=== PATIENT | male | born 1950 | race Caucasian/White ===

== ENCOUNTER 2017-06-26 14:31 | Inpatient (IN) | payer MEDICARE ==
[2017-06-26] MEDS ORDERED: Morphine 4 MG/ML VIAL ONE (15:28)
[2017-06-26] MEDS ORDERED: Ondansetron HCl/PF 4 MG/2 ML Vial ONE (15:29)
[2017-06-26 15:35] LABS: Hemoglobin 11.1 g/dL (14.0-18.0); Mean Corpuscular HGB CONC 32.2 g/dL (32.0-36.0); Mean Corpuscular Hemoglobin 30.9 pg (27.0-31.0); Mean Platelet Volume 7.5 fL (7.4-10.4); Platelet Count 310 thou/uL (130-400); Red Blood Cell (RBC) Count 3.58 mill/uL (4.70-6.10)
[2017-06-26 15:47] LABS: Anisocytosis SLIGHT = 6-15 cells (100X) (0-5/hpf); Band 8 % (5-11); Lymphocytes 1 % (21-51); MDiff Complete? YES; Monocytes 8 % (0-10); Neutrophil 83 % (42-75); PLT Morphology Comment Appears Adequate; Polychromasia SLIGHT = 2-3 cells (100X) (0-2/hpf); Target Cells SLIGHT = 2-5 cells (100X) (0-1/hpf); Tear Drops SLIGHT = 2-5 cells (100X) (0-1/hpf)
--- NOTE | 2017-06-26 15:54 | RAD ---
PELVIC RADIOGRAPH: Date: 06/26/17 PROVIDED CLINICAL HISTORY: Right hip pain status post injury. FINDINGS: There is a mildly displaced intertrochanteric fracture of the right proximal femur. No additional fra cture is evident. Right hip joint space appears preserved. Alignment appears anatomic. IMPRESSION: Mildly displaced fracture involving the right proximal femoral intertrochanteric region. POS: [facility]
[2017-06-26 15:55] LABS: ALT (SGPT) 26 U/L (8-55); AST (SGOT) 41 U/L (5-34); Albumin 2.4 g/dL (3.4-4.8); Alcohol 12 mg/dL (Less than 10); Alkaline Phosphatase 363 U/L (40-150); Anion Gap 17 mmol/L (10-20); BUN (Urea Nitrogen) Less than 4 mg/dL (8.4-25.7); Bilirubin, Total 0.6 mg/dL (0.2-1.2); CK (CPK) 219 U/L (30-200); Calc. Creatinine Clearance 0 mL/min (70-130); Calcium 7.8 mg/dL (7.8-10.44); Carbon Dioxide 20 mmol/L (23-31); Chloride 97 mmol/L (98-107); Estimated GFR-MDRD Greater than 90; Globulin 2.8 g/dL (2.4-3.5); Glucose 164 mg/dL (80-115); Potassium 4.5 mmol/L (3.5-5.1); Protein, Total 5.2 g/dL (5.8-8.1); Sodium 129 mmol/L (136-145)
--- NOTE | 2017-06-26 15:56 | RAD ---
RIGHT HIP 2 VIEWS: Date: 06/26/17 PROVIDED CLINICAL HISTORY: Right hip pain status post injury. FINDINGS: There is a nondisplaced fracture involving the right femoral intertrochanteric region. No additional fracture is evident. IMPRESSION: As above. POS: [facility]
[2017-06-26] MEDS ORDERED: CEFAZOLIN/Water 2 GM/20 ML SYRINGE SLOW IVP SCH (16:00)
--- NOTE | 2017-06-26 16:07 | RAD ---
PORTABLE CHEST: Date: 06/26/17 PROVIDED CLINICAL HISTORY: Preop. FINDINGS: Comparison with 12/23/15. Cardiac and mediastinal silhouette is within normal limits. Lungs appear clear. No pleural fluid or p neumothorax apparent. Chronic obstructive changes are suggested. IMPRESSION: No evidence for an acute cardiopulmonary process. POS: [facility]
[2017-06-26] MEDS ORDERED: Dextrose 5% in Water 1,000 ML IV PRN (17:19)
[2017-06-26] MEDS ORDERED: Dextrose 50% Abboject 50 ML SYRINGE SLOW IVP PRN (17:19)
[2017-06-26] MEDS ORDERED: Ondansetron HCl/PF 4 MG/2 ML Vial IVP PRN (17:19)
[2017-06-26 17:51] VITALS: BMI 20.5
[2017-06-26] MEDS: Acetaminophen 500 MG TAB PO SCH ×2 (19:07→21:28)
[2017-06-26 19:11] LABS: Magnesium 1.5 mg/dL (1.6-2.6); Phosphorus 3.6 mg/dL (2.3-4.7)
[2017-06-26] MEDS: traMADol HCl 50 MG TAB PO PRN (19:50)
[2017-06-26] MEDS ORDERED: Ketorolac Tromethamine 30 MG/ML VIAL IVP PRN (20:38)
[2017-06-26] MEDS ORDERED: Diabetic Tussin 200 MG/10 ML UDCUP PO PRN (20:40)
--- NOTE | 2017-06-26 20:47 | HP ---
DATE OF ADMISSION: 06/26/2017 REQUESTING PHYSICIAN: Dr. Ford, Emergency Department. ADMITTING PHYSICIAN: Dr. Jacky Gamez. CONSULTING PHYSICIAN: Dr. David Drake. HISTORY OF PRESENT ILLNESS: Mr. Smiley is a 67-year-old male, who was in his usual state of health this morning when he reports that he fell as he was ambulating to the bathroom. He said that he tripped on a carpet and fell to the floor. He did not seek help at that time. He had increasing pain throughout the day, necessitating him to come to the ER. Workup in the ER identified a right intertrochanteric hip fracture. Trauma was consulted for admission and management. Dr. Drake, Orthopedics, has been consulted. The patient reports his pain is exacerbated by movement. His pain is relieved by nothing. PAST MEDICAL HISTORY: 1. Dementia. 2. Diabetes. 3. Hypertension. 4. Hyperlipidemia. 5. Depression. 6. Bipolar. 7. Benign prostatic hypertrophy. 8. Anxiety. 9. Asthma. 10. Chronic obstructive pulmonary disease. 11. Gastroesophageal reflux disease. 12. Hepatitis C. PAST SURGICAL HISTORY: 1. Cholecystectomy. 2. Hernia repair. 3. Upper palate resection. 4. Splenectomy. 5. TURP. SOCIAL HISTORY: Alcohol: The patient reports at least five drinks per day. Smoking 1 pack per day of cigarettes. Drugs: None. FAMILY HISTORY: Noncontributory. LABORATORY DATA: Hematology: WBC 16.0, RBC 3.58, hemoglobin 11.1, hematocrit 34.4, platelets 310. Chemistry: Sodium 129, potassium 4.5, chloride 97, carbon dioxide 20, creatinine 0.71, glucose 164, AST 41, ALT 26, alkaline genesis phosphatase 363, creatinine kinase 219, albumin 2.4. TOXICOLOGY: Plasma alcohol 12. DIAGNOSTIC IMAGING: Right ankle intertrochanteric hip fracture. REVIEW OF SYSTEM: None. ALLERGIES: None. MEDICATIONS: Lisinopril 20 mg once daily, metformin 1000 mg 2 tabs daily, Cialis 20 mg as needed, Tylenol with codeine 1 tablet 2 times daily, gabapentin 300 mg once daily, tamsulosin 0.4 mg once daily, aspirin 81 mg once daily, Benadryl 25 mg as needed, vitamin C 500 mg once daily, ranitidine 150 mg b.i.d. , Wellbutrin 300 mg once daily, Nasonex 50 mcg nasally once daily, terbutaline 5 mg as needed, calcium plus vitamin D 600 mg/200 mg once daily, Klonopin 0.05 mg once daily, and vitamin B12 at 2500 mcg once daily. REVIEW OF SYSTEMS: CONSTITUTIONAL: The patient denies chills, fever, recent weight loss. HEENT: Denies vision changes, drainage from ears or nose. NECK: Denies neck pain. RESPIRATORY: Denies cough, denies wheezing. Denies shortness of breath. Denies respiratory distress. CARDIOVASCULAR: Denies chest pain. Denies syncope, denies peripheral edema. GASTROINTESTINAL: Denies abdominal pain, denies constipation. Denies diarrhea. EXTREMITIES/MUSCULOSKELETAL: Reports fall, reports right hip pain. SKIN: Denies rashes. Denies skin changes. HEMATOLOGIC/LYMPHATIC: Denies abnormal bleeding. EKG sinus tachycardia. PHYSICAL EXAMINATION: VITAL SIGNS: Blood pressure 122/77, pulse 107, respirations 19, temperature 98.1, and O2 sat 94% room air. GENERAL: A 67-year-old male who appears frail, nontoxic appearing, no apparent distress. HEENT: Atraumatic, normocephalic. NECK: Trachea midline. No posterior neck tenderness. RESPIRATORY: Coarse bilateral breath sounds in upper lung burger. No respiratory distress. Chest symmetrical air movement. CARDIOVASCULAR: Regular rate rhythm. Heart sounds normal. ABDOMEN: Soft, nontender, nondistended. Pelvis right hip pain with palpation. EXTREMITIES: Moves all extremities. NEUROLOGIC: Cap refill brisk. Neurovascularly intact. Pain with movement of right hip. NEUROLOGIC: GCS 15 awake, alert, oriented x3. No focal motor or sensory deficits. SKIN: Warm, dry, normal in color. PSYCHIATRIC: Normal mood and affect. ASSESSMENT AND PLAN: 1. Status post ground level fall. 2. Right intertrochanteric hip fracture. 3. History of chronic alcohol use. 4. Hyponatremia. 5. Acute traumatic pain. PLAN: 1. Admit to surgical floor. 2. Dr. Drake was consulted, plan is to take patient to the OR tomorrow. 3. Regular diet, n.p.o. after midnight. 4. IV fluids normal saline started at midnight. 5. Serax and monitor for alcohol withdrawal. 6. Pulmonary toilet, incentive spirometry, DuoNebs t.i.d. The patient was reviewed with Dr. Gamez, who agrees with plan. MTDD
[2017-06-26] MEDS: risperiDONE 1 MG TAB PO SCH (21:45)
[2017-06-26] MEDS: Famotidine/PF 20 mg/2ml Vial SLOW IVP SCH (21:46)
[2017-06-26] MEDS: Oxazepam 10 MG CAP PO SCH (21:46)
[2017-06-26] MEDS: Sodium Chloride 0.9% 1,000 ML IV SCH (21:50)
[2017-06-26] MEDS: Morphine 4 MG/ML VIAL SLOW IVP PRN (22:47)
[2017-06-27] MEDS: Acetaminophen 1,000 MG in Premix Bag 1 BAG IVPB SCH ×2 (00:11→05:36)
[2017-06-27] MEDS: Sodium Chloride 0.9% 1,000 ML IV SCH ×3 (01:39→20:47)
[2017-06-27] MEDS: Oxazepam 10 MG CAP PO SCH ×3 (05:29→21:08)
[2017-06-27 05:38] LABS: Anion Gap 10 mmol/L (10-20); BUN (Urea Nitrogen) 5 mg/dL (8.4-25.7); Calc. Creatinine Clearance 99 mL/min (70-130); Calcium 7.6 mg/dL (7.8-10.44); Carbon Dioxide 26 mmol/L (23-31); Chloride 99 mmol/L (98-107); Estimated GFR-MDRD Greater than 90; Glucose 157 mg/dL (80-115); Potassium 4.1 mmol/L (3.5-5.1); Sodium 131 mmol/L (136-145)
[2017-06-27 05:47] LABS: #Eosinphils 0.1 thou/uL (0.0-0.7); #Lymphocytes 3.5 thou/uL (1.20-3.40); #Monocytes 1.9 thou/uL (0.11-0.59); #Neutrophils 8.7 thou/uL (1.40-6.50); %Basophils 0.3 % (0.0-1.0); %Lymphocytes 24.4 % (21.0-51.0); %Monocytes 13.3 % (0.0-10.0); Hemoglobin 10.6 g/dL (14.0-18.0); Mean Corpuscular HGB CONC 32.2 g/dL (32.0-36.0); Mean Corpuscular Hemoglobin 30.2 pg (27.0-31.0); Mean Corpuscular Volume 93.7 fl (80.0-94.0); Mean Platelet Volume 7.5 fL (7.4-10.4); Platelet Count 282 thou/uL (130-400); White Blood Cell (WBC) Count 14.3 thou/uL (4.8-10.8)
[2017-06-27] MEDS: Morphine 4 MG/ML VIAL SLOW IVP PRN ×2 (05:55→09:46)
[2017-06-27] MEDS ORDERED: Fentanyl 250 MCG/5 ML VIAL ONE (07:07)
--- NOTE | 2017-06-27 07:07 | CON ---
DATE OF CONSULTATION: 06/26/2017 REQUESTING PHYSICIAN: Dr. Jacky Gamez HISTORY OF PRESENT ILLNESS: Mr. Smiley is a 67-year-old gentleman who fell at home sustaining trauma to his right hip. The patient reports he just tripped over some carpet and fell. The patient does h ave an extensive history of alcohol use. He states that he did begin drinking alcohol at about noon today; however, did not have his usual and customary volume secondary to this fall. Upon arrival at [facility], he had a sole complaint of right hip pain. PAST MEDICAL HISTORY: Remarkable for diabetes, hypertension, hyperlipidemia, psychiatric illness, de mentia, benign prostatic hypertrophy, COPD, reflux, and hepatitis C. PAST SURGICAL HISTORY: Includes cholecystectomy, hernia, splenectomy and transurethral resection of prostate. MEDICATIONS: I will refer you to the medication reconciliation form that include lisinopril, metform in, Cialis, Tylenol with codeine, Neurontin, tamsulosin, aspirin, Benadryl, ranitidine, Wellbutrin, N asonex p.r.n., terbutaline, and vitamin supplements. ALLERGIES: None known. FAMILY HISTORY: Noncontributory. SOCIAL HISTORY: He does drink alcohol on a daily basis. Reports about 5 alcoholic beverages per day . He smokes about a pack of cigarettes per day. Denies recreational drug use. PHYSICAL EXAMINATION: VITAL SIGNS: Temperature of 98.3, heart rate of 115, respiratory rate of 20 and blood pressure 135/9 9. HEENT: Atraumatic and normocephalic. His neck is nontender with supple range of motion. HEART: His heart shows a tachycardia, but regular and I do not appreciate any murmur. LUNGS: Clear to auscultation bilaterally in both left and right burger with no wheezing or rhonchi. Chest wall is nontender. ABDOMEN: Abdomen is mildly round, but soft and nontender with normal bowel sounds. PELVIS: Stable. EXTREMITIES: Remarkable for bilateral upper extremities that are atraumatic. The left lower extremi ty also atraumatic. Right lower extremity with pain in the groin with any type of log rolling of the thigh. The knee, ankle and foot appear atraumatic. He is moving his toes normally and reports inta ct subjective sensation over the dorsal and plantar aspects of foot. X-RAYS: AP pelvis as well as right hip x-ray obtained in the emergency room and remarkable for an in tertrochanteric femur fracture with mild displacement. LABORATORY: He is found to have a white count of 16, hematocrit of 34 and 310,000 platelets. His ch emistry remarkable for a low sodium of 129, glucose of 164, ALT and AST of 26 and 41 respectively wit h an elevated alkaline phosphatase of 363. ASSESSMENT: A 67-year-old gentleman status post ground level fall with no loss of consciousness and now with right intertrochanteric femur fracture. PLAN: At this time, the patient is admitted to the Trauma Service. We will plan on taking Mr. Smiley to the operating room tomorrow for an anticipated DHS placement for this intertrochanteric femur fra cture. This evening I discussed with patient the risks and benefits of surgery. Risks include, but are not limited to bleeding, infection, nerve injury, DVT, PE, loss of limb or life. The patient spencer ears to understand and does wish to proceed. Consent will be obtained prior to surgery.
[2017-06-27] MEDS ORDERED: CEFAZOLIN/Water 2 GM/20 ML SYRINGE ONE (07:24)
[2017-06-27] MEDS ORDERED: Midazolam HCl 2 mg/2 ml Vial ONE (07:28)
[2017-06-27 07:47] LABS: Magnesium 1.4 mg/dL (1.6-2.6); Phosphorus 3.4 mg/dL (2.3-4.7)
[2017-06-27] MEDS ORDERED: Morphine Sulfate 2 MG/ML SYRINGE SLOW IVP PRN (08:40)
[2017-06-27] MEDS ORDERED: Promethazine HCl 25 MG/ML VIAL SLOW IVP PRN (08:40)
[2017-06-27] MEDS ORDERED: Ondansetron HCl/PF 4 MG/2 ML Vial IVP PRN (08:40)
[2017-06-27] MEDS ORDERED: Promethazine HCl 25 MG/ML VIAL IM PRN (08:40)
[2017-06-27] MEDS ORDERED: Prevnar 13-Val Conj/PF 0.5 ML SYRINGE IM ONE (09:00)
[2017-06-27] MEDS ORDERED: Enoxaparin Sodium 40 MG/0.4 ML SYRINGE SC SCH ×2 (09:34→10:00)
[2017-06-27] MEDS: Tamsulosin HCl 0.4 MG CAP PO SCH (09:45)
[2017-06-27] MEDS: Lisinopril 20 MG TAB PO SCH (09:45)
[2017-06-27] MEDS: Famotidine/PF 20 mg/2ml Vial SLOW IVP SCH (09:45)
[2017-06-27] MEDS: Multivitamin W/ Minerals 1 TAB PO SCH (09:45)
[2017-06-27] MEDS: Cyanocobalamin (Vitamin B-12) 1,000 MCG TAB PO SCH (09:45)
[2017-06-27] MEDS: Folic Acid 1 MG TAB PO SCH (09:45)
[2017-06-27] MEDS: traMADol HCl 50 MG TAB PO PRN ×2 (10:43→16:06)
[2017-06-27] MEDS: Acetaminophen 500 MG TAB PO SCH ×3 (11:43→23:21)
[2017-06-27] MEDS: Insulin Regular 300 UNITS/3 ML VIAL SC PRN ×2 (11:43→17:38)
--- NOTE | 2017-06-27 11:44 | PRG-2 ---
DATE OF SERVICE: 06/27/2017 ATTENDING PHYSICIAN: Dr. Dajuan Naqvi SUBJECTIVE: Mr. Smiley is a 67-year-old male status post ground level fall on 06/26/2017 due to ashley ing over his carpet. He sustained a right intertrochanteric hip fracture. He was taken to the OR to day for fixation of the fracture. He is now seen postoperatively on the surgical floor. The patient reports pain that is 7/10 as well as a mild headache that he has not tried any medication for at thi s time. OBJECTIVE: VITAL SIGNS: Temperature 96.9, pulse 99, blood pressure 122/79, respiratory rate 18, O2 sat 96% on r oom air. GENERAL: Awake, well-developed, well-nourished male sitting in bed in no acute distress. HEENT: Conjunctivae are clear. Dry mucous membranes. Normocephalic, atraumatic. NECK: No use of accessory muscles of respiration, breath sounds clear bilaterally. CARDIOVASCULAR: Tachycardic, regular rhythm. No murmurs. ABDOMEN: Nondistended, hypoactive bowel sounds, soft, nontender. EXTREMITIES: Surgical dressing in place over right hip is clean, dry, and intact. No dependent doris a. Capillary refill is brisk. NEUROLOGIC: GCS 15. Awake, alert, oriented x3. ASSESSMENT: 1. Status post ground level fall. 2. Right intertrochanteric hip fracture. 3. History of chronic alcohol use. 4. Hyponatremia. 5. Tobacco abuse. 6. Acute traumatic pain. PLAN: 1. Advance diet to consistent carbohydrate diet. 2. Transition pain medications to oral pain meds including tramadol, ibuprofen and acetaminophen. 3. Antibiotics per Ortho. 4. Normal saline at 120 mL per hour. We will reassess this afternoon. 5. DuoNeb and incentive spirometry. 6. Rehab screen, PT and OT consult. 7. Monitor for alcohol withdrawal. We will give thiamine and folic acid. 8. Nicoderm patch and counseling for smoking cessation. 9. Lovenox for VTE prophylaxis. The patient was reviewed with Dr. Naqvi who agrees with the plan.
--- NOTE | 2017-06-27 12:06 | RAD ---
RIGHT HIP INTRAOPERATIVE FLUOROSCOPY TWO VIEWS: HISTORY: Hip fracture. FINDINGS/IMPRESSION: Intraoperative fluoroscopy was provided for internal fixation right hip as performed by Dr. Drake. Spot fluoroscopic images show compression nail and side plate transfixing the right hip in anatomic alignment. Fluoro time equals 21 seconds. POS: [facility]
[2017-06-27] MEDS: Sodium Chloride 0.9% 500 ML IV SCH ×5 (12:45→14:08)
[2017-06-27] MEDS ORDERED: Ibuprofen 600 MG TAB PO SCH (14:00)
[2017-06-27] MEDS: CEFAZOLIN/Water 2 GM/20 ML SYRINGE SLOW IVP SCH ×2 (14:02→23:21)
[2017-06-27] MEDS: traMADol HCl 50 MG TAB PO SCH ×2 (14:04→21:08)
[2017-06-27] MEDS ORDERED: PHENYLEPHRINE-NS 100 MCG/ML 10 ML SYRINGE ONE (15:55)
[2017-06-27] MEDS ORDERED: PROPOFOL 200 MG/20 ML VIAL ONE (15:55)
[2017-06-27] MEDS ORDERED: Glycopyrrolate 0.2 MG/ML 5 ML SYRINGE ONE (15:55)
[2017-06-27] MEDS ORDERED: Succinylcholine Chloride 20 MG/ML 10 ml SYRINGE FS ONE (15:55)
[2017-06-27] MEDS ORDERED: Ondansetron HCl/PF 4 MG/2 ML Vial ONE (15:55)
[2017-06-27] MEDS ORDERED: Lidocaine 1% PF 5 ML VIAL ONE (15:55)
[2017-06-27] MEDS: Ibuprofen 600 MG TAB PO SCH (21:08)
[2017-06-27] MEDS: risperiDONE 1 MG TAB PO SCH (21:08)
[2017-06-27] MEDS: Famotidine 20 MG TAB PO SCH (21:08)
[2017-06-28] MEDS: traMADol HCl 50 MG TAB PO SCH ×4 (01:45→20:43)
[2017-06-28] MEDS: Sodium Chloride 0.9% 1,000 ML IV SCH ×3 (01:46→18:37)
[2017-06-28] MEDS: Acetaminophen 500 MG TAB PO SCH ×3 (05:31→17:46)
[2017-06-28] MEDS: Ibuprofen 600 MG TAB PO SCH ×3 (05:31→22:26)
[2017-06-28] MEDS: Oxazepam 10 MG CAP PO SCH ×3 (05:31→22:26)
[2017-06-28 08:02] LABS: #Basophils 0.1 thou/uL (0.0-0.2); #Eosinphils 0.1 thou/uL (0.0-0.7); #Lymphocytes 1.7 thou/uL (1.20-3.40); #Monocytes 1.5 thou/uL (0.11-0.59); #Neutrophils 10.6 thou/uL (1.40-6.50); %Basophils 0.4 % (0.0-1.0); %Eosinophils 0.4 % (0.0-10.0); %Neutrophils 76.2 % (42.0-75.0); Hemoglobin 9.7 g/dL (14.0-18.0); Mean Corpuscular HGB CONC 31.3 g/dL (32.0-36.0); Mean Corpuscular Hemoglobin 29.9 pg (27.0-31.0); Mean Corpuscular Volume 95.5 fl (80.0-94.0); Mean Platelet Volume 7.5 fL (7.4-10.4); Platelet Count 269 thou/uL (130-400); RBC Distribution Width 16.1 % (11.5-14.5); Red Blood Cell (RBC) Count 3.24 mill/uL (4.70-6.10); White Blood Cell (WBC) Count 13.9 thou/uL (4.8-10.8)
[2017-06-28 08:14] LABS: Anion Gap 10 mmol/L (10-20); BUN (Urea Nitrogen) 6 mg/dL (8.4-25.7); Calc. Creatinine Clearance 104 mL/min (70-130); Calcium 7.4 mg/dL (7.8-10.44); Carbon Dioxide 21 mmol/L (23-31); Chloride 102 mmol/L (98-107); Estimated GFR-MDRD Greater than 90; Glucose 148 mg/dL (80-115); Magnesium 1.8 mg/dL (1.6-2.6); Potassium 4.2 mmol/L (3.5-5.1); Sodium 129 mmol/L (136-145)
[2017-06-28] MEDS: Multivitamin W/ Minerals 1 TAB PO SCH (08:55)
[2017-06-28] MEDS: Tamsulosin HCl 0.4 MG CAP PO SCH (08:55)
[2017-06-28] MEDS: Folic Acid 1 MG TAB PO SCH (08:55)
[2017-06-28] MEDS: Cyanocobalamin (Vitamin B-12) 1,000 MCG TAB PO SCH (08:55)
[2017-06-28] MEDS: Famotidine 20 MG TAB PO SCH ×2 (08:55→20:43)
[2017-06-28] MEDS: Enoxaparin Sodium 40 MG/0.4 ML SYRINGE SC SCH (08:56)
[2017-06-28] MEDS: Lisinopril 20 MG TAB PO SCH (09:01)
[2017-06-28] MEDS: Nicotine 21 MG PATCH TD SCH (09:04)
[2017-06-28] MEDS ORDERED: Sodium Chloride 0.9% 500 ML IVPB SCH (09:45)
[2017-06-28] MEDS ORDERED: Hydrocortisone Sod Succ/PF 100 mg/2 ml Vial IVP SCH (10:30)
--- NOTE | 2017-06-28 11:18 | PRG-2 ---
DATE OF SERVICE: 06/28/2017 ATTENDING PHYSICIAN: Dr. Dajuan Naqvi SUBJECTIVE: Mr. Smiley is a 67-year-old male who had a ground level fall on 06/26/2017 due to trippin g over his carpet. The patient sustained a right intertrochanteric hip fracture. The patient is pos toperative day #1, status post fixation of the right hip fracture. He reports that his pain is 6/10 today. OBJECTIVE: VITAL SIGNS: Temperature 97.7, pulse 96, blood pressure 93/57, respiratory rate 16, O2 sat 98% on ro om air. GENERAL: Well-developed, well-nourished male sitting up in bed in no acute distress. HEENT: Moist mucous membranes. Normocephalic, atraumatic. RESPIRATORY: No use of accessory muscles of respiration, breath sounds are clear bilaterally. CARDIOVASCULAR: Regular rate and rhythm. No murmurs or gallops. ABDOMEN: Nondistended, soft, nontender. EXTREMITIES: Surgical dressing in place over the right hip is clean, dry and intact. No dependent e milan. Capillary refill is brisk in all 4 extremities. NEUROLOGIC: GCS 15. Awake, alert, oriented x3. ASSESSMENT: 1. Status post ground level fall. 2. Right intertrochanteric fracture. 3. History of chronic alcohol abuse. 4. Chronic hyponatremia. 5. Tobacco abuse. 6. Acute adrenal insufficiency. 7. Acute traumatic pain. PLAN: 1. Pain control with tramadol, ibuprofen and acetaminophen. 2. Consistent carbohydrate diet. 3. Normal saline at 120 mL per hour, status post two 500 mL normal saline boluses for hypotension. 4. Hydrocortisone 100 mg IV once, followed by 50 mg IV q.8h. for lower than expected a.m. cortisol l evel. 5. Continue incentive spirometer and DuoNebs. 6. PT, OT and rehab screen. 7. Monitor for alcohol withdrawal. We will give thiamine and folic acid. 8. Nicoderm patch and counseling for smoking cessation. 9. Lovenox for VTE prophylaxis. The patient was reviewed by Dr. Naqvi who agrees with the plan.
[2017-06-28] MEDS: Insulin Regular 300 UNITS/3 ML VIAL SC PRN ×3 (11:58→22:38)
[2017-06-28] MEDS: traMADol HCl 50 MG TAB PO PRN (12:03)
[2017-06-28] MEDS: Hydrocortisone Sod Succ/PF 100 mg/2 ml Vial IVP SCH (17:46)
[2017-06-28] MEDS: risperiDONE 1 MG TAB PO SCH (20:43)
[2017-06-29] MEDS: Acetaminophen 500 MG TAB PO SCH ×4 (01:54→18:09)
[2017-06-29] MEDS: Hydrocortisone Sod Succ/PF 100 mg/2 ml Vial IVP SCH ×3 (02:49→18:08)
[2017-06-29] MEDS: traMADol HCl 50 MG TAB PO PRN (02:53)
[2017-06-29] MEDS: Sodium Chloride 0.9% 1,000 ML IV SCH ×2 (02:53→11:14)
[2017-06-29] MEDS: traMADol HCl 50 MG TAB PO SCH ×2 (02:53→08:32)
[2017-06-29] MEDS: Ibuprofen 600 MG TAB PO SCH ×2 (05:29→14:27)
[2017-06-29] MEDS: Oxazepam 10 MG CAP PO SCH ×2 (05:29→14:27)
[2017-06-29] MEDS: Insulin Regular 300 UNITS/3 ML VIAL SC PRN ×2 (06:50→12:07)
[2017-06-29 07:53] LABS: Hemoglobin 9.1 g/dL (14.0-18.0); Mean Corpuscular HGB CONC 31.7 g/dL (32.0-36.0); Mean Corpuscular Hemoglobin 30.4 pg (27.0-31.0); Mean Corpuscular Volume 95.7 fl (80.0-94.0); Mean Platelet Volume 7.2 fL (7.4-10.4); Platelet Count 279 thou/uL (130-400); RBC Distribution Width 16.6 % (11.5-14.5); Red Blood Cell (RBC) Count 2.98 mill/uL (4.70-6.10); White Blood Cell (WBC) Count 20.6 thou/uL (4.8-10.8)
[2017-06-29 08:04] LABS: Anion Gap 10 mmol/L (10-20); BUN (Urea Nitrogen) 6 mg/dL (8.4-25.7); Calc. Creatinine Clearance 117 mL/min (70-130); Calcium 7.2 mg/dL (7.8-10.44); Carbon Dioxide 17 mmol/L (23-31); Chloride 106 mmol/L (98-107); Estimated GFR-MDRD Greater than 90; Glucose 158 mg/dL (80-115); Magnesium 1.6 mg/dL (1.6-2.6); Potassium 4.3 mmol/L (3.5-5.1); Sodium 129 mmol/L (136-145)
[2017-06-29 08:21] LABS: Acanthocytes SLIGHT = 1-5 cells (100X) (None Seen); Band 14 % (5-11); Burr Cells SLIGHT = 2-5 cells (100X) (0-1/hpf); Lymphocytes 5 % (21-51); MDiff Complete? YES; Macrocytosis SLIGHT = 6-15 cells (100X) (0-5/hpf); Monocytes 6 % (0-10); Neutrophil 73 % (42-75); PLT Morphology Comment Appears Adequate; Polychromasia SLIGHT = 2-3 cells (100X) (0-2/hpf); Promyelocytes 2 % (0-0); Target Cells SLIGHT = 2-5 cells (100X) (0-1/hpf)
[2017-06-29] MEDS: Lisinopril 20 MG TAB PO SCH (08:24)
--- NOTE | 2017-06-29 08:29 | OP ---
DATE OF SURGERY: 06/27/2017 PREOPERATIVE DIAGNOSIS: Right intertrochanteric femur fracture. POSTOPERATIVE DIAGNOSIS: Right intertrochanteric femur fracture. SURGICAL PROCEDURE: DHS for right intertrochanteric femur fracture. ANESTHESIA: General. SURGEON: David Drake M.D. [employer]: Bob Borja PA-C. BLOOD LOSS: 50 mL. IMPLANTS: A [employer] DHS system was used with a 3-hole 135 degree side plate in a 100 mm hip screw. COMPLICATIONS: None. DRAINS: None. SPECIMEN: None. OUTCOME: Satisfactory. INDICATIONS: The patient is a 67-year-old gentleman status post ground level fall sustaining a non-c omminuted right intertrochanteric femur fracture. After discussion with patient and his family, we h ave decided to proceed with stabilization of this fracture with a DHS device. Informed consent has b een obtained. Risks and benefits have been discussed. The risks include, but are not limited to ble eding, infection, nerve injury, DVT, PE, loss of limb or life. Patient appears to understand and johnson s wish to proceed. Consent has been obtained. DESCRIPTION OF PROCEDURE: The patient was brought to the operating room and a timeout performed foll owed by induction of general anesthesia. Next, patient was positioned on the fracture table with his legs slightly scissored with the injured extremity held in longitudinal traction and slight internal rotation. Next, a sterile prep and drape was performed of the right lateral thigh. This was follow ed by a small skin incision distal to the greater trochanter. After skin was sharply incised, dissec tion was carried down to the underlying fascia melanie. This was incised in line with the skin incision exposing the underlying vastus lateralis fascia. This fascia was incised in line with the skin inci priti and then the muscle belly reflected off of the inferior leaflet of the fascia and then the muscl e belly reflected anteriorly with care taken to cauterize perforating vessels of the vastus lateralis . At this point, the lateral cortex of the proximal femur was exposed. A 135 degree jig was placed against the lateral cortex of the femur and a threaded guidewire was introduced through the lateral c ortex of the proximal femur up into the femoral neck and head in a near center-center position. Once appropriately aligned, measurement was taken off of this the jig for appropriate hip screw length. Next a step reamer was passed over this guidewire under C-arm guidance. This was then followed by in sertion of 135 degree sideplate with 95 mm hip screw. Once the hip screw was fully delivered up into the femoral head, the plate was pushed against the lateral cortex of the proximal femur. This was t hen followed by insertion of three 4.5 mm screws holding the plate against the proximal femur. At th e completion of this, AP, lateral C-arm images were obtained that showed anatomic alignment of the fr acture and appropriate positioning of the plate. The wound was then irrigated with bulb syringe and then closed in layers with 0 Vicryl for the fascia of the vastus lateralis and fascia melanie, 2-0 Vicry l subcutaneously, and staple for the skin. A Xeroform gauze and tape dressing was applied to the wou nd and then patient was transferred to his recovery room in stable condition. There were no complica tions. Patient tolerated the procedure well.
[2017-06-29] MEDS: Enoxaparin Sodium 40 MG/0.4 ML SYRINGE SC SCH (08:31)
[2017-06-29] MEDS: Tamsulosin HCl 0.4 MG CAP PO SCH (08:32)
[2017-06-29] MEDS: Cyanocobalamin (Vitamin B-12) 1,000 MCG TAB PO SCH (08:32)
[2017-06-29] MEDS: Multivitamin W/ Minerals 1 TAB PO SCH (08:32)
[2017-06-29] MEDS: Famotidine 20 MG TAB PO SCH (08:32)
[2017-06-29] MEDS: Folic Acid 1 MG TAB PO SCH (08:32)
[2017-06-29] MEDS: Nicotine 21 MG PATCH TD SCH (08:37)
[2017-06-29] MEDS ORDERED: Bisacodyl 10 MG SUPP PR SCH (09:00)
[2017-06-29] MEDS ORDERED: Senokot S 8.6-50 MG TAB PO SCH (09:00)
[2017-06-29] MEDS ORDERED: Polyethylene Glycol 3350 17 GM Packet PO SCH (09:00)
[2017-06-29] MEDS ORDERED: traMADol HCl 50 MG TAB PO SCH ×2 (09:52→14:30)
[2017-06-29] MEDS ORDERED: Magnesium Sulfate 4 GM in Sodium Chloride 0.9% 250 ML 250 ML IVPB SCH (10:00)
--- NOTE | 2017-06-29 11:23 | PRG-2 ---
DATE OF SERVICE: 06/29/2017 ATTENDING PHYSICIAN: Dr. Dajuan Naqvi SUBJECTIVE: Mr. Smiley is a 67-year-old male who had a ground level fall on 06/26/2017 due to trippin g over his carpet. The patient sustained a right intertrochanteric hip fracture. The patient is pos top day #2, status post fixation of the right hip fracture. The patient reports his pain is 6-7/10 t thelma after working with physical therapy. The patient has not yet had a bowel movement postoperative ly. EXAMINATION: VITAL SIGNS: Temperature 97.6, pulse 114, respiratory rate 16, O2 sat 96% on room air, blood pressur e 116/71. GENERAL: Well-developed, well-nourished male sitting up in chair in no acute distress. HEENT: Moist mucous membranes. Normocephalic, atraumatic. RESPIRATORY: No use of accessory muscles of respiration. Breath sounds are clear bilaterally with n o wheezes, rubs or rhonchi. CARDIOVASCULAR: Tachycardic, regular rhythm. No murmurs or gallops. No peripheral edema. ABDOMEN: Nondistended, normoactive bowel sounds, soft, nontender. EXTREMITIES: Dressing in place over the right hip is clean, dry, and intact. No dependent edema. C apillary refill is brisk in all 4 extremities. NEUROLOGIC: GCS 15, awake, alert, oriented x3. ASSESSMENT: 1. Status post ground level fall. 2. Right intertrochanteric fracture. 3. History of chronic alcohol abuse. 4. Chronic hyponatremia. 5. Tobacco abuse. 6. Acute adrenal insufficiency. 7. Sinus tachycardia. 8. Acute traumatic pain. PLAN: 1. Pain control. We will increase tramadol dose today. Continue ibuprofen and acetaminophen schedu led. 2. Consistent carbohydrate diet. 3. Hydrocortisone 50 mg IV q.8h. for adrenal insufficiency, status post 100 mg initial dose. 4. Normal saline at 120 mL per hour, status post 500 mL bolus this morning for hypotension. 5. Continue incentive spirometry and DuoNebs. 6. PT, OT and rehab screen. 7. Monitor for alcohol withdrawal. We will continue thiamine and folic acid. 8. Nicoderm patch, counseling for smoking cessation. 9. Bowel regimen with docusate, Senna, Dulcolax suppository and MiraLax. 10. Magnesium replacement with 4 grams of mag sulfate. 11. Lovenox for VTE prophylaxis. 12. Discharge to rehab once approved. Dr. Naqvi saw and examined the patient and formulated the plan with me.
[2017-06-29 19:35] VITALS: BP 109/74; TEMP 97.3
--- NOTE | 2017-06-30 02:11 | DIS ---
DATE OF ADMISSION: 06/26/2017 DATE OF DISCHARGE: 06/29/2017 ADMITTING PHYSICIAN: Dr. Jacky Gamez. DISCHARGE PHYSICIAN: Dr. Dajuan Naqvi. ADMISSION DIAGNOSES: 1. Status post ground level fall. 2. Right intertrochanteric hip fracture. 3. History of chronic alcohol use. 4. Hyponatremia. 5. Acute traumatic pain. DISCHARGE DIAGNOSES: 1. Status post ground level fall. 2. Right intertrochanteric hip fracture. 3. History of chronic alcohol use. 4. Hyponatremia. 5. Acute traumatic pain. PROCEDURES PERFORMED: DHS for right intertrochanteric femur fracture. HOSPITAL COURSE: Mr. Smiley is a 67-year-old male who was in his usual state of health when he report ed falling while ambulating to the bathroom. He did not initially seek help, but worsening pain, for suyapa him to come to the [facility] where he was found to have a right intertrochanteric hip fractur e. Trauma Services was consulted for admission and management. Dr. Drake, Orthopedics, was consu lted for surgical fixation of his hip. He underwent surgical fixation of his hip on 06/27/2017. The patient was then transferred to the surgical floor. He developed hypotension postoperatively. A se rum cortisol level was drawn, which revealed a serum cortisol of 15.70. The patient was given 100 mg of hydrocortisone and started on 50 mg q.8 hours. His blood pressure improved after this. The eve ent was discharged in stable condition on 06/29/2017 to rehabilitation. DISCHARGE MEDICATIONS: The patient was restarted on all of his home medications. He was discharged to rehab with all of his inpatient medications. ACTIVITY INSTRUCTIONS: The patient was discharged with orthopedic limitations including weightbearin g as tolerated and activity as tolerated. NOURISHMENT INSTRUCTIONS: The patient discharged on a consistent carb diet with 1800 kilo calories a day. THERAPY INSTRUCTIONS: The patient discharged with occupational, physical therapy and rehabilitation. FOLLOWUP INSTRUCTIONS: The patient is instructed to follow up with Dr. David Drake in 10-14 day s. The patient also advised to follow up with his primary care physician in 7 days. No follow up brittany Naqvi was scheduled; however, Dr. Naqvi remains available for questions or concerns. This patient was seen and examined along with Dr. Dajuan Naqvi, who agrees with this discharge plan.
--- NOTE | 2017-07-10 00:56 | EKG ---
Test Reason : FALL Blood Pressure : / mmHG Vent. Rate : 113 BPM Atrial Rate : 113 BPM P-R Int : 140 ms QRS Dur : 094 ms QT Int : 350 ms P-R-T Axes : 055 -11 043 degrees QTc Int : 480 ms Sinus tachycardia Low voltage QRS Confirmed by BRIDGER GERARDO ([id number]), mapping editor MAYELA PULIDO ([id number]) on 07/10/2017 12:56:25 AM Referred By: Confirmed By:BRIDGER GERARDO
--- NOTE | 2017-07-13 22:42 | EKG ---
Test Reason : ? TACHYCARDIA Blood Pressure : / mmHG Vent. Rate : 115 BPM Atrial Rate : 115 BPM P-R Int : 144 ms QRS Dur : 108 ms QT Int : 334 ms P-R-T Axes : 054 002 011 degrees QTc Int : 462 ms Sinus tachycardia Low voltage QRS Incomplete right bundle branch block Borderline ECG When compared with ECG of 26-JUN-2017 15:26, (Unconfirmed) Fusion complexes are no longer Present QRS duration has increased Nonspecific T wave abnormality now evident in Inferior leads Nonspecific T wave abnormality now evident in Anterior leads Confirmed by Vega PASCAL ([id number]) on 07/13/2017 10:41:38 PM Referred By: ANGIE Confirmed By:Vega PASCAL
== END 2017-06-29 19:33 | DRG 481 ==
LOC: ERS 14:31 → SURG A 15:20
PROVIDERS: ADMIT Surgery; ATTEND Surgery
PROC: 0QH604Z Insertion of Internal Fixation Device into Right Upper Femur, Open Approach (ICD-10-PCS; principal; 2017-06-27)
DX: S72.141A Displaced intertrochanteric fracture of right femur, initial encounter for closed fracture (principal); E87.1 Hypo-osmolality and hyponatremia; F03.90 Unspecified dementia, unspecified severity, without behavioral disturbance, psychotic disturbance, mood disturbance, and anxiety; J44.9 Chronic obstructive pulmonary disease, unspecified; E27.40 Unspecified adrenocortical insufficiency; E11.9 Type 2 diabetes mellitus without complications; I10 Essential (primary) hypertension; E78.5 Hyperlipidemia, unspecified; F32.9 Major depressive disorder, single episode, unspecified; F41.9 Anxiety disorder, unspecified; K21.9 Gastro-esophageal reflux disease without esophagitis; Z86.19 Personal history of other infectious and parasitic diseases; F17.210 Nicotine dependence, cigarettes, uncomplicated; F10.10 Alcohol abuse, uncomplicated; R00.0 Tachycardia, unspecified; I95.81 Postprocedural hypotension; Z85.89 Personal history of malignant neoplasm of other organs and systems
CPT/HCPCS: 36415; 36416; 71045; 72170; 76001; 80048; 80053; 80307; 82533; 82550; 83735; 84100; 85025; 86850; 86900; 86901; 93005; 93010; 94640; 96374; 96375; C1713; C1769; G8978-GP-CL; G8979-GP-CJ; G8987-GO-CK; G8988-GO-CI; J0131; J1650; J1720; J1815; J1885; J2001; J2250; J2270; J2405; J2704; J3010; J3475; J7050; J7620; S0028

== ENCOUNTER 2017-07-01 10:23 | Inpatient (IN) | payer MEDICARE ==
[~2017-07-01 10:23] MED LIST: ISOVUE-370 76%-LOCM 1 ML ONE
[2017-07-01] MEDS ORDERED: Albuterol Sulfate 2.5 mg/0.5 ml Neb ONE ×2 (10:44)
[2017-07-01] MEDS ORDERED: Albuterol Sulfate 2.5 mg/3 ml Neb ONE (10:45)
--- NOTE | 2017-07-01 11:05 | RAD ---
FRONTAL VIEW CHEST: Date: 07/01/17 COMPARISON: Previous day. INDICATION: Chest pain. FINDINGS: There is prominent pulmonary edema bilaterally, with an enlarged cardiac silhouette and pulmonary vas cular congestion. Mild pleural based density inferiorly indicates small volume pleural fluid bilatera lly. Extrinsic artifact overlies the chest, limiting detail. IMPRESSION: Findings most consistent with pulmonary edema. Superimposed pneumonia not excluded. Follow-up is christina mmended. POS: [facility]
[2017-07-01 11:49] LABS: ALT (SGPT) 18 U/L (8-55); AST (SGOT) 54 U/L (5-34); Albumin 2.1 g/dL (3.4-4.8); Alkaline Phosphatase 248 U/L (40-150); Anion Gap 13 mmol/L (10-20); BUN (Urea Nitrogen) 17 mg/dL (8.4-25.7); Bilirubin, Total 0.7 mg/dL (0.2-1.2); Calc. Creatinine Clearance 0 mL/min (70-130); Calcium 7.8 mg/dL (7.8-10.44); Carbon Dioxide 17 mmol/L (23-31); Chloride 102 mmol/L (98-107); Estimated GFR-MDRD Greater than 90; Globulin 2.6 g/dL (2.4-3.5); Glucose 154 mg/dL (80-115); Lipase 10 U/L (8-78); Magnesium 1.9 mg/dL (1.6-2.6); Potassium 4.2 mmol/L (3.5-5.1); Protein, Total 4.7 g/dL (5.8-8.1); Sodium 128 mmol/L (136-145)
[2017-07-01 11:50] LABS: Troponin I Less than 0.010 ng/mL (< 0.028)
[2017-07-01 11:52] LABS: Band 26 % (5-11); Crenated RBC SLIGHT = 1-5 cells (100X) (None Seen); Hemoglobin 9.6 g/dL (14.0-18.0); Lymphocytes 18 % (21-51); MDiff Complete? YES; Mean Corpuscular HGB CONC 30.9 g/dL (32.0-36.0); Mean Corpuscular Hemoglobin 30.3 pg (27.0-31.0); Mean Corpuscular Volume 97.8 fl (80.0-94.0); Mean Platelet Volume 7.6 fL (7.4-10.4); Neutrophil 56 % (42-75); Platelet Count 286 thou/uL (130-400); Polychromasia SLIGHT = 2-3 cells (100X) (0-2/hpf); RBC Distribution Width 16.8 % (11.5-14.5); Red Blood Cell (RBC) Count 3.16 mill/uL (4.70-6.10); Target Cells SLIGHT = 2-5 cells (100X) (0-1/hpf); White Blood Cell (WBC) Count 10.2 thou/uL (4.8-10.8)
[2017-07-01 11:56] LABS: CKMB 9.3 ng/mL (0-6.6)
[2017-07-01] MEDS ORDERED: Dextrose 50% Abboject 50 ML SYRINGE SLOW IVP PRN (13:27)
[2017-07-01] MEDS ORDERED: Ondansetron ODT 4 MG TAB PO PRN (13:27)
[2017-07-01] MEDS ORDERED: Dextrose 5% in Water 1,000 ML IV PRN (13:27)
[2017-07-01] MEDS ORDERED: hydrALAZINE 20 MG/ML VIAL SLOW IVP PRN (13:27)
[2017-07-01] MEDS ORDERED: methylPREDNISolone Sod Succ/PF 125 MG/2 ML VIAL ONE (13:29)
[2017-07-01] MEDS ORDERED: Water For Inject, Bacteriostat 30 ML ONE (13:29)
[2017-07-01] MEDS ORDERED: Furosemide 20 MG/2 ML VIAL ONE (13:47)
[2017-07-01] MEDS ORDERED: Hydrocortisone Sod Succ/PF 100 mg/2 ml Vial IVP SCH (14:00)
--- NOTE | 2017-07-01 14:10 | PRG ---
DATE OF SERVICE: 07/01/2017 Mr. Smiley was seen in the emergency room with the trauma PA with respiratory insufficiency. He has b een placed on BiPAP and his tachypnea is improved as have his sats. He is tachycardic into the 120s, but his blood pressure is now stabilized. He is being admitted to the IMCU on BiPAP. Discussed wit brittney Naqvi. We will restart hydrocortisone. His BNP is slightly elevated. We will hold off on sig nificant diuresis at this time.
[2017-07-01 14:16] LABS: Troponin I Less than 0.010 ng/mL (< 0.028)
[2017-07-01] MEDS ORDERED: traMADol HCl 50 MG TAB PO PRN (14:17)
--- NOTE | 2017-07-01 14:34 | CT ---
CT ANGIOGRAM CHEST WITH CONTRAST: HISTORY: Cough and shortness of breath. COMPARISON: Chest radiograph the same day. TECHNIQUE: CT angiogram chest performed after the intravenous administration of contrast. Three-D rendering is provided. FINDINGS: No proximal segmental pulmonary arterial filling defect. No aneurysmal dilatation of the aorta. Large hiatal hernia containing approximately 50% of the stomach volume Numerous small AP window and prevascular lymph nodes are present. Moderate-sized bilateral pleural e ffusions. Upper abdomen is relatively unremarkable. No spleen is visualized. There are diffuse abnormal increased interstitial and alveolar opacities throughout the lungs suggest ing pulmonary edema. No pneumothorax. Numerous bilateral old rib fractures. There is a healing anterolateral left 4th, 5th, and 6th rib fr actures and 7th rib fractures. Bones are osteopenic. No thoracic spine compression fractures appreciated. IMPRESSION: 1. Diffuse abnormally increased interstitial and alveolar opacities with crazy paving pattern sugges ts acute respiratory distress syndrome and pulmonary edema. 2. Moderate bilateral layering pleural effusions. 3. Large sliding hiatal hernia with the approximately 50% of the stomach within the chest cavity. 4. Likely reactive AP window and prevascular lymph nodes. 5. Numerous bilateral old rib fractures with some subacute to left-sided rib fractures. 6. Nonunion distal left clavicular fracture. 7. No pulmonary embolism. POS: [facility]
[2017-07-01] MEDS: Gabapentin 300 MG CAP PO SCH ×2 (14:57→20:46)
--- NOTE | 2017-07-01 15:45 | HP ---
ADMITTING PHYSICIAN: Carlos Lewis M.D. CHIEF COMPLAINT: Hypoxia. HISTORY OF PRESENT ILLNESS: Mr. Smiley is a 67-year-old male with a history of COPD and asthma who was recently admitted to [facility] for a right hip fracture. He underwent surgical fixation of this with Dr. Drake and was discharged to inpatient rehab on 06/29/2017. He was seen today in the ER for respiratory distress with oxygen saturations in the high 70s on 4 liters. He was also tachypneic with a maximum respiratory rate of 26. He was placed on BiPAP at which point his tachypnea improved and his oxygen saturation reached 100 on 40 of FiO2. Chest x-ray in the ER showed prominent pulmonary edema bilaterally within large cardiac silhouette and pulmonary vascular congestion. The patient had a CTA of the chest and thorax, which appears to be negative for PE. The official read is still pending. Dr. Lewis spoke with Dr. Naqvi over the phone and the decision was made to admit the patient to the [facility] on BiPAP. PAST MEDICAL HISTORY: Significant for dementia, diabetes, hypertension, hyperlipidemia, depression, bipolar disorder, BPH, anxiety, asthma, chronic obstructive pulmonary disease, gastroesophageal reflux disease and hepatitis C. PAST SURGICAL HISTORY: Includes history of cholecystectomy, hernia repair, upper palate resection, splenectomy and TURP. The patient also had a recent open reduction and internal fixation of right hip fracture. SOCIAL HISTORY: Significant for heavy alcohol use. The patient reports currently having at least 5 drinks a day. The patient reports smoking 1 pack of cigarettes per day. He denies drug use. FAMILY HISTORY: Noncontributory. ALLERGIES: The patient reports an allergy to TRAZODONE. HOME MEDICATIONS: Include lisinopril 20 mg once daily, metformin 1000 mg 2 tabs daily, Cialis 20 mg as needed, Tylenol with codeine 1 tablet 2 times daily , gabapentin 300 mg once daily, tamsulosin 0.4 mg once daily, aspirin 81 mg once daily, Benadryl 25 mg as needed, vitamin C 500 mg once daily, ranitidine 150 mg b.i.d., Wellbutrin 300 mg once daily, Nasonex 50 mcg nasally once daily, terbutaline 5 mg as needed, calcium plus vitamin D 600 mg/200 mg once daily, Klonopin 0.05 mg once daily and vitamin B12 2500 mcg once daily. REVIEW OF SYSTEMS: A 10-point review of systems is negative except as mentioned in the HPI. PHYSICAL EXAMINATION: VITAL SIGNS: Blood pressure 106/70, pulse 119, respirations 23, pain 6 and O2 sat 100% on BiPAP with FiO2 of 40. GENERAL APPEARANCE: The patient is a late middle-aged adult male. He is in the ER bed on BiPAP. He does appear to be in some respiratory distress. HEENT: Normocephalic and atraumatic. Eyes: PERRLA, EOMI. Ears: Atraumatic. Nose: Nares patent. Mouth: Atraumatic. NECK: He has no tracheal deviation. RESPIRATORY: He has coarse rhonchi bilaterally. The patient is on BiPAP at 40 FiO2. He is slightly tachypneic. Accessory muscle use is present. CARDIOVASCULAR: The patient is tachycardic. He has normal heart sounds. He has JVD below the angle of the mandible. GASTROINTESTINAL: The patient's abdomen is soft, flat and nontender. He has normal bowel sounds. EXTREMITIES: The patient moves all extremities. NEUROLOGIC: The patient is alert and oriented x4. His GCS is 15. He has no focal deficits. SKIN: The patient has a well healing surgical incision over his right greater trochanter with ana in place. His dressing is moderately saturated with serosanguineous drainage. There is no erythema or purulent drainage. LABORATORY DATA: Hematology: WBC 10.2, hemoglobin 9.6, hematocrit 31.0 and platelets 286. Chemistry: Sodium 128, potassium 4.2, chloride 102, bicarbonate 17, BUN 17, creatinine 0.76, glucose 154, calcium 7.8 and magnesium 1.9. Liver function: Total bilirubin 0.7, AST 54, ALT 18 and alkaline phosphatase 248. Serum total protein 4.7, albumin 2.1, globulin 2.6, albumin globulin ratio 0.8 and lipase 10. Cardiac profile: CK-MB 9.3. Troponin I less than 0.010. BNP: 161.1 IMAGING DATA: Chest x-ray: Findings most consistent with pulmonary edema. Superimposed pneumonia not excluded. Follow up is recommended. Chest thorax CTA: Official read is still pending. ER physician and Dr. Lewis in agreement that it is negative for PE. There is prominent vascular congestion and pulmonary edema. ASSESSMENT: 1. Hypoxia. 2. History of chronic obstructive pulmonary disease. 3. Right intertrochanteric hip fracture, status post recent open reduction and internal fixation. The patient currently is a patient in [facility]. 4. History of chronic alcohol use. PLAN: 1. The patient will be admitted to the [facility]. He will be put on BiPAP. We will titrate his FiO2 with frequent breaks and wean to off as tolerated. 2. The patient was given 20 mg of IV Lasix in the ER. We will hold off on aggressive diuresing at the moment and continue to monitor the patient's fluid status with strict I's and O's. 3. The patient was receiving alcohol withdrawal prophylaxis at his last admission. We will restart serax, folate and multivitamins. 4. The patient can begin a consistent carb diet, 1800-kilocalorie per day. 5. Tylenol, ibuprofen and tramadol for pain. 6. Continue daily dressing changes. 7. The patient was recently on hydrocortisone for adrenal insufficiency after his recent hip surgery. We will give him another 100 mg now and restart 50 mg q8h. This patient was seen in the ER along with Dr. Lewis and it was discussed over the phone with Dr. Naqvi, who agrees with the assessment and plan. ZOËD
[2017-07-01] MEDS: Insulin Regular 300 UNITS/3 ML VIAL SC PRN (16:06)
[2017-07-01] MEDS: Ibuprofen 600 MG TAB PO SCH (17:10)
[2017-07-01] MEDS: traMADol HCl 50 MG TAB PO SCH (17:10)
[2017-07-01 17:44] LABS: Troponin I Less than 0.010 ng/mL (< 0.028)
[2017-07-01] MEDS ORDERED: Acetaminophen/Codeine 30-300mg Tablet ONE (17:51)
[2017-07-01] MEDS ORDERED: Acetaminophen 500 MG TAB PO SCH (18:00)
[2017-07-01] MEDS ORDERED: Magnesium 2 GM/NS 0.9% 50 ML 2 GM in Premix Bag 1 BAG IVPB SCH (19:15)
[2017-07-01] MEDS: Levalbuterol HCl 0.63 MG/3 ML NEB NEB SCH ×2 (19:30→22:20)
[2017-07-01] MEDS: Acetaminophen/Codeine 30-300mg Tablet PO PRN (20:44)
[2017-07-01] MEDS: risperiDONE 1 MG TAB PO SCH (20:45)
[2017-07-01] MEDS: Nicotine 21 MG PATCH TD SCH (20:46)
[2017-07-01] MEDS: Senokot S 8.6-50 MG TAB PO SCH (20:46)
[2017-07-01] MEDS: Famotidine 20 MG TAB PO SCH (20:46)
[2017-07-01] MEDS ORDERED: Famotidine 20 MG TAB PO SCH (21:00)
[2017-07-01] MEDS: Hydrocortisone Sod Succ/PF 100 mg/2 ml Vial IVP SCH (21:14)
[2017-07-01] MEDS: Oxazepam 10 MG CAP PO SCH (21:14)
[2017-07-02] MEDS: traMADol HCl 50 MG TAB PO SCH ×2 (00:36→06:35)
[2017-07-02] MEDS: Ibuprofen 600 MG TAB PO SCH ×4 (00:36→18:08)
[2017-07-02 05:41] LABS: Band 7 % (5-11); Hemoglobin 9.4 g/dL (14.0-18.0); Hypochromia SLIGHT = 6-15 cells (100X) (0-5/hpf); Lymphocytes 13 % (21-51); MDiff Complete? YES; Mean Corpuscular Hemoglobin 30.1 pg (27.0-31.0); Mean Corpuscular Volume 97.1 fl (80.0-94.0); Mean Platelet Volume 8.7 fL (7.4-10.4); Monocytes 8 % (0-10); Neutrophil 72 % (42-75); Platelet Count 338 thou/uL (130-400); RBC Distribution Width 16.8 % (11.5-14.5); Red Blood Cell (RBC) Count 3.13 mill/uL (4.70-6.10); Target Cells SLIGHT = 2-5 cells (100X) (0-1/hpf); White Blood Cell (WBC) Count 12.7 thou/uL (4.8-10.8)
[2017-07-02] MEDS: Hydrocortisone Sod Succ/PF 100 mg/2 ml Vial IVP SCH (06:18)
[2017-07-02] MEDS: Insulin Regular 300 UNITS/3 ML VIAL SC PRN ×2 (06:22→17:50)
[2017-07-02] MEDS: Oxazepam 10 MG CAP PO SCH ×3 (06:35→21:33)
[2017-07-02] MEDS: Levalbuterol HCl 0.63 MG/3 ML NEB NEB SCH ×3 (06:45→22:25)
[2017-07-02] MEDS ORDERED: Sodium Chloride 0.9% 500 ML IV SCH ×2 (06:45→10:45)
[2017-07-02 06:48] LABS: Anion Gap 20 mmol/L (10-20); BUN (Urea Nitrogen) 21 mg/dL (8.4-25.7); Calc. Creatinine Clearance 77 mL/min (70-130); Calcium 7.7 mg/dL (7.8-10.44); Carbon Dioxide 15 mmol/L (23-31); Chloride 102 mmol/L (98-107); Estimated GFR-MDRD 71; Glucose 202 mg/dL (80-115); Magnesium 2.4 mg/dL (1.6-2.6); Phosphorus 3.9 mg/dL (2.3-4.7); Potassium 4.5 mmol/L (3.5-5.1); Sodium 132 mmol/L (136-145)
[2017-07-02] MEDS ORDERED: Prevnar 13-Val Conj/PF 0.5 ML SYRINGE IM ONE (09:00)
[2017-07-02] MEDS: Senokot S 8.6-50 MG TAB PO SCH ×2 (09:40→21:32)
[2017-07-02] MEDS: Gabapentin 300 MG CAP PO SCH ×3 (09:40→21:33)
[2017-07-02] MEDS: Multivitamin W/ Minerals 1 TAB PO SCH (09:40)
[2017-07-02] MEDS: Cyanocobalamin (Vitamin B-12) 1,000 MCG TAB PO SCH (09:40)
[2017-07-02] MEDS: Bupropion 150 MG XL TAB PO SCH (09:40)
[2017-07-02] MEDS: Famotidine 20 MG TAB PO SCH ×2 (09:40→21:33)
[2017-07-02] MEDS: Atorvastatin Calcium 40 MG TAB PO SCH (09:40)
[2017-07-02] MEDS: Folic Acid 1 MG TAB PO SCH (09:40)
[2017-07-02] MEDS: Polyethylene Glycol 3350 17 GM Packet PO SCH (09:41)
[2017-07-02] MEDS: Tamsulosin HCl 0.4 MG CAP PO SCH (09:41)
[2017-07-02] MEDS: Enoxaparin Sodium 40 MG/0.4 ML SYRINGE SC SCH (09:41)
--- NOTE | 2017-07-02 13:55 | PRG ---
DATE OF SERVICE: 07/02/2017 ATTENDING PHYSICIAN: Dr. Lewis. SUBJECTIVE: Mr. Smiley is a 67-year-old male with a history of COPD who was recently discharged from [facility] after a right hip fracture. The patient was in rehab when he developed hy poxia and was readmitted yesterday afternoon with oxygen saturations in the 70s on 4 liters. He was admitted to the [facility] and started on BiPAP. Overnight, the patient per nursing report was somewhat ag itated and attempting to remove his BiPAP. When I saw him this morning, he was on 4 liters nasal can nula, but satting in the 80s. BiPAP was restarted at 40 of FiO2 and his sats improved to the mid 90s . The patient was given 2 separate 500 mL boluses of normal saline for low blood pressure. Generall y, he reports that he feels much better today and feels less short of breath. He voices no other com plaints. OBJECTIVE: VITAL SIGNS: BP 108/71, pulse 116, temperature 97.2, respirations 18, O2 sat 88% on 4 liters. GENERAL APPEARANCE: Patient is a late middle-aged adult male. He does appear to be in some amount o f respiratory distress with accessory muscle use. He has nasal cannula in place. HEENT: Normocephalic, atraumatic. LUNGS: He has scattered rhonchi bilaterally with wheezing. He is currently on nasal cannula at 4 li ters. He has some accessory muscle use. He is also slightly tachypneic. CARDIOVASCULAR: Patient is tachycardic. He has normal S1 and S2. No murmurs, gallops or rubs. ABDOMEN: Soft, nontender, and nondistended. Normal bowel sounds. EXTREMITIES: Patient moves all extremities. He has a well healing surgical incision of his right gr eater trochanter with ana in place. This is moderately productive of serosanguineous drainage. There is no erythema or purulent drainage. NEUROLOGIC: Patient is alert and oriented this morning. He has a GCS of 15. He has no focal defici ts. LABORATORY DATA: Hematology: WBC is 12.7, hemoglobin 9.4, hematocrit 30.3, platelets 338. Chemistr y: Sodium 132, potassium 4.5, chloride 102, bicarbonate 15, BUN 21, creatinine 1.05, glucose 202, ca lcium 7.7, phosphorus 3.9, magnesium 2.4. IMAGING DATA: Transthoracic echocardiogram pending. ASSESSMENT: 1. Hypoxia. 2. Pneumonia. 3. Adult respiratory distress syndrome. 4. History of chronic obstructive pulmonary disease. 5. Right intertrochanteric hip fracture status post open reduction and internal fixation. 6. History of chronic alcohol abuse. PLAN: 1. Continue care in the IMCU. Patient will need to remain on BiPAP. 2. The patient's white blood cell count is low and he remains afebrile. Nevertheless, there is a hi gh likelihood that there is an infectious cause of his ARDS. We will begin antibiotic treatment with Zosyn. 3. Patient will need steroids. Discontinue hydrocortisone and start Solu-Medrol. 4. Continue to monitor fluid status with strict Is and Os. 5. Continue alcohol prophylaxis. 6. Continue Tylenol, ibuprofen and tramadol for pain. 7. Daily dressing changes. This patient was seen and examined along with Dr. Naqvi as well as discussed with Dr. Lewis both of whom are in agreement with this plan.
[2017-07-02] MEDS: Piperacillin/Tazobactam 3.375 GM in Sodium Chloride 0.9% 100 ML IVPB SCH (17:57)
[2017-07-02] MEDS: Sodium Chloride 0.9% 1,000 ML IV SCH (19:29)
[2017-07-02] MEDS: Nicotine 21 MG PATCH TD SCH (21:32)
[2017-07-02] MEDS: risperiDONE 1 MG TAB PO SCH (21:33)
[2017-07-02] MEDS: HumaLOG 300 UNITS/3 ML VIAL SC PRN (21:37)
[2017-07-03] MEDS: Ibuprofen 600 MG TAB PO SCH ×6 (00:42→23:48)
[2017-07-03] MEDS: Piperacillin/Tazobactam 3.375 GM in Sodium Chloride 0.9% 100 ML IVPB SCH ×5 (00:42→23:38)
[2017-07-03] MEDS: Oxazepam 10 MG CAP PO SCH ×3 (06:02→20:20)
[2017-07-03] MEDS: Acetaminophen/Codeine 30-300mg Tablet PO PRN ×2 (06:10→20:22)
[2017-07-03] MEDS: Levalbuterol HCl 0.63 MG/3 ML NEB NEB SCH ×3 (06:24→22:32)
[2017-07-03 08:15] LABS: Mean Corpuscular HGB CONC 32.9 g/dL (32.0-36.0); Mean Corpuscular Hemoglobin 30.9 pg (27.0-31.0); Mean Platelet Volume 7.5 fL (7.4-10.4); Platelet Count 343 thou/uL (130-400); RBC Distribution Width 16.7 % (11.5-14.5); Red Blood Cell (RBC) Count 2.92 mill/uL (4.70-6.10)
[2017-07-03 08:28] LABS: Band 8 % (5-11); Lymphocytes 8 % (21-51); MDiff Complete? YES; Metamyelocyte 1 % (0-0); Monocytes 4 % (0-10); Neutrophil 79 % (42-75); PLT Morphology Comment Appears Adequate; Poikilocytosis SLIGHT = 6-15 cells (100X) (0-5/hpf); Target Cells MODERATE= 6-15 cells (100X) (0-1/hpf)
[2017-07-03 08:31] LABS: Anion Gap 12 mmol/L (10-20); BUN (Urea Nitrogen) 26 mg/dL (8.4-25.7); Calc. Creatinine Clearance 81 mL/min (70-130); Calcium 7.4 mg/dL (7.8-10.44); Carbon Dioxide 20 mmol/L (23-31); Chloride 105 mmol/L (98-107); Estimated GFR-MDRD 74; Glucose 102 mg/dL (80-115); Magnesium 2.4 mg/dL (1.6-2.6); Potassium 3.8 mmol/L (3.5-5.1); Sodium 133 mmol/L (136-145)
[2017-07-03] MEDS: Folic Acid 1 MG TAB PO SCH (08:33)
[2017-07-03] MEDS: Tamsulosin HCl 0.4 MG CAP PO SCH (08:33)
[2017-07-03] MEDS: Famotidine 20 MG TAB PO SCH ×2 (08:33→20:19)
[2017-07-03] MEDS: Bupropion 150 MG XL TAB PO SCH (08:33)
[2017-07-03] MEDS: Polyethylene Glycol 3350 17 GM Packet PO SCH (08:33)
[2017-07-03] MEDS: Cyanocobalamin (Vitamin B-12) 1,000 MCG TAB PO SCH (08:33)
[2017-07-03] MEDS: Gabapentin 300 MG CAP PO SCH ×3 (08:33→20:19)
[2017-07-03] MEDS: Senokot S 8.6-50 MG TAB PO SCH ×2 (08:33→20:20)
[2017-07-03] MEDS: Multivitamin W/ Minerals 1 TAB PO SCH (08:34)
[2017-07-03] MEDS: Atorvastatin Calcium 40 MG TAB PO SCH (08:34)
[2017-07-03] MEDS: Enoxaparin Sodium 40 MG/0.4 ML SYRINGE SC SCH (08:34)
[2017-07-03] MEDS ORDERED: Mometasone 100 MCG HFA INHALER INH SCH (09:00)
[2017-07-03] MEDS: Sodium Chloride 0.9% 1,000 ML IV SCH ×2 (09:58→23:43)
[2017-07-03] MEDS: HumaLOG 300 UNITS/3 ML VIAL SC PRN ×3 (10:33→21:12)
[2017-07-03] MEDS ORDERED: Dextrose 5% in Water 1,000 ML IV PRN (10:51)
[2017-07-03] MEDS ORDERED: Dextrose 50% Abboject 50 ML SYRINGE SLOW IVP PRN (10:51)
--- NOTE | 2017-07-03 13:29 | PRG ---
DATE OF SERVICE: 07/03/2017 ATTENDING PHYSICIAN: Dr. Lewis. SUBJECTIVE: Mr. Smiley is a 67-year-old male with a history of COPD who was recently discharged from [facility] after a right hip fracture. The patient was in rehab when he developed hy poxia. He was readmitted 2 days ago. He has been on BiPAP most of the time with sats in the mid 90s . The patient was still unable to tolerate being off of BiPAP. When he takes breaks for eating, his saturations will drop into the 80s on 4 liters. This has improved a little bit this morning as he w as able to eat and keep his oxygen saturation in the high 80s and low 90s on 4 liters nasal cannula. The patient voices no complaints this morning other than being unable to urinate. He was bladder sc anned at roughly 500 mL of retained urine. The patient was attempted to void and produced 150 mL. T his was discussed with Dr. Lewis and the patient received I and O catheterization. OBJECTIVE: VITAL SIGNS: BP 110/78, pulse 88, temperature 97.0, respirations 12, O2 sat 92% on BiPAP. GENERAL APPEARANCE: The patient is a late middle-aged adult male appearing older than his stated age . He is in a moderate amount of respiratory distress with accessory muscle use. He has BiPAP in [facility]. HEENT: Normocephalic and atraumatic. RESPIRATORY: He has scattered rhonchi bilaterally with wheezing. Currently on BiPAP. CARDIOVASCULAR: The patient has a regular rate and rhythm. He has no murmurs, gallops or rubs. ABDOMEN: Soft, nontender, nondistended. His bowel sounds are hypoactive. EXTREMITIES: The patient is able to move all extremities appropriately. He has a well healing surgi jen incision over his right greater trochanter with ana in place. This is a moderately productiv e of serosanguineous drainage. There is no erythema or purulent drainage. NEUROLOGIC: The patient is alert and oriented this morning. He has a GCS of 15. He has no focal de ficits. LABORATORY DATA: Hematology: WBC is 18.0, hemoglobin 9.0, hematocrit 27.4, platelets 343. Chemistr y: Sodium 133, potassium 3.8, chloride 105, bicarbonate 20, BUN 26, creatinine 1.01, glucose 102, ca lcium 7.4, phosphorus 3.0, magnesium 2.4. Point of care glucose readings have been between 91 and 36 3. IMAGING: There are no images to review today. ASSESSMENT: 1. Acute respiratory distress syndrome. 2. Pneumonia. 3. History of chronic obstructive pulmonary disease. 4. Right intertrochanteric hip fracture status post open reduction and internal fixation. 5. History of chronic alcohol abuse. 6. Leukocytosis. PLAN: 1. Continue care in the ICU. Remain on BiPAP. 2. Continue to trend CBC and electrolytes daily. The patient currently on the empiric treatment was with Zosyn. 3. Continue Solu-Medrol. 4. Continue to monitor fluid status with strict I's and O's. 5. Reduce sliding scale insulin to moderate sliding scale insulin. 6. Tylenol, ibuprofen and tramadol for pain. 7. Daily dressing changes. 8. The patient currently receiving tamsulosin for urinary retention. I suspect there may be a compo nent of constipation of this as well since the patient has not had a bowel movement or lactulose this morning for help with bowel function. We will consider Teresa catheterization if the patient continu es to be unable to void. This patient was seen and examined along with Dr. Lewis and discussed with fellow Dr. Dajuan Naqvi who agrees with the assessment and plan.
--- NOTE | 2017-07-03 16:33 | RAD ---
CHEST ONE VIEWS: History: Worsening white blood cell and setting of ARDS. Chest pain. Comparison: 07-01-17 FINDINGS: Similar appearance of extensive opacities throughout the lungs. There are effusions. Worsening consol idation left lower lobe. Cardiac silhouette and mediastinal contours are similar. IMPRESSION: Similar appearance to the diffuse interstitial and alveolar opacities although there is new consolida tion left lower lobe, concerning for a superimposed developing infection. Follow up recommended. POS: LAYH
[2017-07-03 19:28] LABS: Anion Gap 12 mmol/L (10-20); BUN (Urea Nitrogen) 26 mg/dL (8.4-25.7); Calc. Creatinine Clearance 74 mL/min (70-130); Calcium 7.4 mg/dL (7.8-10.44); Carbon Dioxide 20 mmol/L (23-31); Chloride 104 mmol/L (98-107); Estimated GFR-MDRD 66; Glucose 267 mg/dL (80-115); Magnesium 2.3 mg/dL (1.6-2.6); Phosphorus 2.9 mg/dL (2.3-4.7); Potassium 4.2 mmol/L (3.5-5.1); Sodium 132 mmol/L (136-145)
[2017-07-03] MEDS: Nicotine 21 MG PATCH TD SCH (20:20)
[2017-07-03] MEDS: risperiDONE 1 MG TAB PO SCH (20:20)
[2017-07-04] MEDS: Acetaminophen/Codeine 30-300mg Tablet PO PRN (02:53)
[2017-07-04] MEDS: Ibuprofen 600 MG TAB PO SCH ×3 (06:10→17:00)
[2017-07-04] MEDS: Piperacillin/Tazobactam 3.375 GM in Sodium Chloride 0.9% 100 ML IVPB SCH ×3 (06:10→16:59)
[2017-07-04] MEDS: HumaLOG 300 UNITS/3 ML VIAL SC PRN ×2 (06:17→17:43)
[2017-07-04] MEDS: Levalbuterol HCl 0.63 MG/3 ML NEB NEB SCH ×3 (07:01→21:58)
[2017-07-04] MEDS: Famotidine 20 MG TAB PO SCH ×2 (08:31→21:30)
[2017-07-04] MEDS: Folic Acid 1 MG TAB PO SCH (08:31)
[2017-07-04] MEDS: Cyanocobalamin (Vitamin B-12) 1,000 MCG TAB PO SCH (08:31)
[2017-07-04] MEDS: Tamsulosin HCl 0.4 MG CAP PO SCH (08:31)
[2017-07-04] MEDS: Oxazepam 10 MG CAP PO SCH (08:31)
[2017-07-04] MEDS: Polyethylene Glycol 3350 17 GM Packet PO SCH (08:32)
[2017-07-04] MEDS: Bupropion 150 MG XL TAB PO SCH (08:32)
[2017-07-04] MEDS: Atorvastatin Calcium 40 MG TAB PO SCH (08:32)
[2017-07-04] MEDS: Gabapentin 300 MG CAP PO SCH ×3 (08:32→21:30)
[2017-07-04] MEDS: Multivitamin W/ Minerals 1 TAB PO SCH (08:32)
[2017-07-04] MEDS: Enoxaparin Sodium 40 MG/0.4 ML SYRINGE SC SCH (08:33)
[2017-07-04] MEDS: Senokot S 8.6-50 MG TAB PO SCH ×2 (08:33→21:21)
[2017-07-04] MEDS ORDERED: Bisacodyl 10 MG SUPP PR SCH (09:00)
[2017-07-04] MEDS ORDERED: GASTROGRAFIN 30 ML BOT ONE (09:32)
[2017-07-04] MEDS ORDERED: Heparin 1,000 UNITS/ML VIAL ONE (10:00)
[2017-07-04 11:29] LABS: Anion Gap 10 mmol/L (10-20); BUN (Urea Nitrogen) 25 mg/dL (8.4-25.7); Calc. Creatinine Clearance 91 mL/min (70-130); Calcium 7.7 mg/dL (7.8-10.44); Carbon Dioxide 22 mmol/L (23-31); Chloride 103 mmol/L (98-107); Estimated GFR-MDRD 81; Glucose 83 mg/dL (80-115); Magnesium 2.2 mg/dL (1.6-2.6); Phosphorus 2.3 mg/dL (2.3-4.7); Potassium 3.2 mmol/L (3.5-5.1); Sodium 132 mmol/L (136-145)
[2017-07-04 11:54] LABS: Band 11 % (5-11); Hemoglobin 8.4 g/dL (14.0-18.0); Hypersemented Neutrophil SLIGHT; Hypochromia MODERATE=16-30 cells (100X) (0-5/hpf); Lymphocytes 9 % (21-51); MDiff Complete? YES; Mean Corpuscular Hemoglobin 29.5 pg (27.0-31.0); Mean Corpuscular Volume 95.1 fl (80.0-94.0); Mean Platelet Volume 7.8 fL (7.4-10.4); Monocytes 3 % (0-10); Myelocyte 1 % (0-0); Neutrophil 75 % (42-75); Nucleated RBC 1 % (0); PLT Morphology Comment Appears Adequate; Platelet Count 396 thou/uL (130-400); Polychromasia SLIGHT = 2-3 cells (100X) (0-2/hpf); RBC Distribution Width 16.9 % (11.5-14.5); Reactive Lymphocytes 1 % (0-10); Red Blood Cell (RBC) Count 2.83 mill/uL (4.70-6.10); Target Cells MODERATE= 6-15 cells (100X) (0-1/hpf); White Blood Cell (WBC) Count 26.5 thou/uL (4.8-10.8)
--- NOTE | 2017-07-04 12:05 | RAD ---
FRONTAL VIEW ABDOMEN: INDICATION: Feeding tube evaluation. FINDINGS: There is a metallic stylette of enteric catheter which extends inferiorly to the approximate distal e sophageal/GE junction region. Recommend advancement. There is distended air-filled bowel of the sonido tral low abdomen. Numerous artifacts limit detail. IMPRESSION: Metallic stylette of enteric catheter extends to the distal esophageal/GE junction region. Recommend advancement as well as imaging followup. POS: MARICHUY
--- NOTE | 2017-07-04 12:06 | PRG-2 ---
DATE OF SERVICE: 07/04/2017 ATTENDING PHYSICIAN: Dr. Dajuan Naqvi SUBJECTIVE: Mr. Smiley is a 67-year-old male with history of COPD who was recently discharged on 06/03 after a right hip fracture. The patient had been in rehab when he developed hypoxia and had t o be readmitted. The patient has been on BiPAP during most of his hospitalization except when he ref uses it or during short breaks while eating, but when he is off BiPAP his O2 sats will drop into the 80s on 4-6 liters O2. The patient has no complaints this morning. OBJECTIVE: VITAL SIGNS: Temperature 97.6, pulse 109, respiratory rate 20, O2 saturation 94% on BiPAP, blood pre ssure 132/78. GENERAL: The patient is well-developed, well-nourished, but appears older than stated age, in no acu te distress with BiPAP in place. HEENT: Normocephalic, atraumatic. Moist mucous membranes. RESPIRATORY: Scattered rhonchi bilaterally, currently on BiPAP. CARDIOVASCULAR: Regular rate and rhythm. No murmurs, gallops or rubs, 2+ radial and pedal pulses. ABDOMEN: Soft, nontender, nondistended. EXTREMITIES: No peripheral edema. Able to move all extremities equally, brisk capillary refill in a ll extremities. NEUROLOGIC: The patient is alert, awake, and oriented x3 with GCS of 15. No focal neurologic defici ts. LABORATORY DATA: Sodium 132, potassium 3.2, chloride 103, CO2 22, BUN 25, creatinine 0.93, calcium 7 .7, phosphorus 2.3, magnesium 2.2, glucose readings have been between 143 to 267. ASSESSMENT: 1. Acute hypoxic respiratory failure. 2. Acute respiratory distress syndrome. 3. Pneumonia. 4. History of chronic obstructive pulmonary disease. 5. Right intertrochanteric hip fracture status post open reduction internal fixation. 6. History of chronic alcohol abuse. 7. Leukocytosis. 8. Hypokalemia. PLAN: 1. Continue care in the IMCU with continuous BiPAP. 2. Zosyn day 3. 3. Continue Solu-Medrol. 4. Replete potassium and will recheck electrolytes in a.m. and replete as necessary. 5. Continue to monitor fluid status. Strict I's and O's. 6. Dobbhoff placed this a.m. by Dr. Naqvi. Will start tube feedings to reduce time of patient being off BiPAP. 7. Discontinue IV fluids. 8. Continue bowel regimen. 9. Tylenol #3 and ibuprofen for pain control. Dr. Naqvi saw and examined the patient and formulated the plan with me.
[2017-07-04] MEDS ORDERED: Fluticasone Propionate Nasal Spray 16 gm Bottle NASAL SCH (12:30)
[2017-07-04] MEDS ORDERED: Potassium Chloride 40 MEQ in Sodium Chloride 0.9% 250 ML 250 ML IVPB SCH (12:30)
--- NOTE | 2017-07-04 13:21 | RAD ---
SUPINE ABDOMEN: Indication: Assess NG tube position. FINDINGS: 30 cc of Gastrografin was injected into an indwelling NG tube. NG tube has tip overlying the mid gastric body. Contrast opacifies the stomach and proximal duodenum. IMPRESSION: NG tube is past the EG junction with the tip located in the upper stomach. POS: [facility]
[2017-07-04] MEDS: Nicotine 21 MG PATCH TD SCH (21:30)
[2017-07-04] MEDS: risperiDONE 1 MG TAB PO SCH (21:30)
[2017-07-05] MEDS: Ibuprofen 600 MG TAB PO SCH ×4 (00:18→16:31)
[2017-07-05] MEDS: HumaLOG 300 UNITS/3 ML VIAL SC PRN ×3 (00:18→22:03)
[2017-07-05] MEDS: Piperacillin/Tazobactam 3.375 GM in Sodium Chloride 0.9% 100 ML IVPB SCH ×4 (00:18→18:18)
[2017-07-05 06:29] LABS: Anion Gap 10 mmol/L (10-20); BUN (Urea Nitrogen) 22 mg/dL (8.4-25.7); Calc. Creatinine Clearance 98 mL/min (70-130); Calcium 7.5 mg/dL (7.8-10.44); Carbon Dioxide 22 mmol/L (23-31); Chloride 107 mmol/L (98-107); Estimated GFR-MDRD 86; Glucose 176 mg/dL (80-115); Phosphorus 1.5 mg/dL (2.3-4.7); Potassium 4.1 mmol/L (3.5-5.1); Sodium 135 mmol/L (136-145)
[2017-07-05] MEDS: Polyethylene Glycol 3350 17 GM Packet PO SCH (07:23)
[2017-07-05] MEDS: Senokot S 8.6-50 MG TAB PO SCH ×2 (07:24→22:05)
[2017-07-05] MEDS: Levalbuterol HCl 0.63 MG/3 ML NEB NEB SCH ×3 (07:33→22:52)
[2017-07-05 07:43] LABS: Acanthocytes SLIGHT = 1-5 cells (100X) (None Seen); Band 10 % (5-11); Burr Cells SLIGHT = 2-5 cells (100X) (0-1/hpf); Hemoglobin 7.5 g/dL (14.0-18.0); Lymphocytes 8 % (21-51); MDiff Complete? YES; Mean Corpuscular HGB CONC 31.4 g/dL (32.0-36.0); Mean Corpuscular Hemoglobin 29.5 pg (27.0-31.0); Mean Corpuscular Volume 93.8 fl (80.0-94.0); Mean Platelet Volume 8.2 fL (7.4-10.4); Metamyelocyte 1 % (0-0); Monocytes 3 % (0-10); Neutrophil 78 % (42-75); PLT Morphology Comment Appears Adequate; Platelet Count 364 thou/uL (130-400); Polychromasia SLIGHT = 2-3 cells (100X) (0-2/hpf); RBC Distribution Width 17.3 % (11.5-14.5); Red Blood Cell (RBC) Count 2.55 mill/uL (4.70-6.10); Target Cells MODERATE= 6-15 cells (100X) (0-1/hpf); White Blood Cell (WBC) Count 26.7 thou/uL (4.8-10.8)
[2017-07-05] MEDS ORDERED: Furosemide 40 MG/4 ML VIAL SLOW IVP SCH (08:15)
--- NOTE | 2017-07-05 08:29 | PRG ---
DATE OF SERVICE: 07/05/2017 SUBJECTIVE: This is a 67-year-old male who was readmitted for hypoxia once he was discharged following a right intertrochanteric TFN nail. The patient was discharged on 06/29/2017, and readmitted 07/01/2017. The patient is currently on BiPAP. Nurses report that he desats into the 60s when the BiPAP is removed. The patient is able to communicate a little at the time of my assessment. He does report right-sided hip discomfort. He also reports difficulty breathing at this time. Able to move to a bedside commode yesterday. OBJECTIVE: VITAL SIGNS: Temperature 97.9, pulse 89, respirations 16, blood pressure 134/ 87. GENERAL: The patient is awake and alert. He is in the ICU on a BiPAP machine. He converses and is appropriate with exam at this time. EXTREMITIES: Evaluation of the right hip surgical wound shows a lateral healing surgical incision. [place] are intact. There is serosanguineous drainage that appears to have saturated through 2 ABD pads at this time. Distal neurovascular status is intact. LABORATORY: CBC showed a hemoglobin of 7.5, hematocrit of 23.9. White blood cell count of 26.7 and platelets of 364. ASSESSMENT AND PLAN: A 67-year-old male status post right TFN for intertrochanteric fracture readmitted secondary to hypoxia, currently on BiPAP in the unit. Increasing drainage noted to the right surgical hip wound. Per nursing staff, it appears to have increased over the last 24 hours requiring dressing changes x4 per shift. Due to the patient's elevated white blood cell count, there is concern for whether this is related to lung issues or this could be related to the surgical wound to the right hip. We will discuss with Dr. Drake and visit the patient at bedside with Dr. Drake and plan for possible I&D of the right hip surgical wound later this afternoon. Addendum: Patient seen and evaluated by Dr. Drake. Patient will be made NPO for surgery this afternoon and consented for Right Hip Incision and Drainage. BETSY
[2017-07-05] MEDS ORDERED: Fluticasone Propionate Nasal Spray 16 gm Bottle NASAL SCH (09:00)
[2017-07-05] MEDS: Famotidine 20 MG TAB PO SCH ×2 (09:05→22:05)
[2017-07-05] MEDS: Gabapentin 300 MG CAP PO SCH ×3 (09:06→22:05)
[2017-07-05] MEDS: Vancomycin HCl 1.25 GM in Sodium Chloride 0.9% 250 ML 250 ML IVPB SCH ×2 (09:07→22:17)
--- NOTE | 2017-07-05 10:31 | PRG ---
DATE OF SERVICE: 07/05/2017 SUBJECTIVE: Mr. Smiley is a 67-year-old man who is currently admitted in Step Down Unit. He is posto p day #6 status post surgical repair of a right intertrochanteric femur fracture. The patient was re admitted to the hospital 4 days ago with acute pulmonary insufficiency. Workup at the time included chest x-ray, followed by CT scan of the chest which was remarkable for acute pulmonary edema. Recent transthoracic echocardiography revealed left ventricular ejection fraction of 55%-60% with normal ve ntricular size. The patient is being treated presumption of acute noncardiogenic pulmonary edema wit h ARDS. The right hip wound has been draining serous fluid which has increased overnight. The patie nt is currently on IV antibiotics for presumptive left lower lobe pneumonia. Oxygenation has been ma intained on noninvasive mechanical ventilatory support. The patient promptly desaturates once off Bi PAP. He has otherwise remained hemodynamically stable over the last 24 hours. He requires no vasopr essor or inotropic support. Urinary output has been adequate. A nasogastric tube was placed through which the patient is receiving enteral nutritional supplementation and having bowel movements. Toda y, the patient reports adequate pain control. Denies any chest pain or syncope. PHYSICAL EXAMINATION: VITAL SIGNS: This morning includes blood pressure 134/87, pulse is 89, respiratory rate 16, temperat ure 98.7 degrees Fahrenheit, oxygen saturation is 98% on BiPAP. HEENT: Examination reveals normocephalic and atraumatic. Pupils are equal, round, reactive to light and accommodation. He has no jugular venous distention noted. Oral mucosa is pink though dry. He has no intraoral lesions present. HEART: Reveals regular rate and rhythm. No murmurs or gallops auscultated. LUNGS: Reveals scattered rhonchi. Breathing is otherwise regular and unlabored. ABDOMEN: Soft, nontender and nondistended. Bowel sounds in all four quadrants appear normoactive. EXTREMITIES: Reveals 2+ radial and pedal pulses bilaterally. He has residual mild pitting right ank le edema present. There is increase in serous drainage from the right hip incisional wound. NEUROLOGIC: Examination reveals no focal deficits present. LABORATORY DATA: Today includes CBC with markedly elevated white blood cell count at 26,700, hemoglo bin and hematocrit 7.5 and 23.9 respectively. Platelet count is 364,000. Differential counts are as follows, 78% segmented neutrophils, 10 bands, 8 lymphocytes, and 3 monocytes. Metabolic profile: S odium 135, potassium is 4.1, chloride is 107, bicarbonate is 22, BUN 22, creatinine is 0.89, glucose 176, phosphorus is 1.5, magnesium is 2.0. IMPRESSION: 1. Postoperative day #6 status post surgical repair of right intertrochanteric femur fracture. 2. Acute pulmonary insufficiency secondary to ARDS, likely secondary to wound infection plus or barb s left lower lobe pneumonia. 3. Acute hypophosphatemia. PLAN: 1. Continue noninvasive mechanical ventilator support. The patient is being evaluated by Orthopedic Surgery in consideration for return to the operating room for wound washout. I suspect that patient will likely require invasive mechanical ventilator support postoperatively. 2. Correct abnormal electrolytes. The patient will certainly need noninvasive positive pressure migdalia tilation once on invasive mechanical ventilatory support. We will broaden antibiotic coverage to inc lude coverage for MRSA and possible Pseudomonas. Above findings and plan discussed with the patient who indicates understanding of the information giv en. I have answered his questions.
[2017-07-05] MEDS: Cyanocobalamin (Vitamin B-12) 1,000 MCG TAB PO SCH (11:22)
[2017-07-05] MEDS: Folic Acid 1 MG TAB PO SCH (11:22)
[2017-07-05] MEDS: Atorvastatin Calcium 20 MG TAB PO SCH (11:22)
[2017-07-05] MEDS: Bupropion 150 MG XL TAB PO SCH (11:22)
[2017-07-05] MEDS: Enoxaparin Sodium 40 MG/0.4 ML SYRINGE SC SCH (11:22)
[2017-07-05] MEDS: Tamsulosin HCl 0.4 MG CAP PO SCH (11:23)
[2017-07-05] MEDS: Multivitamin W/ Minerals 1 TAB PO SCH (11:23)
[2017-07-05] MEDS ORDERED: Lidocaine 1% PF 5 ML VIAL ONE (11:39)
[2017-07-05] MEDS ORDERED: PROPOFOL 200 MG/20 ML VIAL ONE (11:39)
[2017-07-05] MEDS ORDERED: Succinylcholine Chloride 20 MG/ML 10 ml SYRINGE FS ONE (11:39)
[2017-07-05] MEDS: Midazolam HCl 2 mg/2 ml Vial SLOW IVP PRN (12:10)
--- NOTE | 2017-07-05 12:10 | PQF ---
CLINICAL DOCUMENTATION IMPROVEMENT CLARIFICATION FORM: ICD-10 Updated PLEASE DO AN ADDENDUM TO THE PROGRESS NOTE WITH ANY DOCUMENTATION UPDATES OR ADDITIONS AND CARRY THROUGH TO DC SUMMARY. THANK YOU. DATE: 07/05/17 ATTN: DR. ADAMS Please exercise your independent, professional judgment in responding to the clarification form. Clinical indicators are provided on the bottom of this form for your review Please check appropriate box(s): [ ] Acute Respiratory Failure: [ ] with Hypoxia[ ] with Hypercapnia [ ] Acute On Chronic Respiratory Failure: [ ] with Hypoxia [ ] with Hypercapnia [ ] Acute Respiratory Failure due to: (etiology) [X ] Acute Respiratory Insufficiency following (if applicable): [ X] trauma [ ] surgery [ ] Chronic Respiratory Failure only [ ] with Hypoxia [ ] with Hypercapnia [ ] Hypoxia [ ] Other diagnosis [ ] Unable to determine In addition, please specify: Present on Admission (POA): [ X] Yes [ ] No [ ] Unable to determine For continuity of documentation, please document condition throughout progress notes and discharge summary. Thank You. CLINICAL INDICATORS - SIGNS / SYMPTOMS / LABS ER NOTE: "WHEEZING PRESENT. BREATH SOUNDS DIMINISHED, DECREASED BREATH SOUNDS THROUGHOUT, CRACKLES AND EXPIRATORY WHEEZES AT BILATERAL BASES." H&P: "HE WAS SEEN TODAY IN THE ER FOR RESPIRATORY DISTRESS WITH OXYGEN SATURATIONS IN THE HIGH 70'S ON 4 LITERS." PULSE 113 RR 24 SATS 70'S RISKS: PNEUMONIA TREATMENT: BIPAP IMCU MONITORING SOLU-MEDROL (ER-PRESENT) DUONEB (ER) ALBUTEROL NEB (ER) XOPENEX (07/01-PRESENT) SAP [employer] Winform Viewer(This form is maintained as a part of the permanent medical record) 2014 [employer]. All Rights Reserved [email or web address] Office: [phone] [facility]
--- NOTE | 2017-07-05 12:31 | PQF ---
CLINICAL DOCUMENTATION IMPROVEMENT CLARIFICATION FORM: ICD-10 Updated PLEASE DO AN ADDENDUM TO THE PROGRESS NOTE WITH ANY DOCUMENTATION UPDATES OR ADDITIONS AND CARRY THROUGH TO DC SUMMARY. THANK YOU. DATE: 07/05/17 ATTN: DR. ADAMS Please exercise your independent, professional judgment in responding to the clarification form. Clinical indicators are provided on the bottom of this form for your review Please check appropriate box(s): [ ] Aspiration Pneumonia [ ] Aspiration Bronchitis [ ] Empirically treating Gram Negative Pneumonia [ ] Empirically treating Anaerobic Pneumonia [ ] Pneumonia secondary to (specify organism / underlying disease) [ ] Simple Pneumonia (community acquired - nosocomial) [ ] Bronchopneumonia [ X ] Pneumonia of unknown etiology [ ] Other diagnosis [ ] Unable to determine In addition, please specify: Present on Admission (POA): [X ] Yes [ ] No [ ] Unable to determine For continuity of documentation, please document condition throughout progress notes and discharge summary. Thank You. CLINICAL INDICATORS - SIGNS / SYMPTOMS / LABS DX: PNEUMONIA WBC 26.7 BANDS 26 PULSE 113 RISKS: RECENT HIP FRACTURE WITH SURGERY 06/29 TREATMENT: SOLU-MEDROL (ER-PRESENT) IV ZOSYN (07/02-PRESENT) IV VANCOMYCIN LEVAQUIN IMCU MONITORING BLOOD CULTURES SERIAL LABS (This form is maintained as a part of the permanent medical record) 2014 [employer], [employer]. All Rights Reserved [email or web address] Office: [phone] [facility]
--- NOTE | 2017-07-05 12:38 | PQF ---
CLINICAL DOCUMENTATION IMPROVEMENT CLARIFICATION FORM: ICD-10 Updated PLEASE DO AN ADDENDUM TO THE PROGRESS NOTE WITH ANY DOCUMENTATION UPDATES OR ADDITIONS AND CARRY THROUGH TO DC SUMMARY. THANK YOU. DATE: 07/05/17 ATTN: DR. ADAMS Please exercise your independent, professional judgment in responding to the clarification form. Clinical indicators are provided on the bottom of this form for your review Please check appropriate box(s): [ ] __ PNEUMONIA related to current/recent surgery [ X] __ PNEUMONIA not related to current/recent surgery [ ] Other diagnosis [ ] Unable to determine In addition, please specify: Present on Admission (POA): [ X ] Yes [ ] No [ ] Unable to determine CLINICAL INDICATORS - SIGNS / SYMPTOMS / LABS ER NOTE: "WHEEZING PRESENT. BREATH SOUNDS DIMINISHED, DECREASED BREATH SOUNDS THROUGHOUT, CRACKLES AND EXPIRATORY WHEEZES AT BILATERAL BASES." H&P: "HE WAS SEEN TODAY IN THE ER FOR RESPIRATORY DISTRESS WITH OXYGEN SATURATIONS IN THE HIGH 70'S ON 4 LITERS." DX: PNEUMONIA PULSE 113 RR 24 SATS 70'S WBC 26.7 BANDS 26 RISKS: RECENT HOSPITALIZATION AND SURGICAL FIXATION (06/29) TREATMENT: BIPAP IMCU MONITORING SOLU-MEDROL (ER-PRESENT) DUONEB (ER) ALBUTEROL NEB (ER) XOPENEX (07/01-PRESENT) (This form is maintained as a part of the permanent medical record) 2014 [employer], [employer]. All Rights Reserved [email or web address] Office: [phone] [facility]
[2017-07-05] MEDS ORDERED: Neomycin-Polymyxin 1 ML AMP ONE (16:28)
[2017-07-05] MEDS ORDERED: Midazolam HCl 2 mg/2 ml Vial ONE (17:38)
[2017-07-05 18:41] LABS: Actual Bicarbonate (HCO3a) 19.4 mEq/L (22-26); Base Excess (BEa) -5.5 mEq/L (0 (+/-) 2.5); CO2 Tension 38.2 mmHg (35.0-45.0); O2 Tension (PaO2) 209.6 mmHg (80.0-100.0); pH, Arterial 7.33 (7.35-7.45)
[2017-07-05 18:42] LABS: Calcium, Ionized 1.2 mmol/L (1.12-1.30); Hemoglobin (Hb) 7.2 g/dL (14.0-18.0); Puncture Site RRA
[2017-07-05] MEDS ORDERED: Propofol 1,000 MG/100 ML VIAL IV ONE (19:25)
[2017-07-05] MEDS ORDERED: Sodium Chloride 38.44 MEQ, Sodium Bicarbonate 100 MEQ in Sterile Water Injection 990.39 ML IV SCH (19:30)
[2017-07-05 20:27] LABS: Anion Gap 16 mmol/L (10-20); BUN (Urea Nitrogen) 20 mg/dL (8.4-25.7); Calc. Creatinine Clearance 105 mL/min (70-130); Calcium 7.6 mg/dL (7.8-10.44); Carbon Dioxide 17 mmol/L (23-31); Chloride 108 mmol/L (98-107); Estimated GFR-MDRD Greater than 90; Glucose 265 mg/dL (80-115); Magnesium 1.9 mg/dL (1.6-2.6); Phosphorus 2.9 mg/dL (2.3-4.7); Potassium 4.2 mmol/L (3.5-5.1); Sodium 137 mmol/L (136-145)
[2017-07-05] MEDS: fentaNYL Citrate/PF 2,000 MCG in Sodium Chloride 0.9% 60 ML IV SCH (20:34)
[2017-07-05 20:35] LABS: Anisocytosis SLIGHT = 6-15 cells (100X) (0-5/hpf); Band 4 % (5-11); Hemoglobin 8.6 g/dL (14.0-18.0); Hypochromia SLIGHT = 6-15 cells (100X) (0-5/hpf); Lymphocytes 2 % (21-51); MDiff Complete? YES; Mean Corpuscular HGB CONC 30.3 g/dL (32.0-36.0); Mean Corpuscular Hemoglobin 29.7 pg (27.0-31.0); Mean Corpuscular Volume 97.7 fl (80.0-94.0); Mean Platelet Volume 8.6 fL (7.4-10.4); Neutrophil 94 % (42-75); Nucleated RBC 2 % (0); PLT Morphology Comment Appears Adequate; Platelet Count 381 thou/uL (130-400); Polychromasia SLIGHT = 2-3 cells (100X) (0-2/hpf); RBC Distribution Width 17.4 % (11.5-14.5); Target Cells SLIGHT = 2-5 cells (100X) (0-1/hpf); White Blood Cell (WBC) Count 29.3 thou/uL (4.8-10.8)
[2017-07-05] MEDS: SODIUM CHLORIDE IV SCH (21:30)
[2017-07-05] MEDS: SODIUM BICARBONATE IV SCH (21:30)
[2017-07-05] MEDS: [UNRECOGNIZED DRUG - OTHER] IV SCH (21:30)
[2017-07-05] MEDS: risperiDONE 1 MG TAB PO SCH (22:05)
[2017-07-05] MEDS: Nicotine 21 MG PATCH TD SCH (22:11)
[2017-07-06] MEDS: Propofol 1,000 MG/100 ML VIAL IV PRN ×5 (00:46→22:13)
[2017-07-06] MEDS: Piperacillin/Tazobactam 3.375 GM in Sodium Chloride 0.9% 100 ML IVPB SCH ×4 (00:46→18:22)
[2017-07-06] MEDS: Ibuprofen 600 MG TAB PO SCH ×4 (00:46→18:22)
--- NOTE | 2017-07-06 03:02 | PRG ---
DATE OF SERVICE: 07/05/2017 SUBJECTIVE: The patient is currently in the Critical Care Unit undergoing under sedation with full m echanical ventilatory support, status post irrigation and debridement of his operative site being an ORIF of the right hip fracture. The patient has just returned from the operating room where Dr. Paul robertson had taken the patient for his I&D. Per discussion with Dr. Drake, he did not find any yaniv pus, purulence or signs of active infection. He did take cultures intraoperatively. Prior to my arr ival, Dr. Naqvi has been contacted by the respiratory therapist and given instructions for sedation a nd the ventilator settings. The patient is currently resting comfortable, appears to be tolerating t he ventilator without difficulty. PHYSICAL EXAMINATION: VITAL SIGNS: Blood pressure is 145/90, heart rate 103, respirations 19, oxygen saturation is 100%. LUNGS: Have scattered rhonchi bilaterally. HEART: Regular rate and rhythm. ABDOMEN: Soft and nondistended with minimal to no bowel sounds appreciated. EXTREMITIES: Show capillary refill of 3 seconds. Pulses 2+. POSTOPERATIVE LABORATORY DATA: Show a white blood cell count of 29.3, hemoglobin 8.6, hematocrit 24. 8, and platelets 381. Sodium is 137, potassium 4.2, chloride 108, CO2 of 17, BUN 20, creatinine 0.83 , glucose 265, magnesium 1.9, and phosphorus 2.9. Urinary output is 40-50 mL per hour. ASSESSMENT AND PLAN: Status post irrigation and debridement of right hip open reduction and internal fixation surgical site. Plan will be to continue antibiotics until culture results, mechanical vent ilatory support, and no change to the primary plan.
[2017-07-06] MEDS: HumaLOG 300 UNITS/3 ML VIAL SC PRN ×3 (05:33→20:50)
[2017-07-06 05:54] LABS: Anion Gap 10 mmol/L (10-20); BUN (Urea Nitrogen) 20 mg/dL (8.4-25.7); Calc. Creatinine Clearance 113 mL/min (70-130); Calcium 7.4 mg/dL (7.8-10.44); Carbon Dioxide 25 mmol/L (23-31); Chloride 109 mmol/L (98-107); Estimated GFR-MDRD Greater than 90; Glucose 178 mg/dL (80-115); Magnesium 2.1 mg/dL (1.6-2.6); Phosphorus 2.4 mg/dL (2.3-4.7); Potassium 4.5 mmol/L (3.5-5.1); Sodium 139 mmol/L (136-145)
[2017-07-06 05:56] LABS: Hemoglobin 6.6 g/dL (14.0-18.0); Mean Corpuscular HGB CONC 31.3 g/dL (32.0-36.0); Mean Corpuscular Hemoglobin 30.3 pg (27.0-31.0); Platelet Count 310 thou/uL (130-400); RBC Distribution Width 17.5 % (11.5-14.5); Red Blood Cell (RBC) Count 2.19 mill/uL (4.70-6.10)
[2017-07-06 05:57] LABS: Band 6 % (5-11); Eosinophils 2 % (0-10); Lymphocytes 10 % (21-51); MDiff Complete? YES; Monocytes 2 % (0-10); Myelocyte 2 % (0-0); Neutrophil 78 % (42-75); Nucleated RBC 1 % (0); Polychromasia SLIGHT = 2-3 cells (100X) (0-2/hpf); Schistocytes SLIGHT = 2-5 cells (100X) (0-1/hpf); Target Cells SLIGHT = 2-5 cells (100X) (0-1/hpf)
[2017-07-06] MEDS: Levalbuterol HCl 0.63 MG/3 ML NEB NEB SCH ×3 (07:19→22:17)
--- NOTE | 2017-07-06 07:56 | RAD ---
CHEST 1 VIEW: HISTORY: Dyspnea. COMPARISON: 07/03/17. FINDINGS: Cardiac silhouette is magnified by projection. Pulmonary vasculature remains engorged. The patient is rotated leftward. Skin fold extends overlying the right hemithorax. No lobar consolidation or ev idence of pneumothorax. The tip of an endotracheal catheter overlies the thoracic inlet. Feeding tube descends to the stomac h. IMPRESSION: 1. Endotracheal catheter is in good radiographic position. 2. Feeding tube descends to the upper stomach, just beyond the GE junction. 3. Pulmonary vascular congestion. POS: [facility]
[2017-07-06] MEDS: [UNRECOGNIZED DRUG - OTHER] IV SCH ×2 (08:55→20:47)
[2017-07-06] MEDS: SODIUM CHLORIDE IV SCH ×2 (08:55→20:47)
[2017-07-06] MEDS: SODIUM BICARBONATE IV SCH ×2 (08:55→20:47)
[2017-07-06] MEDS ORDERED: Furosemide 20 MG/2 ML VIAL SLOW IVP SCH (09:15)
[2017-07-06] MEDS: Gabapentin 300 MG CAP PO SCH ×3 (09:53→19:59)
[2017-07-06] MEDS: Atorvastatin Calcium 20 MG TAB PO SCH (09:53)
[2017-07-06] MEDS: Cyanocobalamin (Vitamin B-12) 1,000 MCG TAB PO SCH (09:53)
[2017-07-06] MEDS: Famotidine 20 MG TAB PO SCH ×2 (09:53→19:58)
[2017-07-06] MEDS: Folic Acid 1 MG TAB PO SCH (09:53)
[2017-07-06] MEDS: Enoxaparin Sodium 40 MG/0.4 ML SYRINGE SC SCH (09:53)
[2017-07-06] MEDS: Vancomycin HCl 1.25 GM in Sodium Chloride 0.9% 250 ML 250 ML IVPB SCH ×2 (09:54→20:47)
[2017-07-06] MEDS: Multivitamin W/ Minerals 1 TAB PO SCH (09:54)
[2017-07-06] MEDS: Tamsulosin HCl 0.4 MG CAP PO SCH (09:55)
[2017-07-06] MEDS: Senokot S 8.6-50 MG TAB PO SCH ×2 (09:55→19:58)
[2017-07-06] MEDS: Fluticasone Propionate Nasal Spray 16 gm Bottle NASAL SCH (10:01)
[2017-07-06] MEDS: Polyethylene Glycol 3350 17 GM Packet PO SCH (10:10)
--- NOTE | 2017-07-06 10:32 | PQF ---
CLINICAL DOCUMENTATION IMPROVEMENT CLARIFICATION FORM: ICD-10 Updated PLEASE DO AN ADDENDUM TO THE PROGRESS NOTE WITH ANY DOCUMENTATION UPDATES OR ADDITIONS AND CARRY THROUGH TO DC SUMMARY. THANK YOU. DATE: 07/06/17 ATTN: DR. ADAMS Please exercise your independent, professional judgment in responding to the clarification form. Clinical indicators are provided on the bottom of this form for your review Please check appropriate box(s): [ x ] Acute blood loss anemia [ ] Post-op anemia related to acute blood loss [ ] Anemia: [ ] Aplastic [ ] Nutritional [ ] Drug induced (specify) ___ [ ] Hemolytic [ ] Hereditary [ ] Acquired [ ] Autoimmune [ ] Non-autoimmune [ ] Enzyme disorder [ ] Chronic Anemia: [ ] Blood loss [ ] Hemolytic [ ] Simple [ ] Due to Vitamin B12 Deficiency [ ] Other [ ] Anemia of Chronic Disease (please specify) [ ] Anemia due to Neoplasm: [ ] Primary [ ] Secondary [ ] Anemia due to (please choose): [ ] Due to Chemotherapy [ ] Due to Radiotherapy [ ] Due to Immunotherapy [ ] Other diagnosis [ ] Unable to determine In addition, please specify: Present on Admission (POA): [ x] Yes [ ] No [ ] Unable to determine For continuity of documentation, please document condition throughout progress notes and discharge summary. Thank You. CLINICAL INDICATORS - SIGNS / SYMPTOMS / LABS HGN 07/02: 9.4 HGN 07/04: 8.4 HGN 07/06: 6.6 RISKS: RIGHT HIP INFECTION WITH RECENT I&D TREATMENT: BLOOD TRANSFUSIONS X 2 (This form is maintained as a part of the permanent medical record) 2014 [employer]. All Rights Reserved [email or web address] Office: [phone] [facility]
[2017-07-06 10:35] LABS: CO2 Tension 34.1 mmHg (35.0-45.0); pH, Arterial 7.48 (7.35-7.45)
[2017-07-06 10:36] LABS: Actual Bicarbonate (HCO3a) 24.7 mEq/L (22-26); Base Excess (BEa) 1.2 mEq/L (0 (+/-) 2.5); O2 Tension (PaO2) 92.2 mmHg (80.0-100.0)
[2017-07-06 10:37] LABS: Hematocrit-ABG 26.2 % (42.0-52.0); Hemoglobin (Hb) 7.8 g/dL (14.0-18.0)
[2017-07-06 10:38] LABS: Analyzer IN Cardio ER; Calcium, Ionized 1.1 mmol/L (1.12-1.30)
[2017-07-06 10:39] LABS: ALV-art Gradient 150.375 (0-20)
[2017-07-06] MEDS ORDERED: buPROPion HCl 100 MG TAB PER TUBE SCH (10:45)
[2017-07-06] MEDS: buPROPion HCl 100 MG TAB PER TUBE SCH (10:45)
--- NOTE | 2017-07-06 10:59 | PRG ---
DATE OF SERVICE: 07/06/2017 SUBJECTIVE: Mr. Smiley is a 67-year-old man who is postoperative day #7 today status post surgical re pair of right hip fracture. The patient was readmitted to the hospital with acute pulmonary insuffic iency secondary to acute noncardiogenic pulmonary edema. Due to worsening leukocytosis, the patient underwent wound washout yesterday. Surgical findings had revealed no gross purulence from the wound to suggest infection. Previous chest x-ray had revealed left lower lobe pneumonia. Patient is curre ntly on broad spectrum antibiotic therapy. Postoperatively, patient was admitted to the Intensive Ca re Unit in acute respiratory failure on full mechanical ventilator support with positive pressure migdalia tilation. Overnight, he has been hemodynamically stable. Oxygenation is improved on PEEP of 12. Fi O2 originally was 70% and has been weaned to 40% by this morning with oxygen saturation remaining at 100%. The patient remains sedated. When sedation is lightened, he awakens readily. Moves all extre mities and follows commands. PHYSICAL EXAMINATION: VITAL SIGNS: This morning includes blood pressure 133/71, pulse is 69, respiratory rate 14. Maximum temperature in the last 24 hours is 98.8 degrees Fahrenheit, oxygen saturation is 100% on FiO2 of 40 %, PEEP of 12. HEENT: Examination reveals normocephalic and atraumatic. He has bilateral scleral edema present. H e has no jugular venous distention noted. HEART: Reveals regular rate and rhythm. No murmurs or gallops auscultated. LUNGS: Reveals bibasilar rhonchi, breathing is regular and unlabored. ABDOMEN: Soft, nontender and nondistended. Bowel sounds in all four quadrants appear normoactive. EXTREMITIES: Reveals 2+ radial and pedal pulses bilaterally. He has residual ankle pitting edema pr esent. NEUROLOGIC: Examination reveals no focal deficits present. LABORATORY DATA AND IMAGING DATA: Pertinent laboratory findings today includes CBC with decreasing w ashu blood cell count now at 23,000 in contrast to 29,300 yesterday. Hemoglobin and hematocrit today are low at 6.6 and 21.2 respectively. Platelet count is 310,000. Metabolic profile today; sodium 1 39, potassium is 4.5, chloride is 109, bicarbonate 25, BUN is 20, creatinine is 0.77, glucose is 178. Magnesium 2.1, phosphorus is 2.4. I have reviewed the chest x-ray today which reveals a significan t improvement with regards to aeration. There is, however, increasing pulmonary markings to suggest pulmonary edema. No pneumothorax is present. Previously noted left lower lobe consolidation is reso lving. IMPRESSION: 1. Postoperative day #7 status post surgical repair of right hip fracture. 2. Postop day #1, status post right hip wound washout. 3. Acute respiratory failure secondary to left lower lobe pneumonia. 4. Acute ARDS, resolving. 5. Acute metabolic acidosis, resolving. 6. Acute blood loss anemia. PLAN: 1. Continue with full mechanical ventilator support; however, we will begin to wean the PEEP down to 10 and titrate that to adequate oxygenation. 2. We will obtain pulmonary cultures today through the endotracheal tube. 3. Empiric antibiotics will be continued, pending culture results. 4. We will reinitiate enteral nutritional supplementation. 5. Resume physical and occupational therapy. 6. The patient will be transfused with 1 unit of packed red blood cells. Total critical care time is 45 minutes.
[2017-07-06] MEDS: Furosemide 20 MG/2 ML VIAL SLOW IVP SCH ×3 (12:47→20:48)
[2017-07-06] MEDS: Bupropion 150 MG XL TAB PO SCH (14:40)
[2017-07-06 15:11] LABS: Hemoglobin 7.9 g/dL (14.0-18.0)
[2017-07-06] MEDS: buPROPion 75 MG TAB PER TUBE SCH (16:31)
[2017-07-06] MEDS: risperiDONE 1 MG TAB PO SCH (19:58)
[2017-07-06] MEDS: Midazolam HCl 2 mg/2 ml Vial SLOW IVP PRN (20:10)
[2017-07-06 20:40] LABS: Vancomycin, Trough 19.6 ug/mL
--- NOTE | 2017-07-06 23:31 | OP ---
DATE OF PROCEDURE: 07/05/2017 PREOPERATIVE DIAGNOSIS: Right lateral hip wound drainage post dynamic hip screw insertion. POSTOPERATIVE DIAGNOSIS: Right lateral hip wound drainage post dynamic hip screw insertion. SURGICAL PROCEDURE: Exploration and irrigation of right lateral thigh surgical site. ANESTHESIA: General. SURGEON: David Drake MD CLOTH HANDLER: Bob Borja PA-C ESTIMATED BLOOD LOSS: 20 mL. SPECIMEN: Superficial and deep swab sent for Gram stain culture and sensitivity. COMPLICATIONS: None. DRAINS: None. IMPLANTS: None. OUTCOME: Satisfactory. INDICATIONS: The patient is a 67-year-old gentleman who sustained an intertrochanteric femur fractur e that was treated with a DHS device approximately 5 days prior to this current admission. The patie nt presented to the emergency room in acute respiratory distress. It appears that he is in ARDS. We do not have an obvious source of infection. The patient did have some increased wound drainage sinc e he has been in the hospital and given the fact we really do not have a focus of infection to explai n his current illness, we have opted to take him back to the operating room and explore this hip give n the increased drainage to ensure that it is not infected. Informed consent has been obtained. Dre jacques all questions were answered. DESCRIPTION OF PROCEDURE: The patient was brought to the operating room and induction of general ane sthesia was performed. Next, he was positioned supine on the regular operating room table with a bum p under the right hip to allow for inspection of the DHS wound. Martin were then removed and then a sterile prep and drape performed of the right lateral thigh. The subcutaneous sutures were then rem sobia and then dissection was carried into the subcutaneous space. He was found to have a seroma in t he subcutaneous space; however, this did not appear to be grossly infected and certainly there was no purulence. This tissue was swabbed and sent for Gram stain culture and sensitivity. This layer was then irrigated with Pulsavac approximately 1 liter. Next, sutures were removed from the fascia melanie and then dissection carried down through the vastus lateralis to the plate. No fluid collection was encountered during this portion of the dissection. A deep swab was taken for completeness sake and sent for Gram stain culture and sensitivity. Next, a total of 5 liters of normal saline using Pulsav ac was irrigated through the wound and then the wound was again closed. 0 Vicryl was used for the te nsor fascia followed by 2-0 Vicryl and then nylon for the skin. A Xeroform gauze and tape dressing w ere applied to the thigh and then the patient was transferred to recovery room in stable condition. There were no complications.
[2017-07-07] MEDS: Ibuprofen 600 MG TAB PO SCH ×5 (00:10→23:54)
[2017-07-07] MEDS: Piperacillin/Tazobactam 3.375 GM in Sodium Chloride 0.9% 100 ML IVPB SCH ×5 (00:10→23:53)
--- NOTE | 2017-07-07 00:33 | PRG ---
DATE OF SERVICE: 07/06/2017 SUBJECTIVE: Mr. Smiley is postop day #7 status post open reduction internal fixation of a right hip f racture who was readmitted to the hospital, was believed to be sepsis with uncertain source. The pat ient yesterday had undergone irrigation, debridement, and exploration of his surgical site to evaluat e if it was possible site. According to Dr. Drake, it did not appear that in light of the clean s urgical site, no purulent discharge and the tissues appeared as expected postoperatively. Cultures w ere taken and showed Staph aureus with a possible mixed sample. We will await sensitivities on this. The patient currently is in the Critical Care Unit on full mechanical ventilatory support. He is t olerating this when his sedation is light. He will open his eyes and follows simple commands, but sh ortly thereafter will become agitated. Tonight, the nurse states that the patient's urinary output i s staying well above 40 mL per hour which we would expect in light of him getting diuresed. He is al so tolerating his tube feeds at 25 mL per hour. Per the nurses, they have had no issues with the naya woodard. OBJECTIVE: VITAL SIGNS: Temperature is 97.7, heart rate 79, blood pressure 129/83, oxygen saturation is 100%. GENERAL: Patient is resting comfortably. He is asleep and fully sedated. LUNGS: Show bilateral scattered rhonchi and slight wheezing. HEART: Regular rate and rhythm. ABDOMEN: Soft, flat, nontender with hypoactive bowel sounds. EXTREMITIES: Lower extremities showed 2+ to 3+ pitting edema. Capillary refill in all 4 extremities is less than 3 seconds. ASSESSMENT AND PLAN: 1. Status post open reduction internal fixation of right hip fracture. 2. Status post right hip wound washout. 3. Acute respiratory failure secondary to left lower lobe pneumonia. 4. Acute respiratory distress syndrome, resolving. 5. Acute metabolic acidosis, resolving. 6. Acute blood loss anemia. The plan will be to continue full mechanical ventilator support and wean per the primary team in the morning. Await culture results and sensitivities. The patient received 1 unit of packed red blood c ells this morning. We will continue enteral feedings and advanced as tolerated.
[2017-07-07 04:52] LABS: Anion Gap 10 mmol/L (10-20); BUN (Urea Nitrogen) 16 mg/dL (8.4-25.7); Calc. Creatinine Clearance 106 mL/min (70-130); Calcium 7.2 mg/dL (7.8-10.44); Carbon Dioxide 30 mmol/L (23-31); Chloride 103 mmol/L (98-107); Estimated GFR-MDRD Greater than 90; Glucose 207 mg/dL (80-115); Magnesium 1.6 mg/dL (1.6-2.6); Phosphorus 2.4 mg/dL (2.3-4.7); Potassium 3.1 mmol/L (3.5-5.1); Sodium 140 mmol/L (136-145)
[2017-07-07 05:00] LABS: Band 11 % (5-11); Eosinophils 1 % (0-10); Hemoglobin 7.5 g/dL (14.0-18.0); Lymphocytes 9 % (21-51); MDiff Complete? YES; Mean Corpuscular HGB CONC 32.8 g/dL (32.0-36.0); Mean Corpuscular Hemoglobin 30.6 pg (27.0-31.0); Mean Corpuscular Volume 93.4 fl (80.0-94.0); Mean Platelet Volume 8.3 fL (7.4-10.4); Monocytes 3 % (0-10); Neutrophil 75 % (42-75); Nucleated RBC 2 % (0); PLT Morphology Comment Appears Adequate; Platelet Count 296 thou/uL (130-400); RBC Distribution Width 16.3 % (11.5-14.5); Reactive Lymphocytes 1 % (0-10); Red Blood Cell (RBC) Count 2.44 mill/uL (4.70-6.10); White Blood Cell (WBC) Count 23.6 thou/uL (4.8-10.8)
[2017-07-07] MEDS: HumaLOG 300 UNITS/3 ML VIAL SC PRN ×4 (05:17→21:09)
[2017-07-07] MEDS: Furosemide 20 MG/2 ML VIAL SLOW IVP SCH ×3 (05:17→19:58)
[2017-07-07] MEDS ORDERED: Potassium Chloride 40 MEQ, Magnesium Sulfate 2 GM in Sodium Chloride 0.9% 250 ML 250 ML IVPB SCH ×2 (07:00→12:30)
[2017-07-07] MEDS: Levalbuterol HCl 0.63 MG/3 ML NEB NEB SCH (07:25)
[2017-07-07] MEDS: Propofol 1,000 MG/100 ML VIAL IV PRN ×4 (08:27→22:00)
[2017-07-07] MEDS: Gabapentin 300 MG CAP PO SCH ×3 (09:40→19:57)
[2017-07-07] MEDS: Senokot S 8.6-50 MG TAB PO SCH ×2 (09:40→19:57)
[2017-07-07] MEDS: Tamsulosin HCl 0.4 MG CAP PO SCH (09:40)
[2017-07-07] MEDS: Multivitamin W/ Minerals 1 TAB PO SCH (09:40)
[2017-07-07] MEDS: Polyethylene Glycol 3350 17 GM Packet PO SCH (09:40)
[2017-07-07] MEDS: Folic Acid 1 MG TAB PO SCH (09:41)
[2017-07-07] MEDS: Famotidine 20 MG TAB PO SCH ×2 (09:41→19:57)
[2017-07-07] MEDS: Enoxaparin Sodium 40 MG/0.4 ML SYRINGE SC SCH (09:42)
[2017-07-07] MEDS: buPROPion HCl 100 MG TAB PER TUBE SCH (09:52)
[2017-07-07] MEDS: Fluconazole 100 MG TAB PO SCH (09:52)
[2017-07-07] MEDS: Vancomycin HCl 1.25 GM in Sodium Chloride 0.9% 250 ML 250 ML IVPB SCH ×2 (09:53→21:07)
[2017-07-07] MEDS: Cyanocobalamin (Vitamin B-12) 1,000 MCG TAB PO SCH (09:53)
[2017-07-07] MEDS: Fluticasone Propionate Nasal Spray 16 gm Bottle NASAL SCH (10:12)
[2017-07-07] MEDS: fentaNYL Citrate/PF 2,000 MCG in Sodium Chloride 0.9% 60 ML IV SCH (10:31)
[2017-07-07] MEDS: Midazolam HCl 2 mg/2 ml Vial SLOW IVP PRN ×2 (10:41→12:59)
--- NOTE | 2017-07-07 10:47 | PRG-2 ---
DATE OF SERVICE: 07/07/2017 ATTENDING PHYSICIAN: Dr. Dajuan Naqvi SUBJECTIVE: Mr. Smiley is a 67-year-old male who was recently admitted to the [facility] for a right hip fracture. He is postop day #8 status post surgical repair. The patient was readmi tted to the hospital on 07/01/2017 for acute respiratory failure secondary to noncardiogenic pulmonar y edema. The patient was found to have concern for a left lower lobe infiltrate as well as continued oozing from his surgical incision site. The patient is postoperative day #2 status post wound washo ut. The surgical findings revealed no evidence of infection; however, cultures were done at that [facility]. The patient is currently on broad spectrum antibiotics and intubated on mechanical ventilator in the ICU. The patient has been hemodynamically stable with O2 sats 99-100%. His PEEP was weaned from 12 to 10 yesterday and his FiO2 has been at 40% all day yesterday. PHYSICAL EXAMINATION: VITAL SIGNS: Most recent vital signs include temperature of 98.0, blood pressure 158/74, pulse 71, r espiratory rate 13, O2 sat 100% on mechanical ventilation with settings of SIMV rate of 12, FiO2 of 4 0%, PEEP of 10, tidal volume 550. GENERAL: Sedated. Mechanically ventilated, well-developed male lying in bed, follows commands when sedation is lightened. HEENT: Normocephalic, atraumatic. Bilateral scleral edema. RESPIRATORY: No use of accessory muscles of respiration, rhonchi at the bilateral lung bases. CARDIOVASCULAR: Regular rate and rhythm. No murmurs, gallops or rubs. ABDOMEN: Nondistended, normoactive bowel sounds. Soft, nontender. EXTREMITIES: Some weeping from all 4 extremities. Trace pitting edema in bilateral ankles. 2+ radi al and pedal pulses. NEUROLOGIC: No focal deficits present, becomes alert and follows commands when sedation is weaned. LABORATORY DATA: WBC 23.6, hemoglobin 7.5, hematocrit 22.8, platelets 296, % neutrophils 75%, bands 11, sodium 140, potassium 3.1, BUN 16, creatinine 0.81, GFR greater than 90, calcium 7.2, phosphorus 2.4, magnesium 1.6. ABG from yesterday morning showed pH of 7.48, pCO2 34.1, pO2 92.2, bicarbonate 2 4.7. ASSESSMENT: 1. Post op day 8, status post surgical repair of right hip fracture. 2. Postop day #2 status post right hip wound washout. 3. Acute respiratory failure secondary to left lower lobe pneumonia. 4. Acute adult respiratory distress syndrome, resolving. 5. Acute blood loss anemia. 6. Hypokalemia. PLAN: 1. Continue to monitor in the ICU on mechanical ventilator support; however, will wean PEEP down thi s morning to monitor the patient's response. 2. We will stop Levaquin and start Diflucan as the respiratory cultures from the ET tube has grown m oderate budding yeast and moderate gram positive cocci as well as the right hip culture 1 of 2 has gr own few Staphylococcus species, but there is no sign of any gram negatives. 3. We will continue vancomycin and Zosyn. 4. We will continue tube feeds through Dobbhoff. Continue vancomycin and Zosyn, will further wean pending final culture results. 5. We will replete potassium and magnesium. 6. PT, OT and Rehab screen once the patient is off sedation. 7. Initiate iron and vitamin C. 8. Lovenox for VTE prophylaxis. Dr. Naqvi saw and examined this patient and formulated the plan with me.
[2017-07-07] MEDS ORDERED: Propofol 1,000 MG/100 ML VIAL IV ONE (13:28)
--- NOTE | 2017-07-07 13:47 | RAD ---
PORTABLE CHEST 1 VIEW: Date: 07/07/17 Time: 1327 hours HISTORY: Respiratory failure. FINDINGS/IMPRESSION: Feeding tube positions are unchanged. The heart size is stable. There is pulmonary vascular congestio n bilaterally. Small accompanying pleural effusions are present. There is atelectatic change at the l eft lung base. No pneumothoraces are identified. POS: [facility]
[2017-07-07] MEDS: Acetaminophen 500 MG TAB PO SCH ×2 (14:33→19:51)
[2017-07-07] MEDS: traMADol HCl 50 MG TAB PO SCH ×2 (14:34→19:51)
--- NOTE | 2017-07-07 14:47 | PRG ---
DATE OF EXAMINATION: 07/07/2017 SUBJECTIVE: Mr. Smiley remains on mechanical ventilator support. He is sedated with propofol by cont inuous infusion. When light on sedation, he moves all extremities and follows commands. Oxygenation is improved on SIMV of 12, tidal volume 550 per support of 10, FIO2 40%, PEEP of 10. The patient francois s remained hemodynamically stable otherwise. Respiratory cultures revealed gram positive cocci with final identification of the organism pending. Wound culture is positive for Staphylococcus species. The patient is currently on Zosyn and vancomycin pending definitive sensitivity studies. OBJECTIVE: VITAL SIGNS: Today includes blood pressure 162/81, pulse is 78, respiratory rate is 12, maximum temp erature in the last 24 hours is 98.3 degrees Fahrenheit, and oxygen saturation 100%. HEENT: Reveals resolving bilateral sclerae edema. The patient has no jugular venous distention note d. HEART: Reveals regular rate and rhythm, no murmurs or gallops auscultated. LUNGS: Reveals bibasilar rhonchi. Breathing regular and unlabored. ABDOMEN: Soft, nontender, nondistended. Bowel sounds in all four quadrants appear normoactive. NEUROLOGIC: Reveals no focal deficits present. LABORATORY DATA: Laboratory findings today includes CBC with 23,600 white blood cells, hemoglobin 7. 5, hematocrit is 22.8, platelet count is 296,000. Metabolic profile: Sodium 140, potassium 3.1, chl oride is 103, bicarbonate 30, BUN 16, creatinine is 0.81, glucose is 207, magnesium 1.6, and phosphor us 2.4. A chest x-ray which was obtained today reveals bilateral left greater than right interstitial pulmona ry infiltrates. There is increase in perihilar markings. No pneumothorax or significant pleural eff usion is identified. IMPRESSION: 1. Acute respiratory failure, likely secondary to gram positive cocci pneumonia. 2. Resolving acute respiratory distress syndrome. 3. Postoperative wound infection with Staphylococcus species. 4. Resolved acute chronic obstructive pulmonary disease exacerbation. PLAN: 1. Solu-Medrol will be discontinued. We will however resume prednisone 20 mg daily and as ind icated. 2. Continue with full mechanical ventilatory support, weaning PEEP as the oxygenation tolerates. 3. Continue with diuresis while minimizing fluid infusions. We will try to convert antibiotics to o ral agents. 4. Continue with physical and occupational therapy. The patient is certainly not stable enough for extubation today given the residual pulmonary edema. Total critical care time is 40 minutes.
[2017-07-07] MEDS: buPROPion 75 MG TAB PER TUBE SCH (16:48)
[2017-07-07] MEDS: Ascorbic Acid 500 mg Chewable Tablet PER TUBE SCH (16:48)
[2017-07-07] MEDS: risperiDONE 1 MG TAB PO SCH (19:57)
[2017-07-08] MEDS: traMADol HCl 50 MG TAB PO SCH ×4 (01:16→20:01)
[2017-07-08] MEDS: Acetaminophen 500 MG TAB PO SCH ×4 (01:16→20:04)
[2017-07-08] MEDS: Propofol 1,000 MG/100 ML VIAL IV PRN ×2 (03:02→08:57)
[2017-07-08] MEDS: Piperacillin/Tazobactam 3.375 GM in Sodium Chloride 0.9% 100 ML IVPB SCH ×3 (05:00→18:01)
[2017-07-08] MEDS: Ibuprofen 600 MG TAB PO SCH ×3 (05:00→18:01)
[2017-07-08] MEDS: Furosemide 20 MG/2 ML VIAL SLOW IVP SCH ×3 (05:00→20:07)
[2017-07-08] MEDS: HumaLOG 300 UNITS/3 ML VIAL SC PRN ×3 (06:14→16:07)
[2017-07-08 07:27] LABS: Hemoglobin 7.8 g/dL (14.0-18.0); Mean Corpuscular HGB CONC 32.2 g/dL (32.0-36.0); Mean Corpuscular Hemoglobin 30.9 pg (27.0-31.0); Mean Platelet Volume 8.9 fL (7.4-10.4); Platelet Count 348 thou/uL (130-400); Red Blood Cell (RBC) Count 2.52 mill/uL (4.70-6.10); White Blood Cell (WBC) Count 23.9 thou/uL (4.8-10.8)
[2017-07-08] MEDS: Ascorbic Acid 500 mg Chewable Tablet PER TUBE SCH ×2 (07:29→15:20)
[2017-07-08] MEDS: predniSONE 20 MG TAB PO SCH (07:36)
[2017-07-08 07:50] LABS: Vancomycin, Trough 30.6 ug/mL
[2017-07-08 08:28] LABS: Band 12 % (5-11); Eosinophils 4 % (0-10); Hypochromia SLIGHT = 6-15 cells (100X) (0-5/hpf); Lymphocytes 12 % (21-51); MDiff Complete? YES; Monocytes 6 % (0-10); Neutrophil 66 % (42-75); Nucleated RBC 1 % (0); PLT Morphology Comment Appears Adequate; Polychromasia SLIGHT = 2-3 cells (100X) (0-2/hpf); Target Cells MODERATE= 6-15 cells (100X) (0-1/hpf)
[2017-07-08] MEDS: Tamsulosin HCl 0.4 MG CAP PO SCH (08:44)
[2017-07-08] MEDS: Famotidine 20 MG TAB PO SCH ×2 (08:44→20:05)
[2017-07-08] MEDS: Fluconazole 100 MG TAB PO SCH (08:45)
[2017-07-08] MEDS: Gabapentin 300 MG CAP PO SCH ×3 (08:46→20:04)
[2017-07-08] MEDS: Folic Acid 1 MG TAB PO SCH (08:47)
[2017-07-08] MEDS: Multivitamin W/ Minerals 1 TAB PO SCH (08:47)
--- NOTE | 2017-07-08 08:47 | RAD ---
CHEST 1 VIEW: Date: 07/08/17 HISTORY: Dyspnea. Follow-up. COMPARISON: 07/07/17. FINDINGS: Cardiac silhouette is magnified and partially obscured by widespread parenchymal opacity that is tayla lar in appearance to the previous study. Pulmonary vasculature remains markedly engorged. The hemidia phragms are now partially obscured, possibly by small amount of bilateral pleural fluid. Mediastinum is midline with aortic calcification. Lines and tubes appear unchanged in position, with the metallic tip of the Dobbhoff feeding tube lying just inferior to the esophagogastric junction. jeep driver leads overlie the chest. IMPRESSION: 1. Pulmonary edema. Increased opacity at the lung bases, possibly related to developing pleural flui d. 2. Tip of nasogastric tube remains just below the level of the GE junction. POS: [facility]
[2017-07-08] MEDS: buPROPion HCl 100 MG TAB PER TUBE SCH (08:52)
[2017-07-08] MEDS: Enoxaparin Sodium 40 MG/0.4 ML SYRINGE SC SCH (08:52)
[2017-07-08] MEDS: Senokot S 8.6-50 MG TAB PO SCH ×2 (08:52→20:06)
[2017-07-08] MEDS: Polyethylene Glycol 3350 17 GM Packet PO SCH (08:53)
[2017-07-08] MEDS: Fluticasone Propionate Nasal Spray 16 gm Bottle NASAL SCH (08:53)
[2017-07-08] MEDS: Cyanocobalamin (Vitamin B-12) 1,000 MCG TAB PO SCH (08:53)
[2017-07-08] MEDS ORDERED: Fluconazole 100 MG TAB PO SCH (09:00)
[2017-07-08 10:02] LABS: Anion Gap 11 mmol/L (10-20); BUN (Urea Nitrogen) 15 mg/dL (8.4-25.7); Calc. Creatinine Clearance 102 mL/min (70-130); Calcium 7.3 mg/dL (7.8-10.44); Carbon Dioxide 31 mmol/L (23-31); Chloride 101 mmol/L (98-107); Estimated GFR-MDRD 86; Glucose 213 mg/dL (80-115); Magnesium 1.9 mg/dL (1.6-2.6); Phosphorus 2.1 mg/dL (2.3-4.7); Sodium 140 mmol/L (136-145)
[2017-07-08] MEDS ORDERED: Potassium Phosphate 30 MMOL in Sodium Chloride 0.9% 250 ML 250 ML IVPB SCH (10:45)
--- NOTE | 2017-07-08 15:37 | PRG ---
DATE OF SERVICE: 07/08/2017 SUBJECTIVE: This is a 67-year-old man who is status post surgical repair of right hip fracture. Postoperative course has been complicated by wound infection and ARDS causing acute respiratory failure. Currently, patient is hemodynamically stable. He is sedated on mechanical ventilator support. He awakens to touch, moves all extremities and follows commands. He tolerates tube feeds at goal, having bowel movements. Urinary output has been adequate. The patient has remained afebrile over the last 72 hours. PHYSICAL EXAMINATION: CURRENT VITAL SIGNS: Includes blood pressure 145/82, pulse 78, respiratory rate is 12, maximum temperature in the last 24 hours is 98.3 degrees Fahrenheit , oxygen saturation 100% on SIMV of 12, tidal volume is 550, PEEP of 5, pressure support of 10, and FiO2 of 40%. HEENT: Reveals normocephalic and atraumatic. There is now resolved bilateral sclerae edema. The patient has no jugular venous distention noted. HEART: Reveals regular rate and rhythm, no murmurs or gallops auscultated. LUNGS: Reveals bibasilar rhonchi. Breathing is regular and unlabored. ABDOMEN: Soft, nontender, nondistended. NEUROLOGIC: Reveals no focal deficits present. EXTREMITIES: Reveals 2+ radial and pedal pulses bilaterally. No ankle edema is present. LABORATORY DATA: Today includes a CBC with 23,900 white blood cells, hemoglobin 7.8, hematocrit is 24.2, and platelet count is 248,000. Metabolic profile: Sodium 140, potassium is 3.0, chloride is 101, bicarbonate is 31, BUN 15, creatinine 0.89, glucose is 213, magnesium 1.9, and phosphorus is 2.1. Microbiology includes a final culture results from the right hip wound, which is positive for MRSA. Respiratory culture to date reveals a normal zane. Chest x-ray today is remarkable for persistent bilateral pulmonary interstitial infiltrates with small bilateral pleural effusions. No pneumothorax present. IMPRESSION: 1. Acute respiratory failure secondary to acute respiratory distress syndrome. 2. Right hip wound infection with methicillin-resistant Staphylococcus aureus. 3. Acute hypokalemia. 4. Acute hypomagnesemia. 5. Acute hypophosphatemia. PLAN: 1. Continue with mechanical ventilator support. We will wean the ventilator and extubate the patient as indicated. 2. Correct all abnormal electrolytes. 3. Continue with physical and occupational therapy. 4. We will obtain a bronchoscopy today for both diagnostic and therapeutic purposes. Total critical care time : 45 minutes MTDD
[2017-07-08] MEDS: buPROPion 75 MG TAB PER TUBE SCH (16:05)
--- NOTE | 2017-07-08 17:25 | OP ---
DATE OF PROCEDURE: 07/08/2017 PREOPERATIVE DIAGNOSES: 1. Acute respiratory failure. 2. Acute respiratory distress syndrome. 3. Probable pneumonia. POSTOPERATIVE DIAGNOSES: 1. Acute respiratory failure. 2. Acute respiratory distress syndrome. 3. Probable pneumonia. PROCEDURES PERFORMED: Fiberoptic bronchoscopy. INDICATIONS FOR PROCEDURE: A 67-year-old man admitted with acute respiratory failure following surge ry. The patient has a wound infection complicated by acute respiratory distress syndrome causing acu te respiratory failure. Chest x-ray reveals bilateral pulmonary interstitial infiltrates and perhaps small bilateral pleural effusions. Decision was made to perform a diagnostic and possible therapeutic bronchoscopy. Findings are consistent with pulmonary edema. No significant gross purulent pulmonary secretions enc ountered. No mucous plugs were evident. DESCRIPTION OF PROCEDURE: Informed consent obtained from the patient who was placed in spine positio n. He was then sedated with propofol by continuous infusion while on full mechanical ventilator supp ort with FIO2 set at 100%. Fiberoptic bronchoscope was introduced through the previous endotracheal tube and advanced to visualize the jerardo. The scope was then directed to the left upper and left lo wer lobes were encountered modest thin pulmonary secretions. No purulence identified. He had no muc ous plugs present. The endoscope was then withdrawn advanced to the right upper, bronchus intermediu s and finally right lower lobes again where thin secretions were encountered which were somewhat frot hy. No gross purulence or mucous plugs were encountered. Finding no other pathology, the bronchosco pe was withdrawn, visualizing intact tracheobronchial mucosa. The patient tolerated this procedure w ithout any apparent complication and remains hemodynamically stable following completion of the proce dure. Oxygen saturation remained 100% at all times.
[2017-07-08] MEDS: risperiDONE 1 MG TAB PO SCH (20:03)
[2017-07-08 20:15] LABS: Vancomycin, Random 19.5 ug/mL (See Comment)
[2017-07-09] MEDS: Acetaminophen 500 MG TAB PO SCH ×4 (00:31→20:17)
[2017-07-09] MEDS: Piperacillin/Tazobactam 3.375 GM in Sodium Chloride 0.9% 100 ML IVPB SCH ×2 (00:31→05:21)
[2017-07-09] MEDS: Ibuprofen 600 MG TAB PO SCH ×4 (00:31→17:28)
[2017-07-09] MEDS: traMADol HCl 50 MG TAB PO SCH ×2 (00:32→08:11)
[2017-07-09] MEDS ORDERED: Vancomycin HCl 750 MG in Sodium Chloride 0.9% 250 ML 250 ML IVPB SCH (02:00)
[2017-07-09] MEDS: Furosemide 20 MG/2 ML VIAL SLOW IVP SCH (05:21)
[2017-07-09 06:18] LABS: Anion Gap 9 mmol/L (10-20); BUN (Urea Nitrogen) 13 mg/dL (8.4-25.7); Calc. Creatinine Clearance 118 mL/min (70-130); Calcium 7.3 mg/dL (7.8-10.44); Carbon Dioxide 33 mmol/L (23-31); Chloride 100 mmol/L (98-107); Estimated GFR-MDRD Greater than 90; Glucose 130 mg/dL (80-115); Magnesium 1.5 mg/dL (1.6-2.6); Phosphorus 3.7 mg/dL (2.3-4.7); Potassium 3.1 mmol/L (3.5-5.1); Sodium 139 mmol/L (136-145)
[2017-07-09] MEDS: Folic Acid 1 MG TAB PO SCH (08:12)
[2017-07-09] MEDS: Fluconazole 100 MG TAB PO SCH (08:13)
[2017-07-09] MEDS: Famotidine 20 MG TAB PO SCH ×2 (08:13→20:17)
[2017-07-09] MEDS: buPROPion HCl 100 MG TAB PER TUBE SCH (08:15)
[2017-07-09] MEDS: Gabapentin 300 MG CAP PO SCH ×3 (08:16→20:17)
[2017-07-09] MEDS: Tamsulosin HCl 0.4 MG CAP PO SCH (08:16)
[2017-07-09] MEDS: Ascorbic Acid 500 mg Chewable Tablet PER TUBE SCH ×2 (08:16→15:20)
[2017-07-09] MEDS: Enoxaparin Sodium 40 MG/0.4 ML SYRINGE SC SCH (08:17)
[2017-07-09] MEDS: predniSONE 20 MG TAB PO SCH (08:17)
[2017-07-09] MEDS: Multivitamin W/ Minerals 1 TAB PO SCH (08:17)
[2017-07-09] MEDS: Cyanocobalamin (Vitamin B-12) 1,000 MCG TAB PO SCH (08:17)
[2017-07-09] MEDS: Polyethylene Glycol 3350 17 GM Packet PO SCH (08:18)
[2017-07-09] MEDS: Senokot S 8.6-50 MG TAB PO SCH ×2 (08:18→19:38)
[2017-07-09] MEDS: Fluticasone Propionate Nasal Spray 16 gm Bottle NASAL SCH (08:19)
[2017-07-09] MEDS ORDERED: Potassium Phosphate 30 MMOL in Sodium Chloride 0.9% 500 ML IVPB SCH (09:00)
[2017-07-09] MEDS ORDERED: Magnesium Sulfate 2 GM, Potassium Phosphate 30 MMOL in Sodium Chloride 0.9% 250 ML 250 ML IVPB SCH (09:45)
[2017-07-09] MEDS: HumaLOG 300 UNITS/3 ML VIAL SC PRN ×3 (11:15→20:17)
--- NOTE | 2017-07-09 15:01 | PRG ---
DATE OF SERVICE: 07/09/2017 ATTENDING PHYSICIAN: Dajuan Naqvi DO SUBJECTIVE: Mr. Smiley is a 67-year-old man who is status post surgical repair of the right hip fract ure. Postoperative course has been complicated by wound infection and ARDS causing acute respiratory failure. He has been hemodynamically stable. He underwent fiberoptic bronchoscopy yesterday with f indings consistent with pulmonary edema. He was subsequently extubated and has done well overnight. He did require some use of BiPAP overnight; however, his saturations have remained 100% on 2 liters nasal cannula. OBJECTIVE: VITAL SIGNS: Pulse 89, respirations 17, O2 sat 100% on 2 liters, and blood pressure 128/79. GENERAL: Elderly male sitting in chair, no acute distress. HEENT: Atraumatic, normocephalic. CARDIOVASCULAR: Regular rate and rhythm. Heart sounds normal. PULMONARY: Bilateral breath sounds clear, respirations even and unlabored. ABDOMEN: Soft, nontender, nondistended. Normal bowel sounds. NEUROLOGIC: GCS 15. Awake, alert, oriented x3. No focal deficits. EXTREMITIES: Moves all extremities well. Cap refill brisk. LABORATORY DATA: Chemistry: Sodium 139, potassium 3.1, chloride 100, carbon dioxide 33, BUN 13, cre atinine 0.77, phosphorus 3.7, magnesium 1.5, calcium 7.3. ASSESSMENT: 1. Acute respiratory failure secondary to acute respiratory distress syndrome. 2. Right hip wound infection with methicillin-resistant Staphylococcus aureus. 3. Acute hypokalemia. 4. Acute hypomagnesemia. 5. Acute hypophosphatemia. PLAN: 1. Replace electrolytes. 2. Discontinue IV antibiotics and transitioned to oral. Dr. Ramirez, Infectious Disease, consulted fo r initiation of Zyvox. 3. Continue BiPAP at night as needed. 4. Incentive spirometry, pulmonary toilet encouraged. 5. Continue with physical and occupational therapy. 6. Transferred to intermediate care unit from ICU. The patient was reviewed with Dr. Naqvi, who agrees with plan.
[2017-07-09] MEDS: buPROPion 75 MG TAB PER TUBE SCH (17:28)
[2017-07-09] MEDS ORDERED: Furosemide 40 MG/4 ML VIAL ONE (18:53)
[2017-07-09] MEDS: Vancomycin HCl 1.25 GM in Sodium Chloride 0.9% 250 ML 250 ML IVPB SCH (20:08)
[2017-07-09] MEDS: risperiDONE 1 MG TAB PO SCH (20:17)
[2017-07-09] MEDS: Linezolid 600 MG TAB PO SCH (20:17)
[2017-07-09] MEDS: Atorvastatin Calcium 20 MG TAB PO SCH (20:32)
--- NOTE | 2017-07-09 20:42 | EKG ---
Test Reason : SOB Blood Pressure : / mmHG Vent. Rate : 119 BPM Atrial Rate : 119 BPM P-R Int : 136 ms QRS Dur : 112 ms QT Int : 332 ms P-R-T Axes : 055 -11 023 degrees QTc Int : 467 ms Sinus tachycardia Low voltage QRS Incomplete right bundle branch block Cannot rule out Anterior infarct , age undetermined Abnormal ECG Confirmed by DELFIN ELAINE ([id number]), digital editor MAYELA PULIDO ([id number]) on 07/09/2017 8:41:13 PM Referred By: MILKA ELAINE Confirmed By:DELFIN ELAINE
[2017-07-09] MEDS ORDERED: Furosemide 40 MG/4 ML VIAL SLOW IVP SCH (20:45)
[2017-07-09] MEDS ORDERED: Linezolid 600 MG TAB PO SCH (21:00)
--- NOTE | 2017-07-09 23:32 | PRG ---
DATE OF SERVICE: 07/09/2017 SUBJECTIVE: The patient is currently on the critical care unit and awaiting bed assignment to the [facility]. The patient is status post irrigation and washout of right ORIF wound. The patient had been adm itted to the hospital for what appeared to be sepsis, required mechanical ventilation for several day s, was weaned from the ventilator and currently uses BiPAP at night. Otherwise, he has been stable. The nurses report that he had approximately 1-1/2 liters positive fluid intake today compared to his output and was noted to have increased swelling of his extremities. They did not report any change in his respirations or his oxygen saturation of the remainder of his vital signs. The patient is micaela erating a diet and his pain is controlled. PHYSICAL EXAMINATION: VITAL SIGNS: Temperature is 97.9, heart rate 77, blood pressure 118/69, respirations 19, oxygen satu ration is 100% on 2 liters via nasal cannula. GENERAL: The patient is resting comfortably in bed. He is currently having his dinner. During my e xamination, he is awake, alert, and appropriate. LUNGS: Have some scattered rhonchi, but otherwise unremarkable. HEART: Regular rate and rhythm. ABDOMEN: Soft, flat, nontender with active bowel sounds. EXTREMITIES: Lower extremities show 2-3+ pitting edema. The upper extremities show approximately 2+ pitting edema. From my previous exams, this is not markedly changed, but the nurses did report that it is increased in their view. The extremities are neurovascularly intact and capillary refill is l ess than 3 seconds. ASSESSMENT AND PLAN: 1. Status post right wound infection with methicillin-resistant Staphylococcus aureus. 2. Status post-acute respiratory failure secondary to acute respiratory distress syndrome, resolved. 3. Electrolyte imbalance. Plan will be to continue per the primary team. We will replace his elect rolytes. The patient will do BiPAP tonight. Continue antibiotics and continue supportive care.
[2017-07-10] MEDS: Ibuprofen 600 MG TAB PO SCH ×4 (00:48→18:15)
[2017-07-10] MEDS: Acetaminophen 500 MG TAB PO SCH ×2 (00:48→22:33)
[2017-07-10 05:20] LABS: #Basophils 0.1 thou/uL (0.0-0.2); #Eosinphils 0.3 thou/uL (0.0-0.7); #Lymphocytes 2.9 thou/uL (1.20-3.40); #Monocytes 1.9 thou/uL (0.11-0.59); #Neutrophils 17.5 thou/uL (1.40-6.50); %Basophils 0.3 % (0.0-1.0); %Eosinophils 1.4 % (0.0-10.0); %Monocytes 8.3 % (0.0-10.0); %Neutrophils 77.1 % (42.0-75.0); Hemoglobin 7.3 g/dL (14.0-18.0); Mean Corpuscular HGB CONC 32.2 g/dL (32.0-36.0); Mean Corpuscular Hemoglobin 30.5 pg (27.0-31.0); Mean Corpuscular Volume 94.8 fl (80.0-94.0); Mean Platelet Volume 8.7 fL (7.4-10.4); Platelet Count 372 thou/uL (130-400); RBC Distribution Width 17.2 % (11.5-14.5); Red Blood Cell (RBC) Count 2.38 mill/uL (4.70-6.10); White Blood Cell (WBC) Count 22.6 thou/uL (4.8-10.8)
[2017-07-10 05:32] LABS: Anion Gap 8 mmol/L (10-20); BUN (Urea Nitrogen) 15 mg/dL (8.4-25.7); Calc. Creatinine Clearance 119 mL/min (70-130); Calcium 7.4 mg/dL (7.8-10.44); Carbon Dioxide 34 mmol/L (23-31); Chloride 98 mmol/L (98-107); Estimated GFR-MDRD Greater than 90; Glucose 64 mg/dL (80-115); Magnesium 1.8 mg/dL (1.6-2.6); Phosphorus 3.7 mg/dL (2.3-4.7); Sodium 137 mmol/L (136-145)
[2017-07-10] MEDS ORDERED: Potassium Phosphate 30 MMOL in Sodium Chloride 0.9% 500 ML IVPB SCH (07:30)
[2017-07-10] MEDS ORDERED: Acetaminophen/Codeine 30-300mg Tablet PO PRN (07:51)
[2017-07-10] MEDS: buPROPion HCl 100 MG TAB PER TUBE SCH (07:55)
[2017-07-10] MEDS: Famotidine 20 MG TAB PO SCH ×2 (07:56→21:00)
[2017-07-10] MEDS: Gabapentin 300 MG CAP PO SCH ×3 (07:56→21:01)
[2017-07-10] MEDS: Fluconazole 100 MG TAB PO SCH (07:56)
[2017-07-10] MEDS: Furosemide 40 MG TAB PO SCH (07:57)
[2017-07-10] MEDS: Multivitamin W/ Minerals 1 TAB PO SCH (07:57)
[2017-07-10] MEDS: Tamsulosin HCl 0.4 MG CAP PO SCH (07:57)
[2017-07-10] MEDS: Cyanocobalamin (Vitamin B-12) 1,000 MCG TAB PO SCH (07:57)
[2017-07-10] MEDS: Ascorbic Acid 500 mg Chewable Tablet PER TUBE SCH ×2 (07:57→16:00)
[2017-07-10] MEDS: predniSONE 20 MG TAB PO SCH (07:57)
[2017-07-10] MEDS: Senokot S 8.6-50 MG TAB PO SCH ×2 (07:58→21:00)
[2017-07-10] MEDS: Folic Acid 1 MG TAB PO SCH (07:58)
[2017-07-10] MEDS: Enoxaparin Sodium 40 MG/0.4 ML SYRINGE SC SCH (07:58)
[2017-07-10] MEDS ORDERED: Magnesium Sulfate 2 GM, Potassium Phosphate 30 MMOL in Sodium Chloride 0.9% 250 ML 250 ML IVPB SCH (08:00)
[2017-07-10] MEDS: Polyethylene Glycol 3350 17 GM Packet PO SCH (08:01)
[2017-07-10] MEDS: Fluticasone Propionate Nasal Spray 16 gm Bottle NASAL SCH (08:01)
[2017-07-10] MEDS: Linezolid 600 MG TAB PO SCH ×2 (08:11→21:01)
[2017-07-10] MEDS: Acetaminophen/Codeine 30-300mg Tablet PO PRN ×2 (08:35→16:03)
[2017-07-10] MEDS: HumaLOG 300 UNITS/3 ML VIAL SC PRN (10:59)
--- NOTE | 2017-07-10 12:45 | PRG ---
DATE OF SERVICE: 07/10/2017 ATTENDING PHYSICIAN: Carlos Lewis M.D. SUBJECTIVE: Mr. Smiley is a 67-year-old man who is status post-surgical repair of the right hip fract ure. Postoperative course was complicated by wound infection and ARDS causing acute respiratory fail ure. He has been hemodynamically stable. He underwent fiberoptic bronchoscopy 2 days ago with findi ngs consistent with pulmonary edema. He was subsequently extubated and has done well. He has used B iPAP for 2 nights. He has been able to maintain his O2 saturations without any respiratory distress during the day. He remained stable on [facility] status. OBJECTIVE: VITAL SIGNS: Temperature 98.0, pulse 79, respirations 14, O2 sat 100% on 2 liters nasal cannula and blood pressure 110/66. LABORATORY DATA: RBC 2.38, hemoglobin 7.3 down from 7.8 yesterday, hematocrit 23.5 from 24.3 yesterd ay and platelets 372. Chemistry: Sodium 137, potassium 3.0 from 3.1 yesterday, chloride 98, carbon dioxide 34, BUN 15, creatinine 0.75, phosphorus 3.7 from 3.7 yesterday and magnesium 1.8 from 1.5 yes terday. ASSESSMENT: 1. Acute respiratory failure secondary to ARDS. 2. Right hip wound infection with methicillin-resistant Staphylococcus aureus. 3. Acute hypokalemia. 4. Acute hypomagnesemia. 5. Acute hypophosphatemia. PLAN: 1. Replace electrolytes and monitor. Replace electrolytes as indicated. 2. The patient is transitioned to Zyvox oral antibiotics. 3. Continue BiPAP nightly as needed. 4. Incentive spirometry, pulmonary and toilet encouraged. 5. Continue physical and occupational therapy. 6. Transfer to surgical floor from [facility]. The patient was reviewed with Dr. Lewis, who agrees with the plan.
[2017-07-10] MEDS: buPROPion 75 MG TAB PER TUBE SCH (16:03)
[2017-07-10] MEDS: Nicotine 7 MG PATCH TD SCH (20:59)
[2017-07-10] MEDS: risperiDONE 1 MG TAB PO SCH (21:01)
[2017-07-11] MEDS: Ibuprofen 600 MG TAB PO SCH ×4 (01:37→17:33)
--- NOTE | 2017-07-11 08:57 | CON ---
DATE OF CONSULTATION: 07/09/2017 REASON FOR CONSULTATION: Possible right hip surgical site infection. HISTORY OF PRESENT ILLNESS: A 67-year-old who has a history of dementia, type 2 diabetes, hypertension, and COPD as well as hepatitis C who fell while in his house, apparently tripped and fell without consciousness or loss. The patient was admitted and underwent open reduction and internal fixation and sent to rehabilitation on 06/29/2017 and he was referred because of tachypnea, respiratory distress. The patient was placed on BiPAP with improvement in O2 saturation. Chest x-ray showed bilateral pulmonary edema. He was admitted to the [facility] and initial findings showed a blood pressure 106/70, pulse 119, respirations 23, O2 sat 100%, FiO2 40 and BiPAP. He was in some respiratory distress. Lung exam showed coarse inspiratory crackles bilaterally. The patient was tachycardic. Abdomen is soft, nontender. Surgical incision, right hip with ana with serosanguineous drainage without erythema. Sodium 128, creatinine 0.76, bilirubin 0.7. White cell count 10.2, hemoglobin 9.6, platelets 286. Chest x-ray with findings consistent with pulmonary edema. CT of the chest showed no evidence of pulmonary embolism. The patient remained afebrile during the hospital stay. His white cell count remained elevated since admission with a predominance of mature neutrophils. BNP was elevated at 161, but not markedly elevated. Serum total protein 4.7 and liver profile with an AST 54, alkaline phosphatase 248, and ALT 18, normal bilirubin. Troponins were normal. Albumin 2.1. Arterial blood gas pH of 7.33, pCO2 of 38, pO2 of 209, creatinine 0.76. The patient has had 2 sets of blood culture no growth in 5 days because of concerning of the right hip. Dr. Drake did a revision of the site. There is the right hip area, ana were removed. Dissection carried into the subcutaneous space, there was a seroma in the subcutaneous space did not appear to be grossly infected. This was sent for cultures. This was irrigated, the deeper sutures were removed and dissection carried through the vessel. Dr. Nickerson was to deflate and no fluid collection encountered in the deep layers. Deep swab was taken for Gram stain and culture. Now we have cultures from both sites yielding methicillin-resistant Staphylococcus aureus. The patient had a bronchoscopy done, which showed thin clear secretions with no evidence of purulence. Currently, he is sitting up at the bedside in the ICU. His knows his name and knows where he has. Denies any headaches, no visual symptoms. Mild dyspnea, no chest pain, no abdominal pain. Mild to moderate pain, right hip site, weakness. PAST MEDICAL HISTORY: Includes dementia, diabetes type 2, hypertension, hyperlipidemia, bipolar disorder, history of hepatitis C which must have been treated since the patient has negative viremia recently checked, COPD, GERD, recent hip fracture with open reduction and internal fixation. PAST SURGICAL HISTORY: As above, cholecystectomy, hernia repair, splenectomy, TURP. SOCIAL HISTORY: History of alcohol abuse in the past. Positive smoking. FAMILY HISTORY: Noncontributory. ALLERGIES: TRAZODONE. CURRENT MEDICATIONS: Tylenol, DuoNeb, vitamin C, Wellbutrin, vitamin B12, Lovenox, Pepcid, ferrous sulfate, Diflucan, Flonase, Folvite, Lasix, Neurontin, Apresoline, Motrin, insulin, multivitamins, and Zyvox p.o., Maalox, he is also on prednisone, risperidone. PHYSICAL EXAMINATION: VITAL SIGNS: Temperature max 98.7, blood pressure 130/70, pulse 87, respirations 15, O2 sat 100 on 2 liters. SKIN: The right hip surgical site with sutures, it is fairly dry, no erythema. There is area of bruising in the inferior aspect of the incision. The patient has a peripheral IV access and Teresa catheter in place. I's and O's are for the most part positive for the past few days. HEENT: Ocular movements conjugate. Oral cavity with numerous missing teeth. NECK: Supple. LUNGS: With symmetric air entry, few faint crackles at the bases. HEART: S1, S2, regular rate. No S3, S4. ABDOMEN: Soft, not distended, no ascites. No tenderness or organomegaly, no bladder distention. EXTREMITIES: No other joint inflammatory activity noted. Pulses are 1+ in dorsalis pedis with 1+ edema. NEUROLOGIC: He is awake, knows his name and he knew he was in the hospital, could not tell me the date. LABORATORY DATA: The chemistry shows sodium 139, creatinine 0.77, calcium 7.3, phosphorus 3.7 and calcium 3.7. Liver profile has been discussed. Hematology: White cell count started at 10.2; however bands were at 26%, now the bands went down to 8% with a mature neutrophilia increased to what is now 23,000. Hemoglobin 7.8, MCV 96, platelets 348. Microbiology as noted above. The patient has chest x-ray which shows pulmonary edema. CT of chest with diffuse abnormality of increased interstitial alveolar opacities, layering pleural effusions. There is an abdomen x-ray from 07/04/2017, NG tube in the GE junction. ASSESSMENT: Dementia, type 2 diabetes, cardiomyopathy, unsteadiness and fall with right-sided hip fracture status post open reduction and internal fixation. The patient admitted with respiratory distress, tachypnea and radiological findings consistent with pulmonary edema. The echocardiogram showed normal ejection fraction, elevated right ventricular systolic pressure. The patient developed neutrophilia and was admitted with bandemia and there was concern with sepsis. Blood cultures have remained negative and now we have 2 different sites from the hip yielding methicillin resistant Staphylococcus aureus. DISCUSSION: Until proven otherwise, the right hip site is probably the culprit here, on top of that he may have some decompensation of underlying ischemic cardiomyopathy with increased end diastolic pressures and pulmonary edema. The patient has been prescribed linezolid oral. The intention is to prepare him for discharge planning to continue treatment in the rehabilitation area. Linezolid is associated with adverse reactions including neutropenia, anemia, thrombocytopenia, frequent GI adverse reactions and it is possible, is not likely, the patient will develop those going forward. In that case, we will have to be transitioned to IV vancomycin for continuation of treatment. The duration of therapy assuming a superficial infection is approximately 2-3 weeks. It is possible that there is deeper involvement by the infection that what was apparent during the exploration and recrudescence of inflamm changes after discontinuation of antimicrobial therapy is possible. I would give consideration to tapering and discontinuing prednisone. The diagnosis of adrenal insufficiency was not firmly established and probably can be tapered going forward and discontinued. The continuation of prednisone would increase the likelihood of failure of treatment, healing problems, and recrudescence of Staphylococcal infection. MTDD
--- NOTE | 2017-07-11 09:21 | RAD ---
AP VIEW OF THE CHEST: COMPARISON: Prior exam dated 07/08/17. FINDINGS: Since the comparison examination, there is improvement in the perihilar airspace opacity. Interstiti al opacities remain within the perihilar region, left greater than right. Small bilateral pleural ef fusions persist. The gastric catheter and ET tube tips have been moved. No pneumothorax is evident. Chronic osseous changes are similar. IMPRESSION: 1. Improved perihilar opacities possibly reflecting improved edema or pneumonia. 2. There are persistent interstitial opacities which may reflect residual edema or residual pneumoni a. Continued followup is recommended. 3. Persistent small bilateral pleural effusions. POS: [facility]
[2017-07-11] MEDS: Acetaminophen/Codeine 30-300mg Tablet PO PRN ×2 (09:35→15:43)
[2017-07-11] MEDS: Ascorbic Acid 500 mg Chewable Tablet PER TUBE SCH ×2 (09:38→17:34)
[2017-07-11] MEDS: Fluticasone Propionate Nasal Spray 16 gm Bottle NASAL SCH (09:40)
[2017-07-11] MEDS: buPROPion HCl 100 MG TAB PER TUBE SCH (09:42)
[2017-07-11] MEDS: Fluconazole 100 MG TAB PO SCH (09:42)
[2017-07-11] MEDS: Multivitamin W/ Minerals 1 TAB PO SCH (09:42)
[2017-07-11] MEDS: Folic Acid 1 MG TAB PO SCH (09:43)
[2017-07-11] MEDS: Gabapentin 300 MG CAP PO SCH ×3 (09:43→20:01)
[2017-07-11] MEDS: Tamsulosin HCl 0.4 MG CAP PO SCH (09:43)
[2017-07-11] MEDS: Senokot S 8.6-50 MG TAB PO SCH ×2 (09:43→20:00)
[2017-07-11] MEDS: Cyanocobalamin (Vitamin B-12) 1,000 MCG TAB PO SCH (09:43)
[2017-07-11] MEDS: predniSONE 20 MG TAB PO SCH (09:44)
[2017-07-11] MEDS: Furosemide 40 MG TAB PO SCH (09:44)
[2017-07-11] MEDS: Polyethylene Glycol 3350 17 GM Packet PO SCH (09:44)
[2017-07-11] MEDS: Linezolid 600 MG TAB PO SCH ×2 (09:44→20:02)
[2017-07-11] MEDS: Enoxaparin Sodium 40 MG/0.4 ML SYRINGE SC SCH (09:46)
[2017-07-11] MEDS: Famotidine 20 MG TAB PO SCH ×2 (10:07→20:00)
--- NOTE | 2017-07-11 10:37 | PRG-2 ---
DATE OF SERVICE: 07/11/2017 ATTENDING PHYSICIAN: Dr. Lewis SUBJECTIVE: Mr. Smiley is a 67-year-old male who had a fractured right hip status post surgical repai r and was readmitted from rehab due to a right hip wound infection and ARDS causing acute respiratory failure. The patient required BiPAP initially continuously and then after a wound washout the patie nt remained intubated for 2 days and then had a bronchoscopy that showed pulmonary edema. The patien t was extubated on 07/08/2017 and has been doing well ever since. He has been using BiPAP at night a s well as O2 by nasal cannula during the day. The patient was transferred from the [facility] night and has done well. The patient is tolerating p.o. and is currently working with physical therapy. The patient has had bowel movements regularly. OBJECTIVE: VITAL SIGNS: Temperature 97.8, pulse 85, respiratory rate 18, O2 sat 97% on room air, blood pressure 102/64. GENERAL: Well-developed elderly appearing male sitting up in bed, working with physical therapy. No acute distress. Nasal cannula in place. HEENT: Normocephalic, atraumatic. Moist mucous membranes. RESPIRATORY: No use of accessory muscles of respiration. Bilateral rales appreciated. No wheezes. CARDIOVASCULAR: Regular rate and rhythm. No murmurs, gallops or rubs. ABDOMEN: Nondistended, soft, nontender. EXTREMITIES: Neurovascularly intact x4. Moves all 4 extremities. NEURO: GCS 15. Awake, alert, oriented x3. LABORATORY DATA: Pending from this morning. IMAGING: Chest x-ray from this morning showed improved perihilar opacities, possibly reflecting impr sobia edema or pneumonia. There are persistent interstitial opacities which may reflect residual doris a or residual pneumonia. Persistent small bilateral pleural effusions. ASSESSMENT: 1. Acute respiratory failure secondary to adult respiratory distress syndrome. 2. Right hip wound infection with methicillin-resistant Staphylococcus aureus. 3. Right hip fracture status post surgical repair. 4. Normocytic anemia. PLAN: 1. PT, OT and rehab screen. 2. Replace electrolytes as indicated pending lab results. 3. Continue BiPAP at night as needed. 4. Incentive spirometry and pulmonary toilet encouraged. 5. Oral Zyvox and Diflucan. The Zyvox will need to be continued for 2-[address] Ramirez. 6. Decrease Lasix to 20 mEq daily. The patient was seen and evaluated by Dr. Lewis who formulated the plan with me.
[2017-07-11 11:27] LABS: Anion Gap 15 mmol/L (10-20); BUN (Urea Nitrogen) 14 mg/dL (8.4-25.7); Calc. Creatinine Clearance 108 mL/min (70-130); Calcium 7.5 mg/dL (7.8-10.44); Carbon Dioxide 27 mmol/L (23-31); Chloride 95 mmol/L (98-107); Estimated GFR-MDRD Greater than 90; Glucose 238 mg/dL (80-115); Phosphorus 3.1 mg/dL (2.3-4.7); Sodium 133 mmol/L (136-145)
[2017-07-11 11:29] LABS: Hemoglobin 7.5 g/dL (14.0-18.0); Mean Corpuscular HGB CONC 30.4 g/dL (32.0-36.0); Mean Corpuscular Hemoglobin 30.1 pg (27.0-31.0); Mean Corpuscular Volume 99.1 fl (80.0-94.0); Mean Platelet Volume 9.1 fL (7.4-10.4); Platelet Count 426 thou/uL (130-400); RBC Distribution Width 17.6 % (11.5-14.5); Red Blood Cell (RBC) Count 2.48 mill/uL (4.70-6.10); White Blood Cell (WBC) Count 23.2 thou/uL (4.8-10.8)
[2017-07-11 11:48] LABS: Anisocytosis SLIGHT = 6-15 cells (100X) (0-5/hpf); Band 2 % (5-11); Eosinophils 1 % (0-10); Hypochromia SLIGHT = 6-15 cells (100X) (0-5/hpf); Lymphocytes 3 % (21-51); MDiff Complete? YES; Monocytes 5 % (0-10); Neutrophil 89 % (42-75); PLT Morphology Comment Appears Increased; Target Cells SLIGHT = 2-5 cells (100X) (0-1/hpf)
[2017-07-11] MEDS: HumaLOG 300 UNITS/3 ML VIAL SC PRN ×2 (15:43→21:47)
[2017-07-11] MEDS: buPROPion 75 MG TAB PER TUBE SCH (17:34)
[2017-07-11] MEDS: risperiDONE 1 MG TAB PO SCH (20:00)
[2017-07-11] MEDS: Nicotine 7 MG PATCH TD SCH (21:45)
--- NOTE | 2017-07-11 22:49 | PRG ---
DATE OF SERVICE: 07/11/2017 SUBJECTIVE: The patient is currently on the surgical floor. He is status post a right hip fracture, which underwent ORIF was discharged and returned days later with a right hip wound infection that gr ew out MRSA, required ventilatory support for 2 days, but has subsequently been out of the ICU and on the surgical floor. He started to work with physical and occupational therapy and utilizing BiPAP a t night. PHYSICAL EXAMINATION: VITAL SIGNS: Temperature is 98.0, pulse 94, blood pressure 106/71, respirations 18, oxygen saturatio n is 99% on room air. At the time of my exam, the patient was sleeping and I did not disturb him. P er the nurse, the patient has been having an uneventful day and evening so far. ASSESSMENT AND PLAN: 1. Status post postoperative infection, currently on appropriate antibiotics. 2. Acute respiratory distress syndrome, resolved. 3. Pulmonary edema, resolved. 4. Deconditioning. PLAN: 1. Plan will be to assess for rehab placement. 2. Plan will be to continue supportive care and await final rehabilitation/placement decision.
[2017-07-12] MEDS: Ibuprofen 600 MG TAB PO SCH ×5 (00:17→23:28)
[2017-07-12] MEDS: HYDROcodone/Acetaminophen 5/325 mg Tablet PO PRN ×4 (00:22→21:33)
[2017-07-12 04:10] LABS: Anion Gap 7 mmol/L (10-20); BUN (Urea Nitrogen) 15 mg/dL (8.4-25.7); Calc. Creatinine Clearance 115 mL/min (70-130); Calcium 7.6 mg/dL (7.8-10.44); Carbon Dioxide 34 mmol/L (23-31); Chloride 96 mmol/L (98-107); Estimated GFR-MDRD Greater than 90; Glucose 203 mg/dL (80-115); Magnesium 1.7 mg/dL (1.6-2.6); Phosphorus 2.7 mg/dL (2.3-4.7); Potassium 3.9 mmol/L (3.5-5.1); Sodium 133 mmol/L (136-145)
[2017-07-12 04:49] LABS: Band 1 % (5-11); Hemoglobin 6.6 g/dL (14.0-18.0); Lymphocytes 12 % (21-51); MDiff Complete? YES; Macrocytosis SLIGHT = 6-15 cells (100X) (0-5/hpf); Mean Corpuscular Hemoglobin 30.7 pg (27.0-31.0); Mean Platelet Volume 8.5 fL (7.4-10.4); Monocytes 8 % (0-10); Neutrophil 79 % (42-75); PLT Morphology Comment Appears Increased; Platelet Count 447 thou/uL (130-400); RBC Distribution Width 16.9 % (11.5-14.5); Red Blood Cell (RBC) Count 2.14 mill/uL (4.70-6.10); White Blood Cell (WBC) Count 21.1 thou/uL (4.8-10.8)
[2017-07-12] MEDS: HumaLOG 300 UNITS/3 ML VIAL SC PRN ×3 (06:10→20:43)
[2017-07-12] MEDS ORDERED: MAGNESIUM SULFATE IVPB SCH (07:45)
[2017-07-12] MEDS ORDERED: SODIUM CHLORIDE 0.9% IVPB SCH (07:45)
[2017-07-12] MEDS ORDERED: POTASSIUM CHLORIDE IVPB SCH (07:45)
[2017-07-12] MEDS: Enoxaparin Sodium 40 MG/0.4 ML SYRINGE SC SCH (08:50)
[2017-07-12] MEDS: Famotidine 20 MG TAB PO SCH ×2 (08:52→20:41)
[2017-07-12] MEDS: Multivitamin W/ Minerals 1 TAB PO SCH (08:52)
[2017-07-12] MEDS: Cyanocobalamin (Vitamin B-12) 1,000 MCG TAB PO SCH (08:52)
[2017-07-12] MEDS: Ascorbic Acid 500 mg Chewable Tablet PER TUBE SCH ×2 (08:52→17:38)
[2017-07-12] MEDS: predniSONE 20 MG TAB PO SCH (08:53)
[2017-07-12] MEDS: Gabapentin 300 MG CAP PO SCH ×3 (08:53→20:41)
[2017-07-12] MEDS: Folic Acid 1 MG TAB PO SCH (08:53)
[2017-07-12] MEDS: Senokot S 8.6-50 MG TAB PO SCH ×2 (08:53→20:41)
[2017-07-12] MEDS: Polyethylene Glycol 3350 17 GM Packet PO SCH (08:53)
[2017-07-12] MEDS: Fluconazole 100 MG TAB PO SCH (08:53)
[2017-07-12] MEDS: buPROPion HCl 100 MG TAB PER TUBE SCH (08:53)
[2017-07-12] MEDS: Tamsulosin HCl 0.4 MG CAP PO SCH (08:53)
[2017-07-12] MEDS: Linezolid 600 MG TAB PO SCH ×2 (08:54→20:41)
[2017-07-12] MEDS: Fluticasone Propionate Nasal Spray 16 gm Bottle NASAL SCH (08:54)
[2017-07-12] MEDS ORDERED: Furosemide 20 MG TAB PO SCH (09:00)
--- NOTE | 2017-07-12 11:39 | PRG-2 ---
DATE OF SERVICE: 07/12/2017 ATTENDING PHYSICIAN: Dr. Lewis. SUBJECTIVE: Mr. Smiley is a 67-year-old male who had a fractured right hip status post surgical repai r and was readmitted from rehabilitation due to right hip wound infection and ARDS resulting in acute respiratory failure. The patient initially required BiPAP and then had a wound washout of his right hip wound and then remained intubated for 2 days. The patient had a bronchoscopy that was consisten t with pulmonary edema. The patient was then extubated on 07/08/2017 and he has been doing well ever since on O2 by nasal cannula during the day and intermittently on BiPAP during the night. The patie nt has been tolerating p.o., working with Physical Therapy and having regular bowel movements. The p atient still has a Teresa in place. He reports continued swelling in his legs. OBJECTIVE: VITAL SIGNS: Temperature 97.4, pulse 96, respiratory rate 13, O2 sat 98% on nasal cannula, and blood pressure 96/65. GENERAL: Well-developed elderly appearing male lying in bed in no acute distress with nasal cannula in place. HEENT: Normocephalic, atraumatic. Moist mucous membranes. NECK: No use of accessory muscles of respiration. LUNGS: Bilateral rales appreciated. No wheezes. CARDIOVASCULAR: Regular rate and rhythm. No murmurs, gallops or rubs. ABDOMEN: Nondistended, soft, nontender. Normoactive bowel sounds. EXTREMITIES: Neurovascularly intact x4. Moves all four extremities, 1+ pitting edema in bilateral l ower extremities. NEUROLOGIC: GCS of 15. Awake, alert, oriented x3. LABORATORY DATA: WBC 21.1, hemoglobin 6.6, hematocrit 20.6, platelets 447, sodium 133, potassium 3.9 , chloride 96, CO2 of 34, BUN 15, creatinine 0.77, glucose 203, phosphorus 2.7, and magnesium 1.7. ASSESSMENT: 1. Acute respiratory failure secondary to acute respiratory distress syndrome. 1. Right hip wound infection with methicillin-resistant Staphylococcus aureus. 2. Right hip fracture status post surgical repair. 3. Normocytic anemia. 4. Volume overload. PLAN: 1. Will transfuse 1 unit packed red blood cells and recheck H and H 4 hours status post transfusion. 2. Replace electrolytes this a.m. 3. Increase Lasix to 40 mEq p.o. daily. 4. PT, OT and rehab screen. 5. Continue BiPAP at night as needed. 6. Incentive spirometry and pulmonary toilet encouraged. 7. Oral Zyvox and Diflucan, Zyvox will need to be continued for 2-[address] Ramirez. The patient was seen and evaluated by Dr. Lewis who formulated the plan with me.
[2017-07-12] MEDS: Furosemide 20 MG TAB PO SCH (11:48)
[2017-07-12] MEDS: buPROPion 75 MG TAB PER TUBE SCH (17:38)
[2017-07-12] MEDS: risperiDONE 1 MG TAB PO SCH (20:41)
[2017-07-12] MEDS: Nicotine 7 MG PATCH TD SCH (20:44)
[2017-07-13] MEDS: Ibuprofen 600 MG TAB PO SCH ×4 (05:53→23:04)
[2017-07-13] MEDS: HumaLOG 300 UNITS/3 ML VIAL SC PRN ×3 (05:54→17:46)
[2017-07-13] MEDS: Furosemide 20 MG TAB PO SCH (09:12)
[2017-07-13] MEDS: buPROPion HCl 100 MG TAB PER TUBE SCH (09:12)
[2017-07-13] MEDS: Ascorbic Acid 500 mg Chewable Tablet PER TUBE SCH ×2 (09:12→15:55)
[2017-07-13] MEDS: Famotidine 20 MG TAB PO SCH ×2 (09:13→21:27)
[2017-07-13] MEDS: Tamsulosin HCl 0.4 MG CAP PO SCH (09:13)
[2017-07-13] MEDS: Multivitamin W/ Minerals 1 TAB PO SCH (09:13)
[2017-07-13] MEDS: Linezolid 600 MG TAB PO SCH ×2 (09:13→21:28)
[2017-07-13] MEDS: Gabapentin 300 MG CAP PO SCH ×3 (09:13→21:28)
[2017-07-13] MEDS: Fluconazole 100 MG TAB PO SCH (09:13)
[2017-07-13] MEDS: Fluticasone Propionate Nasal Spray 16 gm Bottle NASAL SCH (09:14)
[2017-07-13] MEDS: Cyanocobalamin (Vitamin B-12) 1,000 MCG TAB PO SCH (09:14)
[2017-07-13] MEDS: predniSONE 20 MG TAB PO SCH (09:14)
[2017-07-13] MEDS: Folic Acid 1 MG TAB PO SCH (09:14)
[2017-07-13] MEDS: Polyethylene Glycol 3350 17 GM Packet PO SCH (09:14)
[2017-07-13] MEDS: Senokot S 8.6-50 MG TAB PO SCH ×2 (09:14→21:28)
[2017-07-13] MEDS: Enoxaparin Sodium 40 MG/0.4 ML SYRINGE SC SCH (09:14)
[2017-07-13] MEDS: HYDROcodone/Acetaminophen 5/325 mg Tablet PO PRN ×2 (09:24→17:48)
--- NOTE | 2017-07-13 10:47 | PRG-2 ---
DATE OF SERVICE: 07/13/2017 ATTENDING PHYSICIAN: Dr. Lewis SUBJECTIVE: Mr. Smiley is a 67-year-old male who had a fractured right hip status post surgical repai r, was readmitted from rehab due to right hip wound infection and ARDS resulting in acute respiratory failure. The patient initially required BiPAP and then after wound washout of his right hip he loco ined intubated for 2 days. The patient was extubated on 07/08/2017 and has been on O2 by nasal cannu la during the day and intermittently on BiPAP at night, ever since. The patient's hemoglobin dropped to 6.6 yesterday and he received 1 unit of packed red blood cells. The patient has been tolerating p.o., working with physical therapy and having regular bowel movements. The patient still has a Fole y in place and reports continued swelling in his legs. OBJECTIVE: VITAL SIGNS: Temperature 97.5, pulse 96, respiratory rate 12, O2 sat 98% on 2 liters nasal cannula, blood pressure 107/69. GENERAL: Elderly appearing male sitting up in bed eating breakfast in no acute distress with nasal c annula in place. HEENT: Normocephalic, atraumatic. Moist mucous membranes. RESPIRATORY: No use of accessory muscles of respiration. Bilateral rales, no wheezes. CARDIOVASCULAR: Regular rate and rhythm. No murmurs, gallops or rubs. ABDOMEN: Nondistended, soft, nontender. Normoactive bowel sounds. EXTREMITIES: Neurovascularly intact x4. Moves all 4 extremities, 1+ pitting edema bilateral lower e xtremities and in the left upper extremity. NEUROLOGIC: GCS of 15. Awake, alert, oriented x3. LABORATORY DATA: Pending for this morning. The nurses and lab techs have been unable to draw blood today. ASSESSMENT: 1. Acute respiratory failure secondary to adult respiratory distress syndrome. 2. Right hip wound infection with methicillin-resistant Staphylococcus aureus. 3. Right hip fracture status post surgical repair. 4. Normocytic anemia requiring blood transfusion. 5. Volume overload. PLAN: 1. Will put in a PICC line as the patient has been intermittently requiring blood transfusions as we ll as will need continued blood draws even when he goes to rehab and with the inability to obtain acc ess, will use this for access. 2. We will follow up on electrolytes and hemoglobin once labs are back after the PICC is inserted. 3. We will continue Lasix. 4. Continue BiPAP at night as needed. 5. PT, OT screen. The patient has been approved for rehab at this time, just waiting deemed stable enough to be transferred to rehab. 6. Incentive spirometry and pulmonary toilet encouraged. 7. Oral Zyvox and Diflucan, Zyvox will need to be continued for 2-[address] Ramirez. The patient was seen and evaluated by Dr. Lewis who formulated the plan with me.
[2017-07-13 13:05] LABS: Hemoglobin 9.1 g/dL (14.0-18.0); Mean Corpuscular Hemoglobin 29.8 pg (27.0-31.0); Mean Corpuscular Volume 96.2 fl (80.0-94.0); Mean Platelet Volume 9.1 fL (7.4-10.4); Platelet Count 431 thou/uL (130-400); RBC Distribution Width 16.5 % (11.5-14.5); Red Blood Cell (RBC) Count 3.05 mill/uL (4.70-6.10); White Blood Cell (WBC) Count 22.8 thou/uL (4.8-10.8)
[2017-07-13 13:51] LABS: Anisocytosis SLIGHT = 6-15 cells (100X) (0-5/hpf); Band 4 % (5-11); Hypochromia SLIGHT = 6-15 cells (100X) (0-5/hpf); Lymphocytes 1 % (21-51); MDiff Complete? YES; Monocytes 2 % (0-10); Neutrophil 93 % (42-75); PLT Morphology Comment Appears Increased; Target Cells SLIGHT = 2-5 cells (100X) (0-1/hpf)
[2017-07-13 14:27] LABS: Anion Gap 18 mmol/L (10-20); BUN (Urea Nitrogen) 12 mg/dL (8.4-25.7); Calc. Creatinine Clearance 87 mL/min (70-130); Calcium 7.8 mg/dL (7.8-10.44); Carbon Dioxide 23 mmol/L (23-31); Chloride 97 mmol/L (98-107); Estimated GFR-MDRD 72; Glucose 226 mg/dL (80-115); Magnesium 1.8 mg/dL (1.6-2.6); Phosphorus 2.9 mg/dL (2.3-4.7); Potassium 5.4 mmol/L (3.5-5.1); Sodium 133 mmol/L (136-145)
--- NOTE | 2017-07-13 16:07 | SPC ---
ULTRASOUND GUIDED RIGHT UPPER EXTREMITY PICC LINE PLACEMENT 07/13/17 HISTORY: Patient requiring frequent blood transfusions, recent history of respiratory failure. Infection. FLUOROSCOPY: Total fluoroscopy time is 0 minutes with total dose of 214 mGy*cm2. TECHNIQUE: After informed consent was obtained, the patient was placed on the angiography table in the supine po sition. Peripheral intravenous catheters just above the level of the antecubital fossa were removed, and hemostasis was achieved with direct pressure. The right upper extremity was meticulously prepped and draped in the usual sterile fashion. Skin and subcutaneous tissues were infiltrated with buffered 1% lidocaine for local anesthesia at the intended puncture site. Utilizing concurrent real time ultrasound guidance, the right basilic vein w as accessed utilizing micropuncture technique and concurrent real time ultrasound guidance. A 5 Frenc h peel away sheath was placed. Catheter was measured and cut to the appropriate length. Catheter was placed over the guide wire with the tip positioned overlying the distal SVC. Guide wire and peel away sheath were removed. The catheter was accessed and aspirated/flushed easily. Catheter was secured to the skin utilizing a Stat-Lock device. A dry sterile dressing was placed. Patient tolerated the proc edure well and without immediate complication. FINDINGS: Technically successful placement of a single lumen 5 Swedish 35 cm PICC line via the right basilic vei n with tip of the catheter overlying the distal SVC. IMPRESSION: Technically successful ultrasound guided right upper extremity PICC line placement. POS: [facility]
[2017-07-13] MEDS: buPROPion 75 MG TAB PER TUBE SCH (17:45)
[2017-07-13] MEDS: risperiDONE 1 MG TAB PO SCH (21:28)
[2017-07-14] MEDS: Ascorbic Acid 500 mg Chewable Tablet PER TUBE SCH ×2 (06:03→17:33)
[2017-07-14] MEDS: Ibuprofen 600 MG TAB PO SCH ×3 (06:03→17:33)
[2017-07-14 06:41] VITALS: BMI 24.6
[2017-07-14] MEDS: Fluticasone Propionate Nasal Spray 16 gm Bottle NASAL SCH (09:24)
[2017-07-14] MEDS: Polyethylene Glycol 3350 17 GM Packet PO SCH (09:25)
[2017-07-14] MEDS: Enoxaparin Sodium 40 MG/0.4 ML SYRINGE SC SCH (09:25)
[2017-07-14] MEDS: Fluconazole 100 MG TAB PO SCH (09:26)
[2017-07-14] MEDS: Furosemide 20 MG TAB PO SCH (09:26)
[2017-07-14] MEDS: Famotidine 20 MG TAB PO SCH (09:26)
[2017-07-14] MEDS: Multivitamin W/ Minerals 1 TAB PO SCH (09:26)
[2017-07-14] MEDS: buPROPion HCl 100 MG TAB PER TUBE SCH (09:26)
[2017-07-14] MEDS: Linezolid 600 MG TAB PO SCH (09:27)
[2017-07-14] MEDS: Folic Acid 1 MG TAB PO SCH (09:27)
[2017-07-14] MEDS: Gabapentin 300 MG CAP PO SCH ×2 (09:27→15:04)
[2017-07-14] MEDS: Cyanocobalamin (Vitamin B-12) 1,000 MCG TAB PO SCH (09:27)
[2017-07-14] MEDS: predniSONE 20 MG TAB PO SCH (09:27)
[2017-07-14] MEDS: Senokot S 8.6-50 MG TAB PO SCH (09:27)
[2017-07-14] MEDS: Tamsulosin HCl 0.4 MG CAP PO SCH (09:27)
[2017-07-14] MEDS ORDERED: Furosemide 20 MG/2 ML VIAL SLOW IVP SCH (12:15)
[2017-07-14] MEDS: HumaLOG 300 UNITS/3 ML VIAL SC PRN ×2 (12:28→17:36)
[2017-07-14 14:33] LABS: #Basophils 0.1 thou/uL (0.0-0.2); #Lymphocytes 1.1 thou/uL (1.20-3.40); #Monocytes 0.7 thou/uL (0.11-0.59); #Neutrophils 16.8 thou/uL (1.40-6.50); %Basophils 0.3 % (0.0-1.0); %Eosinophils 0.1 % (0.0-10.0); %Lymphocytes 5.8 % (21.0-51.0); %Monocytes 3.5 % (0.0-10.0); %Neutrophils 90.3 % (42.0-75.0); Hemoglobin 8.3 g/dL (14.0-18.0); Mean Corpuscular HGB CONC 31.3 g/dL (32.0-36.0); Mean Corpuscular Hemoglobin 30.7 pg (27.0-31.0); Mean Corpuscular Volume 97.9 fl (80.0-94.0); Mean Platelet Volume 8.2 fL (7.4-10.4); Platelet Count 493 thou/uL (130-400); RBC Distribution Width 16.1 % (11.5-14.5); Red Blood Cell (RBC) Count 2.72 mill/uL (4.70-6.10); White Blood Cell (WBC) Count 18.6 thou/uL (4.8-10.8)
[2017-07-14 14:47] LABS: Anion Gap 13 mmol/L (10-20); BUN (Urea Nitrogen) 11 mg/dL (8.4-25.7); Calc. Creatinine Clearance 98 mL/min (70-130); Calcium 7.9 mg/dL (7.8-10.44); Carbon Dioxide 31 mmol/L (23-31); Chloride 94 mmol/L (98-107); Estimated GFR-MDRD 83; Glucose 213 mg/dL (80-115); Magnesium 1.6 mg/dL (1.6-2.6); Phosphorus 2.8 mg/dL (2.3-4.7); Potassium 3.7 mmol/L (3.5-5.1); Sodium 134 mmol/L (136-145)
[2017-07-14] MEDS: buPROPion 75 MG TAB PER TUBE SCH (17:33)
[2017-07-14 20:37] VITALS: BP 110/70; TEMP 98.1
--- NOTE | 2017-07-15 01:13 | DIS ---
DATE OF ADMISSION: 07/01/2017 DATE OF DISCHARGE: 07/14/2017 ADMITTING PHYSICIAN: Dr. Lewis DISCHARGING PHYSICIAN: Dr. Naqvi. ADMISSION DIAGNOSES: 1. Hypoxia secondary to acute respiratory distress syndrome. 2. History of chronic obstructive pulmonary disease. 3. Right intertrochanteric hip fracture, status post open reduction and internal fixation recently. 4. History of chronic alcohol use. DISCHARGE DIAGNOSES: 1. Hypoxia secondary to acute respiratory distress syndrome. 2. History of chronic obstructive pulmonary disease. 3. Right intertrochanteric hip fracture, status post open reduction and internal fixation recently. 4. History of chronic alcohol use. 5. Surgical site infection of the right hip with methicillin-resistant Staphylococcus aureus. 6. Methicillin-resistant Staphylococcus aureus pneumonia. 7. Normocytic anemia, requiring blood transfusion. 8. Volume overload. PROCEDURES PERFORMED: 1. Exploration and irrigation of right lateral thigh surgical site on 07/05/2017. 2. Fiberoptic bronchoscopy on 07/08/2017. 3. PICC line placement on 07/13/2017. HOSPITAL COURSE: Mr. Smiley is a 67-year-old male with a history of COPD and asthma, who was recently admitted to [place] for right hip fracture. He underwent surgical fixation of this with Dr. Paul robertson and was discharged to inpatient rehab on 06/29/2017. He was then readmitted with respiratory di stress on 07/01/2017. The patient was initially admitted to the IMCU and put on BiPAP. He did not t olerate BiPAP very well and frequently tried to remove it. He initially had to be intubated and britt sferred to the ICU. Patient was then extubated and put back on BiPAP. He was started on Solu-Medrol and prophylactic antibiotics. The patient continued to improve respiratorily to the point that he o nly required BiPAP at night. He was able to tolerate being on a nasal cannula oxygen throughout the day. Culture of his right surgical site returned methicillin-resistant Staph aureus. Sputum culture also returned methicillin-resistant Staph aureus, as well as a yeast species. The patient was start ed on Diflucan and linezolid. The patient also suffered from intermittently low hemoglobin, reaching as low as 6.6 on 07/06/2017 and 07/12/2017. On each of these days, he received a unit of packed red blood cells and his hemoglobin responded well. The patient had a poor IV access and for this reason , a PICC line was placed on 07/13/2017. The patient was discharged in stable condition to rehab on 0 07/14/2017. DISCHARGE MEDICATIONS: The patient was discharged to rehab with all of his inpatient medications. Juan winter see electronic medical records for details. ACTIVITY INSTRUCTIONS: The patient has orthopedic limitations including weightbearing as tolerated. NOURISHMENT INSTRUCTIONS: The patient on a diabetic, 1800-kilocalorie per day diet along with supple mental Ensure. THERAPY INSTRUCTIONS: Occupational, physical therapy and rehabilitation. FOLLOWUP INSTRUCTIONS: The patient is instructed to follow up with Dr. David Drake in 10 days. Also to follow up with his primary care physician in 7 days. This patient was seen and examined with Dr. Dajuan Naqvi on rounds, who agrees with this discharge juan mendoza
== END 2017-07-14 19:30 | DRG 981 ==
LOC: ERS 10:23 → IMCU/EMU 13:32 → CCU 07-05 09:07 → IMCU/EMU 07-05 09:44 → CCU 07-05 16:56 → SURG A 07-10 17:05
PROVIDERS: ADMIT Surgery; ATTEND Surgery
PROC: 5A09357 Assistance with Respiratory Ventilation, Less than 24 Consecutive Hours, Continuous Positive Airway Pressure (ICD-10-PCS; 2017-07-01)
PROC: 5A09357 Assistance with Respiratory Ventilation, Less than 24 Consecutive Hours, Continuous Positive Airway Pressure (ICD-10-PCS; 2017-07-02)
PROC: 5A09357 Assistance with Respiratory Ventilation, Less than 24 Consecutive Hours, Continuous Positive Airway Pressure (ICD-10-PCS; 2017-07-03)
PROC: 0QJY0ZZ Inspection of Lower Bone, Open Approach (ICD-10-PCS; 2017-07-05)
PROC: 5A1945Z Respiratory Ventilation, 24-96 Consecutive Hours (ICD-10-PCS; principal; 2017-07-06)
PROC: 0BH17EZ Insertion of Endotracheal Airway into Trachea, Via Natural or Artificial Opening (ICD-10-PCS; 2017-07-06)
PROC: 5A09457 Assistance with Respiratory Ventilation, 24-96 Consecutive Hours, Continuous Positive Airway Pressure (ICD-10-PCS; 2017-07-06)
PROC: 30233N1 Transfusion of Nonautologous Red Blood Cells into Peripheral Vein, Percutaneous Approach (ICD-10-PCS; 2017-07-06)
PROC: 0BJ08ZZ Inspection of Tracheobronchial Tree, Via Natural or Artificial Opening Endoscopic (ICD-10-PCS; 2017-07-08)
PROC: 5A09357 Assistance with Respiratory Ventilation, Less than 24 Consecutive Hours, Continuous Positive Airway Pressure (ICD-10-PCS; 2017-07-09)
PROC: 5A09357 Assistance with Respiratory Ventilation, Less than 24 Consecutive Hours, Continuous Positive Airway Pressure (ICD-10-PCS; 2017-07-10)
PROC: 5A09357 Assistance with Respiratory Ventilation, Less than 24 Consecutive Hours, Continuous Positive Airway Pressure (ICD-10-PCS; 2017-07-11)
PROC: 30233N1 Transfusion of Nonautologous Red Blood Cells into Peripheral Vein, Percutaneous Approach (ICD-10-PCS; 2017-07-12)
PROC: 5A09357 Assistance with Respiratory Ventilation, Less than 24 Consecutive Hours, Continuous Positive Airway Pressure (ICD-10-PCS; 2017-07-13)
PROC: 02HV33Z Insertion of Infusion Device into Superior Vena Cava, Percutaneous Approach (ICD-10-PCS; 2017-07-13)
PROC: B548ZZA Ultrasonography of Superior Vena Cava, Guidance (ICD-10-PCS; 2017-07-13)
DX: J80 Acute respiratory distress syndrome (principal); J15.212 Pneumonia due to Methicillin resistant Staphylococcus aureus; J81.0 Acute pulmonary edema; E87.2 Acidosis; J44.0 Chronic obstructive pulmonary disease with (acute) lower respiratory infection; D62 Acute posthemorrhagic anemia; E83.42 Hypomagnesemia; E83.39 Other disorders of phosphorus metabolism; L76.34 Postprocedural seroma of skin and subcutaneous tissue following other procedure; T81.4XXA Infection following a procedure, initial encounter; J44.1 Chronic obstructive pulmonary disease with (acute) exacerbation; F03.90 Unspecified dementia, unspecified severity, without behavioral disturbance, psychotic disturbance, mood disturbance, and anxiety; E87.70 Fluid overload, unspecified; J96.01 Acute respiratory failure with hypoxia; A49.02 Methicillin resistant Staphylococcus aureus infection, unspecified site; S72.001D Fracture of unspecified part of neck of right femur, subsequent encounter for closed fracture with routine healing; E11.9 Type 2 diabetes mellitus without complications; I10 Essential (primary) hypertension; W01.0XXD Fall on same level from slipping, tripping and stumbling without subsequent striking against object, subsequent encounter; E78.5 Hyperlipidemia, unspecified; F31.9 Bipolar disorder, unspecified; K21.9 Gastro-esophageal reflux disease without esophagitis; I25.5 Ischemic cardiomyopathy; Z79.2 Long term (current) use of antibiotics; F17.210 Nicotine dependence, cigarettes, uncomplicated; F10.10 Alcohol abuse, uncomplicated; E87.6 Hypokalemia; R33.9 Retention of urine, unspecified
CPT/HCPCS: 36415; 36416; 36430; 36569; 71045; 71275; 74018; 80048; 80202; 82805; 83605; 83690; 83735; 83880; 84100; 85025; 85060; 86850; 86900; 86901; 87040; 87070; 87077; 87186; 87205; 93005; 93306; 94002; 94003; 94640; 96361; 96374; 96375; A4217; C1751; G8978-GP-CK; G8978-GP-CN; G8979-GP-CJ; G8979-GP-CL; G8987-GO-CN; G8988-GO-CL; J1644; J1650; J1940; J2001; J2250; J2543; J2704; J2920; J2930; J3010; J3370; J3475; J3480; J7050; J7506; J7611; J7614; J7620; P9016

== ENCOUNTER 2017-12-21 18:28 | Inpatient (IN) | payer MEDICARE ==
--- NOTE | 2017-12-21 18:59 | RAD ---
AP VIEW CHEST: 12/21/17 HISTORY: Altered mental status. AP view chest is obtained on 12/21/17. Comparison made to previous exam from 07/17/17. AP view chest demonstrates some mild pulmonary vascular congestion. No evidence of effusions, pneumon ia, or pneumothorax seen. No other acute abnormality seen. IMPRESSION: Mild pulmonary vascular congestion, otherwise unremarkable. AP view chest. POS: [facility]
[2017-12-21 19:28] LABS: #Basophils 0.1 thou/uL (0.0-0.2); #Eosinphils 0.8 thou/uL (0.0-0.7); #Lymphocytes 3.2 thou/uL (1.20-3.40); #Monocytes 1.7 thou/uL (0.11-0.59); #Neutrophils 7.7 thou/uL (1.40-6.50); %Basophils 0.7 % (0.0-1.0); %Eosinophils 6.2 % (0.0-10.0); %Lymphocytes 23.9 % (21.0-51.0); %Monocytes 12.3 % (0.0-10.0); %Neutrophils 56.9 % (42.0-75.0); Hemoglobin 10.6 g/dL (14.0-18.0); Mean Corpuscular HGB CONC 30.7 g/dL (32.0-36.0); Mean Corpuscular Hemoglobin 26.9 pg (27.0-31.0); Mean Corpuscular Volume 87.5 fL (78.0-98.0); Mean Platelet Volume 6.3 fL (7.4-10.4); Platelet Count 629 thou/uL (130-400); RBC Distribution Width 14.1 % (11.5-14.5); Red Blood Cell (RBC) Count 3.93 mill/uL (4.70-6.10); White Blood Cell (WBC) Count 13.5 thou/uL (4.8-10.8)
[2017-12-21] MEDS ORDERED: Dextrose 50% Abboject 50 ML SYRINGE ONE (19:36)
--- NOTE | 2017-12-21 19:38 | CT ---
CT OF BRAIN PERFORMED WITHOUT CONTRAST ENHANCEMENT: 12/21/17 HISTORY: Seizure at home. COMPARISON: 08/28/16 exam. The ventricular and cisternal system is within normal limits for age. There is no signs of intracereb ral hemorrhage or extra-axial fluid collections. Mastoid air cells are clear. 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 IMPRESSION: No acute intracranial abnormalities. POS: [facility]
[2017-12-21 19:42] LABS: ALT (SGPT) 9 U/L (8-55); AST (SGOT) 15 U/L (5-34); Albumin 3.2 g/dL (3.4-4.8); Alkaline Phosphatase 131 U/L (40-150); Anion Gap 15 mmol/L (10-20); BUN (Urea Nitrogen) 9 mg/dL (8.4-25.7); Bilirubin, Total 0.2 mg/dL (0.2-1.2); CK (CPK) 67 U/L (30-200); Calc. Creatinine Clearance 0 mL/min (70-130); Calcium 8.7 mg/dL (7.8-10.44); Carbon Dioxide 19 mmol/L (23-31); Chloride 103 mmol/L (98-107); Estimated GFR-MDRD 81; Globulin 3.1 g/dL (2.4-3.5); Potassium 3.5 mmol/L (3.5-5.1); Protein, Total 6.3 g/dL (5.8-8.1); Sodium 133 mmol/L (136-145)
[2017-12-21 19:45] LABS: Glucose 47 mg/dL (80-115)
[2017-12-21 19:48] LABS: CKMB 2.5 ng/mL (0-6.6); Troponin I Less than 0.010 ng/mL (< 0.028)
--- NOTE | 2017-12-21 21:15 | PDOC.FPRHP ---
- History of Present Illness Chief Complaint: low blood sugar History of Present Illness: This is a 67yo M w/ pmh of DM2, BTN, and COPD presenting with history of hypoglycemia. Pt reports that he was given a home dose of 10u novalin at home today around noon by his who then went grocery shopping. When she returned he was asleep on the couch and unable to be roused and had some noticable "shakes". She called EMS and saw his sugar was 44 at home. EMS administered D50 and on arrival to ED pt BS of 125 and was A&Ox3. Pt reports he has had a hypoglycemic episode in the past about 2 years ago and that his meds were recently adjusted by doctors in a rehab hospital. Pt reports that he has not eaten any food in 2 days and continued to adminster himself his glipizide and insulin. Of note his hx is questionable considering his difficulty in remembering his medical hx. He may have received bolus feeds from G tube. Pt also complains of epigastric abdominal pain with onset of a few weeks. Pt reports pain is dull in character and constant. Reports recent discharge on Tuesday from [facility] and rehab in [place]. Pt is unsure why he was there but said he now has a G tube and a healing stoma from a trach and is also unsure of their origins or purpose. ED Course: D50 per EMS, Head CT: no intracranial findings, CXR: mild pulmonary congestion - Allergies/Adverse Reactions Allergies Allergy/AdvReac Type Severity Reaction Status Date / Time trazodone Allergy Verified 12/21/17 22:19 - Home Medications Medication Instructions Recorded Confirmed Type ALButerol Sulfate [Ventolin] 3 ml NEB Q8HR 12/21/17 12/21/17 History Ascorbic Acid [Vitamin C] 500 mg PO HS 12/21/17 12/21/17 History Cyanocobalamin (Vitamin B-12) 1,000 mcg PO DAILY 12/21/17 12/21/17 History [Vitamin B-12] Fluticasone Propionate [Flonase 1 spray EA NARE DAILY 12/21/17 12/21/17 History Allergy Relief] Furosemide [Lasix] 40 mg PO DAILY 12/21/17 12/21/17 History Gabapentin 300 mg PO BID 12/21/17 12/21/17 History Ipratropium [place] [Atrovent] 2.5 ml NEB TID 12/21/17 12/21/17 History Metoprolol Tartrate 75 mg PO BID 12/21/17 12/21/17 History Silodosin [Rapaflo] 8 mg PO DAILY 12/21/17 12/21/17 History Spironolactone [Aldactone] 25 mg PO DAILY 12/21/17 12/21/17 History clonazePAM [Klonopin] 0.5 mg PO BID 12/21/17 12/21/17 History glipiZIDE 10 mg PO DAILY-AC 12/21/17 12/21/17 History ALButerol Sulfate [Ventolin] 3 ml NEB Q8HR PRN 12/22/17 12/22/17 History Insulin NPH Human Isophane 12 unit SC BID 12/22/17 12/22/17 History [NovoLIN N] Ipratropium [place] [Atrovent] 2.5 ml NEB TID PRN 12/22/17 12/22/17 History - History PMHx: DM, anxiety, HLD, bipolar, HTN, COPD, CHF PSHx: G tube placement, trach placement/removal FHx: CAD, HLD Social: smokes 1 pack per day x 20 years, former EtOH abuse, former IV drug abuse - Review of Systems General: reports: fever/chills. denies: fatigue Eyes: denies: vision changes ENT: denies: nasal congestion, rhinorrhea Respiratory: denies: congestion, shortness of breath Cardiovascular: reports: chest pain. denies: palpitation Gastrointestinal: reports: abdominal pain. denies: nausea, vomiting Skin: denies: rashes, lesions Musculoskeletal: denies: pain, tenderness Neurological: denies: syncope, seizure Psychological: reports: anxiety. denies: depression - Vital signs BP: [104/68] HR: [68] RR: [16] Tmax: [98] Pox: [98]% on [RA] Wt: [58kg] - Physical Exam Constitutional: NAD, awake, alert and oriented HEENT: normocephalic and atraumatic, EOMI, conjunctiva clear, grossly normal vision, MMM Neck: trachea midline Chest: no-tender to palpation Heart: RRR, normal S1/S2 Lungs: CTAB, no respiratory distress Abdomen: soft, bowel sounds present, other (moderate tenderness to palpation in bilat lower quadrants. G tube in place with no erythema or leaking fluid) Musculoskeletal: normal structure Neurological: normal sensation Skin: no rash/lesions, good turgor Heme/Lymphatic: no unusual bruising or bleeding, no purpura Psychiatric: normal mood and affect, other (poor-fair insight and judgment) FMR H&P: Results - Labs Result Diagrams: 12/21/17 19:04 12/21/17 19:04 Lab results: WBC 13.5 thou/uL (4.8-10.8) H 12/21/17 19:04 Hgb 10.6 g/dL (14.0-18.0) L 12/21/17 19:04 Hct 34.4 % (42.0-52.0) L 12/21/17 19:04 MCV 87.5 fL (78.0-98.0) 12/21/17 19:04 Plt Count 629 thou/uL (130-400) H 12/21/17 19:04 Neutrophils % 56.9 % (42.0-75.0) 12/21/17 19:04 Sodium 133 mmol/L (136-145) L 12/21/17 19:04 Potassium 3.5 mmol/L (3.5-5.1) 12/21/17 19:04 Chloride 103 mmol/L (98-107) 12/21/17 19:04 Carbon Dioxide 19 mmol/L (23-31) L 12/21/17 19:04 BUN 9 mg/dL (8.4-25.7) 12/21/17 19:04 Creatinine 0.93 mg/dL (0.6-1.3) 12/21/17 19:04 Glucose 47 mg/dL (80-115) L* 12/21/17 19:04 Lactic Acid 1.5 mmol/L (0.5-2.2) 12/21/17 19:04 Calcium 8.7 mg/dL (7.8-10.44) 12/21/17 19:04 Total Bilirubin 0.2 mg/dL (0.2-1.2) 12/21/17 19:04 AST 15 U/L (5-34) 12/21/17 19:04 ALT 9 U/L (8-55) 12/21/17 19:04 Alkaline Phosphatase 131 U/L (40-150) 12/21/17 19:04 Creatine Kinase 67 U/L (30-200) 12/21/17 19:04 CK-MB (CK-2) 2.5 ng/mL (0-6.6) 12/21/17 19:04 Serum Total Protein 6.3 g/dL (5.8-8.1) 12/21/17 19:04 Albumin 3.2 g/dL (3.4-4.8) L 12/21/17 19:04 FMR H&P: A/P - Problem List (1) Metabolic encephalopathy Current Visit: Yes Status: Resolved Code(s): G93.41 - METABOLIC ENCEPHALOPATHY (2) Hypoglycemia associated with type 2 diabetes mellitus Current Visit: No Status: Acute Code(s): E11.649 - TYPE 2 DIABETES MELLITUS WITH HYPOGLYCEMIA WITHOUT COMA (3) Chronic anxiety Current Visit: No Status: Chronic Code(s): F41.9 - ANXIETY DISORDER, UNSPECIFIED (4) HTN (hypertension) Current Visit: No Status: Chronic Code(s): I10 - ESSENTIAL (PRIMARY) HYPERTENSION Qualifiers: Hypertension type: essential hypertension Qualified Code(s): I10 - Essential (primary) hypertension (5) Polysubstance abuse Current Visit: No Status: Chronic Code(s): F19.10 - OTHER PSYCHOACTIVE SUBSTANCE ABUSE, UNCOMPLICATED (6) Type 2 diabetes mellitus Current Visit: No Status: Chronic Qualifiers: 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 most recent BS 135 P- hold home meds at this time - ac/hs accuchecks, and mild SSI diabetes/hypoglycemia protocol in place. - will encourage PO intake and add meal supplements. - will consider adjusting insulin regimen in AM. - dysphagia screening Diabetes mellitus, type 2 A- as above. P- will order an A1C to determine pt's overall level of control Metabolic encephalopathy A- resolved. likely 2/2 hypoglycemia P- Non-contrast CT negative for intracranial abnormalities. - UDS Abdominal pain - will order UA to evaluate for infection. Anxiety - resume home meds Insomnia - melatonin 9 mg qhs prn HTN -home meds CHF -home meds COPD -home meds FMR H&P: Upper Level - Pertinent history SKYLER is a 67 year old male with a history of diabetes who presents to the ED with hypoglycemia. Reportedly, pts called EMS due to concern for seizure and altered mental status. When EMS arrived his blood sugar was found to be 44. He was given D50 and 400 ml NS, and repeat blood sugar was 136. Earlier in the day his checked his blood sugar and it was 256, so she administered his home dose of 12 units of Novolin. She went to run errands for four hours, but she does not believe patient ate anything while she was gone. He began to have symptoms 4-5 hours after insulin was given. Pt reports poor appetite for the past 2 days. He was recently discharge from rehab. At some point between his hospitalization in July 2017 and September 24, 2017 when he was admitted to his rehab facility, he had a trach and PEG tube placed. The tracheostomy tube has since been removed, but the stoma is still patent. He has a PEG tube that is functioning, but is not being used. - Pertinent findings Vitals: BP: 104/69 P: 68 RR: 16 Tmax: 98.5 O2: 98% on RA weight: 58.97 General: Alert and oriented x 3; cachectic appearing Heart: Regular rate and rhythm, no murmurs, rubs, or gallops. Lungs: clear to auscultation bilaterally. HEENT: PEERL, patent tracheotomy Abdominal: mild suprapubic tenderness to palpation; PEG tube in place. Extremities: no edema. - Plan Date/Time: 12/21/172042 I, Mala Naqvi, have evaluated this patient and agree with findings/plan as outlined by fashion buying internship resident. Pertinent changes/additions are listed here. Metabolic encephalopathy - resolved. Pt is now at baseline. - likely related to hypgoglycemia. See below. - Non-contrast CT negative for intracranial abnormalities. Severe hypoglycemia - s/p D50 in EMS. - we will hold insulin and recommend discontinuing Glipizide altogether. - ac/hs accuchecks, and diabetes/hypoglycemia protocol in place. - will encourage PO intake and add meal supplements. - will consider adjusting insulin regimen in AM. Diabetes mellitus, type 2 - as above. - will order an A1C to determine pt's overall level of control Suprapubic tenderness - will order UA to evaluate for infection. Anxiety - resume home meds Insomnia - melatonin 3 mg qhs prn Chronic pain - will resume home meds. Attending Addendum - Attending Addendum Date/Time: 12/22/17 1135. Seen and examined on 12/21. I personally evaluated the patient and discussed the management with Dr. Naqvi and Christopher. I agree with and repeated the History, Examination, Assessment and Plan documented above with any addition or exceptions noted below. Not c/o abd pain or anything else on my exam. Limited exam due to what I suspect is dementia. Closely monitor glucose and exam.
[2017-12-21] MEDS ORDERED: Ondansetron ODT 4 MG TAB SL PRN (21:48)
[2017-12-21] MEDS ORDERED: Acetaminophen 325 MG TAB PO PRN (21:48)
[2017-12-21] MEDS ORDERED: Ondansetron HCl/PF 4 MG/2 ML Vial IVP PRN (21:48)
[2017-12-21] MEDS ORDERED: Dextrose 50% Abboject 50 ML SYRINGE SLOW IVP PRN (21:51)
[2017-12-21] MEDS ORDERED: Melatonin 3 MG TAB PO PRN (21:51)
[2017-12-21] MEDS ORDERED: Ibuprofen 600 MG TAB PO PRN (21:51)
[2017-12-21] MEDS ORDERED: Dextrose 5% in Water 1,000 ML IV PRN (21:51)
[2017-12-21] MEDS ORDERED: HumaLOG 300 UNITS/3 ML VIAL SC PRN (21:51)
[2017-12-21 21:55] VITALS: BMI 17.1
[2017-12-21] MEDS ORDERED: Nicotine 14 MG PATCH TD SCH (22:00)
[2017-12-21 22:22] LABS: Hemoglobin A1c 8.2 % (4.0-6.0)
[2017-12-21] MEDS: Lactated Ringer's 1,000 ML IV SCH (22:51)
[2017-12-22 04:17] LABS: Bilirubin Negative (Negative); Blood, Urine Negative (Negative); Clarity CLEAR (Clear); Glucose, Urine (Dipstick) Negative (Negative); Leukocyte Negative (Negative); Nitrite Negative (Negative); Protein, Urine (Dipstick) Negative (Neg-Trace); Specific Gravity, Urine 1.007 (1.002-1.036); Urobilinogen 0.2 mg/dL (0.2-1.0)
[2017-12-22 04:18] LABS: Amphetamine Not Detected (NotDetected); Barbiturates Screen Not Detected (NotDetected); Benzodiazepine Screen Not Detected (NotDetected); Cocaine Metabolite Screen Not Detected (NotDetected); Medtox Control Line Valid? VALID (VALID); Medtox Reader # READER 1; Methadone Not Detected (NotDetected); Methamphetamine Not Detected (NotDetected); Opiate Screen Not Detected (NotDetected); Oxycodone Screen Not Detected (NotDetected); Phencyclidine (PCP) Not Detected (NotDetected); THC/Cannabinoid Screen Not Detected (NotDetected); Tricyclic Screen Not Detected (NotDetected)
[2017-12-22] MEDS: Albuterol Sulfate 2.5 mg/3 ml Neb NEB SCH ×2 (06:17→14:57)
[2017-12-22] MEDS: Ipratropium Bromide 2.5 ml Neb NEB SCH ×2 (06:17→14:55)
--- NOTE | 2017-12-22 06:30 | PDOC.FM ---
- Subjective Subjective: Patient says his feet and lower legs are numb this morning and painful. - Objective Vital Signs & Weight: Vital Signs (12 hours) Temp Pulse Resp BP Pulse Ox 12/22/17 06:17 75 16 100 12/22/17 04:15 97.7 F 78 16 119/75 97 12/22/17 00:20 97.7 F 73 16 120/74 100 12/21/17 21:54 97.7 F 72 18 110/71 98 12/21/17 21:38 98 Weight Weight 58.967 kg I&O: 12/20/17 12/21/17 12/22/17 06:59 06:59 06:59 Intake Total 623 Output Total 475 Balance 148 Result Diagrams: 12/21/17 19:04 12/21/17 19:04 Phys Exam - Physical Examination Constitutional: NAD cachectic HEENT: PERRLA, moist MMs Neck: no nodes, supple tracheostomy stoma Respiratory: no wheezing, no rales, clear to auscultation bilateral Cardiovascular: RRR, no rub 1/6 systolic murmur Gastrointestinal: soft, non-tender, no distention Peg tube in place Musculoskeletal: no edema, pulses present Neurological: moves all 4 limbs numbness plantar surface of feet bilaterally, numbness on BLE Deviation from normal: AO to person and place, flat affect Skin: normal turgor, cap refill <2 seconds Dx/Plan (1) Hypoglycemia associated with type 2 diabetes mellitus Code(s): E11.649 - TYPE 2 DIABETES MELLITUS WITH HYPOGLYCEMIA WITHOUT COMA Status: Acute (2) CHF (congestive heart failure) Code(s): I50.9 - HEART FAILURE, UNSPECIFIED Status: Chronic (3) Abdominal pain Code(s): R10.9 - UNSPECIFIED ABDOMINAL PAIN Status: Resolved (4) Insomnia Code(s): G47.00 - INSOMNIA, UNSPECIFIED Status: Acute (5) COPD (chronic obstructive pulmonary disease) Status: Chronic (6) Metabolic encephalopathy Code(s): G93.41 - METABOLIC ENCEPHALOPATHY Status: Resolved (7) Hyponatremia Code(s): E87.1 - HYPO-OSMOLALITY AND HYPONATREMIA Status: Acute (8) Chronic anxiety Code(s): F41.9 - ANXIETY DISORDER, UNSPECIFIED Status: Chronic (9) HLD (hyperlipidemia) Code(s): E78.5 - HYPERLIPIDEMIA, UNSPECIFIED Status: Chronic (10) HTN (hypertension) Code(s): I10 - ESSENTIAL (PRIMARY) HYPERTENSION Status: Chronic Qualifiers: Hypertension type: essential hypertension Qualified Code(s): I10 - Essential (primary) hypertension (11) Type 2 diabetes mellitus Status: Chronic Qualifiers: Diabetes mellitus roasterman insulin use: with roasterman use Diabetes mellitus complication detail: with polyneuropathy - Plan Plan: 67 M with PMH DM, HTN, CHF, COPD, presents for hypoglycemia and metabolic encephalopathy Severe hypoglycemia - s/p D50 in EMS. most recent BS 266 - restart insulin at 8 units BID (reduced from 12 units) - ac/hs accuchecks, and mild SSI diabetes/hypoglycemia protocol in place. - will encourage PO intake, meal supplements - dysphagia screening by [facility] Diabetes mellitus, type 2 - as above. - A1C- 98.2 - Decreased insulin from 12 to 8 units BID. Metabolic encephalopathy - resolved. likely 2/2 hypoglycemia - Non-contrast CT negative for intracranial abnormalities. - UDS negative Abdominal pain, resolved - UA - neg - pt reports no abdominal pain this morning Anxiety - resume home meds Insomnia - melatonin 9 mg qhs prn HTN -home meds CHF -home meds COPD -home meds
[2017-12-22] MEDS ORDERED: Albuterol Sulfate 2.5 mg/3 ml Neb NEB PRN (08:42)
[2017-12-22] MEDS ORDERED: Cyanocobalamin (Vitamin B-12) 1,000 MCG TAB PO SCH (09:00)
[2017-12-22] MEDS ORDERED: Gabapentin 300 MG CAP PO SCH (09:00)
[2017-12-22] MEDS ORDERED: Spironolactone 25 MG TAB PO SCH (09:00)
[2017-12-22] MEDS ORDERED: clonazePAM 0.5 MG TAB PO SCH (09:00)
[2017-12-22] MEDS ORDERED: Enoxaparin Sodium 40 MG/0.4 ML SYRINGE SC SCH (09:00)
[2017-12-22] MEDS ORDERED: Fluticasone Propionate Nasal Spray 16 gm Bottle NASAL SCH (09:00)
[2017-12-22] MEDS ORDERED: Metoprolol Tartrate 50 MG TAB PO SCH (09:00)
[2017-12-22] MEDS ORDERED: NPH, Human Insulin Isophane 300 UNIT/3 ML VIAL SC SCH (09:00)
[2017-12-22] MEDS ORDERED: Silodosin 8 MG CAP PO SCH (09:00)
[2017-12-22] MEDS ORDERED: Furosemide 40 MG TAB PO SCH (09:00)
[2017-12-22] MEDS ORDERED: Prevnar 13-Val Conj/PF 0.5 ML SYRINGE IM ONE (09:00)
--- NOTE | 2017-12-22 11:54 | PRG ---
DATE OF SERVICE: 12/22/2017 Mr. Smiley was admitted with a hypoglycemic episode. It is now known that he had not eaten for 2 days , but continued to take his insulin and sulfonylurea. We have counseled him about the importance of eating regularly and daily. For now, we will hold his insulin until he can follow up with Dr. Dunn in the clinic next week.
[2017-12-22] MEDS: Lactated Ringer's 1,000 ML IV SCH (12:15)
[2017-12-22 16:00] VITALS: BP 115/75; TEMP 98.6
--- NOTE | 2017-12-22 16:24 | PQF ---
CLINICAL DOCUMENTATION IMPROVEMENT CLARIFICATION FORM: ICD-10 Updated PLEASE DO AN ADDENDUM TO THE PROGRESS NOTE WITH ANY DOCUMENTATION UPDATES OR ADDITIONS AND CARRY THROUGH TO DC SUMMARY. THANK YOU. Date: 12/22/17 ATTN: Dr. Sharif/ Attending Dr. Franco Please exercise your independent, professional judgment in responding to the clarification form. 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 RISKS: H&P 12/21: PT REPORTS POOR APPETITE FOR PAST 2 DAYS. HE WAS RECENTLY DISCHARGE FROM REHAB. HE HAS A PEG TUBE THAT IS FUNCTIONING , BUT IS NOT BEING USED. PMHX: DM , HLD, BIPOLAR, HTN, COPD. CHF TREATMENT: CPOE 12/21: SUPERVISOR [employer] CONSULT. PT APPEARS MALNOURISHED WITH G TUBE CPOE 12/22: SUPPLEMENT: JONI BID Moderate Malnutrition (in acute illness) Energy Intake: <75% of estimated energy requirement for > 7 days Weight Loss: 1-2%/1 week; 5%/ 1 month; 7.5%/3 months Other: mild body fat loss; mild muscle mass loss; mild fluid accumulation; Severe Malnutrition (in acute illness) Energy Intake: < 50% of estimated energy requirement for > 5 days Weight Loss: >1-2%/1 week; >5%/1 month; >7.5%/3 months Other: moderate body fat loss; moderate muscle mass loss; moderate- severe fluid accumulation; measurably reduced press operator carbon products strength Moderate Malnutrition (in chronic illness) Energy Intake: <75% of estimated energy requirement for >1 month Weight Loss: 5%/1 month; 7.5%/3 months; 10%/6 months; 20%/1 year Other: mild body fat loss; mild muscle mass loss; mild fluid accumulation Severe Malnutrition (in chronic illness) Energy Intake: <75% of estimated energy requirement for >1 month Weight Loss: >5%/1 month; >7.5%/3 months; >10%/6 months; >20%/1 year Other: severe body fat loss; severe muscle mass loss; severe fluid accumulation; measurably reduced press operator carbon products strength Thank you, Leonila (This form is maintained as a part of the permanent medical record) 2015 [employer] All Rights Reserved Leonila Medina RN, BSN [email or web address] Office: [phone] [facility]
[2017-12-22] MEDS ORDERED: Ascorbic Acid 500 mg Chewable Tablet PO SCH (21:00)
[2017-12-23] MEDS ORDERED: glipiZIDE 10 MG TAB PO SCH (07:30)
--- NOTE | 2017-12-23 14:17 | DIS-2 ---
DATE OF ADMISSION: 12/21/2017 DATE OF DISCHARGE: 12/22/2017 RESIDENT: Dr. Nery Sharif ADMITTING ATTENDING: Dr. Kenneth Dillard DISCHARGE ATTENDING: Dr. William Franco CONSULTATIONS: None. PROCEDURES: 1. 12/20/2017 - Brain CT. Impression: No acute intracranial abnormalities. 2. 12/21/2017 - Chest x-ray. Impression: Mild pulmonary vascular congestion, otherwise unremarkable AP view chest. PRIMARY DIAGNOSIS: 1. Severe hypoglycemia. 2. Metabolic encephalopathy. SECONDARY DIAGNOSES: 1. Diabetes mellitus type 2. 2. Abdominal pain. 3. Anxiety. 4. Insomnia. 5. Hypertension. 6. Congestive heart failure. 7. Chronic obstructive pulmonary disease. DISCHARGE MEDICATIONS: 1. Bupropion 75 mg oral daily. 2. Clonazepam 0.5 mg oral p.r.n. for anxiety. 3. Ipratropium bromide 2.5 nebulizer t.i.d. 4. Albuterol 3 mL nebulizer q.8h. 5. Cyanocobalamin 1000 mcg oral daily. 6. Silodosin 8 mg oral daily. 7. Furosemide 40 mg oral daily. 8. Fluticasone propionate 1 spray each naris daily. 9. Spironolactone 25 mg oral daily. 10. Metoprolol 75 p.o. twice daily. 11. Gabapentin 300 mg p.o. b.i.d. 12. Ascorbic acid 500 mg oral at bedtime. 13. Ipratropium bromide 2.5 nebulizer 3 times daily as needed for wheezing. 14. Clonazepam 0.5 mg oral b.i.d. DISCONTINUED MEDICATIONS: 1. Glipizide 10 mg oral daily. 2. Insulin NPH Novolin 12 units subcutaneous twice daily. HISTORY OF PRESENT ILLNESS AND HOSPITAL COURSE: This is a 67-year-old male with past medical history of type 2 diabetes mellitus, hypertension, and COPD presenting with history of hypoglycemia. The patient reports he was given a home dose of 10 units, Novolin at home today around noon by his , then she went grocery shopping. When she returned, he was asleep on the couch and unable to be aroused and had some notable shakes. She called EMS and his sugar was 44 at home. EMS administered D50 and on arrival to ED, the patient's blood sugar is 125 and he was alert and oriented x3. The patient reported he had a hypoglycemic episode in the past about 2 years ago and that his medications were recently adjusted by doctors in the rehab hospital. The patient reports that he has not eaten any food in 2 days and continue to give himself glipizide and insulin. Of note, his history is questionable considering his difficulty in remembering his medical history. He may have received bolus feeds from G- tube. The patient also complains of epigastric abdominal pain with onset of a few weeks. The patient reports this pain is dull in character and constant. He reported recent discharge on Tuesday from [facility] in [place]. The patient is unsure why he was there, but said he now has an G- tube and has a healing stoma from a trach and is also unsure of their origins or purpose. In the ED, he received D50 per EMS, a head CT that was normal and a chest x-ray which showed mild pulmonary congestion. His hypoglycemia resolved. The patient's insulin and other diabetes medications were held. He was discharged in stable condition after his confusion had resolved and his blood sugars had normalized. His abdominal pain was thought to possibly thought to be related to his peg tube. A UA was negative. His his home anxiety , insomnia, hypertension, CHF, and COPD medicines were continued. DISPOSITION: Stable. DISCHARGE INSTRUCTIONS: 1. Location: 2. Diet: Consistent carbohydrates, heart healthy. 3. Activity: As tolerated. 4. Follow up with Dr. Dunn in the clinic within the next 7 days. BETSY
--- NOTE | 2017-12-24 13:29 | EKG ---
Test Reason : Blood Pressure : / mmHG Vent. Rate : 072 BPM Atrial Rate : 072 BPM P-R Int : 142 ms QRS Dur : 114 ms QT Int : 434 ms P-R-T Axes : 079 -37 027 degrees QTc Int : 475 ms Normal sinus rhythm Left axis deviation Incomplete right bundle branch block Abnormal ECG Confirmed by BRIDGER GERARDO ([id number]), proposal editor YI SOSA ([id number]) on 12/24/2017 1:28:48 PM Referred By: Confirmed By:BRIDGER GERARDO
== END 2017-12-22 15:55 | disposition home or self-care (01) | DRG 637 ==
LOC: ERS 18:28 → T4-A 21:44
PROVIDERS: ADMIT Emergency Medicine; ATTEND Emergency Medicine
DX: E11.649 Type 2 diabetes mellitus with hypoglycemia without coma (principal); G93.41 Metabolic encephalopathy; E87.1 Hypo-osmolality and hyponatremia; R64 Cachexia; Z68.1 Body mass index [BMI] 19.9 or less, adult; I11.0 Hypertensive heart disease with heart failure; I50.9 Heart failure, unspecified; R10.9 Unspecified abdominal pain; G47.00 Insomnia, unspecified; J44.9 Chronic obstructive pulmonary disease, unspecified; F41.9 Anxiety disorder, unspecified; E78.5 Hyperlipidemia, unspecified; E11.42 Type 2 diabetes mellitus with diabetic polyneuropathy; F17.210 Nicotine dependence, cigarettes, uncomplicated; F10.10 Alcohol abuse, uncomplicated; F19.10 Other psychoactive substance abuse, uncomplicated; G89.29 Other chronic pain; M54.9 Dorsalgia, unspecified; Z85.89 Personal history of malignant neoplasm of other organs and systems; M19.90 Unspecified osteoarthritis, unspecified site; G31.89 Other specified degenerative diseases of nervous system; K21.9 Gastro-esophageal reflux disease without esophagitis; F32.9 Major depressive disorder, single episode, unspecified; Z79.4 Long term (current) use of insulin
CPT/HCPCS: 36415; 36416; 70450; 71045; 80053; 80306; 81003; 82553; 83036; 83605; 84484; 85025; 93005; 94640; 96361; 96374; A4216; G8978-GP-CM; G8979-GP-CK; G8996-GN-CI; G8997-GN-CI; J1650; J1815; J7611; J7644

== ENCOUNTER 2017-12-25 11:22 | Emergency (ER) | payer MEDICARE ==
[2017-12-25 11:45] LABS: #Eosinphils 0.6 thou/uL (0.0-0.7); #Lymphocytes 2.6 thou/uL (1.20-3.40); #Monocytes 1.7 thou/uL (0.11-0.59); %Basophils 0.3 % (0.0-1.0); %Lymphocytes 13.7 % (21.0-51.0); %Monocytes 9.1 % (0.0-10.0); Hemoglobin 11.5 g/dL (14.0-18.0); Mean Corpuscular HGB CONC 30.7 g/dL (32.0-36.0); Mean Platelet Volume 6.1 fL (7.4-10.4); Platelet Count 664 thou/uL (130-400); RBC Distribution Width 14.3 % (11.5-14.5); Red Blood Cell (RBC) Count 4.27 mill/uL (4.70-6.10); White Blood Cell (WBC) Count 18.9 thou/uL (4.8-10.8)
[2017-12-25 11:59] LABS: ALT (SGPT) 8 U/L (8-55); AST (SGOT) 12 U/L (5-34); Albumin 3.2 g/dL (3.4-4.8); Alkaline Phosphatase 148 U/L (40-150); Anion Gap 14 mmol/L (10-20); BUN (Urea Nitrogen) 9 mg/dL (8.4-25.7); Bilirubin, Total 0.2 mg/dL (0.2-1.2); Calc. Creatinine Clearance 0 mL/min (70-130); Calcium 8.7 mg/dL (7.8-10.44); Carbon Dioxide 22 mmol/L (23-31); Chloride 101 mmol/L (98-107); Estimated GFR-MDRD 76; Globulin 2.5 g/dL (2.4-3.5); Glucose 134 mg/dL (80-115); Protein, Total 5.7 g/dL (5.8-8.1); Sodium 133 mmol/L (136-145)
[2017-12-25] MEDS ORDERED: Acetaminophen/Codeine 30-300mg Tablet ONE (12:01)
[2017-12-25 12:52] LABS: Bilirubin Negative (Negative); Blood, Urine Negative (Negative); Clarity CLEAR (Clear); Glucose, Urine (Dipstick) Negative (Negative); Leukocyte Negative (Negative); Nitrite Negative (Negative); Protein, Urine (Dipstick) Negative (Neg-Trace); Specific Gravity, Urine 1.006 (1.002-1.036); Urobilinogen 0.2 mg/dL (0.2-1.0); pH, Urine 6.5 (5.0-9.0)
--- NOTE | 2017-12-25 14:28 | RAD ---
PORTABLE AP CHEST XRAY: DATE: 12/25/17. HISTORY: Altered mental status. COMPARISON: 12/21/17. FINDINGS: Cardiac silhouette and pulmonary vasculature are within normal limits. There are remote bilateral ri b fractures. The lungs are clear. There is a rounded radiopaque density overlying the midline upper abdomen which may potentially represent overlying artifact, but clinical correlation is recommended. There has been no other interval change from the prior study. IMPRESSION: 1. Rounded radiopaque density overlying midline upper abdomen. This may be related to overlying art ifact, but clinical correlation is recommended. 2. No acute cardiopulmonary process. 3. Remote bilateral rib fractures. POS: [facility]
--- NOTE | 2017-12-31 13:59 | EKG ---
Test Reason : Blood Pressure : / mmHG Vent. Rate : 076 BPM Atrial Rate : 076 BPM P-R Int : 140 ms QRS Dur : 110 ms QT Int : 422 ms P-R-T Axes : 031 -45 015 degrees QTc Int : 474 ms Normal sinus rhythm Low voltage QRS Right bundle branch block Left anterior fascicular block Bifascicular block Cannot rule out Inferior infarct (masked by fascicular block?) , age undetermined Abnormal ECG Confirmed by DUNCAN HUERTA D.O. ([id number]), senior editor MAYELA PULIDO ([id number]) on 12/31/2017 1:58:57 PM Referred By: BRADLEY Confirmed By:DUNCAN HUERTA D.O.
== END 2017-12-25 15:05 | disposition home or self-care (01) ==
LOC: ERS 11:22
DX: M54.9 Dorsalgia, unspecified (principal); E11.9 Type 2 diabetes mellitus without complications; I10 Essential (primary) hypertension; J44.9 Chronic obstructive pulmonary disease, unspecified; K21.9 Gastro-esophageal reflux disease without esophagitis; N40.1 Benign prostatic hyperplasia with lower urinary tract symptoms; F41.9 Anxiety disorder, unspecified; F31.9 Bipolar disorder, unspecified; F17.210 Nicotine dependence, cigarettes, uncomplicated; Z79.899 Other long term (current) drug therapy; Z79.4 Long term (current) use of insulin
CPT/HCPCS: 36415; 36416; 71045; 80053; 81003; 85025; 87086; 93005; 94760

== ENCOUNTER 2018-03-02 12:32 | Emergency (ER) | payer MEDICARE ==
[2018-03-02 14:48] LABS: Hemoglobin 10.4 g/dL (14.0-18.0); Mean Corpuscular HGB CONC 32.1 g/dL (32.0-36.0); Mean Corpuscular Hemoglobin 27.6 pg (27.0-31.0); Mean Corpuscular Volume 86.1 fL (78.0-98.0); Mean Platelet Volume 6.5 fL (7.4-10.4); Platelet Count 650 thou/uL (130-400); RBC Distribution Width 16.1 % (11.5-14.5); Red Blood Cell (RBC) Count 3.77 mill/uL (4.70-6.10); White Blood Cell (WBC) Count 18.2 thou/uL (4.8-10.8)
[2018-03-02 15:07] LABS: Acanthocytes SLIGHT = 1-5 cells (100X) (None Seen); Anisocytosis SLIGHT = 6-15 cells (100X) (0-5/hpf); Band 2 % (5-11); Burr Cells SLIGHT = 2-5 cells (100X) (0-1/hpf); Eosinophils 2 % (0-10); Lymphocytes 24 % (21-51); MDiff Complete? YES; Monocytes 5 % (0-10); Neutrophil 66 % (42-75); PLT Morphology Comment Appears Increased; Polychromasia SLIGHT = 2-3 cells (100X) (0-2/hpf); Schistocytes SLIGHT = 2-5 cells (100X) (0-1/hpf); Target Cells SLIGHT = 2-5 cells (100X) (0-1/hpf)
[2018-03-02 15:09] LABS: ALT (SGPT) 24 U/L (8-55); AST (SGOT) 59 U/L (5-34); Alkaline Phosphatase 233 U/L (40-150); Anion Gap 11 mmol/L (10-20); BUN (Urea Nitrogen) 7 mg/dL (8.4-25.7); Bilirubin, Total 0.2 mg/dL (0.2-1.2); Calc. Creatinine Clearance 0 mL/min (70-130); Carbon Dioxide 23 mmol/L (23-31); Chloride 101 mmol/L (98-107); Estimated GFR-MDRD Greater than 90; Glucose 102 mg/dL (80-115); Lipase Less than 4 U/L (8-78); Potassium 5.6 mmol/L (3.5-5.1); Sodium 129 mmol/L (136-145)
--- NOTE | 2018-03-02 16:01 | RAD ---
PORTABLE CHEST 1 VIEW: Date: 03/02/18 Time: 1538 hours HISTORY: Hypoglycemia. FINDINGS: Comparison made with exam of 12/25/17. The heart size is normal. No focal areas of consolidation, pneumothorax, yaniv pulmonary edema, or pl eural effusions are seen. Old left-sided rib fractures are again seen. IMPRESSION: No acute process. POS: [facility]
[2018-03-02 16:04] LABS: Bilirubin Negative (Negative); Blood, Urine Negative (Negative); Clarity CLEAR (Clear); Glucose, Urine (Dipstick) Negative (Negative); Leukocyte Trace (Negative); Nitrite Negative (Negative); Protein, Urine (Dipstick) Negative (Neg-Trace); Specific Gravity, Urine 1.006 (1.002-1.036); Urobilinogen 0.2 mg/dL (0.2-1.0); pH, Urine 5.5 (5.0-9.0)
[2018-03-02 16:06] LABS: Bacteria/HPF None Seen HPF (None Seen); Hyaline Casts/LPF 0-3 HYALINE CAST LPF (0-3 Hyaline); RBC/HPF None Seen HPF (0-3); Squamous Epithelial None Seen HPF (0-3); WBC/HPF 0-3 HPF (0-3)
--- NOTE | 2018-03-04 19:54 | EKG ---
Test Reason : Blood Pressure : / mmHG Vent. Rate : 105 BPM Atrial Rate : 105 BPM P-R Int : 144 ms QRS Dur : 106 ms QT Int : 346 ms P-R-T Axes : 069 -13 000 degrees QTc Int : 457 ms Sinus tachycardia with Fusion complexes Low voltage QRS Incomplete right bundle branch block Inferior infarct , age undetermined Abnormal ECG Confirmed by MARGOT MIKE DO ([id number]), continuity editor MAYELA PULIDO ([id number]) on 03/04/2018 7:53:44 PM Referred By: Confirmed By:MARGOT MIKE DO
== END 2018-03-02 16:57 | disposition home or self-care (01) ==
LOC: ERS 12:32
DX: E11.649 Type 2 diabetes mellitus with hypoglycemia without coma (principal); E87.6 Hypokalemia; E87.1 Hypo-osmolality and hyponatremia; D72.829 Elevated white blood cell count, unspecified; F31.9 Bipolar disorder, unspecified; F41.9 Anxiety disorder, unspecified; I10 Essential (primary) hypertension; J44.9 Chronic obstructive pulmonary disease, unspecified; K21.9 Gastro-esophageal reflux disease without esophagitis; N40.0 Benign prostatic hyperplasia without lower urinary tract symptoms; M19.90 Unspecified osteoarthritis, unspecified site; F17.210 Nicotine dependence, cigarettes, uncomplicated; Z85.89 Personal history of malignant neoplasm of other organs and systems
CPT/HCPCS: 36415; 36416; 71045; 80053; 81003; 81015; 83605; 83690; 85025; 87040; 93005; 96360

== ENCOUNTER 2018-04-04 10:57 | Emergency (ER) | payer MEDICARE ==
--- NOTE | 2018-04-04 11:29 | RAD ---
CHEST 1 VIEW: HISTORY: Dyspnea. Altered mental status. COMPARISON: 03/02/2018. FINDINGS: Cardiac silhouette is magnified by projection. Pulmonary vasculature is unremarkable. The patient i s rotated rightward. No lobar consolidation or evidence of pneumothorax. Old left rib fractures. IMPRESSION: No active cardiopulmonary abnormalities are demonstrated. POS: [facility]
[2018-04-04 11:31] LABS: #Eosinphils 0.1 thou/uL (0.0-0.7); #Lymphocytes 1.3 thou/uL (1.20-3.40); #Neutrophils 9.6 thou/uL (1.40-6.50); %Basophils 0.2 % (0.0-1.0); %Eosinophils 0.6 % (0.0-10.0); %Lymphocytes 10.8 % (21.0-51.0); %Monocytes 8.7 % (0.0-10.0); %Neutrophils 79.7 % (42.0-75.0); Hemoglobin 9.6 g/dL (14.0-18.0); Mean Corpuscular HGB CONC 31.9 g/dL (32.0-36.0); Mean Corpuscular Volume 87.8 fL (78.0-98.0); Mean Platelet Volume 7.1 fL (7.4-10.4); Platelet Count 425 thou/uL (130-400); RBC Distribution Width 15.4 % (11.5-14.5); Red Blood Cell (RBC) Count 3.44 mill/uL (4.70-6.10); White Blood Cell (WBC) Count 12.1 thou/uL (4.8-10.8)
[2018-04-04 11:58] LABS: ALT (SGPT) 31 U/L (8-55); AST (SGOT) 34 U/L (5-34); Albumin 2.4 g/dL (3.4-4.8); Alkaline Phosphatase 202 U/L (40-150); Anion Gap 10 mmol/L (10-20); BUN (Urea Nitrogen) 9 mg/dL (8.4-25.7); Bilirubin, Total Less than 0.2 mg/dL (0.2-1.2); CK (CPK) 35 U/L (30-200); Calc. Creatinine Clearance 0 mL/min (70-130); Calcium 7.7 mg/dL (7.8-10.44); Carbon Dioxide 20 mmol/L (23-31); Chloride 110 mmol/L (98-107); Estimated GFR-MDRD 88; Globulin 2.1 g/dL (2.4-3.5); Glucose 169 mg/dL (80-115); Lipase Less than 4 U/L (8-78); Potassium 4.4 mmol/L (3.5-5.1); Protein, Total 4.5 g/dL (5.8-8.1); Sodium 136 mmol/L (136-145)
[2018-04-04 12:11] LABS: Acetaminophen Less than 6.0 mcg/mL (10.0-30.0); Alcohol Less than 10 mg/dL (Less than 10); Salicylate Less than 8.0 mg/dL (15.0-30.0)
== END 2018-04-04 12:26 | disposition home or self-care (01) ==
LOC: ERS 10:57
DX: E11.649 Type 2 diabetes mellitus with hypoglycemia without coma (principal); J44.9 Chronic obstructive pulmonary disease, unspecified; F17.210 Nicotine dependence, cigarettes, uncomplicated; I10 Essential (primary) hypertension
CPT/HCPCS: 36416; 71045; 80053; 80307; 82550; 83690; 84484; 85025; 93005; 96360

== ENCOUNTER 2018-05-31 22:02 | Emergency (ER) | payer MEDICARE ==
[2018-05-31 23:16] LABS: Anion Gap 13 mmol/L (10-20); BUN (Urea Nitrogen) 11 mg/dL (8.4-25.7); Calc. Creatinine Clearance 0 mL/min (70-130); Calcium 8.2 mg/dL (7.8-10.44); Carbon Dioxide 19 mmol/L (23-31); Chloride 101 mmol/L (98-107); Estimated GFR-MDRD 75; Glucose 69 mg/dL (80-115); Potassium 5.3 mmol/L (3.5-5.1); Sodium 128 mmol/L (136-145)
== END 2018-06-01 00:34 | disposition home or self-care (01) ==
LOC: ERS 22:02
DX: E11.649 Type 2 diabetes mellitus with hypoglycemia without coma (principal); I10 Essential (primary) hypertension; J44.9 Chronic obstructive pulmonary disease, unspecified; K21.9 Gastro-esophageal reflux disease without esophagitis; F17.210 Nicotine dependence, cigarettes, uncomplicated
CPT/HCPCS: 36415; 36416; 80048; 99285

== ENCOUNTER 2018-06-18 19:04 | Emergency (ER) | payer MEDICARE | END 2018-06-18 20:26 | disposition home or self-care (01) | LOC: ERS 19:04 | DX: E11.649 Type 2 diabetes mellitus with hypoglycemia without coma (principal); I10 Essential (primary) hypertension; J44.9 Chronic obstructive pulmonary disease, unspecified; K21.9 Gastro-esophageal reflux disease without esophagitis; N40.0 Benign prostatic hyperplasia without lower urinary tract symptoms; F17.210 Nicotine dependence, cigarettes, uncomplicated; F41.9 Anxiety disorder, unspecified; F31.9 Bipolar disorder, unspecified | CPT/HCPCS: 36416; 99285 ==

== ENCOUNTER 2018-10-16 19:31 | Emergency (ER) | payer MEDICARE ==
--- NOTE | 2018-10-16 20:33 | RAD ---
EXAM: XR Hip Lt 2-3 View PROVIDED CLINICAL HISTORY: Pain FINDINGS: There is no evidence for fracture or other acute osseous abnormality. Alignment appears anatomic. Pinky nt spaces appear preserved. IMPRESSION: No evidence for an acute osseous abnormality. If there is persistent clinical concern, conservative m anagement and follow-up imaging advised.
--- NOTE | 2018-10-16 20:38 | CT ---
Exam: CT brain PROVIDED CLINICAL HISTORY: Head injury COMPARISON: 12/21/2017 FINDINGS: The ventricular system is normal in size and morphology. No evidence for intracranial hemorrhage or mass effect. The extracranial soft tissues and osseous structures demonstrate no evidence for an acute abnormality. IMPRESSION: No evidence for intracranial hemorrhage or mass effect.
== END 2018-10-16 21:43 | disposition home or self-care (01) ==
LOC: ERS 19:31
DX: E11.649 Type 2 diabetes mellitus with hypoglycemia without coma (principal); F41.9 Anxiety disorder, unspecified; F32.9 Major depressive disorder, single episode, unspecified; F17.210 Nicotine dependence, cigarettes, uncomplicated; Z79.84 Long term (current) use of oral hypoglycemic drugs
CPT/HCPCS: 36416; 70450

== ENCOUNTER 2018-11-22 14:55 | Outpatient (CLI) | payer MEDICARE ==
--- NOTE | 2018-11-22 19:54 | CT ---
CT pulmonary lung scan without IV contrast INDICATION: Lung cancer screening protocol; smoking history of over 50 yearspersonal history of smoki ng COMPARISON: CT PE study dated July 01, 2017 FINDINGS: LUNGS: Nodules\mass: There is tree-in-bud nodularity seen within the lateral segment of the right middle lob e. There is a sub-4 mm pulmonary nodule within the superior segment of the left lower lobe. There is a focus of groundglass opacity seen within the lingula Emphysema: Moderate to severe emphysema Additional findings: There are small bilateral pleural effusions, left greater than right. There is s ubsegmental atelectasis within the right lower lobe Mediastinum: There are coronary artery and thoracic aortic calcifications. There are shotty appearing lymph nodes within the anterior mediastinum which are stable. Upper abdomen: There is a moderate-sized hiatal hernia with wall thickening involving the distal esop hagus. There is a 1.1 cm lymph node adjacent to the gastroesophageal junction which is stable. There is diffuse fatty liver. Osseous structures: There is diffuse osteopenia. There is scattered degenerative and osteoarthritic c hange present.. IMPRESSION: Lung-RADS Category 3: Probably Kdzloz-sckzzx-of CT examination in 6-8 weeks is recommended to docume nt clearance of the tree-in-bud nodularity within the right middle lobe and the groundglass opacity within the posterior lingula. Category S: Small nonspecific bilateral pleural effusions. Moderate size hiatal hernia with wall thic kening involving the mid to distal esophagus. Findings can be seen with esophagitis. GI consultation with endoscopy is recommended. Stable 1.1 cm paraesophageal enlarged lymph node. Moderat e to severe emphysema. Category C: Not applicable.
== END 2018-11-22 14:56 | disposition home or self-care (01) ==
LOC: CT 14:55
PROVIDERS: ATTEND Family Medicine
DX: F17.210 Nicotine dependence, cigarettes, uncomplicated (principal); Z71.6 Tobacco abuse counseling; J90 Pleural effusion, not elsewhere classified; K44.9 Diaphragmatic hernia without obstruction or gangrene; K22.8 Other specified diseases of esophagus; R59.0 Localized enlarged lymph nodes; J43.9 Emphysema, unspecified
CPT/HCPCS: G0297

== ENCOUNTER 2018-12-14 16:09 | Inpatient (IN) | payer MEDICARE ==
[2018-12-14] MEDS ORDERED: Sodium Chloride 0.9% 1,000 ML IV SCH (17:00)
[2018-12-14 17:30] LABS: #Basophils 0.1 thou/uL (0.0-0.2); #Lymphocytes 2.5 thou/uL (1.20-3.40); #Monocytes 2.1 thou/uL (0.11-0.59); #Neutrophils 15.1 thou/uL (1.40-6.50); %Basophils 0.4 % (0.0-1.0); %Eosinophils 0.2 % (0.0-10.0); %Lymphocytes 12.5 % (21.0-51.0); %Monocytes 10.5 % (0.0-10.0); %Neutrophils 76.4 % (42.0-75.0); Hemoglobin 9.3 g/dL (14.0-18.0); Mean Corpuscular Hemoglobin 31.3 pg (27.0-31.0); Mean Platelet Volume 8.1 fL (7.4-10.4); Platelet Count 335 thou/uL (130-400); RBC Distribution Width 14.3 % (11.5-14.5); Red Blood Cell (RBC) Count 2.96 mill/uL (4.70-6.10); White Blood Cell (WBC) Count 19.8 thou/uL (4.8-10.8)
--- NOTE | 2018-12-14 17:41 | RAD ---
CHEST ONE VIEW: 12/14/18 HISTORY: Weakness. COMPARISON: 04/04/18 FINDINGS: Atherosclerosis of the aortic knob. Upper normal cardiac silhouette. Pulmonary vessels and hilum are normal. Costophrenic angles are clear. Chronic changes of the lung parenchyma. No masses or consolidation. No pneumothorax or osseous abnormalities. Old rib fractures are noted. IMPRESSION: 1. Chronic changes of the lung parenchyma. 2. Atherosclerosis. POS: [facility]
[2018-12-14 17:53] LABS: ALT (SGPT) 34 U/L (8-55); AST (SGOT) 35 U/L (5-34); Albumin 2.1 g/dL (3.4-4.8); Alkaline Phosphatase 184 U/L (40-150); Anion Gap 13 mmol/L (10-20); BUN (Urea Nitrogen) 11 mg/dL (8.4-25.7); Bilirubin, Total 0.7 mg/dL (0.2-1.2); Calc. Creatinine Clearance 0 mL/min (70-130); Calcium 7.7 mg/dL (7.8-10.44); Carbon Dioxide 24 mmol/L (23-31); Chloride 97 mmol/L (98-107); Estimated GFR-MDRD 79; Globulin 2.4 g/dL (2.4-3.5); Glucose 176 mg/dL (80-115); Lipase Less than 4 U/L (8-78); Potassium 4.4 mmol/L (3.5-5.1); Protein, Total 4.5 g/dL (5.8-8.1); Sodium 130 mmol/L (136-145)
[2018-12-14] MEDS ORDERED: Piperacillin/Tazobactam 4.5 GM VIAL ONE (18:00)
[2018-12-14] MEDS ORDERED: Vancomycin HCl 1 GM in Premix Bag 1 BAG IVPB ONE (18:00)
[2018-12-14] MEDS ORDERED: Piperacillin/Tazobactam 4.5 GM in Sodium Chloride 0.9% 100 ML IVPB ONE (18:00)
[2018-12-14 19:26] LABS: Bacteria/HPF None Seen HPF (None Seen); Bilirubin Negative (Negative); Blood, Urine Negative (Negative); Clarity Clear (Clear); Glucose, Urine (Dipstick) Normal (Negative); Leukocyte 75 Leu/uL (Negative); Nitrite Negative (Negative); Protein, Urine (Dipstick) 20 mg/dL (Neg-Trace); RBC/HPF 0-3 HPF (0-3); Squamous Epithelial None Seen HPF (0-3); Urobilinogen Normal mg/dL (Less than 2)
--- NOTE | 2018-12-14 20:37 | PDOC.FPRHP ---
- History of Present Illness Chief Complaint: Weakness History of Present Illness: Patient was at a MD visit earlier today. Sent from clinic due to dehydration along with weakness. Patient not able to ambulate due to weakness. For the most part patient is able to ambulate with 4 point walker but has required his wheelchair more frequently. Has been having frequency bowel and bladder incontinence over the past few months but progressed the last weeks. Patient reports normal soft stools 2 to 3 times per day. Urination unchanged. Lost 18lbs since October. Patient denies lost of appetite but reported food at the hospital taste bad. Patient denies difficulty with feeding but patient complains of change in taste and not eating all food. ED Course: given 1 L of fluids - Allergies/Adverse Reactions Allergies Allergy/AdvReac Type Severity Reaction Status Date / Time No Known Allergies Allergy Verified 12/15/18 03:35 - Home Medications Medication Instructions Recorded Confirmed Type Ascorbic Acid [Vitamin C] 500 mg PO HS 12/21/17 12/14/18 History Cyanocobalamin (Vitamin B-12) 1,000 mcg PO DAILY 12/21/17 12/14/18 History [Vitamin B-12] ALButerol Sulfate [Ventolin Neb] 3 ml NEB Q8HR PRN 12/22/17 12/14/18 History buPROPion [Wellbutrin] 75 mg PO DAILY #14 tab 12/22/17 12/14/18 Rx clonazePAM [Klonopin] 0.5 mg PO BID #10 tab 12/22/17 12/14/18 Rx Acetaminophen W/ Codeine 1 tab PO TID 12/14/18 12/14/18 History [Acetaminophen/Codeine #3] Gabapentin [Neurontin] 800 mg PO TID 12/14/18 12/14/18 History Insulin Glargine [Lantus] 5 units SC DAILY 12/14/18 12/14/18 History Tamsulosin HCl [Flomax] 0.4 mg PO DAILY 12/14/18 12/14/18 History metFORMIN HCl [Metformin HCl] 1,000 mg PO BID 12/14/18 12/14/18 History - History PMHx: - 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 Dcsd Mother: Edu. Father: Dcsd. Social: Hospitalizations: 1. [facility]to rehab after hip fracture - Required trach and vent. 2. Nursing Home stay in ICU after pancreatic tumor Hip fracture, Pseudotumor of pancreas, gallbladder, Removal of hard palate from mouth tumor (initially as child then reoccurred in adulthood) Tobacco use: 2ppd now down to 1ppd. Started at age 16. Quit occasionally through lifetime. Weekly alcohol use now but previous heavy daily drinker (30 years). Prefers wine and beer now. In the past, marijuana use. Lives at home with . - Review of Systems General: reports: weight/appetite/sleep changes. denies: fever/chills Eyes: denies: vision changes ENT: denies: nasal congestion Respiratory: reports: cough. denies: congestion, shortness of breath Cardiovascular: denies: chest pain, edema, orthopnea Gastrointestinal: denies: nausea, vomiting, diarrhea, constipation Genitourinary: reports: incontinence (of both bowel and bladder worsening over past month) Skin: denies: rashes Musculoskeletal: reports: pain (spine) Neurological: reports: weakness Psychological: reports: anxiety. denies: depression - Vital signs BP: 112/96 , HR 105, afebrile, RR 16, 99% on RA - Physical Exam Constitutional: NAD, awake, alert and oriented HEENT: normocephalic and atraumatic Neck: trachea midline Heart: normal S1/S2 (tachycardic), no murmurs/rubs/gallops, pulses present ( radial and DP 2+) Lungs: CTAB, no respiratory distress, good air movement Abdomen: soft, non-tender, bowel sounds present Skin: other (dry skin diffusely with nearly lichen sclerotic picture on feet. Contractures of right toes) Psychiatric: normal mood and affect FMR H&P: Results - Labs Result Diagrams: 12/15/18 03:10 12/15/18 03:11 Lab results: WBC 19.8 thou/uL (4.8-10.8) H 12/14/18 17:15 Hgb 9.3 g/dL (14.0-18.0) L 12/14/18 17:15 Hct 28.1 % (42.0-52.0) L 12/14/18 17:15 MCV 95.0 fL (78.0-98.0) 12/14/18 17:15 Plt Count 335 thou/uL (130-400) 12/14/18 17:15 Neutrophils % 76.4 % (42.0-75.0) H 12/14/18 17:15 Sodium 130 mmol/L (136-145) L 12/14/18 17:15 Potassium 4.4 mmol/L (3.5-5.1) 12/14/18 17:15 Chloride 97 mmol/L (98-107) L 12/14/18 17:15 Carbon Dioxide 24 mmol/L (23-31) 12/14/18 17:15 BUN 11 mg/dL (8.4-25.7) 12/14/18 17:15 Creatinine 0.95 mg/dL (0.7-1.3) 12/14/18 17:15 Glucose 176 mg/dL (80-115) H 12/14/18 17:15 Lactic Acid 2.9 mmol/L (0.5-2.2) H 12/14/18 17:15 Calcium 7.7 mg/dL (7.8-10.44) L 12/14/18 17:15 Total Bilirubin 0.7 mg/dL (0.2-1.2) 12/14/18 17:15 AST 35 U/L (5-34) H 12/14/18 17:15 ALT 34 U/L (8-55) 12/14/18 17:15 Alkaline Phosphatase 184 U/L (40-150) H 12/14/18 17:15 B-Natriuretic Peptide 58.8 pg/mL (0-100) 12/14/18 17:15 Serum Total Protein 4.5 g/dL (5.8-8.1) L 12/14/18 17:15 Albumin 2.1 g/dL (3.4-4.8) L 12/14/18 17:15 Lipase Less than 4 U/L (8-78) L 12/14/18 17:15 Urine Ketones Negative mg/dL (Negative) 12/14/18 19:02 Urine Blood Negative (Negative) 12/14/18 19:02 Urine Nitrite Negative (Negative) 12/14/18 19:02 Ur Leukocyte Esterase 75 [place] Ann/uL (Negative) A 12/14/18 19:02 Urine RBC 0-3 HPF (0-3) 12/14/18 19:02 Urine WBC 11-20 HPF (0-3) A 12/14/18 19:02 Ur Squamous Epith Cells None Seen HPF (0-3) 12/14/18 19:02 Urine Bacteria None Seen HPF (None Seen) 12/14/18 19:02 FMR H&P: A/P - Plan 68-year-old male admitted for : Sepsis w/o source: - Sepsis workup - Blood cx pending - Vancomycin - Increasing weakness with neurologic changes and back pain: - Bowel and bladder incontinence accompanied by weakness is concerning for cauda equina vs conus medullaris syndrome - Pt has prior history of cancer. - Consider MRI scans in the AM of thoracic and lumbar spine. - peripheral smear pending. 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 FMR H&P: Upper Level - Pertinent history 68 yo male with a pmhx of mouth cancer presents from clinic with weight loss of 20 pounds since this summer, weakness, and tachycardia. He has had decreased PO intake and cachexia for aproximately one year. He required a long-term rehab stay this past year after a hip fracture and required a trach for a period of time. - Pertinent findings Vitals: HR:108 BP: 121/73 RR:16 T:97.8 O2sat: 98%RA PE: NAD dry MM CTAB no w/r/r Tachycardic alert and oriented x 3 no edema rectal tone intact strength in upper and lower extremities intact Labs: wbc 19 CXR: no acute process - Plan Date/Time: 12/14/182025 68 yo male with pmhx of mouth cancer as a child admitted for sepsis without a source and malnutrition, rule out malignancy #Sepsis without a source- -tachycardic, leukocytosis -given hwang and zosyn in the ER -ordered a procal -blood and urine cultures pending -cxr wnl, no obvious source of infection #malnutrition- -recent deconditioning and weight loss since this summer -elevated alk phosph -rule out malignancy -ordered CRP, ESR -consider chest/abd/pelvis CT -consult dietitician, PT, OT, speech -ensure enlive BID -consider FOBT screening #Recent lung nodule -dx on CT ~1 mo ago, suspected to be benign, recommended repeat CT in 6-8 weeks #COPD #CHF #longstanding tobacco abuse #additional chronic conditions- -see learning and development intern note
[2018-12-14 21:33] LABS: Lactic Acid 4.1 mmol/L (0.5-2.2)
[2018-12-14] MEDS ORDERED: Ondansetron ODT 4 MG TAB PO PRN (21:55)
[2018-12-14] MEDS ORDERED: Guaifenesin DM 100-10/5 ML UDCUP PO PRN (21:55)
[2018-12-14] MEDS ORDERED: Ondansetron PF 4 MG/2 ML Vial IVP PRN (21:55)
[2018-12-14] MEDS ORDERED: Nicotine 14 MG PATCH TD PRN (21:55)
[2018-12-14] MEDS ORDERED: Dextrose 50% Abboject 50 ML SYRINGE SLOW IVP PRN (21:55)
[2018-12-14] MEDS ORDERED: Dextrose 5% in Water 1,000 ML IV PRN (21:55)
[2018-12-14] MEDS ORDERED: Lactated Ringer's 1,000 ML IV SCH (22:00)
[2018-12-14] MEDS: Lactated Ringer's 1,000 ML IV SCH (22:25)
[2018-12-14 22:36] VITALS: BMI 16.5
[2018-12-15 03:19] LABS: #Basophils 0.1 thou/uL (0.0-0.2); #Eosinphils 0.2 thou/uL (0.0-0.7); #Lymphocytes 2.7 thou/uL (1.20-3.40); #Neutrophils 9.9 thou/uL (1.40-6.50); %Basophils 0.4 % (0.0-1.0); %Eosinophils 1.1 % (0.0-10.0); %Lymphocytes 18.6 % (21.0-51.0); %Monocytes 13.2 % (0.0-10.0); %Neutrophils 66.7 % (42.0-75.0); Hemoglobin 8.9 g/dL (14.0-18.0); Mean Corpuscular HGB CONC 34.5 g/dL (32.0-36.0); Mean Corpuscular Volume 95.6 fL (78.0-98.0); Mean Platelet Volume 7.9 fL (7.4-10.4); Platelet Count 314 thou/uL (130-400); RBC Distribution Width 14.3 % (11.5-14.5); Red Blood Cell (RBC) Count 2.71 mill/uL (4.70-6.10); White Blood Cell (WBC) Count 14.8 thou/uL (4.8-10.8)
[2018-12-15 03:37] LABS: Lactic Acid 2.4 mmol/L (0.5-2.2)
[2018-12-15 03:46] LABS: ALT (SGPT) 28 U/L (8-55); AST (SGOT) 29 U/L (5-34); Albumin 1.8 g/dL (3.4-4.8); Alkaline Phosphatase 162 U/L (40-150); Anion Gap 10 mmol/L (10-20); BUN (Urea Nitrogen) 9 mg/dL (8.4-25.7); Bilirubin, Total 0.5 mg/dL (0.2-1.2); Calc. Creatinine Clearance 68 mL/min (70-130); Calcium 7.2 mg/dL (7.8-10.44); Carbon Dioxide 21 mmol/L (23-31); Chloride 104 mmol/L (98-107); Estimated GFR-MDRD 90; Globulin 2.1 g/dL (2.4-3.5); Glucose 237 mg/dL (80-115); Potassium 3.9 mmol/L (3.5-5.1); Protein, Total 3.9 g/dL (5.8-8.1); Sodium 131 mmol/L (136-145)
[2018-12-15] MEDS: Insulin Regular 300 UNITS/3 ML VIAL SC PRN ×3 (04:50→21:37)
[2018-12-15] MEDS: Lactated Ringer's 1,000 ML IV SCH ×3 (05:18→22:57)
[2018-12-15] MEDS ORDERED: Albuterol Sulfate 2.5 mg/3 ml Neb NEB PRN (05:25)
[2018-12-15 06:08] LABS: Band 5 % (5-11); Eosinophils 1 % (0-10); Lymphocytes 8 % (21-51); Monocytes 12 % (0-10); Nucleated RBC 1 % (0)
[2018-12-15 06:11] LABS: Target Cells SLIGHT = 2-5 cells (100X) (0-1/hpf)
[2018-12-15] MEDS: Enoxaparin Sodium 40 MG/0.4 ML SYRINGE SC SCH (08:08)
[2018-12-15] MEDS: metFORMIN 500 MG TAB PO SCH ×2 (08:08→16:22)
[2018-12-15] MEDS: clonazePAM 0.5 MG TAB PO SCH ×2 (08:08→19:41)
[2018-12-15] MEDS: Cyanocobalamin (Vitamin B-12) 1,000 MCG TAB PO SCH (08:08)
[2018-12-15] MEDS: Gabapentin 400 MG CAP PO SCH ×3 (08:08→19:41)
[2018-12-15] MEDS: buPROPion 75 MG TAB PO SCH (09:07)
--- NOTE | 2018-12-15 10:03 | PDOC.FM ---
- Subjective Subjective: Pt resting comfortably in bed. Reports continued generalized weakness and full body pain this morning. Also endorses some congestion/cough/SOB. Endorses nausea , denies vomiting. - Objective MAR Reviewed: Yes Vital Signs & Weight: Vital Signs (12 hours) Temp Pulse Resp BP Pulse Ox 12/15/18 08:05 99 12/15/18 07:35 97.8 F 105 H 16 112/77 99 12/15/18 04:13 97.8 F 109 H 16 114/70 98 12/15/18 00:38 97.8 F 99 16 121/83 99 12/14/18 23:34 108 H 12/14/18 23:18 100 Weight Weight 56.835 kg Result Diagrams: 12/15/18 03:10 12/15/18 03:11 Phys Exam - Physical Examination Constitutional: NAD HEENT: sclera anicteric moderately dry lips Neck: no JVD, supple Respiratory: no wheezing, clear to auscultation bilateral Cardiovascular: no significant murmur, no rub Gastrointestinal: soft, positive bowel sounds Musculoskeletal: no edema, pulses present Neurological: normal sensation, moves all 4 limbs Deviation from normal: fatigued affect Skin: no rash, normal turgor Dx/Plan (1) SIRS (systemic inflammatory response syndrome) Code(s): R65.10 - SIRS OF NON-INFECTIOUS ORIGIN W/O ACUTE ORGAN DYSFUNCTION Status: Acute (2) CHF (congestive heart failure) Code(s): I50.9 - HEART FAILURE, UNSPECIFIED Status: Chronic (3) COPD (chronic obstructive pulmonary disease) Status: Chronic (4) HLD (hyperlipidemia) Code(s): E78.5 - HYPERLIPIDEMIA, UNSPECIFIED Status: Chronic (5) HTN (hypertension) Code(s): I10 - ESSENTIAL (PRIMARY) HYPERTENSION Status: Chronic Qualifiers: Hypertension type: essential hypertension Qualified Code(s): I10 - Essential (primary) hypertension (6) Type 2 diabetes mellitus Status: Chronic Qualifiers: Diabetes mellitus skilled nursing insulin use: with skilled nursing use Diabetes mellitus complication detail: with polyneuropathy - Plan Plan: SIRS without a source A- tachycardic, leukocytosis. given hwang and zosyn in the ER. procal unimpressive. cxr wnl, no obvious source of infection P- continue vanc and zosyn -f/u blood and urine cultures pending weight loss and urinary incontinence A- considering pts hx of cancer this is suspicious for malignancy vs. decreased PO intake with unrelated spinal pathology. P- MRI lumbar spine -f/u ESR -f/u FOBT -MELYSSA today -bladder scan to check post void residual -consult dietitician, PT, OT, speech -ensure enlive BID normocytic anemia A- etiology unclear at this time P- iron studies, B12, RBC folate, peripheral smear, retic count Recent lung nodule -dx on CT ~1 mo ago, suspected to be benign, recommended repeat CT in 6-8 weeks COPD -home meds, duonebs prn HFpEF -last echo (06/2018) shows EF 55-60%. will controll BP longstanding tobacco abuse -encourage cessation Addendum - Attending - Attending Attestation Date/Time: 12/15/18 1204 I personally evaluated the patient and discussed the management with Dr. White. I agree with the History, Examination, Assessment and Plan documented above with any addition or exceptions noted below. I suspect he has prostatitis with prostatic enlargement. However, the clinical picture is complicated by weight loss and concern for cancer recurrence. Workup underway.
[2018-12-15] MEDS ORDERED: Gadobenate Dimeglumine 529 MG/1 ML (20ML VIAL) ONE (12:52)
[2018-12-15] MEDS: Piperacillin/Tazobactam 3.375 GM in Sodium Chloride 0.9% 100 ML IVPB SCH ×3 (13:27→23:50)
--- NOTE | 2018-12-15 13:42 | MRI ---
MRI LUMBAR SPINE WITH AND WITHOUT CONTRAST: HISTORY: Low back pain. Incontinence. COMPARISON: None. TECHNIQUE: MRI lumbar spine is performed with and without intravenous gadolinium administration. Multisequential , multiplanar planar imaging is performed. FINDINGS: Lumbar spine vertebral body height is maintained. No fracture. T1 marrow signal hypointensity with as sociated T2 marrow signal hypointensity involving the inferior endplate of L3, superior endplate of L4. Type III Modic changes are seen suspected. No associated STIR hyperintensity. There does appear t o be a combination of type I and type II Modic changes at the inferior endplate of L4. Appropriate signal intensity of the paraspinal muscles. Appropriate signal intensity visualized solid organs. Conus medullaris terminates at the inferior aspect of T12. Mild rightward curvature of the mid lumbar spine. T12-L1: Mild loss of disc space height. No high-grade central canal stenosis. Moderate right and yazmin re left foraminal narrowing. L1-L2: Desiccation with moderate loss of disc space height. Broad-based disc bulge minimally flattens the thecal sac. No significant central canal stenosis. Moderate right and left foraminal narrowing. L2-L3: Mild loss of disc space height. No significant central canal stenosis. Minimal disc material i n the left subarticular zone. Disc material abuts but does not obscure the traversing left L3 nerve root. Moderate bilateral neural foraminal narrowing. L3-L4: Severe loss of disc space height. Broad-based disc bulge results in moderate central canal haja nosis. Moderate severe bilateral foraminal narrowing. L4-L5: Broad-based disc bulge with a central disc protrusion. Ligament flavum thickening and facet hy pertrophy. Mild central canal stenosis. Narrowing of the right subarticular zone with obscuration the traversing right L5 nerve root predominantly due to posterior element hypertrophy and to a lesser extent disc material. Severe right and dpsi-vd-[id number] left foraminal narrowing. L5-S1: Severe loss of disc space height. No high-grade central canal stenosis. Moderate to severe jessica ateral foraminal narrowing. Intrinsic T1 and T2 hyperintensity on the right aspect of the S1 vertebral body compatible with a sma ll hemangioma. Postcontrast images do not demonstrate any abnormal enhancement with regards to the vertebral bodies. No abnormal enhancement with regards to the cauda equina and conus medullaris. IMPRESSION: 1. Multilevel degenerative changes of the lumbar spine as detailed above. 2. No pathologic enhancement of the vertebrae or contents of the central spinal canal. Transcribed Date/Time: 12/15/2018 3:51 PM
[2018-12-15 13:57] LABS: Anisocytosis SLIGHT = 6-15 cells (100X) (0-5/hpf); Band 2 % (5-11); Hemoglobin 8.7 g/dL (14.0-18.0); Hypochromia SLIGHT = 6-15 cells (100X) (0-5/hpf); Lymphocytes 16 % (21-51); MDiff Complete? YES; Mean Corpuscular Hemoglobin 32.1 pg (27.0-31.0); Mean Corpuscular Volume 97.4 fL (78.0-98.0); Monocytes 2 % (0-10); Neutrophil 80 % (42-75); Platelet Count 325 thou/uL (130-400); Platelet Morphology Comment Appears Adequate; Poikilocytosis SLIGHT = 6-15 cells (100X) (0-5/hpf); RBC Distribution Width 14.3 % (11.5-14.5); Target Cells SLIGHT = 2-5 cells (100X) (0-1/hpf); White Blood Cell (WBC) Count 12.5 thou/uL (4.8-10.8)
[2018-12-15] MEDS: Vancomycin HCl 1 GM in Premix Bag 1 BAG IVPB SCH (18:17)
--- NOTE | 2018-12-15 21:47 | PDOC.FM ---
- Subjective Subjective: At 0630 Pt asleep upon entry to room. Awakens when spoken to. He is confused, thinking he is Nikko. Pt is unaware of what is going on. Denies any problems. Upon re-evaluation at 1000, he was awake and less confused. He states he does not eat a lot, and that he lives at home with his who cooks for him. Pt has lost approximately 20 pounds recently. No colonoscopy that he admits to. - Objective Vital Signs & Weight: Vital Signs (12 hours) Temp Pulse Resp BP Pulse Ox 12/15/18 19:14 97.2 F L 112 H 18 109/77 99 12/15/18 11:06 96.4 F L 103 H 16 91/60 97 Weight Admit Weight 56.835 kg Weight 56.835 kg I&O: 12/14/18 12/15/18 12/16/18 06:59 06:59 06:59 Intake Total 2145 Balance 2145 Result Diagrams: 12/15/18 13:18 12/15/18 03:11 Radiology Reviewed by me: Yes (Lumbar spine MRI: degenertive changes. No mass or acute findings. ) Phys Exam - Physical Examination Constitutional: NAD HEENT: PERRLA, moist MMs, sclera anicteric Neck: no nodes, no JVD, supple, full ROM Respiratory: no wheezing, no rales, no rhonchi, clear to auscultation bilateral Cardiovascular: RRR, no significant murmur, no rub Gastrointestinal: soft, non-tender, no distention, positive bowel sounds Musculoskeletal: no edema, pulses present Neurological: non-focal, normal sensation, moves all 4 limbs Psychiatric: normal affect Skin: no rash Deviation from normal: Increased skin tenting. Dx/Plan (1) SIRS (systemic inflammatory response syndrome) Code(s): R65.10 - SIRS OF NON-INFECTIOUS ORIGIN W/O ACUTE ORGAN DYSFUNCTION Status: Acute (2) CHF (congestive heart failure) Code(s): I50.9 - HEART FAILURE, UNSPECIFIED Status: Chronic (3) COPD (chronic obstructive pulmonary disease) Status: Chronic (4) HLD (hyperlipidemia) Code(s): E78.5 - HYPERLIPIDEMIA, UNSPECIFIED Status: Chronic (5) Type 2 diabetes mellitus Status: Chronic Qualifiers: Diabetes mellitus technician terminal and repeater insulin use: with technician terminal and repeater use Diabetes mellitus complication detail: with polyneuropathy (6) BPH (benign prostatic hypertrophy) Code(s): N40.0 - BENIGN PROSTATIC HYPERPLASIA WITHOUT LOWER URINRY TRACT SYMP Status: Chronic - Plan Plan: 68 Y/O M admitted for workup of SIRs criteria without a source of infection. 1. SIRS without a source - tachycardic, leukocytosis. given vanc and zosyn in the ER. procal unimpressive. cxr wnl, no obvious source of infection - continue vanc and zosyn - f/u blood and urine cultures no growth to date - Flu A & B negative - Quant Gold ordered 2. Weight loss and urinary incontinence - considering pts hx of cancer this is suspicious for malignancy vs. decreased PO intake with unrelated spinal pathology. - MRI lumbar spine showed multilevel degenerative changes in the L spine. No pathological enhancements of vertebrae or spinal column - ESR <1, TSH 1.3883 - FOBT positive - MELYSSA Normal size and firmness. Without tenderness or nodules. - bladder scan Post Void Residual 148ml - consult water restoration technician, PT, OT, speech - ensure enlive BID 3. Normochromic normocytic anemia - etiology unclear at this time, Pathologist suggests inflammatory vs infectious response. - iron studies, B12, RBC folate, peripheral smear pending - retic count 2.0, with 0.267 immature retic fraction - FOBT positive - CT abdomen pelvis w/ contrast ordered to evaluate for abdominal mass. 4. Recent lung nodule - dx on CT ~1 mo ago, suspected to be benign, recommended repeat CT in 6-8 weeks 5. COPD - home meds, duonebs prn 6. HFpEF -last echo (06/2018) shows EF 55-60%. will control BP 7. longstanding tobacco abuse -encourage cessation Code Status: Full Code Dispo: Stable, continue current management Addendum - Attending - Attending Attestation Date/Time: 12/16/181955 I personally evaluated the patient and discussed the management with Dr. Limon I agree with the History, Examination, Assessment and Plan documented above with any addition or exceptions noted below. Patient appears chronically ill and emaciated r/o occult malignancy.
[2018-12-16] MEDS: Piperacillin/Tazobactam 3.375 GM in Sodium Chloride 0.9% 100 ML IVPB SCH ×4 (05:11→23:00)
[2018-12-16] MEDS: Lactated Ringer's 1,000 ML IV SCH ×3 (05:12→20:28)
[2018-12-16] MEDS: Insulin Regular 300 UNITS/3 ML VIAL SC PRN ×3 (05:54→20:29)
[2018-12-16] MEDS: Gabapentin 400 MG CAP PO SCH ×3 (08:00→20:28)
[2018-12-16] MEDS: Cyanocobalamin (Vitamin B-12) 1,000 MCG TAB PO SCH (08:01)
[2018-12-16] MEDS: metFORMIN 500 MG TAB PO SCH ×2 (08:01→17:15)
[2018-12-16] MEDS: clonazePAM 0.5 MG TAB PO SCH ×2 (08:01→20:28)
[2018-12-16] MEDS: buPROPion 75 MG TAB PO SCH (08:01)
[2018-12-16] MEDS: Enoxaparin Sodium 40 MG/0.4 ML SYRINGE SC SCH (08:04)
--- NOTE | 2018-12-16 12:37 | CT ---
CT ABDOMEN AND PELVIS WITH IV CONTRAST: Date: 12/16/18 Oral contrast administered. INDICATION: Blood in stool. History of malignancy. Comparison made to CT of 06/15/15. FINDINGS: Images through the lung bases show small bilateral pleural effusions and mild bibasilar atelectasis. There is a large fixed diaphragmatic hernia. Liver shows decreased attenuation suggesting fatty infiltration. The spleen is absent. Adrenal glands and kidneys unremarkable. Urinary bladder unremarkable. There is diffuse nonspecific distention of small bowel loops. No evidence of dilatation or obstructio n. Appendix appears unremarkable. The colon appears unremarkable. Small amount of free fluid in the abdomen and deep pelvis. Aorta is calcified with normal caliber. The pancreas shows dystrophic calcifications and atrophy, and is stable from prior exam. Degenerative changes in the spine with mild compression deformity of the L4 vertebra. IMPRESSION: 1. Small bilateral pleural effusions and bibasilar atelectasis. 2. Moderate sized fixed diaphragmatic hernia, slightly larger than on the prior study. 3. Nonspecific diffuse small bowel distention without evidence of dilatation or obstruction. 4. Small amount of free fluid in the abdomen and deep pelvis. POS: OFF
[2018-12-16] MEDS ORDERED: ISOVUE-370 76%-LOCM 1 ML ONE (12:55)
[2018-12-16 18:40] LABS: Vancomycin, Trough 7.9 ug/mL
[2018-12-16] MEDS: Vancomycin HCl 1 GM in Premix Bag 1 BAG IVPB SCH (19:00)
[2018-12-16] MEDS ORDERED: risperiDONE 1 MG TAB PO SCH (21:00)
[2018-12-17] MEDS: Lactated Ringer's 1,000 ML IV SCH ×2 (03:14→13:15)
[2018-12-17] MEDS: Piperacillin/Tazobactam 3.375 GM in Sodium Chloride 0.9% 100 ML IVPB SCH (05:03)
[2018-12-17] MEDS ORDERED: Vancomycin HCl 1 GM in Premix Bag 1 BAG IVPB SCH (06:00)
--- NOTE | 2018-12-17 06:03 | PDOC.FM ---
- Subjective Subjective: Pt resting comfortably. Has no complaints this morning. no overnight events. - Objective Vital Signs & Weight: Vital Signs (12 hours) Temp Pulse Resp BP Pulse Ox 12/16/18 20:00 99 12/16/18 19:30 97.8 F 100 18 133/84 99 12/16/18 19:01 97.7 F 101 H 18 134/91 H 100 Weight Admit Weight 56.835 kg Weight 56.835 kg I&O: 12/15/18 12/16/18 12/17/18 06:59 06:59 06:59 Intake Total 3950 3675 Output Total 330 725 Balance 3620 2950 Result Diagrams: 12/15/18 13:18 12/15/18 03:11 Radiology Reviewed by me: Yes (CT abd/pelvis: small B pleural effusions, B atelectasis. ) Radiology: CT abd/pelvis: nonspecific diffuse small bowel distention without evidence of dilation or obstruction. Small amount of free fluid in abdomen and deep pelvis. Phys Exam - Physical Examination Constitutional: NAD chachetic HEENT: PERRLA, moist MMs, sclera anicteric Neck: no nodes, no JVD, supple, full ROM Respiratory: no wheezing, no rales, no rhonchi, clear to auscultation bilateral Cardiovascular: RRR, no significant murmur, no rub Gastrointestinal: soft, non-tender, no distention, positive bowel sounds Musculoskeletal: no edema, pulses present Neurological: non-focal, normal sensation, moves all 4 limbs Psychiatric: normal affect, A&O x 3 Skin: no rash, cap refill <2 seconds Deviation from normal: increased skin tenting. Dx/Plan (1) SIRS (systemic inflammatory response syndrome) Code(s): R65.10 - SIRS OF NON-INFECTIOUS ORIGIN W/O ACUTE ORGAN DYSFUNCTION Status: Acute (2) CHF (congestive heart failure) Code(s): I50.9 - HEART FAILURE, UNSPECIFIED Status: Chronic (3) COPD (chronic obstructive pulmonary disease) Status: Chronic (4) HLD (hyperlipidemia) Code(s): E78.5 - HYPERLIPIDEMIA, UNSPECIFIED Status: Chronic (5) Type 2 diabetes mellitus Status: Chronic Qualifiers: Diabetes mellitus longterm insulin use: with longterm use Diabetes mellitus complication detail: with polyneuropathy (6) BPH (benign prostatic hypertrophy) Code(s): N40.0 - BENIGN PROSTATIC HYPERPLASIA WITHOUT LOWER URINRY TRACT SYMP Status: Chronic (7) Protein-calorie malnutrition Code(s): E46 - UNSPECIFIED PROTEIN-CALORIE MALNUTRITION Status: Acute Qualifiers: Protein-calorie malnutrition severity: unspecified severity Qualified Code( s): E46 - Unspecified protein-calorie malnutrition - Plan Plan: 68 Y/O M admitted for workup of SIRs criteria without a source of infection. 1. SIRS without a source - tachycardic, leukocytosis. given vanc and zosyn in the ER. procal unimpressive. cxr wnl, no obvious source of infection - continue vanc and zosyn - blood and urine cultures no growth to date - Flu A & B negative - Quant Gold ordered 2. Weight loss and urinary incontinence - considering pts hx of cancer this is suspicious for malignancy vs. decreased PO intake with unrelated spinal pathology. - MRI lumbar spine showed multilevel degenerative changes in the L spine. No pathological enhancements of vertebrae or spinal column - ESR <1, TSH 1.3883 - FOBT positive - MELYSSA Normal size and firmness. Without tenderness or nodules. - bladder scan Post Void Residual 148ml - consult nurse practitioner, PT, OT, speech - ensure enlive BID - CT abd and pelvis: small B pleura effusions and B atelectasis, mod sized fixed diaphragmatic hernia, nonspecific diffuse small bowel distention without evidence of dilation or obstruction. Small amount of free fluid in abd and deep pelvis. 3. Normochromic normocytic anemia - etiology unclear at this time, Pathologist suggests inflammatory vs infectious response. - iron studies, B12, RBC folate, peripheral smear pending - retic count 2.0, with 0.267 immature retic fraction - FOBT positive - CT abdomen pelvis w/ contrast ordered to evaluate for abdominal mass. 4. Recent lung nodule - dx on CT ~1 mo ago, suspected to be benign, recommended repeat CT in 6-8 weeks 5. COPD - home meds, duonebs prn 6. HFpEF -last echo (06/2018) shows EF 55-60%. will control BP 7. longstanding tobacco abuse -encourage cessation 8. Protein - Calorie Malnutrition - TID glucerna shakes - Heart Healthy diet. - Dietary consult - Ordered Fecal fat, iron studies, CEA, PSA, CA19-9, Celiac panel to further workup malnutrition Code Status: Full Code Dispo: Stable, continue current management Addendum - Attending - Attending Attestation Date/Time: 12/17/18 2896 I personally evaluated the patient and discussed the management with Dr. Astorga I agree with the History, Examination, Assessment and Plan documented above with any addition or exceptions noted below. Patient continues to be extremely poor historian. Patient sedated this AM will discontinue sedative medication. He is refusing blood draws presently.Remain concerned with malabsorption, occult malignancy indolent infectious process. CT no adenopathy or mass, note small bowel distention and pleural effusions and abdominal fluid. 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
[2018-12-17] MEDS: Cyanocobalamin (Vitamin B-12) 1,000 MCG TAB PO SCH (09:15)
[2018-12-17] MEDS: Gabapentin 400 MG CAP PO SCH (09:15)
[2018-12-17] MEDS: Enoxaparin Sodium 40 MG/0.4 ML SYRINGE SC SCH (09:15)
[2018-12-17] MEDS: clonazePAM 0.5 MG TAB PO SCH (09:15)
[2018-12-17] MEDS: buPROPion 75 MG TAB PO SCH (09:15)
[2018-12-17] MEDS: metFORMIN 500 MG TAB PO SCH ×2 (09:15→16:56)
[2018-12-17 12:03] LABS: ALT (SGPT) 28 U/L (8-55); AST (SGOT) 35 U/L (5-34); Albumin 1.8 g/dL (3.4-4.8); Alkaline Phosphatase 148 U/L (40-150); Anion Gap 11 mmol/L (10-20); BUN (Urea Nitrogen) 4 mg/dL (8.4-25.7); Bilirubin, Total 0.4 mg/dL (0.2-1.2); Calc. Creatinine Clearance 74 mL/min (70-130); Calcium 7.1 mg/dL (7.8-10.44); Carbon Dioxide 21 mmol/L (23-31); Chloride 105 mmol/L (98-107); Estimated GFR-MDRD Greater than 90; Glucose 247 mg/dL (80-115); Iron 38 ug/dL (65-175); Iron Binding Capacity, Total 124 mcg/dL (261-462); Potassium 3.7 mmol/L (3.5-5.1); Protein, Total 3.8 g/dL (5.8-8.1)
[2018-12-17 12:04] LABS: Band 3 % (5-11); Eosinophils 5 % (0-10); Hemoglobin 9.5 g/dL (14.0-18.0); Lymphocytes 19 % (21-51); MDiff Complete? YES; Mean Corpuscular HGB CONC 32.6 g/dL (32.0-36.0); Mean Corpuscular Hemoglobin 31.8 pg (27.0-31.0); Mean Corpuscular Volume 97.6 fL (78.0-98.0); Mean Platelet Volume 7.9 fL (7.4-10.4); Monocytes 10 % (0-10); Neutrophil 61 % (42-75); Platelet Count 353 thou/uL (130-400); RBC Distribution Width 14.3 % (11.5-14.5); White Blood Cell (WBC) Count 7.5 thou/uL (4.8-10.8)
[2018-12-17] MEDS: Insulin Regular 300 UNITS/3 ML VIAL SC PRN ×2 (12:18→17:16)
[2018-12-17 12:22] LABS: CEA, Serum 3.32 ng/mL (< or = 5.0)
[2018-12-17 12:23] LABS: PSA-Symptomatic (DIAGNOSTIC) 5.55 ng/mL (0-4.0)
[2018-12-17 12:24] LABS: Sodium 133 mmol/L (136-145)
[2018-12-17 12:35] LABS: Folate (Folic Acid) 15.5 ng/mL (7.0-31.4)
[2018-12-17 20:49] LABS: Syphilis Antibody Nonreactive (Nonreactive); Syphilis Antibody Index 0.07 S/CO (<1.00 Non-Reactive)
[2018-12-17] MEDS: risperiDONE 1 MG TAB PO SCH (21:00)
[2018-12-17 23:17] LABS: HBCM Index 0.06 S/CO (0-0.79); HBSAB Concentration 5.98 mIU/mL; HBSAg Index 0.16 S/CO (0-0.99); HIV (1/2) Antibody/Antigen Non-Reactive (NonReactive); HIV 1/2 INDEX 0.09 S/CO (<1.00); Hep B Surf AB Non-Reactive (NonReactive); Hep B Surf Ag Non-Reactive S/CO (NonReactive); Hepatitis B Core IgM Abs Non-Reactive (NonReactive)
[2018-12-18] MEDS: Lactated Ringer's 1,000 ML IV SCH ×3 (00:19→07:33)
[2018-12-18] MEDS: Acetaminophen 325 MG TAB PO PRN (02:14)
--- NOTE | 2018-12-18 06:07 | PDOC.FM ---
- Subjective Subjective: Pt is agitated this morning. He said he has back pain. He said he is eating fine. He has been drinking his shakes. He had to BM that were liquid this morning. He also has some LLQ pain. - Objective MAR Reviewed: Yes Vital Signs & Weight: Vital Signs (12 hours) Temp Pulse Resp BP Pulse Ox 12/17/18 19:50 97.8 F 109 H 20 132/95 H 98 Weight Admit Weight 56.835 kg Weight 56.835 kg I&O: 12/16/18 12/17/18 12/18/18 06:59 06:59 06:59 Intake Total 3950 3675 2345 Output Total 330 725 Balance 3620 2950 2345 Result Diagrams: 12/17/18 11:27 12/17/18 11:27 Phys Exam - Physical Examination Constitutional: NAD HEENT: PERRLA, moist MMs Neck: no nodes, supple Respiratory: wheezing present (present bilaterally, end expiratory) Cardiovascular: RRR, no significant murmur Gastrointestinal: soft, positive bowel sounds LLQ pain Musculoskeletal: no edema, pulses present Neurological: normal sensation Deviation from normal: depressed affect Skin: normal turgor Dx/Plan (1) SIRS (systemic inflammatory response syndrome) Code(s): R65.10 - SIRS OF NON-INFECTIOUS ORIGIN W/O ACUTE ORGAN DYSFUNCTION Status: Acute (2) Protein-calorie malnutrition Code(s): E46 - UNSPECIFIED PROTEIN-CALORIE MALNUTRITION Status: Acute Qualifiers: Protein-calorie malnutrition severity: unspecified severity Qualified Code( s): E46 - Unspecified protein-calorie malnutrition (3) Macrocytic anemia Code(s): D53.9 - NUTRITIONAL ANEMIA, UNSPECIFIED Status: Acute (4) CHF (congestive heart failure) Code(s): I50.9 - HEART FAILURE, UNSPECIFIED Status: Chronic (5) COPD (chronic obstructive pulmonary disease) Status: Chronic (6) Polysubstance abuse Code(s): F19.10 - OTHER PSYCHOACTIVE SUBSTANCE ABUSE, UNCOMPLICATED Status: Chronic - Plan Plan: 68 Y/O M admitted for workup of SIRs criteria without a source of infection. 1. SIRS without a source - tachycardic, leukocytosis. given vanc and zosyn in the ER. procal unimpressive. cxr wnl, no obvious source of infection - blood and urine cultures no growth to date - Flu A & B negative - Quant Gold pending 2. Weight loss and urinary incontinence - considering pts hx of cancer this is suspicious for malignancy vs. decreased PO intake with unrelated spinal pathology. - MRI lumbar spine showed multilevel degenerative changes in the L spine. No pathological enhancements of vertebrae or spinal column - ESR <1, TSH 1.3883 - FOBT positive - MELYSSA (12/15): Normal size and firmness. Without tenderness or nodules. - bladder scan Post Void Residual 148ml - consult kiln stacker, PT, OT, speech - ensure enlive BID - CT abd and pelvis: small B pleura effusions and B atelectasis, mod sized fixed diaphragmatic hernia, nonspecific diffuse small bowel distention without evidence of dilation or obstruction. Small amount of free fluid in abd and deep pelvis. 3. Normochromic normocytic anemia - etiology unclear at this time, Pathologist suggests inflammatory vs infectious response. - Iron 38, TIBC 124, Folate 15.5, B12 885 - Peripheral smear: Leukocytosis with mild monocytosis. Normochromic normocytic anemia. Nonspecific and may be secondary to inflammation or infectious process. - retic count 2.0, with 0.267 immature retic fraction - FOBT positive - CT abdomen pelvis: small bowel distention and fluid in deep pelvis 4. Recent lung nodule - dx on CT ~1 mo ago, suspected to be benign, recommended repeat CT in 6-8 weeks - Repeating Chest CT W & WO today 5. COPD - home meds, duonebs prn 6. HFpEF -last echo (06/2018) shows EF 55-60%. will control BP 7. longstanding tobacco abuse -encourage cessation -12/17: smoking in room 8. Protein - Calorie Malnutrition - TID glucerna shakes - Heart Healthy diet. - Dietary consult - Ordered Fecal fat, iron studies, CEA, PSA, CA19-9, Celiac panel to further workup malnutrition Code Status: Full Code DVT Prophylaxis: Lovenox Lines: Peripheral Dispo: Stable, continue current management Addendum - Attending - Attending Attestation Date/Time: 12/18/18 3183 I personally evaluated the patient and discussed the management with the team. I agree with the History, Examination, Assessment and Plan documented above with any addition or exceptions noted below. Pleasantly demented patient still c/o abd pain. No with mod B pleural effusions and no reported h/o HF, with recent kate loss and mild hyponatremia. Will likely d/w pulm.
[2018-12-18] MEDS: metFORMIN 500 MG TAB PO SCH (07:32)
[2018-12-18] MEDS: Enoxaparin Sodium 40 MG/0.4 ML SYRINGE SC SCH (07:32)
[2018-12-18] MEDS: buPROPion 75 MG TAB PO SCH (07:32)
[2018-12-18] MEDS: Cyanocobalamin (Vitamin B-12) 1,000 MCG TAB PO SCH (07:33)
--- NOTE | 2018-12-18 12:55 | CT ---
CT OF CHEST PERFORMED WITH INTRAVENOUS CONTRAST ENHANCEMENT: HISTORY: Weight loss. Long-term smoking history. History of some type of tumor removed from abdomen. COMPARISON: A lung scan performed 11/22/2018. FINDINGS: There has been development of moderate bilateral pleural effusions and bibasilar atelectatic lung vannesa nge since the previous exam. There are also new interstitial lung changes which are in a paramediast inal location. The changes predominantly involve the right upper lobe, although there are also some changes of the left upper lobe. There are chronic-appearing changes seen in both lung burger. No pu lmonary nodules identified. Thoracic aorta is normal in caliber. There is stable appearance of multiple small prevascular pretra cheal and right paratracheal lymph nodes as well as small subcarinal nodes. None of these appear pat hologically enlarged but somewhat more numerous than typically seen. No hilar lymphadenopathy is spencer reciated. A large hiatal hernia is seen. The visualized liver parenchyma shows diffuse fatty change. The gallbladder is somewhat contracted. Right and left adrenal glands are normal in appearance. IMPRESSION: 1. Developmental of moderately large bilateral pleural effusions and bibasilar atelectasis. 2. Development of interstitial changes which are on either side of the mediastinum more predominant in the right upper lobe but also some the left upper lobe change. The changes would be compatible wi th a pneumonitis. I do not have any history of radiation, although the paramediastinal location some times would possibly be a characteristic of this if the patient has had any radiation change. 3. Diffuse fatty change of the liver. 4. Large hiatal hernia. POS: OFF
[2018-12-18] MEDS ORDERED: ISOVUE-370 76%-LOCM 1 ML ONE (13:12)
[2018-12-18 15:47] LABS: Lactic Acid 2.4 mmol/L (0.5-2.2)
[2018-12-18 15:49] LABS: Anion Gap 10 mmol/L (10-20); BUN (Urea Nitrogen) 4 mg/dL (8.4-25.7); Calc. Creatinine Clearance 80 mL/min (70-130); Calcium 7.7 mg/dL (7.8-10.44); Carbon Dioxide 22 mmol/L (23-31); Chloride 103 mmol/L (98-107); Estimated GFR-MDRD Greater than 90; Glucose 145 mg/dL (80-115); Sodium 131 mmol/L (136-145)
--- NOTE | 2018-12-18 15:59 | PQF ---
CLINICAL DOCUMENTATION IMPROVEMENT CLARIFICATION FORM: ICD-10 Updated PLEASE DO AN ADDENDUM TO THE PROGRESS NOTE WITH ANY DOCUMENTATION UPDATES OR ADDITIONS AND CARRY THROUGH TO DC SUMMARY. THANK YOU. DATE: 12/18/18 ATTN : DR. VICK Please exercise your independent, professional judgment in responding to the clarification form. Clinical indicators are provided on the bottom of this form for your review Please check appropriate box(s) to clarify if the following diagnosis has been ruled in or ruled out: "SEPSIS" [ x ] Ruled in diagnosis- Urosepsis [ x ] Continue to treat [ ] Resolved [ ] Ruled out diagnosis [ ] Cannot rule out diagnosis [ ] Other diagnosis [ ] Unable to determine In addition, please specify: Present on Admission (POA): [ x ] Yes [ ] No [ ] Unable to determine For continuity of documentation, please document condition throughout progress notes and discharge summary. Thank You. CLINICAL INDICATORS - SIGNS / SYMPTOMS / LABS ER NOTE: "SEPSIS" PULSE 109 12/14 WBC: 19.8 H&P 12/14: "ADMITTED FOR SEPSIS WORKUP" PROGRESS NOTE 12/15: "SIRS" RISKS: DIABETES (H&P 12/15) HTN (H&P 12/15) COPD (H&P 12/15) TREATMENT: 12/14 BLOOD CULTURES 12/15 STOOL CULTURES IV VANCOMYCIN (ER) IV ZOSYN (ER) IV FLUIDS (ER-12/18) (This form is maintained as a part of the permanent medical record) 2014 [id number], [employer]. All Rights Reserved [email or web address] Office: [phone] [email or web address]
[2018-12-18] MEDS: Gabapentin 300 MG CAP PO SCH ×2 (16:40→20:23)
[2018-12-18] MEDS ORDERED: Furosemide 40 MG TAB PO SCH (17:15)
[2018-12-18] MEDS: risperiDONE 1 MG TAB PO SCH (20:23)
[2018-12-19] MEDS: Acetaminophen 325 MG TAB PO PRN ×4 (00:33→20:18)
--- NOTE | 2018-12-19 00:56 | CON ---
DATE OF CONSULTATION: 12/18/2018 REASON FOR CONSULTATION: Abnormal GI imaging, failure to thrive. CONSULTING PHYSICIAN: William Rosa MD HISTORY OF PRESENT ILLNESS: The patient is a 68-year-old male with past medical history of diabetes with neuropathy, [id number] dementia, congestive heart failure, COPD, hypertension, anxiety, alcohol abuse, nicotine dependence, hyperlipidemia, GERD, degenerative joint disease, BPH, obstructive sleep apnea, and a history of a benign pancreatic tumor status post resection, presenting with complaints of weakness, dehydration, and sepsis on labs. Per chart review, the patient was initially admitted to the hospital from clinic due to increased weakness and dehydration with the patient unable to ambulate secondary to his increased weakness. When speaking with both the patient and the patient's , he had been able to at least participate in some ADLs as well as ambulate with a 4-point walker at home. He also endorsed increased polyuria as well as bowel incontinence, having approximately 1 to 2 semi-solid stools per day, but were currently normal in consistency and did not have any evidence of GI bleeding. Upon admission to the hospital, he was noted to have a significantly elevated white blood cell count, concerning for possible infectious etiology and underwent extensive workup related to this particular condition. Upon review of the labs, he did have evidence of a possible urinary tract infection and more recently has had a CT of the chest showing bilateral pleural effusions concerning for possible pneumonia as well. During the course of this hospitalization, the patient has responded well to antibiotic administration and has been slowly increasing in strength with the patient now able to go downstairs to smoke with his . However, he also endorses an approximate 20-pound weight loss since October of 2018, characterized more as a decrease in his overall appetite. He has had multiple hospitalizations within the last 2 to 3 months, and during those hospitalizations, has had decreased p.o. intake because "I just don't like hospital food." Otherwise, he states that he is feeling better with no complaints of nausea, vomiting, fevers, chills, melena, hematochezia, hematemesis, abdominal pain or constipation. However, he did state that he did have an episode of choking with ingestion of chicken while inpatient the other day, that prompted a speech pathology workup. He was ultimately placed on a mechanical soft diet as a result, but adds that he has not had any further episodes of choking (per the patient and the patient's ), and adds that his new diet is not to his liking either and has not been able to eat much of it secondary to taste. He is amenable to administration of supplementations with either Ensure or Glucerna, however. REVIEW OF SYSTEMS: A 10-category review of systems was obtained with all responses negative except for the pertinent positives as listed in HPI. PAST MEDICAL HISTORY: As per HPI. 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 FAMILY HISTORY: Denies any GI malignancies. SOCIAL HISTORY: He currently smokes approximately 1 pack per day in addition to drinking approximately 2 to 3 drinks every 2 to 3 days. He does have a history of prior marijuana use, but denies at this time. OUTPATIENT MEDICATIONS: Reviewed. ALLERGIES: NO KNOWN DRUG ALLERGIES. PHYSICAL EXAMINATION: VITAL SIGNS: Temperature 97.8, pulse 113, blood pressure 160/101, respiratory rate 20, and saturating 96% on room air. GENERAL: The patient is lying in bed, in no acute distress. Alert and oriented x2 (mild dementia). HEENT: Normocephalic and atraumatic. NECK: Supple. No JVD or scleral icterus noted. CARDIOVASCULAR: Regular rate and rhythm with no discernible murmurs, gallops or rubs. RESPIRATORY: Decreased breath sounds in the bilateral lower lung burger with right greater than left. Clear to auscultation in the upper lung burger. ABDOMEN: Normoactive bowel sounds. Soft, nondistended, mild tenderness to palpation overlying a surgical incision site in the left upper quadrant. EXTREMITIES: No cyanosis, clubbing or edema. LABORATORY DATA: CBC with a white blood cell count of 7.5, hemoglobin 9.5, hematocrit 29.3, and platelets 353. Chemistry with a sodium of 131, potassium 4, chloride 103, CO2 of 22, BUN 4, creatinine 0.72, and glucose 145. AST 35, ALT 28, alkaline phosphatase 148, and total bilirubin 0.4. Iron 38 and TIBC 124. BNP 202. Urinalysis on admission showing presence of leukocyte esterase and 11 to 20 white blood cells, but no evidence of bacteria. IMAGING DATA: CT of the abdomen and pelvis was obtained on December 16, 2018, which showed bilateral pleural effusions as well as a large fixed hiatal/diaphragmatic hernia. There was a small amount of free fluid within the abdomen and deep pelvis with no significant surrounding lymphadenopathy. There were also pancreatic calcifications and atrophy noted, but no evidence of residual mass. CT of the chest was obtained on December 18, 2018, which showed development of moderate bilateral pleural effusions and bibasilar atelectatic lung change since the previous exam. There were also new interstitial lung changes in a paramediastinal location. No pulmonary nodules were identified. The large hiatal hernia was again seen on this study. The visualized liver parenchyma showed diffuse fatty changes, but no other intraabdominal abnormalities. ASSESSMENT AND PLAN: The patient is a 68-year-old male with past medical history of diabetes with neuropathy, dementia, congestive heart failure, chronic obstructive pulmonary disease, hypertension, anxiety, alcohol abuse, nicotine dependence, hyperlipidemia, gastroesophageal reflux disease, degenerative joint disease, benign prostatic hyperplasia, obstructive sleep apnea, and a benign pancreatic tumor status post resection, presenting with possible sepsis with either pulmonary or urinary origin, failure to thrive, and dysphagia. Sepsis: The patient initially presented with a significantly increased white blood cell count as well as increased weakness and dehydration while evaluated in the clinic. The exact etiology of possible infectious origin was unknown with empiric antibiotic coverage administered during this hospitalization. However, on admission, the patient was noted to have an elevated leukocyte esterase as well as white blood cell count within the urine concerning for possible infectious etiology there in addition to the moderately large bilateral pleural effusions, which are changed from previous examinations concerning for possible pneumonia. At this time, it seems like the patient is clinically improving while on the empiric antibiotics and is desiring to go home at this time. Recommendations: 1. Would continue with antibiotic regimen as you are doing. Would defer to primary team in terms of treatment of the sepsis. 2. The small fluid within the pelvis is nonspecific, hence not a reliable etiology for the patient's sepsis. Dysphagia: The patient states that he had an element of dysphagia approximately 2 days ago, characterized as increased coughing/gagging episode while consuming dry chicken here in the hospital. He was evaluated by Speech Pathology, who did not perform a formal bedside swallow study, but instead made a change to his diet to a mechanical soft diet. Upon changing to mechanical soft diet, he has been able to tolerate this well with no further episodes of coughing or choking per the patient, the patient's , and nursing staff. Attempts to evaluate the patient with a bedside swallow study have not been undertaken thus far, albeit attempted. At this time, given the patient's intact swallow, I would continue to maximize oral intake as much as possible. Would continue monitoring for evidence of aspiration. Recommendations: 1. Would attempt to complete the bedside swallow study for further evaluation of the patient's dysphagia. 2. Advance the patient's diet as per this evaluation. 3. No upper endoscopy is indicated at this time. Failure to thrive: The patient is presenting with multiple hospitalizations over the course of this year and has decrease in his weight of approximately 20 pounds over the last 2 to 3 months. Upon speaking with the patient and the patient's , they both state that his appetite has remained good; however, his oral intake has been fairly poor during this hospitalization due to lack of palatable options to the patient and as such has not eaten some of the food offered. At this point, he is amenable to calorie supplementation with the administration of either Ensure or Glucerna shakes. Upon conferring with the patient for possible PEG tube placement for moderate protein-calorie malnutrition, he is reluctant to proceed with this modality at this time given his experiences last year when he was in the rehab center. Recommendations: 1. Would confer with Dietary Service for supplementation of his diet with either Ensure or Glucerna shakes. 2. Would attempt the bedside swallow study as above for evaluation of possible dysphagia and advancement of the patient's diet as tolerated. 3. Would consider the addition of dietary fiber to the patient's regimen in the form of Citrucel 500 mg daily to help with his part of a stool bulking technique. We will sign off at this time. Please call with any additional questions. Job ID: [id number]
--- NOTE | 2018-12-19 06:31 | PDOC.FM ---
- Subjective Subjective: Pt has a headache this morning. He says it hurts in the right frontal region of his head. He ate ok yesterday. He had a BM overnight. He does not endorse abdominal pain this morning. - Objective MAR Reviewed: Yes Vital Signs & Weight: Vital Signs (12 hours) Temp Pulse Resp BP Pulse Ox 12/19/18 04:00 97.7 F 97 20 134/90 96 12/18/18 23:54 99.1 F 107 H 20 154/98 H 96 12/18/18 19:41 99.4 F 118 H 20 127/87 96 Weight Admit Weight 56.835 kg Weight 56.835 kg I&O: 12/17/18 12/18/18 12/19/18 06:59 06:59 06:59 Intake Total 3675 4117 840 Output Total 725 850 650 Balance 2950 3267 190 Result Diagrams: 12/17/18 11:27 12/18/18 15:21 Phys Exam - Physical Examination Constitutional: NAD HEENT: moist MMs poor dentition Neck: supple, full ROM Respiratory: clear to auscultation bilateral Cardiovascular: RRR, no significant murmur Gastrointestinal: soft, non-tender, positive bowel sounds Musculoskeletal: no edema, pulses present Neurological: moves all 4 limbs Psychiatric: A&O x 3 Skin: normal turgor, cap refill <2 seconds Dx/Plan (1) SIRS (systemic inflammatory response syndrome) Code(s): R65.10 - SIRS OF NON-INFECTIOUS ORIGIN W/O ACUTE ORGAN DYSFUNCTION Status: Acute (2) Protein-calorie malnutrition Code(s): E46 - UNSPECIFIED PROTEIN-CALORIE MALNUTRITION Status: Acute Qualifiers: Protein-calorie malnutrition severity: unspecified severity Qualified Code( s): E46 - Unspecified protein-calorie malnutrition (3) Macrocytic anemia Code(s): D53.9 - NUTRITIONAL ANEMIA, UNSPECIFIED Status: Acute (4) CHF (congestive heart failure) Code(s): I50.9 - HEART FAILURE, UNSPECIFIED Status: Chronic (5) COPD (chronic obstructive pulmonary disease) Status: Chronic (6) Polysubstance abuse Code(s): F19.10 - OTHER PSYCHOACTIVE SUBSTANCE ABUSE, UNCOMPLICATED Status: Chronic - Plan Plan: 68 Y/O M admitted for workup of SIRs criteria without a source of infection. 1. SIRS without a source * tachycardic, leukocytosis. given vanc and zosyn in the ER. procal unimpressive. cxr wnl, no obvious source of infection * blood no growth to date * Flu A & B negative * Quant Gold pending 2. Weight loss and urinary incontinence * considering pts hx of cancer this is suspicious for malignancy vs. decreased PO intake with unrelated spinal pathology. * MRI lumbar spine showed multilevel degenerative changes in the L spine. No pathological enhancements of vertebrae or spinal column * ESR <1, TSH 1.3883 * FOBT positive * MELYSSA (12/15): Normal size and firmness. Without tenderness or nodules. * bladder scan Post Void Residual 148ml * consulted clinical implementation specialist, PT, OT, speech * ensure enlive BID * CT abd and pelvis: small B pleura effusions and B atelectasis, mod sized fixed diaphragmatic hernia, nonspecific diffuse small bowel distention without evidence of dilation or obstruction. Small amount of free fluid in abd and deep pelvis. 3. Normochromic normocytic anemia * etiology unclear at this time, Pathologist suggests inflammatory vs infectious response. * Iron 38, TIBC 124, Folate 15.5, B12 885 * Peripheral smear: Leukocytosis with mild monocytosis. Normochromic normocytic anemia. Nonspecific and may be secondary to inflammation or infectious process. * retic count 2.0, with 0.267 immature retic fraction * FOBT positive * CT abdomen pelvis: small bowel distention and fluid in deep pelvis, pancreas calcification and atrophy s/p removal of benighn tumor, decreased liver attenuation suggestive of fatty infiltrate. 4. Recent lung nodule * dx on CT ~1 mo ago, suspected to be benign, recommended repeat CT in 6-8 weeks * Chest CT W & WO: Large bilateral pleural effusions & bibasilar atelectasis. No pulmonary nodule seen 5. COPD * home meds, duonebs prn 6. HFpEF * last echo (06/2018) shows EF 55-60%. will control BP * Given Lasix 40 PO yesterday due to wheezing on exam. Wheezing resolved today. 7. longstanding tobacco abuse * encourage cessation * 12/17: smoking in room 8. Protein - Calorie Malnutrition * TID glucerna shakes * Heart Healthy diet. * Dietitian consulted * Fecal fat, CA19-9, Celiac panel, Vit D: pending * CEA: 3.32 * PSA: 5.5 Code Status: Full Code DVT Prophylaxis: Lovenox Lines: Peripheral Diet: HH, He was started on mechanical soft yesterday after choking at lunch. He and his did not want him to be on mechanical soft. I discussed the risk of aspiration. They understood and were willing to take the risk, so mechanical soft removed. Dispo: Stable, CM is looking for placement at [facility] in [place] per discussion with pt yesterday. Addendum - Attending - Attending Attestation Date/Time: 12/19/18 1120 I personally evaluated the patient and discussed the management with Dr. Rosa. I agree with the History, Examination, Assessment and Plan documented above with any addition or exceptions noted below. He continues to feel tired but overall looks improved from what was described to me by Dr. Mcknight. Does not endorse lower abdominal pain this AM and NTTP. His lungs are clear despite the effusions and his heart regular and not tachycardic on my exam. His diagnosis is presumed urinary sepsis in light of + UA and unfortunately a missing UCx. Will treat empirically and plan for discharge pending placement.
[2018-12-19] MEDS: Cyanocobalamin (Vitamin B-12) 1,000 MCG TAB PO SCH (08:26)
[2018-12-19] MEDS: Enoxaparin Sodium 40 MG/0.4 ML SYRINGE SC SCH (08:27)
[2018-12-19] MEDS: Gabapentin 300 MG CAP PO SCH ×3 (08:27→20:13)
[2018-12-19] MEDS: buPROPion 75 MG TAB PO SCH (08:27)
--- NOTE | 2018-12-19 10:54 | PQF ---
CLINICAL DOCUMENTATION IMPROVEMENT CLARIFICATION FORM: ICD-10 Updated PLEASE DO AN ADDENDUM TO THE PROGRESS NOTE WITH ANY DOCUMENTATION UPDATES OR ADDITIONS AND CARRY THROUGH TO DC SUMMARY. THANK YOU. Date: 12/18/18 ATTN: DR. VICK Please exercise your independent, professional judgment in responding to the clarification form. Clinical indicators are provided on the bottom of this form for your review Please check appropriate box(s): [ x ] Protein Calorie Malnutrition: [ ] Mild [ ] Moderate [ x ] Severe [ ] Other Malnutrition (please specify) __ [ ] Underweight without malnutrition [ x ] Cachexia [ ] Other diagnosis [ ] Unable to determine In addition, please specify: Present on Admission (POA): [ x ] Yes [ ] No [ ] Unable to determine CLINICAL INDICATORS - SIGNS / SYMPTOMS / LABS DIETARY NOTE 12/15: "MODERATE MUSCLE WASTING TO TEMPORALIS MUSCLES AND CLAVICLE REGION" PROGRESS NOTE 12/16: "PT HAS LOST APPROXIMATELY 20 POUNDS RECENTLY" BMI 16.5 RISKS: H/O PANCREATIC TUMOR (ER NOTE) DIABETES (ER NOTE) HTN (ER NOTE) COPD (ER NOTE) TREATMENT: DIETARY CONSULT NUTRITIONAL SUPPLEMENTS (PER DIETARY NOTE 12/15) RECOMMENDATION FOR CONSIDERING APPETITE STIMULANT (ER DIETARY NOTE 12/15) GI CONSULT (ORDERED 12/18) Moderate Malnutrition (in acute illness) Energy Intake: <75% of estimated energy requirement for > 7 days Weight Loss: 1-2%/1 week; 5%/ 1 month; 7.5%/3 months Other: mild body fat loss; mild muscle mass loss; mild fluid accumulation; Severe Malnutrition (in acute illness) Energy Intake: < 50% of estimated energy requirement for > 5 days Weight Loss: >1-2%/1 week; >5%/1 month; >7.5%/3 months Other: moderate body fat loss; moderate muscle mass loss; moderate- severe fluid accumulation; measurably reduced clinic manager strength Moderate Malnutrition (in chronic illness) Energy Intake: <75% of estimated energy requirement for >1 month Weight Loss: 5%/1 month; 7.5%/3 months; 10%/6 months; 20%/1 year Other: mild body fat loss; mild muscle mass loss; mild fluid accumulation Severe Malnutrition (in chronic illness) Energy Intake: <75% of estimated energy requirement for >1 month Weight Loss: >5%/1 month; >7.5%/3 months; >10%/6 months; >20%/1 year Other: severe body fat loss; severe muscle mass loss; severe fluid accumulation ; measurably reduced clinic manager strength (This form is maintained as a part of the permanent medical record) 2014 [employer] All Rights Reserved [email or web address] Office: [phone] [facility] SYSTEM[facility]
[2018-12-19] MEDS: Nicotine 7 MG PATCH TD SCH (15:26)
[2018-12-19] MEDS: Insulin Regular 300 UNITS/3 ML VIAL SC PRN ×2 (15:57→20:13)
[2018-12-19] MEDS: risperiDONE 1 MG TAB PO SCH (20:13)
--- NOTE | 2018-12-20 04:42 | PDOC.FM ---
- Subjective Subjective: He did well overnight. Sleeping well. He ate well yesterday. He had 2 BM today. - Objective MAR Reviewed: Yes Vital Signs & Weight: Vital Signs (12 hours) Temp Pulse Resp BP Pulse Ox 12/19/18 20:15 99 12/19/18 19:47 97.7 F 100 20 137/96 H 99 Weight Admit Weight 56.835 kg Weight 56.835 kg I&O: 12/18/18 12/19/18 12/20/18 06:59 06:59 06:59 Intake Total 4117 840 1100 Output Total 850 650 Balance 3267 190 1100 Result Diagrams: 12/17/18 11:27 12/18/18 15:21 Phys Exam - Physical Examination Constitutional: NAD HEENT: PERRLA, moist MMs Neck: no nodes, supple Respiratory: clear to auscultation bilateral Cardiovascular: RRR, no significant murmur Gastrointestinal: soft, non-tender, positive bowel sounds Musculoskeletal: no edema, pulses present Neurological: normal sensation Psychiatric: normal affect, A&O x 3 Skin: normal turgor Dx/Plan (1) SIRS (systemic inflammatory response syndrome) Code(s): R65.10 - SIRS OF NON-INFECTIOUS ORIGIN W/O ACUTE ORGAN DYSFUNCTION Status: Acute (2) Protein-calorie malnutrition Code(s): E46 - UNSPECIFIED PROTEIN-CALORIE MALNUTRITION Status: Acute Qualifiers: Protein-calorie malnutrition severity: unspecified severity Qualified Code( s): E46 - Unspecified protein-calorie malnutrition (3) Macrocytic anemia Code(s): D53.9 - NUTRITIONAL ANEMIA, UNSPECIFIED Status: Acute (4) CHF (congestive heart failure) Code(s): I50.9 - HEART FAILURE, UNSPECIFIED Status: Chronic (5) COPD (chronic obstructive pulmonary disease) Status: Chronic (6) Polysubstance abuse Code(s): F19.10 - OTHER PSYCHOACTIVE SUBSTANCE ABUSE, UNCOMPLICATED Status: Chronic - Plan Plan: 68 Y/O M admitted for workup of SIRs criteria without a source of infection. 1. Urosepsis * tachycardic, leukocytosis. given vanc and zosyn in the ER. procal unimpressive. cxr wnl, no obvious source of infection * blood no growth to date * UA: LE 75, WBC 11-20 * Flu A & B negative * Quant Gold pending * Starting Bactrim DS BID for 10 D 2. Weight loss and urinary incontinence * considering pts hx of cancer this is suspicious for malignancy vs. decreased PO intake with unrelated spinal pathology. * MRI lumbar spine showed multilevel degenerative changes in the L spine. No pathological enhancements of vertebrae or spinal column * ESR <1, TSH 1.3883 * FOBT positive * MELYSSA (12/15): Normal size and firmness. Without tenderness or nodules. * consulted chartered accountant, PT, OT, speech * ensure enlive BID * CT abd and pelvis: small B pleura effusions and B atelectasis, mod sized fixed diaphragmatic hernia, nonspecific diffuse small bowel distention without evidence of dilation or obstruction. Small amount of free fluid in abd and deep pelvis. 3. Normochromic normocytic anemia * etiology unclear at this time, Pathologist suggests inflammatory vs infectious response. * Iron 38, TIBC 124, Folate 15.5, B12 885 * Peripheral smear: Leukocytosis with mild monocytosis. Normochromic normocytic anemia. Nonspecific and may be secondary to inflammation or infectious process. * retic count 2.0, with 0.267 immature retic fraction * FOBT positive * CT abdomen pelvis: small bowel distention and fluid in deep pelvis, pancreas calcification and atrophy s/p removal of benighn tumor, decreased liver attenuation suggestive of fatty infiltrate. 4. Recent lung nodule * dx on CT ~1 mo ago, suspected to be benign, recommended repeat CT in 6-8 weeks * Chest CT W & WO: Large bilateral pleural effusions & bibasilar atelectasis. No pulmonary nodule seen 5. COPD * home meds, duonebs prn 6. HFpEF * last echo (06/2018) shows EF 55-60%. will control BP 7. longstanding tobacco abuse * encourage cessation * 12/17: smoking in room 8. Protein - Calorie Malnutrition * TID glucerna shakes * Heart Healthy diet. * Dietitian consulted * Fecal fat, Celiac panel, Vit D: pending * CEA: 3.32 * CA 19-9: 18 * PSA: 5.5 Code Status: Full Code DVT Prophylaxis: Lovenox Lines: Peripheral Diet: HH, He was started on mechanical soft day before yesterday after choking at lunch. He and his did not want him to be on mechanical soft. I discussed the risk of aspiration. They understood and were willing to take the risk, so mechanical soft removed. Dispo: Stable, CM is looking for placement at [facility] or [facility].
[2018-12-20] MEDS ORDERED: Sulfameth/Trimethoprim DS 800-160mg TAB PO SCH (09:00)
[2018-12-20] MEDS ORDERED: Citrucel 500 MG TAB PO SCH (09:00)
[2018-12-20] MEDS: Enoxaparin Sodium 40 MG/0.4 ML SYRINGE SC SCH (09:27)
[2018-12-20] MEDS: Acetaminophen 325 MG TAB PO PRN (09:27)
[2018-12-20] MEDS: buPROPion 75 MG TAB PO SCH (09:27)
[2018-12-20] MEDS: Cyanocobalamin (Vitamin B-12) 1,000 MCG TAB PO SCH (09:28)
[2018-12-20] MEDS: Gabapentin 300 MG CAP PO SCH ×2 (09:28→14:55)
--- NOTE | 2018-12-20 12:06 | PRG ---
DATE OF SERVICE: 12/20/2018 Mr. Smiley was admitted 1 week ago with profound weakness, dehydration, and multiple medical problems. He is much improved and stable at this time, and we are awaiting placement. He is awake and alert this morning, in no distress. Job ID: [id number]
[2018-12-20] MEDS: Insulin Regular 300 UNITS/3 ML VIAL SC PRN (12:17)
[2018-12-20] MEDS: Nicotine 7 MG PATCH TD SCH (15:09)
[2018-12-20 16:40] VITALS: BP 130/82; TEMP 98.4
[2018-12-20 17:25] LABS: EliA Celiac New Method **** NEW METHOD ****; Gliadin IgA Ab, Deamidated 3.5 EliAU/mL (<7 Negative); Gliadin IgG Ab, Deamidated Less than 0.4 EliAU/mL (<7 Negative); t-Transglutaminase (tTG) IgA 1.4 EliAU/mL (<7 Negative); t-Transglutaminase (tTG) IgG Less than 0.6 EliAU/mL (<7 Negative)
[2018-12-20] MEDS ORDERED: Atorvastatin Calcium 40 MG TAB PO SCH (21:00)
--- NOTE | 2018-12-21 08:10 | PQF ---
MELLY STOKES JR, BRANDON [id number] CLINICAL DOCUMENTATION CLARIFICATION FORM: POST DISCHARGE Addendum to original discharge summary date: ____ Late entry note date: __ DATE: 12-21-2018 ATTN: Kenneth Kumar Please exercise your independent, professional judgment in responding to the clarification form. Clinical indicators are provided on the bottom of this form for your review Based on your clinical knowledge can you please clarify what the patient actually has. Please check appropriate box(s): Conflicting documentation was noted in the Medical Record, please clarify if patient is being treated/monitored for: [ x ] Sepsis [ ] SIRS non infectious [ x ] Localized infection Please specify: bladder [ ] Other diagnosis please specify [ ] Unable to determine In addition, please specify: Present on Admission (POA): [ x ] Yes [ ] No [ ] Unable to determine For continuity of documentation, please document condition throughout progress notes and discharge summary. Thank You. CLINICAL INDICATORS: Fam Med H&P p1 12/14 "Weakness" Fam Med H&P p3 /12 "ROS Respiratory : Reports cough" Fam Med H&P p3 912 "HR 105, WBC 19.8 " Fam Med H&P p4 912 "Lactic Acid 2.9" Fam Med H&P p4 9/12 "Sepsis w/o Source" Fam Med H&P p5 12-Bowel and bladder incontinence accompanied by weakness Fam Med H&P p6 9- Tachycardia, Leukocytosis Fam Med H&P p6 912 CXR wnl, no obvious source of infection Chect CT p2 12/18-Development of intertitial changes which are on either side of mediastinum more predominat in the RUL but some on LEL. The chnages would be compatible with pneumonitis Physician Documentation p1 10/17 Ruled in diagnosis : Urosepsis -Continues treament Consult p3 09/17 Sepsis : The exact etiology of possible infectious origin was unknown with empiric antibiotics coverage. However noted elevated leukocyte as well as WBC count within urine concerning for infectious etiology there in addityion to the moderately B pleural effucion, which concerning for possible pneumonia RISK FACTORS: BPH-Fam Med H&P p2 12/14 Urosepsis-Fam Med H&P p2 12/14 Sepsis-Fam Med H&P p2 12/14 Leukocytosis-Fam Med H&P p2 12/14 TREATMENT: Fam Med H&P p4 12/14-Sepsis Workup Fam Med H&P p4 12/14-IV Vancomycin Fam Med PN p2 12/15 -f/u blood and urine cultures (This form is maintained as a part of the permanent medical record) 2015 [employer], [place]. All Rights Reserved Kathy [email or web address] [not provided] MTDD
[2018-12-21] MEDS ORDERED: Aspirin 81 mg Enteric Coated Tablet PO SCH (09:00)
[2018-12-21] MEDS ORDERED: Calcium Carbonate + Vit D 1 TAB PO SCH (09:00)
--- NOTE | 2018-12-21 13:42 | DIS ---
DATE OF ADMISSION: 12/14/2018 DATE OF DISCHARGE: 12/20/2018 RESIDENT: William Rosa MD CONSULTS: GI, Dr. Urena on 12/18. PROCEDURES: Chest x-ray, 12/14, shows chronic changes of lung parenchyma, atherosclerosis. Lumbar spine MRI, 12/15, multi-level degenerative changes of the lumbar spine. No pathological enhancement of vertebrae or contents of the central spinal canal. Abdomen and pelvis CT, 12/16, small bilateral pleural effusions and bibasilar atelectasis, moderate-sized fixed hiatal/diaphragmatic hernia slightly larger than on the prior study. Nonspecific diffuse small bowel distention without evidence of dilation or obstruction. Small amount of free fluid in the abdomen and deep pelvis. Chest CT, 12/18, development of moderately large bilateral pleural effusions and bibasilar atelectasis. Development of interstitial changes which are on either side of the mediastinum, more predominant in the right upper lobe, but also some left upper lobe changes that would be compatible with pneumonitis. I do not have any history of radiation, although the paramediastinal location sometimes would possibly be a characteristic of this if the patient had any radiation change. Diffuse fatty change in the liver. Large hiatal hernia. PRIMARY DIAGNOSES: 1. Systemic inflammatory response syndrome without a source. 2. Malnutrition. 3. Chronic obstructive pulmonary disease. SECONDARY DIAGNOSES: 1. Diabetes. 2. Dementia. 3. Nicotine dependence. DISCHARGE MEDICATIONS: 1. Wellbutrin 75 mg daily. 2. Gabapentin 300 mg t.i.d. 3. Levaquin 500 mg p.o. till 01/31. Continue home medications. DISCONTINUED MEDICATIONS: None. HISTORY OF PRESENT ILLNESS: The patient was at a doctor's appointment on 12/14. He was sent from clinic due to dehydration along with weakness. The patient was unable to ambulate due to weakness, for the most part, the patient is able to ambulate with a four-point walker, but has required his wheelchair more frequently. He has been having frequent bowel and bladder incontinence over the past few months, but progressed last week. Patient reports normal soft stools 2-3 times per day. Urination unchanged. Lost 18 pounds since October. The patient denies loss of appetite, but reported food at the hospital tastes bad. The patient denies difficulty with eating, but the patient complains of change in the taste and not eating all food. Prostatitis. Tachycardia, leukocytosis, given vancomycin and Zosyn in the ER, procal unimpressive. Chest x-ray within normal limits. Blood culture shows no growth today. UA showed leukocytes 75, white blood cells 11-20. Flu was negative. Quant Gold pending. Started Levaquin 500 daily. Weight loss and urinary incontinence. Considering patient's history of cancer, this is suspicious for malignancy versus decreased p.o. intake with unrelated spinal pathology. Imaging was negative for any malignancy. ESR less than 1. TSH 1.3. FOBT positive. MELYSSA, normal size and firmness without tenderness or nodules. Consulted dietitian, PT, OT, and Speech. Started Ensure b.i.d. Normocytic normochromic anemia. Etiology unclear, pathology suggests inflammatory versus infectious. Iron 38, TIBC 124, folate 15.5, B12 885. Peripheral smear, leukocytosis with mild monocytosis, normochromic normocytic anemia. Reticulocyte count 0.267 immature reticulocyte fraction. FOBT positive. Recent lung nodule. Diagnosis on CT 1 month ago, suspected to be benign. Recommend repeat. Repeat chest CT did not show any nodules. COPD. Continue home meds and DuoNeb p.r.n. Heart failure, preserved ejection fraction. Last echo, EF 55% to 60%. Long-standing tobacco abuse. Encourage cessation. Protein-calorie malnutrition. Glucerna shakes. Heart healthy diet. Dietitian consulted. CEA 3.32. CA 19-9, 8. PSA 5.5. DISPOSITION: Stable. DISCHARGE INSTRUCTIONS: 1. Location: [facility]. 2. Diet: Consistent carb. 3. Activity: As tolerated. 4. Followup: Follow up with [facility] within 7 days. Job ID: [id number]
[2018-12-21 17:09] LABS: Neutral Fats And/Or Soaps Increased (.)
[2018-12-22 12:11] LABS: QuantiFERON-TB Gold Plus Negative (Negative)
== END 2018-12-20 17:00 | DRG 871 ==
LOC: ERS 16:09 → T4-B 19:50
PROVIDERS: ADMIT Student in an Organized Health Care Education/Training Program; ATTEND Student in an Organized Health Care Education/Training Program
DX: A41.9 Sepsis, unspecified organism (principal); E43 Unspecified severe protein-calorie malnutrition; Z68.1 Body mass index [BMI] 19.9 or less, adult; I50.32 Chronic diastolic (congestive) heart failure; R64 Cachexia; E87.1 Hypo-osmolality and hyponatremia; R65.10 Systemic inflammatory response syndrome (SIRS) of non-infectious origin without acute organ dysfunction; G89.29 Other chronic pain; M54.9 Dorsalgia, unspecified; M19.90 Unspecified osteoarthritis, unspecified site; J44.9 Chronic obstructive pulmonary disease, unspecified; K21.9 Gastro-esophageal reflux disease without esophagitis; F41.9 Anxiety disorder, unspecified; F31.9 Bipolar disorder, unspecified; F17.210 Nicotine dependence, cigarettes, uncomplicated; E86.0 Dehydration; F03.90 Unspecified dementia, unspecified severity, without behavioral disturbance, psychotic disturbance, mood disturbance, and anxiety; I25.10 Atherosclerotic heart disease of native coronary artery without angina pectoris; I11.0 Hypertensive heart disease with heart failure; G47.33 Obstructive sleep apnea (adult) (pediatric); R32 Unspecified urinary incontinence; N40.1 Benign prostatic hyperplasia with lower urinary tract symptoms; D64.9 Anemia, unspecified; R91.1 Solitary pulmonary nodule; F10.10 Alcohol abuse, uncomplicated; F19.10 Other psychoactive substance abuse, uncomplicated; N30.90 Cystitis, unspecified without hematuria; E11.42 Type 2 diabetes mellitus with diabetic polyneuropathy; T17.928A Food in respiratory tract, part unspecified causing other injury, initial encounter; X58.XXXA Exposure to other specified factors, initial encounter; Z79.899 Other long term (current) drug therapy; Z85.819 Personal history of malignant neoplasm of unspecified site of lip, oral cavity, and pharynx; Z90.49 Acquired absence of other specified parts of digestive tract; Z88.8 Allergy status to other drugs, medicaments and biological substances; Z79.4 Long term (current) use of insulin
CPT/HCPCS: 36415; 36416; 71045; 71260; 72158; 74177; 80048; 80053; 80202; 81003; 81015; 82274; 82306; 82378; 82607; 82705; 82746; 83516; 83540; 83550; 83605; 83690; 83880; 84145; 84153; 84443; 84484; 85025; 85046; 85060; 85652; 86140; 86301; 86480; 86705; 86706; 86780; 87040; 87340; 87389; 87521; 87804; 93005; 94760; 96361; 96365; 96367; A9577; J1650; J1815; J2543; J3370; J3490; Q9966

== ENCOUNTER 2019-01-24 16:15 | Emergency (ER) | payer MEDICARE ==
--- NOTE | 2019-01-24 17:19 | RAD ---
RIGHT HIP: 01/24/19 Two views. HISTORY: Fall. FINDINGS/IMPRESSION: There has been prior internal fixation of the right hip. Compression screw and plates transfix the in tertrochanteric fracture which was noted on the prior exam from 2018. No acute fracture identified. POS: TPC
--- NOTE | 2019-01-24 17:20 | RAD ---
AP PELVIS: 01/24/19 HISTORY: Fall. FINDINGS/IMPRESSION: There has been prior internal fixation of the right femur with compression screw and plate transfixin g an intertrochanteric fracture which was noted in 2018. Bones are mildly osteopenic. No definite fracture identified. Left hip appears intact. POS: TPC
[2019-01-24] MEDS ORDERED: Acetaminophen 500 MG TAB ONE (17:32)
== END 2019-01-24 18:23 | disposition home or self-care (01) ==
LOC: ERS 16:15
DX: S70.01XA Contusion of right hip, initial encounter (principal); E11.9 Type 2 diabetes mellitus without complications; I10 Essential (primary) hypertension; K21.9 Gastro-esophageal reflux disease without esophagitis; J44.9 Chronic obstructive pulmonary disease, unspecified; F17.210 Nicotine dependence, cigarettes, uncomplicated; F31.9 Bipolar disorder, unspecified; F41.9 Anxiety disorder, unspecified; W19.XXXA Unspecified fall, initial encounter
CPT/HCPCS: 72170

== ENCOUNTER 2019-01-26 15:35 | Emergency (ER) | payer MEDICARE ==
[2019-01-26 16:41] LABS: #Basophils 0.1 thou/uL (0.0-0.2); #Eosinphils 0.2 thou/uL (0.0-0.7); #Monocytes 1.5 thou/uL (0.11-0.59); #Neutrophils 11.4 thou/uL (1.40-6.50); %Basophils 0.3 % (0.0-1.0); %Eosinophils 1.2 % (0.0-10.0); %Lymphocytes 13.1 % (21.0-51.0); %Monocytes 10.2 % (0.0-10.0); %Neutrophils 75.2 % (42.0-75.0); Hemoglobin 11.7 g/dL (14.0-18.0); Mean Corpuscular HGB CONC 32.6 g/dL (32.0-36.0); Mean Corpuscular Hemoglobin 30.9 pg (27.0-31.0); Mean Corpuscular Volume 94.7 fL (78.0-98.0); Mean Platelet Volume 8.9 fL (7.4-10.4); Platelet Count 197 thou/uL (130-400); Red Blood Cell (RBC) Count 3.77 mill/uL (4.70-6.10); White Blood Cell (WBC) Count 15.2 thou/uL (4.8-10.8)
--- NOTE | 2019-01-26 16:44 | CT ---
CT BRAIN WITHOUT CONTRAST: HISTORY:Altered mental status COMPARISON:10/16/2018 FINDINGS: Changes of cortical atrophy and chronic small vessel ischemic disease are stable. No evidence of acute infarct, hemorrhage, midline shift or abnormal extra-axial fluid collections is seen. The ventricular size is appropriate and the basilar cisterns are patent. The bony calvarium is intact. IMPRESSION: No CT evidence of acute intracranial process.
--- NOTE | 2019-01-26 16:52 | RAD ---
XR Chest 1 View Portable HISTORY: Injury, chest pain COMPARISON: 12/14/2018 FINDINGS: The heart size is borderline. The lungs are well expanded without focal areas of consolidat ion, pneumothorax or pleural effusions. Chronic changes again seen. IMPRESSION: No radiographic evidence of acute cardiopulmonary process.
--- NOTE | 2019-01-26 16:54 | RAD ---
AP PELVIS: HISTORY: Hip pain. COMPARISON: 01/24/2019. FINDINGS: Internally fixed fracture of the right proximal femur with and without compression device is in good position and alignment. No acute fracture or dislocation is identified.
--- NOTE | 2019-01-26 16:56 | RAD ---
RIGHT HIP TWO VIEWS: INDICATIONS: Fall with pain. COMPARISON: 01/24/2019 FINDINGS: Grossly stable alignment of dynamic compression screw at the proximal right femur. No interval disloc ation of the right hip. A discrete fracture is not seen within the right hip. IMPRESSION: Stable postoperative right hip. POS: C
[2019-01-26 17:06] LABS: ALT (SGPT) 32 U/L (8-55); AST (SGOT) 23 U/L (5-34); Alkaline Phosphatase 222 U/L (40-110); Anion Gap 17 mmol/L (10-20); BUN (Urea Nitrogen) 9 mg/dL (8.4-25.7); Bilirubin, Total 0.7 mg/dL (0.2-1.2); CK (CPK) 47 U/L (30-200); Calc. Creatinine Clearance 0 mL/min (70-130); Carbon Dioxide 22 mmol/L (23-31); Chloride 98 mmol/L (98-107); Estimated GFR-MDRD Greater than 90; Glucose 160 mg/dL (80-115); Sodium 132 mmol/L (136-145)
[2019-01-26 17:32] LABS: Bilirubin Negative (Negative); Blood, Urine 1+ (Negative); Clarity Turbid (Clear); Glucose, Urine (Dipstick) Normal (Negative); Leukocyte 500 Leu/uL (Negative); Nitrite Negative (Negative); Protein, Urine (Dipstick) 10 mg/dL (Neg-Trace); Squamous Epithelial None Seen HPF (0-3); Urobilinogen Normal mg/dL (Less than 2); WBC/HPF Greater than 50 HPF (0-3)
[2019-01-26 17:43] LABS: Bacteria/HPF 1+ HPF (None Seen); Yeast-Budding None Seen HPF (None Seen)
[2019-01-26] MEDS ORDERED: Lidocaine 1% PF 5 ML VIAL ONE (17:54)
[2019-01-26] MEDS ORDERED: cefTRIAXone\\ROCEPHIN 1 GM VIAL ONE (17:54)
== END 2019-01-26 18:54 | disposition home or self-care (01) ==
LOC: ERS 15:35
DX: N39.0 Urinary tract infection, site not specified (principal); J44.9 Chronic obstructive pulmonary disease, unspecified; K21.9 Gastro-esophageal reflux disease without esophagitis; F41.9 Anxiety disorder, unspecified; F32.9 Major depressive disorder, single episode, unspecified; F17.210 Nicotine dependence, cigarettes, uncomplicated; M19.90 Unspecified osteoarthritis, unspecified site; I10 Essential (primary) hypertension; E11.9 Type 2 diabetes mellitus without complications; Z79.891 Long term (current) use of opiate analgesic
CPT/HCPCS: 36415; 70450; 71045; 72170; 80053; 81003; 81015; 82550; 84484; 85025; 87077; 87086; 87186; 93005; J0696; J2001

== ENCOUNTER 2019-01-28 22:43 | Inpatient (IN) | payer MEDICARE ==
[2019-01-28 23:25] LABS: #Basophils 0.1 thou/uL (0.0-0.2); #Eosinphils 0.1 thou/uL (0.0-0.7); #Monocytes 1.5 thou/uL (0.11-0.59); #Neutrophils 7.1 thou/uL (1.40-6.50); %Basophils 0.6 % (0.0-1.0); %Eosinophils 1.1 % (0.0-10.0); %Lymphocytes 18.8 % (21.0-51.0); %Monocytes 13.9 % (0.0-10.0); %Neutrophils 65.6 % (42.0-75.0); Hemoglobin 10.7 g/dL (14.0-18.0); Mean Corpuscular HGB CONC 32.9 g/dL (32.0-36.0); Mean Corpuscular Hemoglobin 31.6 pg (27.0-31.0); Mean Corpuscular Volume 95.9 fL (78.0-98.0); Mean Platelet Volume 8.3 fL (7.4-10.4); Platelet Count 257 thou/uL (130-400); RBC Distribution Width 13.7 % (11.5-14.5); Red Blood Cell (RBC) Count 3.39 mill/uL (4.70-6.10); White Blood Cell (WBC) Count 10.8 thou/uL (4.8-10.8)
[2019-01-28 23:46] LABS: ALT (SGPT) 22 U/L (8-55); AST (SGOT) 27 U/L (5-34); Albumin 3.1 g/dL (3.4-4.8); Alkaline Phosphatase 196 U/L (40-110); Anion Gap 14 mmol/L (10-20); BUN (Urea Nitrogen) 17 mg/dL (8.4-25.7); Bilirubin, Total 0.6 mg/dL (0.2-1.2); CK (CPK) 429 U/L (30-200); Calc. Creatinine Clearance 0 mL/min (70-130); Calcium 8.3 mg/dL (7.8-10.44); Carbon Dioxide 21 mmol/L (23-31); Chloride 101 mmol/L (98-107); Estimated GFR-MDRD 42; Globulin 2.5 g/dL (2.4-3.5); Glucose 109 mg/dL (80-115); Protein, Total 5.6 g/dL (5.8-8.1); Sodium 131 mmol/L (136-145)
[2019-01-29 00:06] LABS: Bilirubin Negative (Negative); Blood, Urine Negative (Negative); Clarity Turbid (Clear); Glucose, Urine (Dipstick) Normal (Negative); Leukocyte 500 Leu/uL (Negative); Nitrite Negative (Negative); Protein, Urine (Dipstick) 30 mg/dL (Neg-Trace); Squamous Epithelial 0-3 HPF (0-3); WBC/HPF Greater than 50 HPF (0-3)
[2019-01-29 00:08] LABS: Bacteria/HPF Rare-Few HPF (None Seen)
[2019-01-29] MEDS ORDERED: Piperacillin/Tazobactam 3.375 GM VIAL ONE (00:42)
[2019-01-29] MEDS ORDERED: Vancomycin HCl 750 MG in Sodium Chloride 0.9% 250 ML 250 ML IVPB SCH (01:00)
[2019-01-29] MEDS ORDERED: Dextrose 5% in Water 1,000 ML IV PRN (02:12)
[2019-01-29] MEDS ORDERED: Multivitamins, Adult 10 ML, Folic Acid 1 MG, Thiamine HCl 100 MG in Dextrose 5 %-0.45 %... IV SCH (02:12)
[2019-01-29] MEDS ORDERED: hydrALAZINE 20 MG/ML VIAL SLOW IVP PRN (02:12)
[2019-01-29 03:55] LABS: Hemoglobin 9.7 g/dL (14.0-18.0); Mean Corpuscular HGB CONC 33.2 g/dL (32.0-36.0); Mean Corpuscular Hemoglobin 31.6 pg (27.0-31.0); Mean Corpuscular Volume 95.2 fL (78.0-98.0); Mean Platelet Volume 8.9 fL (7.4-10.4); Platelet Count 244 thou/uL (130-400); RBC Distribution Width 13.7 % (11.5-14.5); Red Blood Cell (RBC) Count 3.07 mill/uL (4.70-6.10); White Blood Cell (WBC) Count 12.5 thou/uL (4.8-10.8)
[2019-01-29 04:00] LABS: Anion Gap 17 mmol/L (10-20); BUN (Urea Nitrogen) 17 mg/dL (8.4-25.7); Calc. Creatinine Clearance 32 mL/min (70-130); Calcium 7.7 mg/dL (7.8-10.44); Carbon Dioxide 15 mmol/L (23-31); Chloride 106 mmol/L (98-107); Estimated GFR-MDRD 51; Glucose 97 mg/dL (80-115); Phosphorus 4.3 mg/dL (2.3-4.7); Potassium 4.9 mmol/L (3.5-5.1); Sodium 133 mmol/L (136-145)
[2019-01-29 04:17] LABS: Band 1 % (5-11); Eosinophils 2 % (0-10); Lymphocytes 19 % (21-51); MDiff Complete? YES; Monocytes 13 % (0-10); Neutrophil 64 % (42-75); Reactive Lymphocytes 1 % (0-10)
--- NOTE | 2019-01-29 04:20 | HP ---
CHIEF COMPLAINT: "I am not feeling well." HISTORY OF PRESENT ILLNESS: Mr. Smiley is a 68-year-old gentleman who has multiple medical problems including hypertension, congestive heart failure, COPD, and diabetes mellitus, who was brought to the hospital via ambulance after his called because she was concerned about him. This was according to the patient. He is a bit of a poor historian; however, when I asked him what brought him to the hospital, he did say his was worried about him that he did not seem well. He says that he has some problems "with his back" and he cannot sleep due to pain. He says the pain has been off and on. He basically denies any other problems. He denies any fevers or chills. No nausea. No vomiting. No diarrhea or change in bowels. And in fact, when I came into the room, he was asking "when he could go home." The patient, however, is extremely cachectic in appearance. He is very disheveled. The ER physician told me that when he was brought in, there were numerous insects and roaches on him that they actually had to pick off. Due to concerns for dehydration and malnutrition, he is being placed in observation. The patient is alert to person and place, but he was unable to tell me what year it was. Currently, again, he really has no complaints. When asked if he gets enough to eat, he tells me he eats "just fine" and he does not feel that he needs any additional help at home. He says his prepares the meals. Otherwise he does not appear to be in anyway concerned about his current situation. REVIEW OF SYSTEMS: All systems were reviewed and are negative except for that mentioned in the History of Present Illness. PAST MEDICAL HISTORY: Significant for diabetes mellitus, chronic diastolic heart failure. His last echo was in June 2017 and at that time his EF was 55% to 60%. Has a history of COPD, mouth cancer, alcohol abuse, tobacco abuse, gastroesophageal reflux disease, BPH, and obstructive sleep apnea. 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 SOCIAL HISTORY: He lives with his . He says that he has 3 children and they live in [place]. He admits to smoking a pack a day, he says for many years. He says he occasionally drinks wine. He says that he does not drink "too much." He does admit to using marijuana and when asked if he uses any illicit drugs, he says it depends on which ones they are, but he will not really elaborate. FAMILY HISTORY: Significant for heart disease. ALLERGIES: NO KNOWN DRUG ALLERGIES. CURRENT MEDICATIONS: He did not know his medicines and initially he said he was taking all of them, but then I asked him if he misses any, he shook his head yes and these will need to be reconciled. PHYSICAL EXAMINATION: GENERAL: He is awake, alert to person and place but not the time. He is alert to situation. He is extremely cachectic in appearance and disheveled. VITAL SIGNS: His blood pressure was approximately 113/70, his heart rate was 83, respiratory rate of 15, temperature was 99.5. HEENT: His pupils are equal, round, and reactive. Extraocular muscles are intact. His sclerae are anicteric. Throat, he has extremely dry mucous membranes with cracking of his tongue. He has poor dentition and he is practically edentulous. He has approximately 3 teeth on the bottom, in the front, but the rest are absent. NECK: There is no adenopathy, no bruits. LUNGS: Essentially clear to auscultation. There is no wheezing, no rales, no rhonchi. CARDIOVASCULAR: He had a normal S1, S2. It sounded like an S3, gallop. There is a soft systolic flow murmur. No rubs. ABDOMEN: Scaphoid. It is soft, nontender, and nondistended. Positive for bowel sounds. EXTREMITIES: He has severe muscle wasting and that is pretty much throughout. He has no joint effusions, no erythema, no redness. NEUROLOGICAL: He is moving all of his extremities and it is grossly nonfocal. SKIN: He has dry scaling skin throughout. On his bony prominences like on the shoulders and on the buttocks, there is a stage I decubitus with some patchy erythema. LABORATORY WORK: His sodium is 131, potassium 5.0, chloride is 101, CO2 is 21, BUN is 17, creatinine 1.65, glucose is 109. Lactic acid was 2.3, alkaline phosphatase was 196, creatine kinase was 429. White blood cell count is 10.8, hemoglobin is 10.7, hematocrit is 32.5, and platelet count is 257. Yesterday chest x-ray was being done when I was evaluating the patient and urinalysis is currently pending. ASSESSMENT: This is a pleasant 68-year-old gentleman, who is being admitted for generalized weakness and extreme cachexia and also is found to have acute kidney injury and elevated lactic acid. 1. Acute kidney injury, likely due to poor oral intake. He will be started on IV fluid resuscitation. If this should improve, then we will forego doing any renal ultrasound; however, should it not improve then consider renal ultrasound. 2. Elevated lactic acid. Urinalysis has been taken as well as a urine culture and we will also get a chest x-ray to see if he has any source of infection and if so, then antibiotics will be started. 3. History of congestive heart failure, looks like he has a preserved ejection fraction. Currently, he is volume depleted. We will consider echocardiogram since he has not had one recently. 4. Severe protein-calorie malnutrition. We will get a dietitian consult as well as a Case Management consult for an APS evaluation. Our ID talked with the patient that we will need to check out his home situation. 5. History of alcohol abuse. We will place him on thiamine and folic acid replacement and place him on an ASE withdrawal protocol. Otherwise, further recommendations to follow. Job ID: [id number]
[2019-01-29 05:30] LABS: Lactic Acid 1.5 mmol/L (0.5-2.2)
--- NOTE | 2019-01-29 07:39 | RAD ---
XR Chest 1 View Portable History: Sepsis. Hypoxia Comparison: Radiograph 2 days prior Findings: Multiple left-sided posterior rib fractures which are chronic. No focal or confluent airspa ce consolidation, pneumothorax, or effusion. Heart size continues to be enlarged. Old left distal clavicular fracture. Impression: Unchanged examination of the chest. No acute intrathoracic abnormality.
[2019-01-29] MEDS ORDERED: Piperacillin/Tazobactam 3.375 GM in Sodium Chloride 0.9% 100 ML IVPB SCH (08:00)
[2019-01-29] MEDS ORDERED: FLU VACC TS2019-20(65YR UP)/PF 180 MCG/0.5 ML SYRINGE IM ONE (09:00)
[2019-01-29] MEDS ORDERED: Prevnar 13-Val Conj/PF 0.5 ML SYRINGE IM ONE (09:00)
[2019-01-29] MEDS: Famotidine 20 MG TAB PO SCH ×2 (09:18→20:48)
[2019-01-29] MEDS ORDERED: Acetaminophen/Codeine 30-300mg Tablet PO PRN (11:52)
--- NOTE | 2019-01-29 11:56 | PDOC.HOSPP ---
- Subjective Encounter Date: 01/29/19 Encounter Time: 11:51 Subjective: Patient seen and examined for Sepsis. Feels better. No CP/SOB/fever/N/V. No other complaints. No overnight events - Objective Vital Signs & Weight: Vital Signs (12 hours) Temp Pulse Resp BP BP Pulse Ox 01/29/19 11:19 97.5 F L 93 16 114/73 100 01/29/19 07:24 97.6 F 88 16 135/79 100 01/29/19 04:51 100 01/29/19 02:20 97.5 F L 95 16 114/68 100 Weight Weight 94 lb 12.78 oz I&O: 01/28/19 01/29/19 01/30/19 06:59 06:59 06:59 Intake Total 420 Output Total 550 Balance -130 Result Diagrams: 01/29/19 03:19 01/29/19 03:19 Additional Labs: Accuchecks 01/29/19 01/29/19 11:24 05:41 POC Glucose 233 H 131 H Radiology Reviewed by me: Yes (CXR - no infiltrate) Hospitalist ROS - Review of Systems Respiratory: denies: cough, dry, shortness of breath, hemoptysis, SOB with excertion, pleuritic pain, sputum, wheezing, other Cardiovascular: denies: chest pain, palpitations, orthopnea, paroxysmal noc. dyspnea, edema, light headedness, other Gastrointestinal: denies: nausea, vomiting, abdominal pain, diarrhea, constipation, melena, hematochezia, other - Medication Medications: Active Medications Generic Name Dose Route Start Last Admin Trade Name Freq PRN Reason Stop Dose Admin Famotidine 20 mg 01/29/19 09:00 01/29/19 09:18 Pepcid PO 20 mg BID ALBERTO Administration Multivitamins 10 ml/ Folic 1,011.2 mls @ 125 mls/hr 01/29/19 02:12 01/29/19 05:04 Acid 1 mg/ Thiamine HCl 100 mg IV 1,011.2 mls / Dextrose/Sodium Chloride Q24HR ALBERTO Administration Piperacillin Sod/Tazobactam 100 mls @ 200 mls/hr 01/29/19 08:00 01/29/19 09: 17 Sod 3.375 gm/ Sodium Chloride IVPB 100 mls 0200,0800,1400,2000 ALBERTO Administration - Exam General Appearance: NAD Neck: supple, no JVD Heart: RRR, no gallops, no rubs, normal peripheral pulses Respiratory: CTAB, no wheezes, no rales, no ronchi Gastrointestinal: soft, non-tender, non-distended, normal bowel sounds Extremities: no cyanosis, no edema Neurological: no new deficit Psychiatric: normal affect, A&O x 3 Hosp A/P - Plan PT/OT, DVT proph w/SCDs Severe Sepsis due to UTI RENE Severe PEM Lactic acidosis DM2 with diabetic neuropathy HTN COPD GERD BPH Anxiety Depression - mild, stable Tobacco dep Alcohol dep Large HH PLAN: Change IV Zosyn to Ceftriaxone Await cultures Check postvoid residual AM labs Resume home meds except Metformin PT/OT Add Heparin for DVT prophylaxis Adjust IVF Add Glucerna
[2019-01-29] MEDS: HumaLOG 300 UNITS/3 ML VIAL SC PRN ×2 (12:09→20:43)
[2019-01-29] MEDS: Sodium Chloride 0.9% 1,000 ML IV SCH (13:12)
[2019-01-29] MEDS: Ascorbic Acid 500 mg Chewable Tablet PO SCH ×2 (13:13→13:23)
[2019-01-29] MEDS: Calcium Carbonate + Vit D 1 TAB PO SCH ×2 (13:13→13:24)
[2019-01-29] MEDS: cefTRIAXone\\ROCEPHIN 1 GM in Sodium Chloride 0.9% 100 ML IVPB SCH (13:14)
[2019-01-29] MEDS: Gabapentin 300 MG CAP PO SCH ×2 (15:40→20:48)
[2019-01-29] MEDS: Tamsulosin HCl 0.4 MG CAP PO SCH (20:48)
[2019-01-29] MEDS: Atorvastatin Calcium 40 MG TAB PO SCH (20:48)
[2019-01-29] MEDS: risperiDONE 1 MG TAB PO SCH (20:48)
[2019-01-29] MEDS: Heparin 5,000 UNITS/ML VIAL SC SCH (20:49)
[2019-01-29] MEDS ORDERED: Insulin Glargine 5 UNITS in Pre-Filled Syringe 1 EACH SC SCH (21:00)
[2019-01-30] MEDS: Sodium Chloride 0.9% 1,000 ML IV SCH ×2 (03:02→20:00)
[2019-01-30 05:41] LABS: ALT (SGPT) 23 U/L (8-55); AST (SGOT) 31 U/L (5-34); Albumin 2.4 g/dL (3.4-4.8); Alkaline Phosphatase 194 U/L (40-110); Anion Gap 9 mmol/L (10-20); BUN (Urea Nitrogen) 10 mg/dL (8.4-25.7); Bilirubin, Total 0.4 mg/dL (0.2-1.2); Calc. Creatinine Clearance 54 mL/min (70-130); Calcium 7.8 mg/dL (7.8-10.44); Carbon Dioxide 22 mmol/L (23-31); Chloride 107 mmol/L (98-107); Estimated GFR-MDRD Greater than 90; Globulin 2.3 g/dL (2.4-3.5); Glucose 109 mg/dL (80-115); Magnesium 1.4 mg/dL (1.6-2.6); Potassium 4.1 mmol/L (3.5-5.1); Protein, Total 4.7 g/dL (5.8-8.1); Sodium 134 mmol/L (136-145)
[2019-01-30 06:28] LABS: Band 7 % (5-11); Eosinophils 3 % (0-10); Hemoglobin 8.9 g/dL (14.0-18.0); Lymphocytes 36 % (21-51); MDiff Complete? YES; Mean Corpuscular HGB CONC 31.1 g/dL (32.0-36.0); Mean Corpuscular Hemoglobin 29.4 pg (27.0-31.0); Mean Corpuscular Volume 94.3 fL (78.0-98.0); Mean Platelet Volume 8.1 fL (7.4-10.4); Monocytes 12 % (0-10); Neutrophil 42 % (42-75); Platelet Count 273 thou/uL (130-400); RBC Distribution Width 13.6 % (11.5-14.5); Red Blood Cell (RBC) Count 3.04 mill/uL (4.70-6.10); White Blood Cell (WBC) Count 7.2 thou/uL (4.8-10.8)
[2019-01-30] MEDS: Heparin 5,000 UNITS/ML VIAL SC SCH ×2 (08:39→21:51)
[2019-01-30] MEDS: Multivit, Therapeutic 1 TAB PO SCH (08:47)
[2019-01-30] MEDS: Gabapentin 300 MG CAP PO SCH ×3 (08:47→21:50)
[2019-01-30] MEDS: buPROPion 75 MG TAB PO SCH (08:47)
[2019-01-30] MEDS: Cyanocobalamin (Vitamin B-12) 1,000 MCG TAB PO SCH (08:47)
[2019-01-30] MEDS: Aspirin 81 mg Enteric Coated Tablet PO SCH (08:48)
[2019-01-30] MEDS: Famotidine 20 MG TAB PO SCH ×2 (08:48→21:49)
[2019-01-30] MEDS: Ascorbic Acid 500 mg Chewable Tablet PO SCH (08:48)
[2019-01-30] MEDS: Thiamine 100 MG TAB PO SCH (08:48)
[2019-01-30] MEDS: pyridOXINE 50 MG (B6) TAB PO SCH (08:49)
[2019-01-30] MEDS: Calcium Carbonate + Vit D 1 TAB PO SCH (08:49)
[2019-01-30] MEDS: Folic Acid 1 MG TAB PO SCH (08:49)
[2019-01-30] MEDS ORDERED: Magnesium Sulfate 4 GM in Sodium Chloride 0.9% 250 ML 250 ML IVPB SCH (09:45)
[2019-01-30] MEDS: HumaLOG 300 UNITS/3 ML VIAL SC PRN ×3 (10:49→22:02)
[2019-01-30] MEDS: Citrucel 500 MG TAB PO SCH (11:05)
[2019-01-30] MEDS ORDERED: Insulin Glargine 10 UNITS in Pre-Filled Syringe SC SCH (16:30)
[2019-01-30] MEDS: Acetaminophen/Codeine 30-300mg Tablet PO PRN ×2 (17:47→22:18)
[2019-01-30] MEDS: cefTRIAXone\\ROCEPHIN 1 GM in Sodium Chloride 0.9% 100 ML IVPB SCH (20:00)
--- NOTE | 2019-01-30 20:57 | PDOC.HOSPP ---
- Subjective Encounter Date: 01/30/19 Encounter Time: 16:00 Subjective: Patient seen and examined for AMS. Mentation improving. No N/V. No new complaints. No overnight events - Objective Vital Signs & Weight: Vital Signs (12 hours) Temp Pulse Resp BP Pulse Ox 01/30/19 20:13 97.7 F 100 16 129/86 100 01/30/19 15:26 97.4 F L 94 18 127/82 100 01/30/19 11:00 97.6 F 104 H 12 111/72 99 01/30/19 09:00 95 Weight Admit Weight 94 lb 12.78 oz Weight 94 lb 12.78 oz I&O: 01/29/19 01/30/19 01/31/19 06:59 06:59 06:59 Intake Total 420 3170 1500 Output Total 550 2950 1525 Balance -130 220 -25 Result Diagrams: 01/30/19 04:57 01/30/19 04:57 Additional Labs: Accuchecks 01/30/19 01/30/19 01/30/19 15:40 10:36 05:39 POC Glucose 390 H 283 H 114 H 01/29/19 20:42 POC Glucose 419 H Microbiology 01/28/19 23:40 Urine morales catheter Urine Culture - Preliminary Presumptive Pseudomonas 01/28/19 23:38 Venous blood - Left Arm Blood Culture - Preliminary Specimen has been received and culture in progress. No Growth to date. 01/28/19 23:14 Venous blood - Left Arm Blood Culture - Preliminary Specimen has been received and culture in progress. No Growth to date. Radiology Reviewed by me: Yes (CXR - negative) Hospitalist ROS - Review of Systems Respiratory: denies: cough, dry, shortness of breath, hemoptysis, SOB with excertion, pleuritic pain, sputum, wheezing, other Cardiovascular: denies: chest pain, palpitations, orthopnea, paroxysmal noc. dyspnea, edema, light headedness, other Gastrointestinal: denies: nausea, vomiting, abdominal pain, diarrhea, constipation, melena, hematochezia, other - Medication Medications: Active Medications Generic Name Dose Route Start Last Admin Trade Name Freq PRN Reason Stop Dose Admin Acetaminophen/Codeine Phosphate 1 tab 01/30/19 16:56 01/30/19 17:47 Tylenol #3 PO 1 tab Q4H PRN Administration Severe Pain (7-10) Ascorbic Acid 500 mg 01/30/19 09:00 01/30/19 08:48 Vitamin C PO 500 mg DAILY ALBERTO Administration Aspirin 81 mg 01/30/19 09:00 01/30/19 08:48 Ecotrin PO 81 mg DAILY ALBERTO Administration Atorvastatin Calcium 40 mg 01/29/19 21:00 01/29/19 20:48 Lipitor PO 40 mg HS ALBERTO Administration Bupropion HCl 75 mg 01/30/19 09:00 01/30/19 08:47 Wellbutrin PO 75 mg DAILY ALBERTO Administration Calcium/Vitamin D 1 tab 01/30/19 09:00 01/30/19 08:49 Caltrate 600 + Vit D PO 1 tab DAILY [facility] Administration Cyanocobalamin 5,000 mcg 01/30/19 09:00 01/30/19 08:47 Vitamin B-12 PO 5,000 mcg DAILY ALBERTO Administration Famotidine 20 mg 01/29/19 09:00 01/30/19 08:48 Pepcid PO 20 mg BID ALBERTO Administration Folic Acid 1 mg 01/30/19 09:00 01/30/19 08:49 Folvite PO 1 mg DAILY ALBERTO Administration Gabapentin 300 mg 01/29/19 15:00 01/30/19 16:36 Neurontin PO 300 mg TID ALBERTO Administration Heparin Sodium (Porcine) 5,000 units 01/29/19 21:00 01/30/19 08:39 Heparin SC 5,000 units BID ALBERTO Administration Insulin Human Lispro 0 units 01/29/19 02:12 01/30/19 16:35 Humalog SC 5 unit .BEDTIME SLIDING SC PRN Administration Bedtime Correctional Scale Methylcellulose 500 mg 01/30/19 09:00 01/30/19 11:05 Citrucel PO Not Given DAILY [facility] Multivitamins 1 tab 01/30/19 09:00 01/30/19 08:47 Theragran PO 1 tab DAILY ALBERTO Administration Pyridoxine HCl 50 mg 01/30/19 09:00 01/30/19 08:49 Vitamin B 6 PO 50 mg DAILY ALBERTO Administration Risperidone 1 mg 01/29/19 21:00 01/29/19 20:48 Risperidone PO 1 mg HS ALBERTO Administration Tamsulosin HCl 0.4 mg 01/29/19 21:00 01/29/19 20:48 Flomax PO 0.4 mg HS ALBERTO Administration Thiamine HCl 100 mg 01/30/19 09:00 01/30/19 08:48 Thiamine PO 100 mg DAILY ALBERTO Administration - Exam General Appearance: NAD Neck: supple, no JVD Heart: RRR, no gallops Respiratory: CTAB, no rales Gastrointestinal: soft, non-tender, normal bowel sounds Extremities: no edema Hosp A/P - Plan PT/OT, DVT proph w/SCDs Severe Sepsis due to Pseudomonas UTI RENE Severe PEM Lactic acidosis DM2 with diabetic neuropathy Hypomagnesemia HTN COPD GERD BPH Anxiety Depression - mild, stable Tobacco dep Alcohol dep Large HH PLAN: Patient does not have IV access Will start PO Cipro Await cultures Check postvoid residual after dc morales in AM Increase Lantus dose Change sliding scale to moderate Replace Magnessium Cont other meds SNF eval
[2019-01-30] MEDS ORDERED: Cefdinir 300 MG CAP PO SCH (21:00)
[2019-01-30] MEDS: risperiDONE 1 MG TAB PO SCH (21:49)
[2019-01-30] MEDS: Ciprofloxacin 500 MG TAB PO SCH (21:50)
[2019-01-30] MEDS: Atorvastatin Calcium 40 MG TAB PO SCH (21:50)
[2019-01-30] MEDS: Magnesium Chloride 64 MG TAB PO SCH (21:50)
[2019-01-30] MEDS: Tamsulosin HCl 0.4 MG CAP PO SCH (21:50)
[2019-01-31] MEDS: Ciprofloxacin 500 MG TAB PO SCH ×2 (06:14→20:04)
[2019-01-31] MEDS: Acetaminophen/Codeine 30-300mg Tablet PO PRN ×3 (06:19→21:26)
[2019-01-31] MEDS: Heparin 5,000 UNITS/ML VIAL SC SCH ×2 (08:15→21:25)
[2019-01-31] MEDS: Aspirin 81 mg Enteric Coated Tablet PO SCH (08:16)
[2019-01-31] MEDS: Thiamine 100 MG TAB PO SCH (08:17)
[2019-01-31] MEDS: Gabapentin 300 MG CAP PO SCH ×3 (08:17→20:03)
[2019-01-31] MEDS: Folic Acid 1 MG TAB PO SCH (08:17)
[2019-01-31] MEDS: Calcium Carbonate + Vit D 1 TAB PO SCH (08:17)
[2019-01-31] MEDS: Cyanocobalamin (Vitamin B-12) 1,000 MCG TAB PO SCH (08:18)
[2019-01-31] MEDS: Famotidine 20 MG TAB PO SCH ×2 (08:18→20:04)
[2019-01-31] MEDS: Ascorbic Acid 500 mg Chewable Tablet PO SCH (08:18)
[2019-01-31] MEDS: buPROPion 75 MG TAB PO SCH (08:19)
[2019-01-31] MEDS: Multivit, Therapeutic 1 TAB PO SCH (08:19)
[2019-01-31] MEDS: pyridOXINE 50 MG (B6) TAB PO SCH (08:21)
[2019-01-31] MEDS: Magnesium Chloride 64 MG TAB PO SCH ×2 (08:24→20:03)
[2019-01-31] MEDS: Insulin Glargine 10 UNITS in Pre-Filled Syringe SC SCH (09:25)
[2019-01-31] MEDS: Citrucel 500 MG TAB PO SCH (09:26)
[2019-01-31] MEDS: HumaLOG 300 UNITS/3 ML VIAL SC PRN ×2 (12:11→17:53)
[2019-01-31 12:16] VITALS: BMI 12.4
--- NOTE | 2019-01-31 15:41 | PDOC.FM ---
- Subjective Subjective: Mr Smiley is a 68yo gentleman who is a patient of Dr Frederick at [facility]. He is now on PO Cipro and mental status has improved. He was recently at a SNF and discharged with plan for HH. However HH was not yet set up at his home when 3 days ago he had a mechanical fall while holding a gallon of milk when he let go of his walker and lost his balance. He does reports some right sided pain related to the fall. He is on Tylenol #3 at home. This morning mentation improved and he was able to tell the hospitalist who his PCP was therefore we have resumed care. He is pending placement at Rehab. - Objective MAR Reviewed: Yes Vital Signs & Weight: Vital Signs (12 hours) Temp Pulse Resp BP Pulse Ox 01/31/19 11:54 97.7 F 99 16 137/94 H 100 01/31/19 08:00 97.4 F L 111 H 16 114/77 98 Weight Admit Weight 43 kg Weight 43 kg I&O: 01/30/19 01/31/19 02/01/19 06:59 06:59 06:59 Intake Total 3170 1980 Output Total 2950 2925 Balance 220 -945 Result Diagrams: 01/30/19 04:57 01/30/19 04:57 Phys Exam - Physical Examination Constitutional: NAD HEENT: moist MMs Neck: supple Respiratory: no wheezing, clear to auscultation bilateral Cardiovascular: RRR, no significant murmur Gastrointestinal: soft, non-tender, positive bowel sounds Musculoskeletal: no edema Neurological: moves all 4 limbs Psychiatric: normal affect, A&O x 3 Deviation from normal: multiple bruises and skin tears on bilateral arms Dx/Plan - Plan Plan: Pseudomonas UTI - Urine culture pansensitive. - Continue Cipro Deconditioning - PT/OT consulted - Pending Rehab placement - CM consulted and rehab screen placed DM2 with diabetic neuropathy - Continue Lantus 10U in AM, 5U HS - CC diet, hypoglycemic protocol Hypomagnesemia - 1.4 - Continue replacement will recheck with AM labs HTN - Continue home meds COPD - Continue home meds GERD - Continue famotidine BPH - Continue home meds Anxiety/Depression Tobacco Use disorder - Inventory Manager on cessation Alcohol Use disorder - Continue Thiamine and ASE protocol RENE, resolved Sepsis 2/2 UTI, resolved Code Status: FULL DVT ppx: Lovenox Addendum - Attending - Attending Attestation Date/Time: 01/31/19 [id number] I personally evaluated the patient and discussed the management with Dr. Oconnor. I agree with the History, Examination, Assessment and Plan documented above with any addition or exceptions noted below.
[2019-01-31] MEDS ORDERED: Lorazepam 2 MG/ML VIAL SLOW IVP PRN (17:06)
[2019-01-31] MEDS: chlordiazePOXIDE HCl 5 MG CAP PO SCH (20:03)
[2019-01-31] MEDS: Atorvastatin Calcium 40 MG TAB PO SCH (20:04)
[2019-01-31] MEDS: Tamsulosin HCl 0.4 MG CAP PO SCH (20:04)
[2019-01-31] MEDS: risperiDONE 1 MG TAB PO SCH (20:04)
[2019-01-31] MEDS: Insulin Glargine 5 UNITS in Pre-Filled Syringe 1 EACH SC SCH (21:33)
[2019-01-31] MEDS ORDERED: Dextrose 50% Abboject 50 ML SYRINGE IVP SCH (22:00)
[2019-02-01] MEDS: Acetaminophen/Codeine 30-300mg Tablet PO PRN ×3 (05:09→21:56)
[2019-02-01] MEDS: Ciprofloxacin 500 MG TAB PO SCH ×2 (05:10→20:41)
--- NOTE | 2019-02-01 08:02 | PDOC.FM ---
- Subjective Subjective: Doing well this morning. No concerns or overnight events. Talking to on phone. Alert and oriented. Denies any fever/chills, CP, SOB, n/v. Tolerating PO. CM assisting with placement. - Objective MAR Reviewed: Yes Vital Signs & Weight: Vital Signs (12 hours) Temp Pulse Resp BP Pulse Ox 02/01/19 07:51 97.6 F 112 H 16 137/95 H 97 02/01/19 03:46 97.4 F L 97 16 105/72 99 01/31/19 23:38 97.6 F 98 16 107/73 100 Weight Admit Weight 43 kg Weight 43 kg I&O: 01/31/19 02/01/19 02/02/19 06:59 06:59 06:59 Intake Total 1980 3040 Output Total 2925 1515 Balance -945 1525 Result Diagrams: 01/30/19 04:57 01/30/19 04:57 Phys Exam - Physical Examination Constitutional: NAD (alert and oriented, talking to on phone) HEENT: moist MMs Neck: supple Respiratory: no wheezing, no rales, no rhonchi, clear to auscultation bilateral Cardiovascular: RRR, no significant murmur, no rub Gastrointestinal: soft, non-tender, no distention, positive bowel sounds Musculoskeletal: no edema, pulses present Neurological: non-focal Psychiatric: normal affect Dx/Plan (1) Sepsis secondary to UTI Code(s): A41.9 - SEPSIS, UNSPECIFIED ORGANISM; N39.0 - URINARY TRACT INFECTION, SITE NOT SPECIFIED Status: Resolved (2) Anemia of chronic disease Code(s): D63.8 - ANEMIA IN OTHER CHRONIC DISEASES CLASSIFIED ELSEWHERE Status : Chronic (3) HLD (hyperlipidemia) Code(s): E78.5 - HYPERLIPIDEMIA, UNSPECIFIED Status: Chronic (4) HTN (hypertension) Code(s): I10 - ESSENTIAL (PRIMARY) HYPERTENSION Status: Chronic Qualifiers: Hypertension type: essential hypertension Qualified Code(s): I10 - Essential (primary) hypertension (5) Type 2 diabetes mellitus Status: Chronic Qualifiers: Diabetes mellitus remote computer terminal operator insulin use: with remote computer terminal operator use Diabetes mellitus complication detail: with polyneuropathy (6) Metabolic encephalopathy Code(s): G93.41 - METABOLIC ENCEPHALOPATHY Status: Resolved - Plan Plan: 68yo CM with h/o DMII, HTN, COPD, BPH presented in sepsis 2/2 Pseudomonas UTI, now at baseline with VSS awaiting placement. # Sepsis 2/2 Pseudomonas UTI - VSS, symptoms resolved, AMS resolved - Urine culture pansensitive. - Continue Cipro Day 05/11 #Deconditioning - PT/OT consulted - Pending Rehab placement - CM consulted and rehab screen placed. APS notified 2/2 poor living conditions and condition of pt upon arrival #DM2 with diabetic neuropathy - Continue Lantus 10U in AM, 5U HS. Cont metformin. - CC diet, hypoglycemic protocol #Hypomagnesemia - 1.4. 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 Medically stable. Pending CM assistance for rehab placement.
[2019-02-01] MEDS: Cyanocobalamin (Vitamin B-12) 1,000 MCG TAB PO SCH (08:23)
[2019-02-01] MEDS: Aspirin 81 mg Enteric Coated Tablet PO SCH (08:23)
[2019-02-01] MEDS: Multivit, Therapeutic 1 TAB PO SCH (08:24)
[2019-02-01] MEDS: Famotidine 20 MG TAB PO SCH ×2 (08:24→20:42)
[2019-02-01] MEDS: Ascorbic Acid 500 mg Chewable Tablet PO SCH (08:24)
[2019-02-01] MEDS: buPROPion 75 MG TAB PO SCH (08:24)
[2019-02-01] MEDS: Citrucel 500 MG TAB PO SCH (08:24)
[2019-02-01] MEDS: Folic Acid 1 MG TAB PO SCH (08:24)
[2019-02-01] MEDS: Calcium Carbonate + Vit D 1 TAB PO SCH (08:24)
[2019-02-01] MEDS: Thiamine 100 MG TAB PO SCH (08:24)
[2019-02-01] MEDS: pyridOXINE 50 MG (B6) TAB PO SCH (08:24)
[2019-02-01] MEDS: Gabapentin 300 MG CAP PO SCH ×3 (08:24→20:42)
[2019-02-01] MEDS: Heparin 5,000 UNITS/ML VIAL SC SCH (08:25)
[2019-02-01] MEDS: Magnesium Chloride 64 MG TAB PO SCH ×2 (08:28→21:56)
[2019-02-01] MEDS: metFORMIN 500 MG TAB PO SCH ×2 (09:15→20:42)
[2019-02-01] MEDS: Insulin Glargine 10 UNITS in Pre-Filled Syringe SC SCH (10:34)
--- NOTE | 2019-02-01 11:43 | PRG ---
DATE OF SERVICE: 02/01/2019 Mr. Smiley is a 68-year-old man, who was originally admitted to [facility]. He has been transferred to our service with a urinary tract infection. He is on appropriate antibiotic therapy and is clinically improved. He will likely be ready for discharge in 1 to 2 days. Job ID: [id number]
[2019-02-01] MEDS: HumaLOG 300 UNITS/3 ML VIAL SC PRN (12:07)
[2019-02-01 12:54] LABS: Anion Gap 13 mmol/L (10-20); BUN (Urea Nitrogen) 13 mg/dL (8.4-25.7); Calc. Creatinine Clearance 50 mL/min (70-130); Calcium 8.5 mg/dL (7.8-10.44); Carbon Dioxide 23 mmol/L (23-31); Chloride 104 mmol/L (98-107); Estimated GFR-MDRD 88; Glucose 146 mg/dL (80-115); Magnesium 1.5 mg/dL (1.6-2.6); Sodium 133 mmol/L (136-145)
[2019-02-01] MEDS ORDERED: Dextrose 50% Abboject 50 ML SYRINGE SLOW IVP SCH (13:45)
[2019-02-01] MEDS ORDERED: Insulin Regular 300 UNITS/3 ML VIAL IVP SCH (13:45)
[2019-02-01] MEDS ORDERED: Albuterol Sulfate 2.5 mg/3 ml Neb NEB SCH (13:45)
[2019-02-01] MEDS ORDERED: Calcium Gluc 4.6 MEQ/10 ML (100 MG/ML) SLOW IVP SCH (13:45)
[2019-02-01] MEDS ORDERED: Magnesium 2 GM/50 ML 2 GM in Premix Bag 1 BAG IVPB SCH (13:45)
--- NOTE | 2019-02-01 14:24 | PDOC.EVN ---
Event Note - Event Note Event Note: Notified by RN at approx. 0130 that patient had critical K of 7.0. Upon assessment patient is asymptomatic. Upon exam patient has baseline tremor. Stat EKG ordered, shows sinus tachycardia HR 117, no ST changes, no T wave changes, no changes from admission EKG. Will order Regular insulin 10 units, D50 push given immediately afterward, albuterol nebulizer x 1, calcium gluconate, and Kayexalate. Will repeat a BMP in 1-1.[address] Will place transfer orders to telemetry unit.
--- NOTE | 2019-02-01 14:25 | PQF ---
DATE: 02-01-19 ATTN: DR. JAXON VIKC Please exercise your independent, professional judgment in responding to the clarification form. Clinical indicators are provided on the bottom of this form for your review Please check appropriate box(s): [ x ] Hyponatremia - chronic [ ] Insignificant Lab Values [ ] Other diagnosis [ ] Unable to determine In addition, please specify: Present on Admission (POA): [ x ] Yes [ ] No [ ] Unable to determine For continuity of documentation, please document condition throughout progress notes and discharge summary. Thank You. CLINICAL INDICATORS - SIGNS / SYMPTOMS/ LABS are present in the medical record: Lab Results: SODIUM: 01-28-19: 131 01-29-19: 133 01-30-19: 134 02-01-19: 133 RISK FACTORS: H&P: 01-29-19: DUE TO CONCERNS FOR DEHYDRATION AND MALNUTRITION , RENE , SEVERE PROTEIN-CALORIE MALNUTRITION TREATMENT: ER NOTES 01-29-19: NS IVF X 2 L SERIES OF ELECTROLYTE LABS 01-28-19 TO 02-01-19 (This form is maintained as a part of the permanent medical record) 2014 [employer] All Rights Reserved [email or web address] Office: [phone] [email or web address]
[2019-02-01] MEDS: Dextrose 50% Abboject 50 ML SYRINGE SLOW IVP PRN (16:46)
--- NOTE | 2019-02-01 16:57 | EKG ---
Test Reason : Blood Pressure : / mmHG Vent. Rate : 117 BPM Atrial Rate : 117 BPM P-R Int : 166 ms QRS Dur : 090 ms QT Int : 326 ms P-R-T Axes : 045 -56 012 degrees QTc Int : 454 ms Sinus tachycardia Left axis deviation Low voltage QRS RSR' or QR pattern in V1 suggests right ventricular conduction delay Inferior infarct , age undetermined cannot be excluded Abnormal ECG Confirmed by CRAIG KHAN ([id number]) on 02/01/2019 4:57:26 PM Referred By: HILDA *R Confirmed By:CRAIG KHAN
[2019-02-01 16:58] LABS: Anion Gap 15 mmol/L (10-20); BUN (Urea Nitrogen) 11 mg/dL (8.4-25.7); Calc. Creatinine Clearance 53 mL/min (70-130); Calcium 9.1 mg/dL (7.8-10.44); Carbon Dioxide 23 mmol/L (23-31); Chloride 102 mmol/L (98-107); Estimated GFR-MDRD Greater than 90; Potassium 4.9 mmol/L (3.5-5.1); Sodium 135 mmol/L (136-145)
[2019-02-01 17:02] LABS: Glucose 51 mg/dL (80-115)
[2019-02-01] MEDS: chlordiazePOXIDE HCl 5 MG CAP PO SCH (20:41)
[2019-02-01] MEDS: Tamsulosin HCl 0.4 MG CAP PO SCH (20:41)
[2019-02-01] MEDS: Atorvastatin Calcium 40 MG TAB PO SCH (20:42)
[2019-02-01] MEDS: risperiDONE 1 MG TAB PO SCH (20:42)
[2019-02-01] MEDS: Insulin Glargine 5 UNITS in Pre-Filled Syringe 1 EACH SC SCH (21:07)
[2019-02-02] MEDS: Dextrose 50% Abboject 50 ML SYRINGE SLOW IVP PRN ×2 (04:00→06:13)
[2019-02-02 05:47] LABS: #Basophils 0.1 thou/uL (0.0-0.2); #Lymphocytes 1.7 thou/uL (1.20-3.40); %Basophils 0.4 % (0.0-1.0); %Eosinophils 0.1 % (0.0-10.0); %Lymphocytes 11.6 % (21.0-51.0); %Neutrophils 80.8 % (42.0-75.0); Hemoglobin 9.1 g/dL (14.0-18.0); Mean Corpuscular Hemoglobin 30.3 pg (27.0-31.0); Mean Platelet Volume 7.7 fL (7.4-10.4); Platelet Count 390 thou/uL (130-400); RBC Distribution Width 13.6 % (11.5-14.5); Red Blood Cell (RBC) Count 2.98 mill/uL (4.70-6.10); White Blood Cell (WBC) Count 14.8 thou/uL (4.8-10.8)
[2019-02-02 06:07] LABS: Phosphorus 4.7 mg/dL (2.3-4.7)
[2019-02-02 06:10] LABS: ALT (SGPT) 20 U/L (8-55); AST (SGOT) 26 U/L (5-34); Albumin 2.5 g/dL (3.4-4.8); Alkaline Phosphatase 201 U/L (40-110); Anion Gap 10 mmol/L (10-20); BUN (Urea Nitrogen) 12 mg/dL (8.4-25.7); Bilirubin, Total 0.3 mg/dL (0.2-1.2); Calc. Creatinine Clearance 54 mL/min (70-130); Calcium 7.9 mg/dL (7.8-10.44); Carbon Dioxide 25 mmol/L (23-31); Chloride 100 mmol/L (98-107); Estimated GFR-MDRD Greater than 90; Globulin 2.5 g/dL (2.4-3.5); Glucose 116 mg/dL (80-115); Magnesium 1.7 mg/dL (1.6-2.6); Potassium 4.2 mmol/L (3.5-5.1); Sodium 131 mmol/L (136-145)
[2019-02-02] MEDS ORDERED: Dextrose 50% Abboject 50 ML SYRINGE SLOW IVP SCH (06:15)
--- NOTE | 2019-02-02 08:15 | PDOC.FM ---
- Subjective Subjective: Yesterday evening, pt had recheck of BMP demonstrating Potassium of 7. Asymptomatic, EKG WNL, given albuterol, insulin and glucose. Pt trended down to 4.9 and then 4.2 this evening. Pt then began to experience episodes of hypoglycemia with low of 45. Given multiple amps of D50. BG responded to low 100s and most recent check of 272. On initial exam @ approx 0615 pt had GSC 13. Arousable to loud speech, spoke in 1 word answers, but would follow commands. This was right after last D50 amp. Recheck on pt at 0640 pt was GSC 14, A/O x3 but still require loud speech to eye open and answer questions. Repeat exam at 0800 pt is GSC 15, sitting in bed, no acute distress, answers questions appropriately GSC 15. Denies any CP, SOB, n/v, diaphoresis. Does not remember the events of hypoglycemia earlier this morning. States he is hungry and ready to eat breakfast. States he has had episodes of hypoglycemia previous. - Objective MAR Reviewed: Yes Vital Signs & Weight: Vital Signs (12 hours) Temp Pulse Resp BP Pulse Ox 02/02/19 03:36 97.7 F 127 H 16 142/85 H 100 02/01/19 23:38 98.6 F 120 H 18 116/76 100 02/01/19 20:40 100 02/01/19 20:11 98.4 F 112 H 16 136/89 100 Weight Admit Weight 43 kg Weight 43 kg I&O: 02/01/19 02/02/19 02/03/19 06:59 06:59 06:59 Intake Total 3040 2710 Output Total 1515 975 Balance 1525 1735 Result Diagrams: 02/02/19 05:34 02/02/19 05:34 Phys Exam - Physical Examination Constitutional: NAD (resting comfortably in bed, GSC 15, answers questions appropriately at last check) HEENT: moist MMs Neck: supple Respiratory: no wheezing, no rales, no rhonchi, clear to auscultation bilateral Cardiovascular: no significant murmur, no rub Regular rhythm, tachycardia Gastrointestinal: soft, non-tender, no distention, positive bowel sounds Musculoskeletal: no edema, pulses present Neurological: non-focal Psychiatric: A&O x 3 (GSC 5, at last check at 0800) Skin: no rash Dx/Plan (1) Sepsis secondary to UTI Code(s): A41.9 - SEPSIS, UNSPECIFIED ORGANISM; N39.0 - URINARY TRACT INFECTION, SITE NOT SPECIFIED Status: Resolved (2) Anemia of chronic disease Code(s): D63.8 - ANEMIA IN OTHER CHRONIC DISEASES CLASSIFIED ELSEWHERE Status : Chronic (3) HLD (hyperlipidemia) Code(s): E78.5 - HYPERLIPIDEMIA, UNSPECIFIED Status: Chronic (4) HTN (hypertension) Code(s): I10 - ESSENTIAL (PRIMARY) HYPERTENSION Status: Chronic Qualifiers: Hypertension type: essential hypertension Qualified Code(s): I10 - Essential (primary) hypertension (5) Type 2 diabetes mellitus Status: Chronic Qualifiers: Diabetes mellitus usp insulin use: with intermediate teacher use Diabetes mellitus complication detail: with polyneuropathy - Plan Plan: 68yo CM with h/o DMII, HTN, COPD, BPH presented in sepsis 2/2 Pseudomonas UTI, now treated. Had episode of hyperkalemia yesterday PM and now with episodes of hypoglycemia. #Hyperkalemia, resolved - Potassium 7 on BMP on 02/01. NO EKG changes, asx, given albuterol, insulin + glucose - K 4.2 this AM, Will cont to monitor closely - Heparin d/c'ed as only offending agent #Hypoglycemia, resolved - Episodes occuring after insulin post hyperkalemia - Was on lantus 10u QAM and 5u QHS, holding at this time - Required multiple amps of D50 and D5 IVF, last BG 272, eating breakfast. Will hold D5 at this time and monitor closely with q2h accuchecks #Leukocytosis - WBC 14.8, on cipro for UTI - VSS other than mild tachycardia - PE unremarkable - infectious vs acute inflammatory response, will monitor closely and trend # Sepsis 2/2 Pseudomonas UTI - Symptoms resolved, AMS resolved - Urine culture pansensitive. - Continue Cipro, will need 1 month course as pt has likely seeding into prostate #Deconditioning and poor nutrition - PT/OT/diet consulted - Pending Rehab placement - CM consulted and rehab screen placed. APS notified 2/2 poor living conditions and condition of pt upon arrival #DM2 with diabetic neuropathy - Holding lantus this morning. Cont metformin and mild SS. 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 IV: SL Dispo: Admitted for sepsis 2/2 UTI, now resolved and treating with Cipro. Episode of hyperkalemia and hypoglycemia yesterday and overnight. Will cont to monitor. Pending CM assistance for rehab placement once medically stable.
[2019-02-02] MEDS: Aspirin 81 mg Enteric Coated Tablet PO SCH (08:30)
[2019-02-02] MEDS: buPROPion 75 MG TAB PO SCH (08:30)
[2019-02-02] MEDS: Ciprofloxacin 500 MG TAB PO SCH (08:30)
[2019-02-02] MEDS: Gabapentin 300 MG CAP PO SCH ×3 (08:32→21:14)
[2019-02-02] MEDS: Thiamine 100 MG TAB PO SCH (08:32)
[2019-02-02] MEDS: Famotidine 20 MG TAB PO SCH ×2 (08:32→21:14)
[2019-02-02] MEDS: pyridOXINE 50 MG (B6) TAB PO SCH (08:32)
[2019-02-02] MEDS: metFORMIN 500 MG TAB PO SCH ×2 (08:33→21:14)
[2019-02-02] MEDS: Folic Acid 1 MG TAB PO SCH (08:34)
[2019-02-02] MEDS: Calcium Carbonate + Vit D 1 TAB PO SCH (08:34)
[2019-02-02] MEDS: Multivit, Therapeutic 1 TAB PO SCH (08:35)
[2019-02-02] MEDS: Magnesium Chloride 64 MG TAB PO SCH ×2 (08:35→21:14)
[2019-02-02] MEDS: Ascorbic Acid 500 mg Chewable Tablet PO SCH (08:35)
[2019-02-02] MEDS: Citrucel 500 MG TAB PO SCH (08:36)
[2019-02-02] MEDS: Cyanocobalamin (Vitamin B-12) 1,000 MCG TAB PO SCH (08:36)
[2019-02-02] MEDS: HumaLOG 300 UNITS/3 ML VIAL SC PRN (11:18)
--- NOTE | 2019-02-02 11:18 | PRG ---
DATE OF SERVICE: 02/02/2019 Mr. Smiley is awake and alert this morning. He was found yesterday to have a significant hyperkalemia, which in retrospect may have been a lab error. In the event, he was given insulin and glucose. He had several hypoglycemic episodes, which responded to conservative management. In the event, this morning, his glucose is back into his 130 to 180 range. His potassium repeated several times are now 4.2. Although his white count is elevated, he continues on treatment for his urinary tract infection and from a clinical standpoint remains improved. Job ID: [id number]
[2019-02-02 13:39] LABS: #Basophils 0.1 thou/uL (0.0-0.2); #Eosinphils 0.1 thou/uL (0.0-0.7); #Lymphocytes 2.9 thou/uL (1.20-3.40); #Monocytes 1.4 thou/uL (0.11-0.59); #Neutrophils 9.7 thou/uL (1.40-6.50); %Basophils 0.5 % (0.0-1.0); %Lymphocytes 20.4 % (21.0-51.0); %Monocytes 9.9 % (0.0-10.0); %Neutrophils 68.3 % (42.0-75.0); Mean Corpuscular HGB CONC 31.8 g/dL (32.0-36.0); Mean Corpuscular Hemoglobin 30.6 pg (27.0-31.0); Mean Platelet Volume 7.8 fL (7.4-10.4); Platelet Count 432 thou/uL (130-400); RBC Distribution Width 13.6 % (11.5-14.5); Red Blood Cell (RBC) Count 3.28 mill/uL (4.70-6.10); White Blood Cell (WBC) Count 14.3 thou/uL (4.8-10.8)
[2019-02-02 13:57] LABS: Anion Gap 14 mmol/L (10-20); BUN (Urea Nitrogen) 11 mg/dL (8.4-25.7); Calc. Creatinine Clearance 52 mL/min (70-130); Calcium 8.7 mg/dL (7.8-10.44); Carbon Dioxide 25 mmol/L (23-31); Chloride 98 mmol/L (98-107); Estimated GFR-MDRD Greater than 90; Glucose 124 mg/dL (80-115); Potassium 4.3 mmol/L (3.5-5.1); Sodium 133 mmol/L (136-145)
[2019-02-02] MEDS: Acetaminophen/Codeine 30-300mg Tablet PO PRN ×2 (14:04→21:22)
[2019-02-02 18:45] LABS: Bacteria/HPF None Seen HPF (None Seen); Bilirubin Negative (Negative); Blood, Urine Negative (Negative); Clarity Clear (Clear); Glucose, Urine (Dipstick) Normal (Negative); Leukocyte Negative Leu/uL (Negative); Nitrite Negative (Negative); Protein, Urine (Dipstick) Negative (Neg-Trace); RBC/HPF 0-3 HPF (0-3); Squamous Epithelial None Seen HPF (0-3); Urobilinogen Normal mg/dL (Less than 2); WBC/HPF 0-3 HPF (0-3)
[2019-02-02] MEDS: Atorvastatin Calcium 40 MG TAB PO SCH (21:14)
[2019-02-02] MEDS: Tamsulosin HCl 0.4 MG CAP PO SCH (21:14)
[2019-02-02] MEDS: risperiDONE 1 MG TAB PO SCH (21:14)
[2019-02-02] MEDS: chlordiazePOXIDE HCl 5 MG CAP PO SCH (21:14)
[2019-02-03] MEDS: HumaLOG 300 UNITS/3 ML VIAL SC PRN (00:31)
--- NOTE | 2019-02-03 04:41 | PDOC.FM ---
- Subjective Subjective: Mr. Smiley was resting comfortably this morning. Grumbled no when asked if anything was bothering him. Nurse reports no complaints overnight. He refused lab draw this morning. - Objective MAR Reviewed: Yes Vital Signs & Weight: Vital Signs (12 hours) Temp Pulse Resp BP Pulse Ox 02/03/19 04:29 97.4 F L 104 H 16 108/70 98 02/03/19 00:19 97.4 F L 111 H 16 112/63 94 L 02/02/19 21:00 96 02/02/19 19:38 97.9 F 109 H 16 139/89 96 Weight Admit Weight 43 kg Weight 43 kg I&O: 02/01/19 02/02/19 02/03/19 06:59 06:59 06:59 Intake Total 3040 2710 1150 Output Total 1515 975 800 Balance 1525 1735 350 Result Diagrams: 02/03/19 09:38 02/02/19 13:12 Phys Exam - Physical Examination Constitutional: NAD HEENT: moist MMs, sclera anicteric Neck: supple, full ROM Respiratory: no wheezing, no rales, no rhonchi, clear to auscultation bilateral Cardiovascular: RRR, no significant murmur, no rub Gastrointestinal: soft, non-tender, no distention, positive bowel sounds Musculoskeletal: no edema, pulses present asleep Deviation from normal: asleep Skin: no rash, normal turgor Dx/Plan - Plan Plan: 68yo CM with h/o DMII, HTN, COPD, BPH presented in sepsis 2/2 Pseudomonas UTI, now treated. Had episode of hyperkalemia yesterday PM and now with episodes of hypoglycemia. #Hyperkalemia, resolved (Potassium 7 on BMP on 02/01. NO EKG changes, asx, given albuterol, insulin + glucose) - Refused lab draw this am. Will discuss obtaining labs once he is more alert this morning. - Heparin d/c'ed as only offending agent #Hypoglycemia, resolved #Hyperglycemic overnight - required SSI at midnight, was then hypoglycemic at 0400, required 25g of D50. #Leukocytosis - Elevated WBC yesterday. Tachycardic, but afebrile. - PE unremarkable - infectious vs acute inflammatory response, will monitor closely and trend # Sepsis 2/2 Pseudomonas UTI - Symptoms resolved, AMS resolved - Urine culture pansensitive. - Continue Cipro, will need 1 month course as pt has likely seeding into prostate - due to persistent tachycardia, will order imaging to rule out prostate abscess. #Deconditioning and poor nutrition - Rehab approved. - CM consulted and rehab screen placed. APS notified 2/2 poor living conditions and condition of pt upon arrival #DM2 with diabetic neuropathy - Consider restarting home insulin regimen today to monitor glucose control. 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 IV: SL Dispo: D/c to rehab once medically stable. Addendum - Attending - Attending Attestation Date/Time: 02/03/19 4633 I personally evaluated the patient and discussed the management with Dr. Bedoya I agree with the History, Examination, Assessment and Plan documented above with any addition or exceptions noted below. Patient with hypoglycemia will adjust rx and continue q 4 glucometers. Patient with tachycardia conyinue on IV levaquin consider Prostrate imaging for abscess,
[2019-02-03] MEDS: Magnesium Chloride 64 MG TAB PO SCH ×2 (09:25→20:19)
[2019-02-03] MEDS: Calcium Carbonate + Vit D 1 TAB PO SCH (09:26)
[2019-02-03] MEDS: Multivit, Therapeutic 1 TAB PO SCH (09:26)
[2019-02-03] MEDS: Aspirin 81 mg Enteric Coated Tablet PO SCH (09:26)
[2019-02-03] MEDS: Thiamine 100 MG TAB PO SCH (09:26)
[2019-02-03] MEDS: Ascorbic Acid 500 mg Chewable Tablet PO SCH (09:26)
[2019-02-03] MEDS: Cyanocobalamin (Vitamin B-12) 1,000 MCG TAB PO SCH (09:26)
[2019-02-03] MEDS: pyridOXINE 50 MG (B6) TAB PO SCH (09:26)
[2019-02-03] MEDS: buPROPion 75 MG TAB PO SCH (09:26)
[2019-02-03] MEDS: Citrucel 500 MG TAB PO SCH (09:27)
[2019-02-03] MEDS: metFORMIN 500 MG TAB PO SCH ×2 (09:27→20:18)
[2019-02-03] MEDS: Famotidine 20 MG TAB PO SCH ×2 (09:27→20:18)
[2019-02-03] MEDS: Folic Acid 1 MG TAB PO SCH (09:27)
[2019-02-03] MEDS: Gabapentin 300 MG CAP PO SCH ×3 (09:27→20:18)
[2019-02-03 09:48] LABS: #Basophils 0.1 thou/uL (0.0-0.2); #Eosinphils 0.2 thou/uL (0.0-0.7); #Lymphocytes 3.4 thou/uL (1.20-3.40); #Monocytes 1.2 thou/uL (0.11-0.59); #Neutrophils 4.9 thou/uL (1.40-6.50); %Basophils 1.1 % (0.0-1.0); %Eosinophils 2.5 % (0.0-10.0); %Lymphocytes 34.8 % (21.0-51.0); %Monocytes 11.6 % (0.0-10.0); Hemoglobin 9.3 g/dL (14.0-18.0); Mean Corpuscular Hemoglobin 30.4 pg (27.0-31.0); Mean Platelet Volume 7.7 fL (7.4-10.4); Platelet Count 447 thou/uL (130-400); RBC Distribution Width 13.6 % (11.5-14.5); Red Blood Cell (RBC) Count 3.05 mill/uL (4.70-6.10); White Blood Cell (WBC) Count 9.9 thou/uL (4.8-10.8)
[2019-02-03 10:17] LABS: ALT (SGPT) 20 U/L (8-55); AST (SGOT) 22 U/L (5-34); Albumin 2.5 g/dL (3.4-4.8); Alkaline Phosphatase 226 U/L (40-110); Anion Gap 13 mmol/L (10-20); BUN (Urea Nitrogen) 10 mg/dL (8.4-25.7); Bilirubin, Total 0.3 mg/dL (0.2-1.2); Calc. Creatinine Clearance 55 mL/min (70-130); Calcium 8.4 mg/dL (7.8-10.44); Carbon Dioxide 22 mmol/L (23-31); Chloride 103 mmol/L (98-107); Estimated GFR-MDRD Greater than 90; Globulin 2.5 g/dL (2.4-3.5); Glucose 122 mg/dL (80-115); Potassium 4.1 mmol/L (3.5-5.1); Sodium 134 mmol/L (136-145)
[2019-02-03] MEDS ORDERED: ISOVUE-370 76%-LOCM 1 ML ONE (12:00)
--- NOTE | 2019-02-03 16:45 | CT ---
CT OF PELVIS PERFORMED WITH CONTRAST ENHANCEMENT: 02/03/19 HISTORY: Recent right hip surgery. Pelvic pain. Evaluation for prostate abscess. Postoperative changes of the right hip are noted with a compression screw and side plate stabilizing what appears to be an older subtrochanteric fracture in place. I do not see any signs of any right hi p joint effusion. There is no signs of any pelvic abscess. There is a fecal impaction present. Some slight wall thicken ing to the rectosigmoid colon associated with this. Some perirectal fat stranding is seen. The prosta te does not appear significantly enlarged. I do not see any signs for an abscess. There is acute appearing nondisplaced right superior and inferior pubic rami fractures present. Some subtle buckling to the anterior cortex of the right side of the sacrum which is suggestive of a subtl e nondisplaced fracture. IMPRESSION: 1. Fecal impaction. No signs of abscess. 2. Subtle buckle fracture along the anterior cortex of the right side of the sacrum. Also nondis placed acute appearing right superior and inferior pubic rami fractures. POS: MARICHUY
[2019-02-03] MEDS: Acetaminophen/Codeine 30-300mg Tablet PO PRN (19:33)
[2019-02-03] MEDS: risperiDONE 1 MG TAB PO SCH (20:18)
[2019-02-03] MEDS: chlordiazePOXIDE HCl 5 MG CAP PO SCH (20:18)
[2019-02-03] MEDS: Tamsulosin HCl 0.4 MG CAP PO SCH (20:18)
[2019-02-03] MEDS: Atorvastatin Calcium 40 MG TAB PO SCH (20:18)
[2019-02-03] MEDS ORDERED: Insulin Glargine 5 UNITS in Pre-Filled Syringe 1 EACH SC SCH (21:00)
[2019-02-03] MEDS ORDERED: Ibuprofen 600 MG TAB PO PRN (21:17)
[2019-02-04] MEDS: Acetaminophen/Codeine 30-300mg Tablet PO PRN ×3 (03:46→14:34)
[2019-02-04 04:13] LABS: #Basophils 0.1 thou/uL (0.0-0.2); #Eosinphils 0.3 thou/uL (0.0-0.7); #Lymphocytes 3.9 thou/uL (1.20-3.40); #Monocytes 1.4 thou/uL (0.11-0.59); #Neutrophils 5.2 thou/uL (1.40-6.50); %Basophils 1.4 % (0.0-1.0); %Eosinophils 2.5 % (0.0-10.0); %Lymphocytes 35.9 % (21.0-51.0); %Monocytes 12.6 % (0.0-10.0); %Neutrophils 47.7 % (42.0-75.0); Hemoglobin 8.8 g/dL (14.0-18.0); Mean Corpuscular Hemoglobin 30.2 pg (27.0-31.0); Mean Corpuscular Volume 94.4 fL (78.0-98.0); Mean Platelet Volume 7.8 fL (7.4-10.4); Platelet Count 480 thou/uL (130-400); RBC Distribution Width 13.7 % (11.5-14.5); Red Blood Cell (RBC) Count 2.91 mill/uL (4.70-6.10)
[2019-02-04 04:48] LABS: ALT (SGPT) 18 U/L (8-55); AST (SGOT) 25 U/L (5-34); Albumin 2.5 g/dL (3.4-4.8); Alkaline Phosphatase 221 U/L (40-110); Anion Gap 12 mmol/L (10-20); BUN (Urea Nitrogen) 12 mg/dL (8.4-25.7); Bilirubin, Total 0.3 mg/dL (0.2-1.2); Calc. Creatinine Clearance 48 mL/min (70-130); Calcium 8.2 mg/dL (7.8-10.44); Carbon Dioxide 22 mmol/L (23-31); Chloride 103 mmol/L (98-107); Estimated GFR-MDRD 84; Globulin 2.5 g/dL (2.4-3.5); Potassium 4.1 mmol/L (3.5-5.1); Sodium 133 mmol/L (136-145)
[2019-02-04 05:01] LABS: Glucose 50 mg/dL (80-115)
[2019-02-04] MEDS: Dextrose 50% Abboject 50 ML SYRINGE SLOW IVP PRN (05:13)
--- NOTE | 2019-02-04 05:47 | PDOC.FM ---
- Subjective Subjective: Doing well this morning. Had 1 episode of hypoglycemia last night. Otherwise, complains of hip pain. - Objective Vital Signs & Weight: Vital Signs (12 hours) Temp Pulse Resp BP Pulse Ox 02/04/19 04:39 97.6 F 96 16 118/78 97 02/04/19 03:10 96.9 F L 103 H 14 134/85 96 02/04/19 00:25 97.7 F 105 H 16 129/82 97 02/03/19 20:15 96 02/03/19 19:22 98.2 F 116 H 16 131/84 98 Weight Admit Weight 43 kg Weight 43 kg I&O: 02/02/19 02/03/19 02/04/19 06:59 06:59 05:59 Intake Total 2710 1880 800 Output Total 975 1100 400 Balance 1735 780 400 Result Diagrams: 02/04/19 03:27 02/04/19 03:27 Phys Exam - Physical Examination Constitutional: NAD HEENT: PERRLA, moist MMs Neck: supple, full ROM Respiratory: no wheezing, no rales, no rhonchi, clear to auscultation bilateral Cardiovascular: RRR, no significant murmur, no rub Gastrointestinal: soft, non-tender, no distention, positive bowel sounds Musculoskeletal: no edema, pulses present Neurological: non-focal, moves all 4 limbs Psychiatric: normal affect Skin: no rash, cap refill <2 seconds Dx/Plan - Plan Plan: 68yo CM with h/o DMII, HTN, COPD, BPH presented in sepsis 2/2 Pseudomonas UTI, now treated. Had episode of hyperkalemia yesterday PM and now with episodes of hypoglycemia. # Sepsis 2/2 Pseudomonas UTI - Symptoms resolved, AMS resolved - Urine culture pansensitive. - On IV Levaquin, will d/c with cipro for a total of 1 month. - CT Pelvis revealed no signs of abscess. Fecal impaction and superior and inferior pubic rami fractures present. - Will d/c to rehab as soon as medically stable. #Pelvic fractures - right side sacrum and right superior and inferior pubic rami fractures. - does not endorse fall or known injury - PT/OT recommended - Will continue using Tylenol #3 for pain. This is his home medication. #Hyperkalemia, resolved #Leukocytosis - WBC 11. Tachycardic, but afebrile. - PE unremarkable - infectious vs acute inflammatory response, will monitor closely and trend #Deconditioning and poor nutrition - Rehab approved. - CM consulted and rehab screen placed. APS notified 2/2 poor living conditions and condition of pt upon arrival #DM2 with diabetic neuropathy - Restarted Lantus 5HS last night. Again was hypoglycemic this am. - Will change Lantus dose to q am for better glucose control throughout the day. 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 IV: SL Dispo: D/c to rehab once medically stable. Addendum - Attending - Attending Attestation Date/Time: 02/04/19 7354 I personally evaluated the patient and discussed the management with Dr. Bedoya I agree with the History, Examination, Assessment and Plan documented above with any addition or exceptions noted below.
[2019-02-04 08:02] VITALS: TEMP 97.5
[2019-02-04] MEDS: metFORMIN 500 MG TAB PO SCH (08:49)
[2019-02-04] MEDS: pyridOXINE 50 MG (B6) TAB PO SCH (08:49)
[2019-02-04] MEDS: Thiamine 100 MG TAB PO SCH (08:50)
[2019-02-04] MEDS: Famotidine 20 MG TAB PO SCH (08:50)
[2019-02-04] MEDS: Aspirin 81 mg Enteric Coated Tablet PO SCH (08:50)
[2019-02-04] MEDS: Magnesium Chloride 64 MG TAB PO SCH (08:50)
[2019-02-04] MEDS: buPROPion 75 MG TAB PO SCH (08:50)
[2019-02-04] MEDS: Gabapentin 300 MG CAP PO SCH ×2 (08:50→14:34)
[2019-02-04] MEDS: Folic Acid 1 MG TAB PO SCH (08:50)
[2019-02-04] MEDS: Ascorbic Acid 500 mg Chewable Tablet PO SCH (08:51)
[2019-02-04] MEDS: Citrucel 500 MG TAB PO SCH (08:51)
[2019-02-04] MEDS: Calcium Carbonate + Vit D 1 TAB PO SCH (08:51)
[2019-02-04] MEDS: Cyanocobalamin (Vitamin B-12) 1,000 MCG TAB PO SCH (08:51)
[2019-02-04] MEDS: Multivit, Therapeutic 1 TAB PO SCH (08:53)
[2019-02-04 12:04] VITALS: BP 134/88
== END 2019-02-04 15:24 | DRG 871 ==
LOC: ERS 22:43 → 2NO 01-29 00:24 → SURG A 01-29 02:12
PROVIDERS: ADMIT Internal Medicine; ATTEND Internal Medicine
DX: A41.52 Sepsis due to Pseudomonas (principal); E43 Unspecified severe protein-calorie malnutrition; G93.41 Metabolic encephalopathy; I50.32 Chronic diastolic (congestive) heart failure; R64 Cachexia; N17.9 Acute kidney failure, unspecified; E87.2 Acidosis; E87.1 Hypo-osmolality and hyponatremia; Z68.1 Body mass index [BMI] 19.9 or less, adult; R65.20 Severe sepsis without septic shock; I11.0 Hypertensive heart disease with heart failure; E86.0 Dehydration; E11.22 Type 2 diabetes mellitus with diabetic chronic kidney disease; K21.9 Gastro-esophageal reflux disease without esophagitis; J44.9 Chronic obstructive pulmonary disease, unspecified; N40.0 Benign prostatic hyperplasia without lower urinary tract symptoms; G47.33 Obstructive sleep apnea (adult) (pediatric); F10.10 Alcohol abuse, uncomplicated; G89.29 Other chronic pain; F41.9 Anxiety disorder, unspecified; F31.9 Bipolar disorder, unspecified; F17.210 Nicotine dependence, cigarettes, uncomplicated; D63.1 Anemia in chronic kidney disease; E87.5 Hyperkalemia; W18.39XA Other fall on same level, initial encounter; E83.42 Hypomagnesemia; E11.40 Type 2 diabetes mellitus with diabetic neuropathy, unspecified; L89.151 Pressure ulcer of sacral region, stage 1; E11.649 Type 2 diabetes mellitus with hypoglycemia without coma; E11.65 Type 2 diabetes mellitus with hyperglycemia; Z90.49 Acquired absence of other specified parts of digestive tract; Y93.89 Activity, other specified; Z79.4 Long term (current) use of insulin
CPT/HCPCS: 36415; 36416; 51701; 51702; 70450; 71045; 72170; 72193; 80048; 80053; 81001; 81003; 81015; 82550; 83605; 83735; 84100; 84484; 85025; 87040; 87077; 87086; 87186; 93005; 93010; 96361; 96365; 96372; J0696; J1644; J1815; J1956; J2001; J2543; J3370; J3411; J3475; J3490; J7042; J7050; J7620; Q9966

== ENCOUNTER 2019-02-08 10:04 | Inpatient (IN) | payer MEDICARE, SELFPAY ==
[2019-02-08 11:01] LABS: Bilirubin Negative (Negative); Blood, Urine Negative (Negative); Clarity Clear (Clear); Glucose, Urine (Dipstick) 30 mg/dL (Negative); Leukocyte Negative Leu/uL (Negative); Nitrite Negative (Negative); Protein, Urine (Dipstick) 10 mg/dL (Neg-Trace); Urobilinogen Normal mg/dL (Less than 2)
--- NOTE | 2019-02-08 11:04 | RAD ---
EXAM: CHEST ONE VIEW HISTORY: Lethargic. Decreased blood sugar. Low blood pressure. Follow-up evaluation. COMPARISON: 02/08/2019 at 0754 hours. FINDINGS: Cardiac silhouette is magnified by projection. Pulmonary vasculature is within normal limits. Bibasil ar parenchymal lung changes are seen at each lung base with more confluent opacity again seen at the medial right lung base. Parenchymal density in the left midlung zone laterally has improved. Thor te left-sided rib fractures are again seen, and there is osteopenia. IMPRESSION: Findings again likely related to bibasilar pneumonia greater at the right lung base. Follow-up to com plete resolution is recommended.
[2019-02-08 11:20] LABS: ALT (SGPT) 11 U/L (8-55); AST (SGOT) 13 U/L (5-34); Alkaline Phosphatase 188 U/L (40-110); Anion Gap 13 mmol/L (10-20); BUN (Urea Nitrogen) 12 mg/dL (8.4-25.7); Bilirubin, Total 0.4 mg/dL (0.2-1.2); Calc. Creatinine Clearance 0 mL/min (70-130); Calcium 7.5 mg/dL (7.8-10.44); Carbon Dioxide 19 mmol/L (23-31); Chloride 106 mmol/L (98-107); Estimated GFR-MDRD Greater than 90; Globulin 2.2 g/dL (2.4-3.5); Glucose 171 mg/dL (80-115); Potassium 3.8 mmol/L (3.5-5.1); Protein, Total 4.2 g/dL (5.8-8.1); Sodium 134 mmol/L (136-145)
[2019-02-08] MEDS ORDERED: Piperacillin/Tazobactam 4.5 GM VIAL ONE (11:47)
[2019-02-08] MEDS ORDERED: Norepinephrine 8 MG/0.9% NS 250 ML ONE (11:47)
[2019-02-08] MEDS ORDERED: DOPamine 400 MG/D5W 250 ML 250 ML ONE (11:48)
[2019-02-08] MEDS ORDERED: EPINEPHrine 1 MG/10 ML Abboject SYRINGE ONE (11:50)
[2019-02-08] MEDS ORDERED: Rocuronium Bromide 10 MG/ML (10ML VIAL) ONE (12:05)
[2019-02-08] MEDS ORDERED: Ketamine 50 MG/ML (10ML VIAL) ONE (12:05)
[2019-02-08 12:19] LABS: Hemoglobin 7.8 g/dL (14.0-18.0); Mean Corpuscular Hemoglobin 29.9 pg (27.0-31.0); Mean Corpuscular Volume 96.3 fL (78.0-98.0); Mean Platelet Volume 7.7 fL (7.4-10.4); Platelet Count 361 thou/uL (130-400); RBC Distribution Width 13.4 % (11.5-14.5); Red Blood Cell (RBC) Count 2.61 mill/uL (4.70-6.10); White Blood Cell (WBC) Count 6.4 thou/uL (4.8-10.8)
--- NOTE | 2019-02-08 12:20 | RAD ---
Exam: Chest one view: HISTORY: Sepsis, pneumonia, left central line placement FINDINGS: Left jugular venous catheter is placed with the tip extending somewhat cranially into the upper super ior vena cava or right innominate vein. Bilateral nodular alveolar parenchymal changes in the infrahilar regions certainly concerning for the possibility of pneumonia. No pneumothorax. IMPRESSION: Left central line in place as above. Bilateral alveolar nodular parenchymal changes in the infrahilar regions which certainly could represent pneumonia. Findings discussed with the ordering physician at 12:14 PM CODE CR
--- NOTE | 2019-02-08 12:34 | RAD ---
Exam: Chest one view: HISTORY: Post intubation COMPARISON: 11:41 AM 02/08/2019 FINDINGS: Endotracheal tube and NG tube are placed in addition to the left central line. Stable bilateral alveo lar nodular parenchymal changes in the mid and lower lung zones. No pneumothorax. IMPRESSION: Life support tubes in place. Evidence for bilateral lower lobe pneumonia.
[2019-02-08 12:47] LABS: Band 72 % (5-11); Hypochromia SLIGHT = 6-15 cells (100X) (0-5/hpf); Lymphocytes 5 % (21-51); MDiff Complete? YES; Metamyelocyte 5 % (0-0); Monocytes 5 % (0-10); Neutrophil 10 % (42-75); Platelet Morphology Comment Appears Adequate; Polychromasia SLIGHT = 2-3 cells (100X) (0-2/hpf); Reactive Lymphocytes 3 % (0-10); Schistocytes SLIGHT = 2-5 cells (100X) (0-1/hpf); Target Cells SLIGHT = 2-5 cells (100X) (0-1/hpf); Tear Drops SLIGHT = 2-5 cells (100X) (0-1/hpf)
[2019-02-08 13:05] LABS: Actual Bicarbonate (HCO3a) 18.9 mEq/L (22-28); Analyzer IN Cardio ER; Base Excess (BEa) -6.8 mEq/L (-2.0 to +3.0); CO2 Tension 38.5 mmHg (35.0-45.0); Calcium, Ionized 1.05 mmol/L (1.12-1.30); Carboxyhemoglobin (COHb) 0.1 gm% (0.0-3.0); Hemoglobin (Hb) 9.3 g/dL (14.0-18.0); O2 Tension (PaO2) 71.5 mmHg (> 80.0); Potassium - ABG Lab 3.33 mmol/L (3.70-5.30); pH, Arterial 7.31 (7.35-7.45)
[2019-02-08 13:06] LABS: ALV-art Gradient 165.575 (0-20); Puncture Site L.B.
[2019-02-08 13:14] LABS: Troponin I Less than 0.010 ng/mL (< 0.028)
--- NOTE | 2019-02-08 13:31 | PDOC.FPRHP ---
- History of Present Illness Chief Complaint: AMS History of Present Illness: Per the ED check-out, Mr. Smiley was found slumped over at his rehab center on and subsequently presented to the ED via EMS. He had several episodes of hypoglycemia in the past few days, but otherwise had not demonstrated or admitted to any significant signs or symptoms. Upon presentation to the ED, he was found to be profoundly hypothermic - with a temperature of 93 F - as well as hypotensive. He was initially conversant with the ED provider and the nursing staff, but eventually lost consciousness and had to be intubated. A left -sided IJ central line was place and he was administered 2L NS and placed under warming blankets. Subsequent CXR revealed bilateral opacities consistent with pneumonia. As such, he was started on an antibiotic regimen of Vancomycin, Zosyn and Levofloxacin. ED Course: See HPI - Allergies/Adverse Reactions Allergies Allergy/AdvReac Type Severity Reaction Status Date / Time trazodone Allergy Verified 02/08/19 13:59 - Home Medications Medication Instructions Recorded Confirmed Type Ascorbic Acid [Vitamin C] 500 mg PO DAILY 12/21/17 02/08/19 History Cyanocobalamin (Vitamin B-12) 5,000 mcg SL DAILY 12/21/17 02/08/19 History [Vitamin B-12] Acetaminophen W/ Codeine 1 tab PO TID 12/14/18 02/08/19 History [Acetaminophen/Codeine #3] Tamsulosin HCl [Flomax] 0.4 mg PO DAILY 12/14/18 02/08/19 History metFORMIN HCl [Metformin HCl] 1,000 mg PO BID 12/14/18 02/08/19 History Aspirin [Ecotrin Low Strength] 81 mg PO DAILY 12/15/18 02/08/19 History Atorvastatin Calcium [Lipitor] 40 mg PO HS 12/15/18 02/08/19 History Calcium Carbonate/Vitamin D3 1 each PO DAILY 12/15/18 02/08/19 History [Calcium 600-Vit D3 200 Tablet] Ranitidine HCl 150 mg PO BID 12/15/18 02/08/19 History risperiDONE [RisperDAL] 1 mg PO HS 12/15/18 02/08/19 History Gabapentin [Neurontin] 300 mg PO TID #90 cap 12/19/18 02/08/19 Rx buPROPion [Wellbutrin] 75 mg PO DAILY #30 tab 12/19/18 02/08/19 Rx Cellothyl [Citrucel Tablet] 500 mg PO DAILY tab 12/20/18 02/08/19 Rx Thiamine 100 mg PO DAILY #30 tab 02/01/19 02/08/19 Rx Insulin Glargine [Lantus Vial] 5 units SC QAM #1 vial 02/04/19 02/08/19 Rx Levofloxacin [Levaquin] 500 mg PO DAILY 25 Days #25 tablet 02/04/19 02/08/19 Rx - History PMHx: PSHx: FHx: Social: Patient was intubated at the time of evaluation. - Review of Systems ROS unobtainable: due to endotracheal tube - Vital signs BP: 87/53, Pulse: 103, Resp: 13, O2 sat: 96 on Room Air, Time: 02/08/2019 10:05. Weight 61kg BP: 121/74, Pulse: 66, Resp: 14, Temp: 93.7 (Criticore Temp), Pain: UTR, O2 sat : 99 on Ventilator, Time: 02/08/2019 14:09. - Physical Exam Constitutional: other (Intubated) HEENT: normocephalic and atraumatic, conjunctiva clear, no scleral icterus Neck: trachea midline Chest: no-tender to palpation Heart: RRR, normal S1/S2, no murmurs/rubs/gallops, pulses present, no edema Lungs: other (Patient was intubated) Abdomen: soft, non-tender, no masses/distention, no hernias, other (Mild brusing was noted in the LUQ) Musculoskeletal: other (Patient was unresponsive and would not follow command or respond to pain.) Neurological: other (No posturing noted - Patient was unresponsive and would not follow command or respond to pain.) Skin: no rash/lesions, no jaundice Heme/Lymphatic: no purpura, no petechia, other (See ABD) Psychiatric: other (Patient was unresponsive and would not follow command or respond to pain.) FMR H&P: Results - Labs Result Diagrams: 02/09/19 04:15 02/09/19 04:15 Lab results: WBC 6.4 thou/uL (4.8-10.8) 02/08/19 11:56 Hgb 7.8 g/dL (14.0-18.0) L 02/08/19 11:56 Hct 25.1 % (42.0-52.0) L 02/08/19 11:56 MCV 96.3 fL (78.0-98.0) 02/08/19 11:56 Plt Count 361 thou/uL (130-400) 02/08/19 11:56 Band Neuts % (Manual) 72 % (5-11) H 02/08/19 11:56 ABG pH 7.31 (7.35-7.45) L 02/08/19 12:55 ABG pCO2 38.5 mmHg (35.0-45.0) 02/08/19 12:55 ABG pO2 71.5 mmHg (> 80.0) 02/08/19 12:55 Sodium 134 mmol/L (136-145) L 02/08/19 10:46 Potassium 3.8 mmol/L (3.5-5.1) 02/08/19 10:46 Chloride 106 mmol/L (98-107) 02/08/19 10:46 Carbon Dioxide 19 mmol/L (23-31) L 02/08/19 10:46 BUN 12 mg/dL (8.4-25.7) 02/08/19 10:46 Creatinine 0.72 mg/dL (0.7-1.3) 02/08/19 10:46 Glucose 171 mg/dL (80-115) H 02/08/19 10:46 Lactic Acid 3.5 mmol/L (0.5-2.2) H 02/08/19 10:46 Calcium 7.5 mg/dL (7.8-10.44) L 02/08/19 10:46 Total Bilirubin 0.4 mg/dL (0.2-1.2) 02/08/19 10:46 AST 13 U/L (5-34) 02/08/19 10:46 ALT 11 U/L (8-55) 02/08/19 10:46 Alkaline Phosphatase 188 U/L (40-110) H 02/08/19 10:46 Serum Total Protein 4.2 g/dL (5.8-8.1) L 02/08/19 10:46 Albumin 2.0 g/dL (3.4-4.8) L 02/08/19 10:46 Urine Ketones Negative mg/dL (Negative) 02/08/19 10:30 Urine Blood Negative (Negative) 02/08/19 10:30 Urine Nitrite Negative (Negative) 02/08/19 10:30 Ur Leukocyte Esterase Negative Lee Ann/uL (Negative) 02/08/19 10:30 - EKG Interpretation EKG: Per ED provider, EKG demonstrated non-specific EKG changes, with Q Waves in III , VF, and V3. - Radiology Interpretation CT scan - head Status: report reviewed by me (MARY) FMR H&P: A/P - Problem List (1) Sepsis Current Visit: Yes Status: Acute Code(s): A41.9 - SEPSIS, UNSPECIFIED ORGANISM (2) Bilateral pneumonia Current Visit: Yes Status: Acute Code(s): J18.9 - PNEUMONIA, UNSPECIFIED ORGANISM (3) Hypoglycemia associated with type 2 diabetes mellitus Current Visit: No Status: Acute Code(s): E11.649 - TYPE 2 DIABETES MELLITUS WITH HYPOGLYCEMIA WITHOUT COMA (4) Hyponatremia Current Visit: No Status: Acute Code(s): E87.1 - HYPO-OSMOLALITY AND HYPONATREMIA (5) Lactic acid blood increased Current Visit: No Status: Acute Code(s): E87.2 - ACIDOSIS (6) Macrocytic anemia Current Visit: No Status: Acute Code(s): D53.9 - NUTRITIONAL ANEMIA, UNSPECIFIED (7) Protein-calorie malnutrition Current Visit: No Status: Acute Code(s): E46 - UNSPECIFIED PROTEIN-CALORIE MALNUTRITION Qualifiers: Protein-calorie malnutrition severity: unspecified severity Qualified Code( s): E46 - Unspecified protein-calorie malnutrition (8) BPH (benign prostatic hypertrophy) Current Visit: No Status: Chronic Code(s): N40.0 - BENIGN PROSTATIC HYPERPLASIA WITHOUT LOWER URINRY TRACT SYMP (9) CHF (congestive heart failure) Current Visit: No Status: Chronic Code(s): I50.9 - HEART FAILURE, UNSPECIFIED (10) COPD (chronic obstructive pulmonary disease) Current Visit: No Status: Chronic (11) HLD (hyperlipidemia) Current Visit: No Status: Chronic Code(s): E78.5 - HYPERLIPIDEMIA, UNSPECIFIED (12) HTN (hypertension) Current Visit: No Status: Chronic Code(s): I10 - ESSENTIAL (PRIMARY) HYPERTENSION Qualifiers: Hypertension type: essential hypertension Qualified Code(s): I10 - Essential (primary) hypertension (13) Type 2 diabetes mellitus Current Visit: No Status: Chronic Qualifiers: 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 Sepsis, likely 2/2 to bilateral PNA -Patient meets Sepsis Criteria (Hypothermia, Tachycardia, Suspected Source) -Patient's vital signs and change in mental status indicated need for rapid intervention -Currently intubated and awaiting transfer to the the ICU -WBCs: 6.4 / H.8 / Hct: 25.1 / Plt: 361 -Lactic Acid: 2.3 -Procal: 5.49 -Trops: Negative x3 -BNP: 372.5 -CRP: 7.81 -EKG: Q Waves in III, VF and V3 -CXR: Bilateral pulmonary opacities, consistent with PNA -CT Head: NAF -Urine Culture: Pending -Blood Culture: Pending -Legionella: Pending -Strep: Pending -Sputum Culture -Currently on Vancomycin, Zosyn and Levofloxacin -Pulmonology: Consulted 2. Hypotension -BP: 122/77 on 02/08/19 -Patient currently requiring pressure support with Levophed drip -Continue to monitor and adjust as needed Code: Full Diet: NPO Activity: Strict Bed Rest DVT PPx: SCDs & Lovenox Dispo: Patient is currently admitted to the ICU with respiratory and BP support , with antibiotic therapy ongoing per above. Expected LOS > 48H FMR H&P: Upper Level - Pertinent history History obtained per ER record as patient was intubated in the ER on our exam. This is a 68 yo M who presented to the ER from the rehab. Yesterday, the patient was found slumped over and unresponsive with BG of 18. He was started on D5@ 125/hr since then. Today, when the patient arrived he was responsive and improved from yesterday but complaining of abdominal pain and a cough. He was noted to be hypotensive, hypothermic, and non responsive. He was intubated and a left IJ central line was placed. He was started on abx as well as pressors. He was not on any sedation while on the vent. Patient was recently discharged on 02/04 after being admitted for sepsis 2/2 UTI and found to have pelvic fractures. He was discharged to rehab at that time. see application development intern note for full HPI and PMH - Pertinent findings ROS: unable to obtain due to mental status PE: General: intubated, frail elderly male, NAD HEENT: dry MM, PERRL, sclera clear, supple neck, trachea midline, ET tube in place Cardio: RRR, no murmur, rub or gallop Resp: CTA anteriorly Abd: ecchymosis to left lower abdomen, soft, nondistended, BS present Neuro: not responsive to pain, does not open eyes, does not move limbs MSK: no edema, dorsalis pedis pulses present b/l Skin: dry skin, delayed cap refill, dec turgor; ecchymosis on LL abdomen, scar on GISELLE abdomen - Plan Date/Time: 02/08/19 1331 I, Holli Menjivar MD, have evaluated this patient and agree with findings/plan as outlined by application development intern resident. Pertinent changes/additions are listed here. #Sepsis 2/2 bilateral PNA leading to intubation with mechanical ventilation Patient presented hypotensive, hypothermic, elevated lactate and developed AMS and led to intubation. CXR showing b/l lower lobe PNA. Currently on the ventilator. Admitted to the ICU. - Vent and sedation protocol - Pulm consulted, appreciate recommendations - Abx coverage for b/l PNA covering for MRSA and pseudomonas: levoquin, vanc and zosyn - Will continue to trend lactate, s/p 2L IVF. Will continue mIVF - Will order legionella and strep urine ag - Procal and CRP pending - CT brain pending #Pelvic fractures - right side sacrum and right superior and inferior pubic rami fractures present on last admission - PT/OT recommended - Once patient more awake, can add pain medication #DM2 with diabetic neuropathy - will start lantus and SS - hypoglycemic protocol, ACHS #Chronic hyponatremia - likely 2/2 poor diet, balloon sander consulted - Na 134, appears at baseline, will monitor #Chronic Anemia - Hgb 7.8, at baseline #COPD - currently on the vent, will ween as tolerated. Pulm following. 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 Salmeron Addendum - Attending - Attending Attestation Date/Time: 02/08/19 [id number] I personally evaluated the patient and discussed the management with Dr. Marino and Dr. Menjivar I agree with the History, Examination, Assessment and Plan documented above with any addition or exceptions noted below. Patient admitted for septic shock 2/2 bilateral pneumonia. Current on levo. Continue IVF hydration. Empiric antibx initiated in ER. Torres cultures pending. Trend labs. Continue vent management per pulm. Check AM cortisol for risk of adrenal insuficiency due to hypotension. Monitor glucose and electrolytes closely. Add urine Ag for Strep and Legonella. Adjust home meds as needed for chronic conditions. Simón
[2019-02-08] MEDS ORDERED: Fentanyl 20 mcg/ml (100 ml CADD) IV PRN (13:51)
[2019-02-08 13:56] LABS: Lactic Acid 2.3 mmol/L (0.5-2.2)
[2019-02-08] MEDS ORDERED: Acetaminophen 650 MG Suppository PR PRN (14:10)
[2019-02-08] MEDS ORDERED: Dextrose 5% in Water 1,000 ML IV PRN (14:32)
[2019-02-08] MEDS ORDERED: Dextrose 50% Abboject 50 ML SYRINGE SLOW IVP PRN (14:32)
[2019-02-08 14:44] LABS: Strep pneumo Urine Ag NEGATIVE (NEGATIVE)
--- NOTE | 2019-02-08 14:54 | CT ---
Exam: Head CT without contrast HISTORY: Altered mental status. Encephalopathy. Unresponsive patient COMPARISON: 10/06/2018, 01/26/2019 FINDINGS: Hemorrhage: No intraparenchymal hemorrhage or extra-axial hematoma. Brain parenchyma: Cortical eubanks-white matter differentiation is preserved. No mass effect or midline shift. Basilar cisterns are patent. Ventricular system: Ventricles and sulci are patent and symmetric. Calvarium: Intact. Sinuses and mastoid air cells: Adequate aeration, with the exception of the right maxillary sinus. Stable changes involving the anterior right maxilla/maxillary sinus. IMPRESSION: No acute intracranial process.
[2019-02-08] MEDS: HumaLOG 300 UNITS/3 ML VIAL SC PRN (15:49)
[2019-02-08 15:58] LABS: Legionella Urinary Ag Negative (Negative)
[2019-02-08] MEDS: Sodium Chloride 0.9% 1,000 ML IV SCH (15:59)
[2019-02-08 16:17] LABS: Troponin I Less than 0.010 ng/mL (< 0.028)
[2019-02-08] MEDS ORDERED: Morphine 2 MG/ML SYRINGE SLOW IVP PRN (16:46)
[2019-02-08] MEDS ORDERED: DISCONTINUE PREVIOUS NARCOTIC PAIN MEDICATIONS AND BENZODIAZEPINES FS SCH (16:46)
[2019-02-08] MEDS ORDERED: Propofol 1,000 MG/100 ML VIAL IV PRN (16:46)
[2019-02-08] MEDS ORDERED: Propofol BOLUS 1,000 MG/100 ML VIAL IV PRN (16:46)
[2019-02-08] MEDS ORDERED: Fentanyl BOLUS 250 ML IVPB PRN (16:46)
[2019-02-08] MEDS: fentaNYL Citrate/PF 2,000 MCG in Sodium Chloride 0.9% 60 ML IV SCH (17:27)
[2019-02-08] MEDS: Piperacillin/Tazobactam 4.5 GM in Sodium Chloride 0.9% 100 ML IVPB SCH ×2 (17:33→23:48)
--- NOTE | 2019-02-08 18:23 | CON ---
DATE OF CONSULTATION: HISTORY OF PRESENT ILLNESS: Meliton Smiley is a 68-year-old male, who presented with altered mental status, hypotension. He is mechanically ventilated now. He has a dense alveolar infiltrate at his right base that was not present on his last chest x-ray. He was just discharged from the hospital on February 04. PAST MEDICAL HISTORY: Remarkable for: 1. Hypertension. 2. History of cardiomyopathy. 3. History of COPD. 4. Diabetes. 5. History of mouth cancer. 6. History of alcohol and tobacco use, apparently heavy, according to old records in the past. 7. History of reflux disease. 8. History of BPH. 9. History of sleep apnea. 10. History of hip fracture surgery. 11. 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 SOCIAL HISTORY: Apparently still smoking, drinks, and uses marijuana according to recent history and physical in January. FAMILY HISTORY: Negative for lung disease in early age. Positive for heart disease. ALLERGIES: NO REPORTED DRUG ALLERGIES. REVIEW OF SYSTEMS: Ten-point is not obtainable. PHYSICAL EXAMINATION: VITAL SIGNS: Blood pressure is over 100 systolic, is in sinus rhythm, respiratory rate is per mechanical ventilation. HEAD AND NECK: Unremarkable. LUNGS: Remarkable for coarse equal breath sounds. He has rhonchi at his right base. HEART: Regular rhythm. ABDOMEN: Soft. EXTREMITIES: Noncontributory. NEUROLOGIC: Not possible. LABORATORY DATA: White count 6.4, hemoglobin 7.8, and platelets 361,000. He had only 10% neutrophils on his peripheral smear and 5% lymphocytes and he had 72% bands. Sodium 134, potassium 3.8, chloride 106, bicarb 19, BUN 12, and creatinine 0.7. IMPRESSION: Pneumonia, possibly aspiration mediated. Broad antimicrobial coverage, volume resuscitation, pressors are indicated. Blood gas shows a pH of 7.31, CO2 of 38, pO2 of 71. We will be happy to follow the other physicians caring for him. I would anticipate that this will be a long hospitalization. Job ID: [id number]
[2019-02-08 18:43] LABS: Lactic Acid 3.6 mmol/L (0.5-2.2)
[2019-02-08] MEDS: Lorazepam 2 MG/ML VIAL SLOW IVP PRN (21:15)
[2019-02-08] MEDS: Norepinephrine 8 MG/0.9% NS 250 ML IVPB SCH (23:10)
[2019-02-09] MEDS: Vancomycin HCl 1 GM in Premix Bag 1 BAG IVPB SCH ×3 (00:24→23:10)
[2019-02-09] MEDS: Sodium Chloride 0.9% 1,000 ML IV SCH ×3 (00:31→20:58)
[2019-02-09] MEDS ORDERED: Sodium Chloride 0.9% 1,000 ML IV SCH (00:45)
[2019-02-09 05:35] LABS: Anion Gap 13 mmol/L (10-20); BUN (Urea Nitrogen) 10 mg/dL (8.4-25.7); Calc. Creatinine Clearance 80 mL/min (70-130); Calcium 6.7 mg/dL (7.8-10.44); Carbon Dioxide 19 mmol/L (23-31); Chloride 111 mmol/L (98-107); Estimated GFR-MDRD Greater than 90; Glucose 128 mg/dL (80-115); Potassium 3.9 mmol/L (3.5-5.1); Sodium 139 mmol/L (136-145)
[2019-02-09 06:11] LABS: Band 58 % (5-11); Burr Cells SLIGHT = 2-5 cells (100X) (0-1/hpf); Hemoglobin 8.2 g/dL (14.0-18.0); Lymphocytes 11 % (21-51); MDiff Complete? YES; Mean Corpuscular HGB CONC 30.7 g/dL (32.0-36.0); Mean Corpuscular Hemoglobin 29.7 pg (27.0-31.0); Mean Corpuscular Volume 96.5 fL (78.0-98.0); Mean Platelet Volume 8.2 fL (7.4-10.4); Metamyelocyte 2 % (0-0); Monocytes 7 % (0-10); Neutrophil 22 % (42-75); Platelet Count 488 thou/uL (130-400); Platelet Morphology Comment Appears Increased; RBC Distribution Width 13.7 % (11.5-14.5); Red Blood Cell (RBC) Count 2.77 mill/uL (4.70-6.10); Schistocytes SLIGHT = 2-5 cells (100X) (0-1/hpf); White Blood Cell (WBC) Count 21.5 thou/uL (4.8-10.8)
[2019-02-09] MEDS: Piperacillin/Tazobactam 4.5 GM in Sodium Chloride 0.9% 100 ML IVPB SCH ×4 (06:38→23:11)
[2019-02-09 06:47] LABS: Actual Bicarbonate (HCO3a) 16.8 mEq/L (22-28); Base Excess (BEa) -8.4 mEq/L (-2.0 to +3.0); CO2 Tension 33.2 mmHg (35.0-45.0); Calcium, Ionized 1.05 mmol/L (1.12-1.30); Carboxyhemoglobin (COHb) 0.5 gm% (0.0-3.0); Hemoglobin (Hb) 9.7 g/dL (14.0-18.0); O2 Tension (PaO2) 65.9 mmHg (> 80.0); Potassium - ABG Lab 3.77 mmol/L (3.70-5.30); pH, Arterial 7.32 (7.35-7.45)
--- NOTE | 2019-02-09 07:13 | PDOC.FM ---
- Subjective Subjective: Overnight, patient initially agitated on the vent and sedation was increased and ativan given x 1. Patient was more calm after this. Patient did have decreased urine output and was given a 1L bolus. The patient remains on the ventilator this morning. Per nursing, he does follow commands. He is requiring less pressors. - Objective MAR Reviewed: Yes Vital Signs & Weight: Vital Signs (12 hours) Temp Pulse Resp Pulse Ox 02/09/19 06:00 22 H 02/09/19 04:00 98.8 F 14 02/09/19 02:00 20 02/09/19 01:57 101 H 02/09/19 00:00 99.4 F 22 H 02/08/19 22:00 22 H 02/08/19 21:51 97 02/08/19 20:00 99.0 F 28 H 100 02/08/19 19:22 94 Weight Admit Weight 61 kg Weight 61 kg Most Recent Monitor Data Heart Rate from ECG 102 NIBP 108/68 NIBP BP-Mean 81 Respiration from ECG 14 SpO2 99 I&O: 02/08/19 02/09/19 02/10/19 06:59 06:59 06:59 Intake Total 3078 Output Total 845 Balance 2233 Result Diagrams: 02/09/19 04:15 02/09/19 04:15 Phys Exam - Physical Examination Constitutional: NAD HEENT: moist MMs, sclera anicteric Neck: supple rales appreciated bilaterally Cardiovascular: RRR, no significant murmur, no rub Gastrointestinal: soft, non-tender, no distention, positive bowel sounds ecchymosis on lower abdomen Musculoskeletal: pulses present follows commands Skin: no rash, normal turgor, cap refill <2 seconds Dx/Plan (1) Sepsis Code(s): A41.9 - SEPSIS, UNSPECIFIED ORGANISM Status: Acute (2) Bilateral pneumonia Code(s): J18.9 - PNEUMONIA, UNSPECIFIED ORGANISM Status: Acute (3) Hypoglycemia associated with type 2 diabetes mellitus Code(s): E11.649 - TYPE 2 DIABETES MELLITUS WITH HYPOGLYCEMIA WITHOUT COMA Status: Acute (4) Hyponatremia Code(s): E87.1 - HYPO-OSMOLALITY AND HYPONATREMIA Status: Acute (5) Lactic acid blood increased Code(s): E87.2 - ACIDOSIS Status: Acute (6) Macrocytic anemia Code(s): D53.9 - NUTRITIONAL ANEMIA, UNSPECIFIED Status: Acute (7) Protein-calorie malnutrition Code(s): E46 - UNSPECIFIED PROTEIN-CALORIE MALNUTRITION Status: Acute Qualifiers: Protein-calorie malnutrition severity: unspecified severity Qualified Code( s): E46 - Unspecified protein-calorie malnutrition (8) BPH (benign prostatic hypertrophy) Code(s): N40.0 - BENIGN PROSTATIC HYPERPLASIA WITHOUT LOWER URINRY TRACT SYMP Status: Chronic (9) CHF (congestive heart failure) Code(s): I50.9 - HEART FAILURE, UNSPECIFIED Status: Chronic (10) COPD (chronic obstructive pulmonary disease) Status: Chronic (11) Chronic hyponatremia Code(s): E87.1 - HYPO-OSMOLALITY AND HYPONATREMIA Status: Resolved (12) HLD (hyperlipidemia) Code(s): E78.5 - HYPERLIPIDEMIA, UNSPECIFIED Status: Chronic (13) HTN (hypertension) Code(s): I10 - ESSENTIAL (PRIMARY) HYPERTENSION Status: Chronic Qualifiers: Hypertension type: essential hypertension Qualified Code(s): I10 - Essential (primary) hypertension (14) Type 2 diabetes mellitus Status: Chronic Qualifiers: Diabetes mellitus nursing home insulin use: with long chain beamer use Diabetes mellitus complication detail: with polyneuropathy - Plan Plan: #Sepsis 2/2 bilateral PNA leading to intubation with mechanical ventilation Patient presented hypotensive, hypothermic, elevated lactate and developed AMS and led to intubation. CXR showing b/l lower lobe PNA. Remains on the ventilator. - Pulm consulted, appreciate recommendations. Will ween as tolerated. Vent and sedation protocol. Patient currently breathing over the vent, FiO2 at 35%, and PEEP of 5. - Abx coverage for b/l PNA covering for MRSA and pseudomonas: levoquin, vanc and zosyn. Procal and CRP elevated. WBC count elevated w/ bandemia. - LA remains elevated. Continue fluid resuscitation. Patient still on pressors but slowly lowering dose. - Legionella and strep urine ag negative - CT brain negative for any acute process #Pelvic fractures - right side sacrum and right superior and inferior pubic rami fractures present on last admission - PT/OT recommended #DM2 with diabetic neuropathy - will start lantus and SS - hypoglycemic protocol, ACHS #Chronic hyponatremia - likely 2/2 poor diet, machinist first class consulted - Na 134, appears at baseline, will monitor #Chronic Anemia - Hgb 7.8 ->8.2, at baseline #COPD - currently on the vent, will ween as tolerated. Pulm following. 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 Franco
[2019-02-09 07:24] LABS: Puncture Site RRAD
--- NOTE | 2019-02-09 07:55 | PRG ---
DATE OF SERVICE: 02/09/2019 SUBJECTIVE: Meliton Smiley' requirements for Levophed have decreased. OBJECTIVE: VITAL SIGNS: Blood pressure is in the 110 to 120s this morning. His nurses continue to wean the Levophed. Heart rate is 102, respiratory rates in the 30s. LUNGS: Remarkable for crackles at the right base. HEART: Regular rhythm. ABDOMEN: Soft without guarding or masses. EXTREMITIES: Without edema. LABORATORY DATA: White count is up to 21.5, hemoglobin 8.2, platelets 488. His band count has gone from 72% to 58%. Sodium 139, potassium 3.9, chloride 111, bicarb 19, BUN 10, creatinine 0.77. PH 7.32, CO2 33, PO2 65. He is on SIMV with a rate of 14, FiO2 of 35, tidal volume 500, pressure support of 10, 5 of PEEP. IMPRESSION: Pneumonia with respiratory failure. PLAN: Continue mechanical ventilation, antibiotics, weaning of pressors, and IV fluids. Consider nutritional support this weekend. Antibiotics can be pared down as cultures come back. Critical care time is 35 minutes. Job ID: [id number] MTDD
[2019-02-09] MEDS ORDERED: Indomethacin 75 mg SR Capsule PO SCH (09:00)
[2019-02-09] MEDS: Enoxaparin Sodium 40 MG/0.4 ML SYRINGE SC SCH (09:34)
[2019-02-09] MEDS: Pantoprazole 40 MG VIAL IVP SCH (09:35)
--- NOTE | 2019-02-09 10:13 | PRG ---
DATE OF SERVICE: 02/09/2019 Mr. Smiley is a 68-year-old man with many serious comorbidities. He had been in the rehab center after a recent discharge from the hospital for urinary tract infection. He was found slumped over in his chair with a body temperature of around 93 degrees Fahrenheit, as well as a low blood pressure. EMT was called and he was transported to the ER. There, a chest x-ray revealed a probable pneumonia. He was also appearing septic and was admitted to the intensive care unit after being intubated. He is currently on broad-spectrum antibiotics and is sedated on the ventilator. We will continue to follow with the Intensive Care Service. Job ID: [id number]
[2019-02-09] MEDS: Norepinephrine 8 MG/0.9% NS 250 ML IVPB SCH (12:03)
[2019-02-09] MEDS: Lorazepam 2 MG/ML VIAL SLOW IVP PRN ×2 (14:31→22:07)
--- NOTE | 2019-02-09 15:02 | PQF ---
KIKE YOUNG,MELLY JOSEJULIANA *r [id number] CLINICAL DOCUMENTATION IMPROVEMENT CLARIFICATION FORM: ICD-10 Updated PLEASE DO AN ADDENDUM TO THE PROGRESS NOTE WITH ANY DOCUMENTATION UPDATES OR ADDITIONS AND CARRY THROUGH TO DC SUMMARY. THANK YOU. DATE: 02/09/19 ATTN: Dr. Jose Please exercise your independent, professional judgment in responding to the clarification form. Clinical indicators are provided on the bottom of this form for your review Please check appropriate box(s): [ x] Encephalopathy: Type: [ x] Acute [ ] Subacute [ ] Chronic Etiology: [ ] Metabolic due to pneumonia [ x ] Septic [ ] Drug induced: [ ] Unspecified [ ] in the setting of underlying dementia [ ] Other (please specify) [ ] Transient Alteration of Awareness [ ] Other diagnosis [ ] Unable to determine In addition, please specify: Present on Admission (POA): [x ] Yes [ ] No [ ] Unable to determine For continuity of documentation, please document condition throughout progress notes and discharge summary. Thank You. CLINICAL INDICATORS - SIGNS / SYMPTOMS / LABS / RESULTS AND LOCATION IN EMR H&P(Arlene): "AMS"; "patient unresponsive and would not follow command or respond to pain" Metabolic abnormality--> Lactic acid 3.5 02/08 BP 87/53; HR 103 temp 93.7 per VS 02/08 CXR: bibasilar pneumonia greater at the right lung base. RISK FACTORS / RESULTS AND LOCATION IN EMR Infectious process--> H&P(Boraravind): "Sepsis, pneumonia" TREATMENTS / RESULTS AND LOCATION IN EMR CCU 02/08 orders IV antibiotics--> Levaquin 750 mg daily 02/08 to date; Zosyn 4.5 gm Q6H 02/08 to date; Vancomycin 1 gm Q12H 02/08 to date per orders IV fluids--> 02/08 2L NS bolus in ED; 02/08 NS at 100; 02/09 NS 1 liter bolus per orders (This form is maintained as a part of the permanent medical record) 2014 [employer]. All Rights Reserved Roxy Garza RN, BSN, CCDS [email or web address] [phone] [email or web address]
[2019-02-09] MEDS ORDERED: FLU VACC TS2019-20(65YR UP)/PF 180 MCG/0.5 ML SYRINGE IM ONE (15:30)
--- NOTE | 2019-02-09 15:32 | PQF ---
[facility] [employer] Specialist Crystal Reports [employer] RomyNITHIN YOUNG,MELLY Smith DAMONJULIANA *r [id number] CLINICAL DOCUMENTATION IMPROVEMENT CLARIFICATION FORM: ICD-10 Updated PLEASE DO AN ADDENDUM TO THE PROGRESS NOTE WITH ANY DOCUMENTATION UPDATES OR ADDITIONS AND CARRY THROUGH TO DC SUMMARY. THANK YOU. DATE: 02/09/19 ATTN: Dr. Menjivar Please exercise your independent, professional judgment in responding to the clarification form. Clinical indicators are provided on the bottom of this form for your review Please check appropriate box(es): [ ] Severe sepsis with acute organ dysfunction of: respiratory failure (Examples: respiratory failure, encephalopathy, acute kidney failure, other) With: [ ] Septic shock Without [ ] Septic shock [ ] Sepis due to aspiration pneumonia [x ] Sepsis due to pneumonia [ ] Other diagnosis [ ] Unable to determine In addition, please specify: Present on Admission (POA): [x ] Yes [ ] No [ ] Unable to determine For continuity of documentation, please document condition throughout progress notes and discharge summary. Thank You. CLINICAL INDICATORS - SIGNS / SYMPTOMS / LABS / RESULTS AND LOCATION IN MR "AMS" per H&P(Borroni) Fever or hypothermia (<96.8 F/36 C or > 100.4 F/38C)--> Temp 93.7 02/08 VS SBP <100mmHg--> BP 83/53 02/08 VS HR 103 per 02/08 VS Metabolic acidosis Lactic Acid >2mmol/L--> lactic acid 3.5 per 02/08 lab Shock-hypotension resistant to IV fluid boluses-->" hypotension" H&P(Borroni) WBC count (>12,000/mm^4 or <4000/mm^3 or 10% neuts, 10% bands)--> 02/09 wbc 21.5 per lab RISK FACTORS / RESULTS AND LOCATION IN MR Infection/Bacteremia--> Sepsis likely 2/2 bilateral pneumonia per H&P(Borroni) 02/08 (Remigio): "pneumonia, possibly aspiration mediated" TREATMENTS / RESULTS AND LOCATION IN MR Initiation Sepsis Protocol 02/08 orders ICU 02/08 orders Daily CBC 02/08 orders Blood/sputum cultures orders 02/08 IV antibiotics - broad spectrum--> 02/08 to date: Levaquin 750mg IV daily , Zosyn 4.5 gm IV Q6h; Vancomycin 1gm IV Q12H per orders IV Fluids--> 02/08 2L NS bolus; 02/08 NS at 100; 02/09 1 liter NS bolus per orders Vasopressors--> Levophed drip 02/08 per orders (This form is maintained as a part of the permanent medical record) 2014 [employer]. All Rights Reserved Roxy Garza RN, BSN, CCDS [email or web address] [facility]
[2019-02-09] MEDS: fentaNYL Citrate/PF 2,000 MCG in Sodium Chloride 0.9% 60 ML IV SCH (20:57)
[2019-02-10] MEDS: Norepinephrine 8 MG/0.9% NS 250 ML IVPB SCH (01:38)
[2019-02-10] MEDS: Piperacillin/Tazobactam 4.5 GM in Sodium Chloride 0.9% 100 ML IVPB SCH ×4 (05:53→23:31)
--- NOTE | 2019-02-10 07:31 | PDOC.FM ---
- Subjective Subjective: Pt continues to require ventilator support and pressor support. No agitation overnight. Continues sedation. - Objective Vital Signs & Weight: Vital Signs (12 hours) Temp Resp Pulse Ox 02/10/19 06:00 14 02/10/19 04:00 98.9 F 18 02/10/19 02:00 16 02/10/19 00:00 99.9 F H 14 02/09/19 22:00 16 02/09/19 20:00 99 F 16 02/09/19 19:43 96 Weight Admit Weight 61 kg Weight 59.7 kg Most Recent Monitor Data Heart Rate from ECG 110 NIBP 110/74 NIBP BP-Mean 86 Respiration from ECG 14 SpO2 99 I&O: 02/09/19 02/10/19 02/11/19 06:59 06:59 06:59 Intake Total 3078 4106.1 Output Total 845 1375 Balance 2233 2731.1 Result Diagrams: 02/09/19 04:15 02/09/19 04:15 Phys Exam - Physical Examination Sedated HEENT: moist MMs, sclera anicteric ET and OG tube in place scar from prior trach course breath sounds throughout Cardiovascular: RRR, no significant murmur Gastrointestinal: soft, non-tender, no distention, positive bowel sounds Musculoskeletal: no edema, pulses present sedated Skin: no rash, normal turgor Dx/Plan (1) Bilateral pneumonia Code(s): J18.9 - PNEUMONIA, UNSPECIFIED ORGANISM Status: Acute (2) Sepsis Code(s): A41.9 - SEPSIS, UNSPECIFIED ORGANISM Status: Acute (3) Complicated UTI (urinary tract infection) Code(s): N39.0 - URINARY TRACT INFECTION, SITE NOT SPECIFIED Status: Acute (4) Hypoglycemia associated with type 2 diabetes mellitus Code(s): E11.649 - TYPE 2 DIABETES MELLITUS WITH HYPOGLYCEMIA WITHOUT COMA Status: Acute (5) Hyponatremia Code(s): E87.1 - HYPO-OSMOLALITY AND HYPONATREMIA Status: Acute (6) CHF (congestive heart failure) Code(s): I50.9 - HEART FAILURE, UNSPECIFIED Status: Chronic (7) HLD (hyperlipidemia) Code(s): E78.5 - HYPERLIPIDEMIA, UNSPECIFIED Status: Chronic (8) HTN (hypertension) Code(s): I10 - ESSENTIAL (PRIMARY) HYPERTENSION Status: Chronic Qualifiers: Hypertension type: essential hypertension Qualified Code(s): I10 - Essential (primary) hypertension (9) Type 2 diabetes mellitus Status: Chronic Qualifiers: Diabetes mellitus terminal block assembler insulin use: with terminal block assembler use Diabetes mellitus complication detail: with polyneuropathy - Plan Plan: #Sepsis 2/2 bilateral PNA leading to intubation with mechanical ventilation cont broad spectrum abx and vent support - sedation vacations daily - cont pressor support and wean to Map>60 - de-escalate abx when cultures result #Pelvic fractures - right side sacrum and right superior and inferior pubic rami fractures present on last admission - PT/OT recommended - eval pending pts clinical course #DM2 with diabetic neuropathy - Accuchecks achs - lantus + SSI #Chronic hyponatremia - stable #Chronic Anemia - Hgb 7.8 ->8.2, at baseline, trend #COPD - currently on the vent, will ween as tolerated. Pulm following, appreciate recs #GERD - IV protonix #BPH - home meds: flomax #Anxiety/Depression - home meds: wellbutrin, risperdal, gabapentin #Tobacco Use disorder - Pay Clerk on cessation #Alcohol Use disorder - ASE protocol, no acute s/s withdrawal #Asplenia - aware, on appropriate abx coverage Dispo: Guarded, cont vent support and pressor support. Wean as pt tolerates. Sedation vacation daily. Pulm following, appreciate recs. Addendum - Attending - Attending Attestation Date/Time: 02/10/19 4289 I personally evaluated the patient and discussed the management with Dr. Holloway. I agree with the History, Examination, Assessment and Plan documented above with any addition or exceptions noted below. The patient required propofol overnight. Levophed is being weaned. Continue broad-spectrum antibiotics until cultures finalize. Will discuss tube feed recs with dietary.
--- NOTE | 2019-02-10 07:37 | RAD ---
EXAM: Portable chest PROVIDED CLINICAL HISTORY: Respiratory insufficiency COMPARISON: 02/08/2019 FINDINGS: Interval worsening of left perihilar airspace disease. Proximal sidehole lucency of enteric catheter projects over expected distal thoracic esophagus location. Additional significant interval change with respect to the prior examination is not apparent. IMPRESSION: As above.
[2019-02-10] MEDS: Enoxaparin Sodium 40 MG/0.4 ML SYRINGE SC SCH (08:04)
[2019-02-10] MEDS: Pantoprazole 40 MG VIAL IVP SCH (08:04)
[2019-02-10] MEDS ORDERED: Calcium Gluc 4.6 MEQ/10 ML (100 MG/ML) SLOW IVP ONE (10:14)
[2019-02-10] MEDS ORDERED: Sodium Chloride 0.9% 1,000 ML IV SCH (10:14)
[2019-02-10] MEDS ORDERED: predniSONE 20 MG TAB PO SCH (10:15)
--- NOTE | 2019-02-10 10:27 | PRG ---
DATE OF SERVICE: 02/10/2019 SERVICE: Pulmonary Service. INTERVAL HISTORY: The patient is doing well from a respiratory perspective. He is under the influence of sedation and not able to provide any additional elements of the history. There were no significant overnight events. We turned the sedation off this morning, he is not doing much of anything other than having grimace with noxious stimuli. PHYSICAL EXAMINATION: VITAL SIGNS: Afebrile. Pulse 107, blood pressure 99/63, respirations 14, saturation 92%, currently on 41% FiO2 and a PEEP of 5. GENERAL: The patient is intubated and sedated. HEENT: Normocephalic and atraumatic. Sclerae white. Conjunctivae pink. Oral mucosa is moist without lesions. LUNGS: Rhonchi are present with a prolonged expiratory phase. There is not much wheezing. HEART: Normal rate. Regular. ABDOMEN: Soft. Nontender and nondistended. Bowel sounds are positive. MUSCULOSKELETAL: No cyanosis or clubbing. There is no pitting in the bilateral lower extremities. NEUROLOGIC: Grossly nonfocal. LABORATORY DATA: WBC 21.5, hemoglobin 8.2, platelets 488,000. PH 7.32, pCO2 33 , PO2 66. Basic metabolic profile is unremarkable. Calcium 6.7. Cortisol 13.5. Legionella pneumonia antigens are unremarkable. Sputum is growing a gram-negative carlos. Blood cultures x2, influenza A and B, and urine culture all unremarkable to date. IMAGING: Chest x-ray demonstrates perihilar airspace disease. There is a right lower lobe infiltrate present. Endotracheal tube is in good position. The enteric catheter courses below the level of the diaphragm, but the sideport is likely in the distal esophagus. Pulmonary vascular congestion is superimposed on top of the right lower lobe infiltrate. ASSESSMENT: 1. Acute hypoxic respiratory failure. 2. Healthcare-associated pneumonia, secondary to gram-negative carlos. 3. Septic shock, improving. 4. Chronic obstructive pulmonary disease with acute exacerbation. DISCUSSION AND PLAN: We will continue steroids, antibiotics, nebulized medications. At this point, we will back off on his IV fluids as his overall volume is up. We will give him a daily sedation holiday. If he meets criteria, extubation could be considered, though he still has a considerable prolonged expiratory time, his oxygen requirements are marginal for safe extubation. I will replace his calcium. Pulmonary/Critical Care will follow. CRITICAL CARE TIME: 30 minutes. Job ID: [id number] [facility]
[2019-02-10] MEDS ORDERED: Calcium Gluconate 9.2 MEQ in Sodium Chloride 0.9% 100 ML IVPB SCH (11:30)
[2019-02-10] MEDS ORDERED: Vancomycin HCl 750 MG in Sodium Chloride 0.9% 250 ML 250 ML IVPB SCH (12:00)
[2019-02-10] MEDS: HumaLOG 300 UNITS/3 ML VIAL SC PRN ×2 (17:09→23:44)
[2019-02-10] MEDS: fentaNYL Citrate/PF 2,000 MCG in Sodium Chloride 0.9% 60 ML IV SCH (23:32)
[2019-02-11] MEDS: Sodium Chloride 0.9% 1,000 ML IV SCH (00:20)
[2019-02-11] MEDS: Piperacillin/Tazobactam 4.5 GM in Sodium Chloride 0.9% 100 ML IVPB SCH ×4 (05:36→23:19)
[2019-02-11] MEDS: HumaLOG 300 UNITS/3 ML VIAL SC PRN ×2 (05:37→18:21)
[2019-02-11 07:12] LABS: Actual Bicarbonate (HCO3a) 21.2 mEq/L (22-28); Base Excess (BEa) -5.7 mEq/L (-2.0 to +3.0); CO2 Tension 48.7 mmHg (35.0-45.0); Calcium, Ionized 1.22 mmol/L (1.12-1.30); Hemoglobin (Hb) 8.5 g/dL (14.0-18.0); O2 Tension (PaO2) 99.4 mmHg (> 80.0); Potassium - ABG Lab 3.13 mmol/L (3.70-5.30); pH, Arterial 7.26 (7.35-7.45)
[2019-02-11 07:14] LABS: ALV-art Gradient 124.925 (0-20); Puncture Site RRAD
[2019-02-11 08:34] LABS: Anion Gap 11 mmol/L (10-20); BUN (Urea Nitrogen) 10 mg/dL (8.4-25.7); Calc. Creatinine Clearance 78 mL/min (70-130); Calcium 7.7 mg/dL (7.8-10.44); Carbon Dioxide 19 mmol/L (23-31); Chloride 114 mmol/L (98-107); Estimated GFR-MDRD Greater than 90; Glucose 139 mg/dL (80-115); Potassium 3.2 mmol/L (3.5-5.1); Sodium 141 mmol/L (136-145)
[2019-02-11] MEDS: Enoxaparin Sodium 40 MG/0.4 ML SYRINGE SC SCH (09:10)
[2019-02-11] MEDS: predniSONE 20 MG TAB PO SCH (09:10)
[2019-02-11] MEDS: Pantoprazole 40 MG VIAL IVP SCH (09:11)
[2019-02-11 09:26] LABS: Band 42 % (5-11); Crenated RBC SLIGHT = 1-5 cells (100X) (None Seen); Hemoglobin 8.1 g/dL (14.0-18.0); Lymphocytes 9 % (21-51); MDiff Complete? YES; Mean Corpuscular HGB CONC 31.3 g/dL (32.0-36.0); Mean Corpuscular Volume 95.9 fL (78.0-98.0); Mean Platelet Volume 8.1 fL (7.4-10.4); Neutrophil 49 % (42-75); Platelet Count 381 thou/uL (130-400); Poikilocytosis SLIGHT = 6-15 cells (100X) (0-5/hpf); RBC Distribution Width 13.9 % (11.5-14.5); Red Blood Cell (RBC) Count 2.69 mill/uL (4.70-6.10); Target Cells SLIGHT = 2-5 cells (100X) (0-1/hpf); White Blood Cell (WBC) Count 34.8 thou/uL (4.8-10.8)
--- NOTE | 2019-02-11 09:54 | PDOC.FM ---
- Subjective Subjective: No acute events overnight. Pt does not follow commands when sedation weaned and remains agitated. - Objective Vital Signs & Weight: Vital Signs (12 hours) Temp Pulse Resp Pulse Ox 02/11/19 08:00 98.5 F 17 98 02/11/19 06:39 113 H 12 100 02/11/19 06:32 115 H 02/11/19 06:00 16 02/11/19 04:00 98.3 F 16 02/11/19 02:00 12 02/11/19 00:00 98.4 F 16 02/10/19 23:37 118 H 10 L 96 02/10/19 22:00 15 Weight Admit Weight 61 kg Weight 64.6 kg Most Recent Monitor Data Heart Rate from ECG 119 NIBP 105/62 NIBP BP-Mean 76 Respiration from ECG 13 SpO2 98 I&O: 02/10/19 02/11/19 02/12/19 06:59 06:59 06:59 Intake Total 4106.1 2558.7 Output Total 1375 1065 135 Balance 2731.1 1493.7 -135 Result Diagrams: 02/11/19 08:09 02/11/19 08:09 Phys Exam - Physical Examination Sedated ventilated HEENT: moist MMs, sclera anicteric Neck: no JVD scattered wheezes, rales Cardiovascular: RRR, no significant murmur, no rub Gastrointestinal: soft, non-tender, no distention, positive bowel sounds Musculoskeletal: no edema, pulses present sedated Skin: no rash, cap refill <2 seconds Dx/Plan (1) Bilateral pneumonia Code(s): J18.9 - PNEUMONIA, UNSPECIFIED ORGANISM Status: Acute (2) Sepsis Code(s): A41.9 - SEPSIS, UNSPECIFIED ORGANISM Status: Acute (3) Complicated UTI (urinary tract infection) Code(s): N39.0 - URINARY TRACT INFECTION, SITE NOT SPECIFIED Status: Acute (4) Hypoglycemia associated with type 2 diabetes mellitus Code(s): E11.649 - TYPE 2 DIABETES MELLITUS WITH HYPOGLYCEMIA WITHOUT COMA Status: Acute (5) Hyponatremia Code(s): E87.1 - HYPO-OSMOLALITY AND HYPONATREMIA Status: Acute (6) CHF (congestive heart failure) Code(s): I50.9 - HEART FAILURE, UNSPECIFIED Status: Chronic (7) HLD (hyperlipidemia) Code(s): E78.5 - HYPERLIPIDEMIA, UNSPECIFIED Status: Chronic (8) HTN (hypertension) Code(s): I10 - ESSENTIAL (PRIMARY) HYPERTENSION Status: Chronic Qualifiers: Hypertension type: essential hypertension Qualified Code(s): I10 - Essential (primary) hypertension (9) Type 2 diabetes mellitus Status: Chronic Qualifiers: Diabetes mellitus detention insulin use: with salvage determiner use Diabetes mellitus complication detail: with polyneuropathy - Plan Plan: #Sepsis 2/2 bilateral PNA leading to intubation with mechanical ventilation - cont broad spectrum abx and vent support - sedation vacations daily - cont pressor support and wean to Map>60 - de-escalate abx when cultures result - await pulm recs #Pelvic fractures - right side sacrum and right superior and inferior pubic rami fractures present on last admission - PT/OT recommended - eval pending pts clinical course- stable #DM2 with diabetic neuropathy - Accuchecks achs - lantus + SSI - monitor, adjust prn #Chronic hyponatremia - stable #Chronic Anemia - Hgb 7.8 ->8.2, at baseline, trend #COPD - currently on the vent, will ween as tolerated. 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 Adjust abx pending culture results/sensitivities. Addendum - Attending - Attending Attestation Date/Time: 02/11/19 6863 I personally evaluated the patient and discussed the management with Dr. Holloway. I agree with the History, Examination, Assessment and Plan documented above with any addition or exceptions noted below. Pt was agitated and shaking when I saw him this morning. Sedation had been turned down. Vent mgmt per pulm. Continue antibiotics, steroids. Levophed is being titrated down.
[2019-02-11] MEDS ORDERED: Aspirin 81 mg Enteric Coated Tablet PO SCH (14:15)
--- NOTE | 2019-02-11 14:21 | PRG ---
DATE OF SERVICE: 02/11/2019 SERVICE: Pulmonary Medicine. INTERVAL HISTORY: The patient is doing fine from respiratory standpoint. He is a little bit sleepy from sedation. He is on a holiday. We put him on a spontaneous breathing trial. He seems to be doing quite well with this. Otherwise, there has been no interval change to his condition. PHYSICAL EXAMINATION: VITAL SIGNS: Afebrile, pulse 122, blood pressure is 120/73, respirations 13, saturation 97%, currently on 27% FiO2 and a PEEP of 5. GENERAL: The patient is intubated sedated. HEENT: Normocephalic and atraumatic. Sclerae white. Conjunctivae pink. Oral mucosa is moist without lesions. LUNGS: Poor air entry. Dependent crackles are noted as well as prolonged expiratory phase with wheezing and rhonchi present. HEART: Normal rate and rhythm, regular. ABDOMEN: Soft, nontender, nondistended, bowel sounds are positive. MUSCULOSKELETAL: No cyanosis or clubbing. There is 1 to 2+ pitting in bilateral lower extremities. NEUROLOGIC: Grossly nonfocal. LABORATORY DATA: WBC 34.8, hemoglobin 8.1 and stable, platelets 381,000. Neutrophil count is 49% on top of 42% bands, which are downtrending. PH 7.26, pCO2 of 50, PO2 of 99. Potassium 3.2. Chloride 114, gently up trending. Basic metabolic profile is otherwise unremarkable. Calcium is improved to 6.7. Urinalysis is unremarkable. Vancomycin trough is 20. Gram-negative carlos is growing in the sputum. Blood cultures x2, influenza A and B, and urine culture are all unremarkable to date. IMAGING: Chest x-ray demonstrates infiltrate behind the left lower lobe as well as evidence of volume overload with cephalization, interstitial fullness. ASSESSMENT: 1. Acute hypoxic respiratory failure. 2. Healthcare-associated pneumonia secondary to gram-negative carlos. 3. Septic shock, slowly improving. 4. Chronic obstructive pulmonary disease with acute exacerbation. DISCUSSION AND PLAN: We will continue our steroids, nebulized medications, and antibiotics. He has total volume up for this hospital stay. He is on a very low dose of Levophed. We will need to start diuresing him shortly. I will put him on a spontaneous breathing trial and give him a long sedation holiday. If he meets criteria, demonstrates wonderful strength, extubation will be considered, but I am inclined to leave him intubated for one additional day to see if he will firm up a little bit more. Pulmonary/Critical Care will follow. CRITICAL CARE TIME: 30 minutes. Job ID: [id number]
[2019-02-11] MEDS: Gabapentin 300 MG CAP PO SCH ×2 (14:51→20:37)
[2019-02-11] MEDS: Dextrose 5% in Water 1,000 ML IV SCH (14:53)
[2019-02-11] MEDS: risperiDONE 1 MG TAB PO SCH (20:36)
[2019-02-11] MEDS: buPROPion 75 MG TAB PO SCH (20:37)
[2019-02-11] MEDS: Metoclopramide HCl 10 MG/2 ML VIAL IVP SCH (21:40)
[2019-02-12 04:42] LABS: ALT (SGPT) Less than 7 U/L (8-55); AST (SGOT) 15 U/L (5-34); Albumin 1.8 g/dL (3.4-4.8); Alkaline Phosphatase 188 U/L (40-110); Anion Gap 9 mmol/L (10-20); BUN (Urea Nitrogen) 10 mg/dL (8.4-25.7); Bilirubin, Total 0.4 mg/dL (0.2-1.2); Calc. Creatinine Clearance 74 mL/min (70-130); Calcium 7.6 mg/dL (7.8-10.44); Carbon Dioxide 22 mmol/L (23-31); Chloride 114 mmol/L (98-107); Estimated GFR-MDRD 85; Globulin 2.1 g/dL (2.4-3.5); Glucose 182 mg/dL (80-115); Potassium 3.9 mmol/L (3.5-5.1); Protein, Total 3.9 g/dL (5.8-8.1); Sodium 141 mmol/L (136-145)
[2019-02-12 05:22] LABS: Band 20 % (5-11); Eosinophils 1 % (0-10); Hemoglobin 7.3 g/dL (14.0-18.0); Lymphocytes 3 % (21-51); MDiff Complete? YES; Mean Corpuscular HGB CONC 31.2 g/dL (32.0-36.0); Mean Corpuscular Hemoglobin 29.5 pg (27.0-31.0); Mean Corpuscular Volume 94.7 fL (78.0-98.0); Mean Platelet Volume 8.4 fL (7.4-10.4); Monocytes 7 % (0-10); Myelocyte 1 % (0-0); Neutrophil 68 % (42-75); Platelet Count 264 thou/uL (130-400); Platelet Morphology Comment Appears Adequate; RBC Distribution Width 13.8 % (11.5-14.5); Red Blood Cell (RBC) Count 2.48 mill/uL (4.70-6.10); White Blood Cell (WBC) Count 28.3 thou/uL (4.8-10.8)
[2019-02-12] MEDS: Metoclopramide HCl 10 MG/2 ML VIAL IVP SCH (06:07)
[2019-02-12] MEDS: Piperacillin/Tazobactam 4.5 GM in Sodium Chloride 0.9% 100 ML IVPB SCH ×2 (06:09→12:19)
--- NOTE | 2019-02-12 06:19 | PDOC.FM ---
- Subjective Subjective: NAEO. Per nursing, patient has been off sedation and was able to open eyes and squeeze with his right hand. Patient has also been off pressors since early this AM. Patient not agitated, resting comfortably. - Objective MAR Reviewed: Yes Vital Signs & Weight: Vital Signs (12 hours) Temp Pulse Resp BP Pulse Ox 02/12/19 04:00 98.7 F 11 L 02/12/19 03:24 116 H 105/64 02/12/19 02:00 12 02/12/19 00:13 109 H 26 H 96 02/12/19 00:00 99.6 F 11 L 02/11/19 22:34 114 H 02/11/19 22:00 12 02/11/19 20:00 99.5 F 11 L 100 02/11/19 18:45 122 H 126/77 02/11/19 18:43 113 H 13 99 Weight Admit Weight 61 kg Weight 64.6 kg Most Recent Monitor Data Heart Rate from ECG 112 NIBP 110/70 NIBP BP-Mean 83 Respiration from ECG 13 SpO2 98 I&O: 02/10/19 02/11/19 02/12/19 06:59 06:59 06:59 Intake Total 4106.1 2558.7 783 Output Total 1375 1065 975 Balance 2731.1 1493.7 -192 Result Diagrams: 02/12/19 04:05 02/12/19 04:05 Phys Exam - Physical Examination Constitutional: NAD intubated, sedated HEENT: PERRLA, sclera anicteric dry MM Neck: no JVD, supple rhonchi diffusely anteriorly, no wheezing Cardiovascular: RRR, no significant murmur, no rub Gastrointestinal: soft, non-tender, no distention, positive bowel sounds Musculoskeletal: no edema, pulses present opened eyes to voice, squeezed with right hand no movement in the L hand or LE Skin: no rash, normal turgor, cap refill <2 seconds Deviation from normal: ecchymosis noted in b/l Upper extremities Dx/Plan (1) Sepsis Code(s): A41.9 - SEPSIS, UNSPECIFIED ORGANISM Status: Acute (2) Bilateral pneumonia Code(s): J18.9 - PNEUMONIA, UNSPECIFIED ORGANISM Status: Acute (3) Hypoglycemia associated with type 2 diabetes mellitus Code(s): E11.649 - TYPE 2 DIABETES MELLITUS WITH HYPOGLYCEMIA WITHOUT COMA Status: Acute (4) Hyponatremia Code(s): E87.1 - HYPO-OSMOLALITY AND HYPONATREMIA Status: Acute (5) Lactic acid blood increased Code(s): E87.2 - ACIDOSIS Status: Acute (6) Macrocytic anemia Code(s): D53.9 - NUTRITIONAL ANEMIA, UNSPECIFIED Status: Acute (7) Protein-calorie malnutrition Code(s): E46 - UNSPECIFIED PROTEIN-CALORIE MALNUTRITION Status: Acute Qualifiers: Protein-calorie malnutrition severity: unspecified severity Qualified Code( s): E46 - Unspecified protein-calorie malnutrition (8) BPH (benign prostatic hypertrophy) Code(s): N40.0 - BENIGN PROSTATIC HYPERPLASIA WITHOUT LOWER URINRY TRACT SYMP Status: Chronic (9) CHF (congestive heart failure) Code(s): I50.9 - HEART FAILURE, UNSPECIFIED Status: Chronic (10) COPD (chronic obstructive pulmonary disease) Status: Chronic (11) Chronic hyponatremia Code(s): E87.1 - HYPO-OSMOLALITY AND HYPONATREMIA Status: Resolved (12) HLD (hyperlipidemia) Code(s): E78.5 - HYPERLIPIDEMIA, UNSPECIFIED Status: Chronic (13) HTN (hypertension) Code(s): I10 - ESSENTIAL (PRIMARY) HYPERTENSION Status: Chronic Qualifiers: Hypertension type: essential hypertension Qualified Code(s): I10 - Essential (primary) hypertension (14) Type 2 diabetes mellitus Status: Chronic Qualifiers: Diabetes mellitus accountant property insulin use: with accountant property use Diabetes mellitus complication detail: with polyneuropathy - Plan Plan: This is a 68yo M admitted for Acute Hypoxic Resp Failure 2/2 Multifocal pneumonia. Consults: Pulmonology MOTORMAN/WOMAN: - Sedation protocol for mechanical ventilation. Patient has been doing long sedation vacations throughout the day and tolerating well. Patient does have [address] due to agitation. He has been able to open eyes spontaneously and to voice command. He is squeezing right hand but no other movement in extremities. Resp: - Currently on mechanical ventilation. Vent settings: FiO2: 37%, PEEP 5, spont - Sedation vacations as well as Cpap trials. - Pulm consulted, appreciate recs. - CXR showing multifocal pneumonia. Resp Cx showing gram neg rods, sensitivities pending. - Currently on zosyn and levoquin pending sensitivities. - Hx of COPD: continue steroids and duoneb CV: - Patient initially on pressors, taken off early AM of 02/12 - Will continue to monitor BP GI: - patient on tube feeds, continue Heme: - Chronic anemia. Patient at baseline. 02/12 AM Hgb 7.3. Will continue to trend. /Renal: - I/O: -192 - Morales in place. Hx of BPH. Infection: - see resp for management of pneumonia Endo: - DM2 with diabetic neuropathy. Accuchecks ACHS. Lantus + SSI. MSK: - Pelvic fractures - Right side sacrum and right superior and inferior pubic rami fractures present on last admission - PT/OT consulted Psych: - hx of Anxiety/depression on wellbutrin and risperdal Lines/tubes: left IJ, morales, mechanical ventilation Code: FULL VTE ppx: lovenox GI ppx: protonix Dispo: Guarded, cont vent support and pressor support. Ween as tolerated. Adjust abx pending culture results/sensitivities. Case discussed with Dr. Dillard Addendum - Attending - Attending Attestation Date/Time: 02/12/19 8875 I personally evaluated the patient and discussed the management with Dr. Menjivar. I agree with the History, Examination, Assessment and Plan documented above with any addition or exceptions noted below. CXR from 02/10 appears to have a malpositioned cvc. Will d/w pulm.
[2019-02-12] MEDS: predniSONE 20 MG TAB PO SCH (08:53)
[2019-02-12] MEDS: Aspirin 81 mg Enteric Coated Tablet PO SCH (08:53)
[2019-02-12] MEDS: Gabapentin 300 MG CAP PO SCH ×3 (08:54→20:59)
[2019-02-12] MEDS: Enoxaparin Sodium 40 MG/0.4 ML SYRINGE SC SCH (08:54)
[2019-02-12] MEDS: Pantoprazole 40 MG VIAL IVP SCH (08:54)
[2019-02-12] MEDS: buPROPion 75 MG TAB PO SCH ×2 (09:01→20:59)
[2019-02-12] MEDS: Dextrose 5% in Water 1,000 ML IV SCH (13:32)
[2019-02-12] MEDS: HumaLOG 300 UNITS/3 ML VIAL SC PRN (17:46)
[2019-02-12] MEDS: Meropenem 2 GM in Sodium Chloride 0.9% 100 ML IVPB SCH (21:00)
[2019-02-12] MEDS: Acetaminophen 325 MG TAB PO PRN (21:00)
[2019-02-12] MEDS: risperiDONE 1 MG TAB PO SCH (21:00)
[2019-02-13 05:04] LABS: Anion Gap 9 mmol/L (10-20); BUN (Urea Nitrogen) 12 mg/dL (8.4-25.7); Calc. Creatinine Clearance 83 mL/min (70-130); Calcium 7.8 mg/dL (7.8-10.44); Carbon Dioxide 25 mmol/L (23-31); Chloride 112 mmol/L (98-107); Estimated GFR-MDRD Greater than 90; Glucose 166 mg/dL (80-115); Potassium 3.5 mmol/L (3.5-5.1); Sodium 142 mmol/L (136-145)
[2019-02-13 05:47] LABS: Band 7 % (5-11); Eosinophils 1 % (0-10); Hemoglobin 7.9 g/dL (14.0-18.0); Lymphocytes 8 % (21-51); MDiff Complete? YES; Mean Corpuscular HGB CONC 31.1 g/dL (32.0-36.0); Mean Corpuscular Hemoglobin 29.3 pg (27.0-31.0); Mean Corpuscular Volume 94.2 fL (78.0-98.0); Monocytes 5 % (0-10); Neutrophil 79 % (42-75); Nucleated RBC 1 % (0); Platelet Count 224 thou/uL (130-400); Red Blood Cell (RBC) Count 2.67 mill/uL (4.70-6.10); Target Cells MODERATE= 6-15 cells (100X) (0-1/hpf); White Blood Cell (WBC) Count 21.1 thou/uL (4.8-10.8)
[2019-02-13] MEDS: Acetaminophen 325 MG TAB PO PRN (06:25)
--- NOTE | 2019-02-13 06:30 | PDOC.FM ---
- Subjective Subjective: NAEO. Per nursing, patient has been more alert and able to follow commands. He has been off of fentanyl and only on precedex overnight. He responds yes or no to questions. States he is in some pain. Nurse noted pain while raising is left arm and he states he had throat and back pain. The nurse also noted that he has not had a BM since being here. - Objective MAR Reviewed: Yes Vital Signs & Weight: Vital Signs (12 hours) Temp Pulse Resp BP Pulse Ox 02/13/19 06:00 25 H 02/13/19 04:00 97.8 F 20 02/13/19 03:17 102 H 113/75 02/13/19 02:00 16 02/13/19 00:57 97 02/13/19 00:56 98 02/13/19 00:00 97.7 F 13 02/12/19 22:13 104 H 103/72 02/12/19 22:00 15 02/12/19 20:00 97.8 F 14 97 02/12/19 19:06 106 H 02/12/19 19:05 95 Weight Admit Weight 61 kg Weight 63.1 kg Most Recent Monitor Data Heart Rate from ECG 105 NIBP 120/79 NIBP BP-Mean 92 Respiration from ECG 24 SpO2 97 I&O: 02/11/19 02/12/19 02/13/19 06:59 06:59 06:59 Intake Total 2558.7 1538.3 1982.8 Output Total 1065 1035 1585 Balance 1493.7 503.3 397.8 Result Diagrams: 02/13/19 04:25 02/13/19 04:25 Phys Exam - Physical Examination Constitutional: NAD uncomfortable, complaining of pain HEENT: PERRLA, moist MMs, sclera anicteric Neck: supple Respiratory: no wheezing, no rales, no rhonchi, clear to auscultation bilateral Cardiovascular: RRR, no significant murmur, no rub Gastrointestinal: soft, non-tender, no distention, positive bowel sounds trace edema in b/l LE; UE have 1+ edema responds well, open eyes spontaneously, moving all limbs now Skin: no rash, normal turgor, cap refill <2 seconds Dx/Plan (1) Sepsis Code(s): A41.9 - SEPSIS, UNSPECIFIED ORGANISM Status: Acute (2) Bilateral pneumonia Code(s): J18.9 - PNEUMONIA, UNSPECIFIED ORGANISM Status: Acute (3) Hypoglycemia associated with type 2 diabetes mellitus Code(s): E11.649 - TYPE 2 DIABETES MELLITUS WITH HYPOGLYCEMIA WITHOUT COMA Status: Acute (4) Hyponatremia Code(s): E87.1 - HYPO-OSMOLALITY AND HYPONATREMIA Status: Acute (5) Lactic acid blood increased Code(s): E87.2 - ACIDOSIS Status: Acute (6) Macrocytic anemia Code(s): D53.9 - NUTRITIONAL ANEMIA, UNSPECIFIED Status: Acute (7) Protein-calorie malnutrition Code(s): E46 - UNSPECIFIED PROTEIN-CALORIE MALNUTRITION Status: Acute Qualifiers: Protein-calorie malnutrition severity: unspecified severity Qualified Code( s): E46 - Unspecified protein-calorie malnutrition (8) BPH (benign prostatic hypertrophy) Code(s): N40.0 - BENIGN PROSTATIC HYPERPLASIA WITHOUT LOWER URINRY TRACT SYMP Status: Chronic (9) CHF (congestive heart failure) Code(s): I50.9 - HEART FAILURE, UNSPECIFIED Status: Chronic (10) COPD (chronic obstructive pulmonary disease) Status: Chronic (11) HLD (hyperlipidemia) Code(s): E78.5 - HYPERLIPIDEMIA, UNSPECIFIED Status: Chronic (12) HTN (hypertension) Code(s): I10 - ESSENTIAL (PRIMARY) HYPERTENSION Status: Chronic Qualifiers: Hypertension type: essential hypertension Qualified Code(s): I10 - Essential (primary) hypertension (13) Type 2 diabetes mellitus Status: Chronic Qualifiers: Diabetes mellitus care home insulin use: with care home use Diabetes mellitus complication detail: with polyneuropathy - Plan Plan: This is a 68yo M admitted for Acute Hypoxic Resp Failure 2/2 Multifocal pneumonia. 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 Patient has been doing long sedation vacations throughout the day and tolerating well. Patient does have [address] due to agitation. He has been able to open eyes spontaneously and to voice command. He is moving all 4 limbs now and able to answer yes/no questions. He does try to answer over the vent. Appears uncomfortable on the vent. Will add ativan for agitation as well as morphine for pain PRN. Resp: - Currently on mechanical ventilation. Vent settings: FiO2: 41%, PEEP 5, SimV. Patient breathing over the vent. - Sedation vacations as well as Cpap trials. Has been off sedation all night and doing well. On precedex only. - Pulm consulted, appreciate recs. - CXR showing multifocal pneumonia on admission. Resp Cx showing gram neg rods. Sensitive to meropenem which was started yesterday. Resistant to vanc, zosyn and levoquin. White count and bands have downtrended. CXR from today pending. - Hx of COPD: continue steroids and duoneb - Will add scopolamine patch for secretions CV: - Patient initially on pressors, taken off AM of 02/12. On precedex only. - Will continue to monitor BP - stable for now. GI: - patient on tube feeds, continue. - Will add miralax to regimen. Heme: - Chronic anemia. Patient at baseline. 02/12 AM Hgb 7.3 ->7.9. Will continue to trend. /Renal: - I/O: 397.8 as of 0600. Will continue to monitor. Can consider dose of lasix as patient is fluid up. - Morales in place. Hx of BPH. Infection: - see resp for management of pneumonia Endo: - DM2 with diabetic neuropathy. Accuchecks ACHS. Lantus + SSI. Sugars have been well controlled. MSK: - Pelvic fractures - Right side sacrum and right superior and inferior pubic rami fractures present on last admission - PT/OT consulted - Will add morphine PRN for pain as well as ativan for agitation Psych: - hx of Anxiety/depression on wellbutrin and risperdal Palliative: discussed with yesterday. patient does not wish to have trach. Will continue to discuss goals of care with family. Lines/tubes: left IJ, morales, mechanical ventilation Code: FULL VTE ppx: lovenox GI ppx: protonix Dispo: Guarded, cont vent support and pressor support as needed. Ween as tolerated. PT/OT. Case discussed with Dr. Dillard Addendum - Attending - Attending Attestation Date/Time: 02/13/19 9166 I personally evaluated the patient and discussed the management with Dr. Menjivar. I agree with the History, Examination, Assessment and Plan documented above with any addition or exceptions noted below. NAEON. Exam still with rhonchorous lungs and significant secretions. Lung protective ventilation, daily sedation vacations and weaning trials. Antibiotics changed to meropenem in light of Sn. Good pulmonary toilet, hold scopolamine out of concern for retaining secretions.
[2019-02-13] MEDS: HumaLOG 300 UNITS/3 ML VIAL SC PRN ×3 (06:32→22:06)
[2019-02-13] MEDS: Meropenem 2 GM in Sodium Chloride 0.9% 100 ML IVPB SCH ×3 (07:02→21:03)
[2019-02-13] MEDS ORDERED: Scopolamine 1.5 mg/72 hour Patch TD SCH (07:15)
--- NOTE | 2019-02-13 07:55 | RAD ---
EXAM: Single view of the chest HISTORY: Ventilated patient with respiratory failure COMPARISON: 02/10/2019 FINDINGS: Single view of the chest shows a normal sized cardiomediastinal silhouette. An endotrachea l tube is seen with its tip 2.3 cm above the jerardo. A left IJ central venous catheter still projects slightly upward into the right innominate region. There are worsening multifocal mixed alve olar/interstitial infiltrates. An NG tube is seen in the stomach. The bones are unremarkable. IMPRESSION: Worsening multifocal infiltrates
[2019-02-13] MEDS: buPROPion 75 MG TAB PO SCH ×2 (09:04→21:03)
[2019-02-13] MEDS: Polyethylene Glycol 3350 17 GM Packet PER TUBE SCH (09:04)
[2019-02-13] MEDS: Gabapentin 300 MG CAP PO SCH ×3 (09:04→21:03)
[2019-02-13] MEDS: Enoxaparin Sodium 40 MG/0.4 ML SYRINGE SC SCH (09:04)
[2019-02-13] MEDS: predniSONE 20 MG TAB PO SCH (09:04)
[2019-02-13] MEDS: Aspirin 81 mg Enteric Coated Tablet PO SCH (09:04)
[2019-02-13] MEDS: Pantoprazole 40 MG VIAL IVP SCH (09:04)
[2019-02-13] MEDS ORDERED: Senokot 8.6 MG TAB PO PRN (13:11)
[2019-02-13] MEDS ORDERED: guaiFENesin/DM ER PO SCH (15:00)
[2019-02-13] MEDS: Dextrose 5% in Water 1,000 ML IV SCH (15:38)
--- NOTE | 2019-02-13 16:01 | PDOC.PALCO ---
Palliative Care Consult - Consult Details Requesting Physician: Dr Menjivar Reason for Consult: goals of care, advance directives assistance, family support - Pertinent HPI Patient was a resident at the rehab and found slumped over, non responsive 02/08. Transported to the emergency room and was found to be hypothermic and hypotensive, initial verbal but again lost consciousness and required intubation to maintain airway. Found to have pneumonia and was admitted for medical management. Continued decline during course of hsopital stay, fragile state. Patient reports patient recently at [facility]. - Pertinent PMH TIA, CVA, Anemia, HEP C, UTI, CHF, COPD, DMII, Depression/anxiety - Social History Smoking Status: Former smoker Drug Use History: none Living Situation: - Medications MAR Reviewed: Yes - Allergies Allergies/Adverse Reactions: Allergies Allergy/AdvReac Type Severity Reaction Status Date / Time trazodone Allergy Verified 02/08/19 13:59 - Subjective intubated, opens eyes, but non verbal. . - Objective Vital Signs: Vital Signs - Most Recent Temp Pulse Resp BP Pulse Ox 97.4 F L 82 40 H 127/92 H 97 02/13/19 08:00 02/13/19 15:46 02/13/19 14:00 02/13/19 15:46 02/13/19 13:30 Palliative Performance Scale: 20 - Physical Exam Constitutional: mild distress HEENT: moist MMs, sclera anicteric Deviation from normal: mechanical ventialtion Cardiovascular: RRR Gastrointestinal: soft, non-tender, positive bowel sounds Musculoskeletal: no edema Deviation from normal: minimally responsive Skin: cap refill <2 seconds - Problem List (1) Palliative care encounter Code(s): Z51.5 - ENCOUNTER FOR PALLIATIVE CARE Current Visit: Yes Status: Acute (2) Respiratory failure requiring intubation Code(s): J96.90 - RESPIRATORY FAILURE, UNSP, UNSP W HYPOXIA OR HYPERCAPNIA Current Visit: Yes Status: Acute (3) Bilateral pneumonia Code(s): J18.9 - PNEUMONIA, UNSPECIFIED ORGANISM Current Visit: Yes Status: Acute (4) CHF (congestive heart failure) Code(s): I50.9 - HEART FAILURE, UNSPECIFIED Current Visit: No Status: Chronic (5) COPD (chronic obstructive pulmonary disease) Current Visit: No Status: Chronic - Plan/Recommendations Plan: Patient states he would not want a TRACH. Patient fragile today and not able to tolerate weaning off vent. Will continue to support family and in decisions related to goals of care inline with patient wishes. Please also refer to palliative care RN notes for additional information. [40] minutes spent on this encounter with >50% of the time in counseling and coordination of care. Thank you for this very appropriate consult.
--- NOTE | 2019-02-13 18:57 | PRG ---
DATE OF SERVICE: 02/12/2019 SUBJECTIVE: Mr. Smiley was evaluated multiple times during the day. Awaken throughout the day. His was actually interacting with him when I met with her in the afternoon. I had actually taken care of her two years ago with respiratory failure and she required a tracheostomy. I explained to her that the biggest issue we are facing with him at this point in time is muscle weakness. She confirms that he has been extremely disabled with deconditioning lately. Events over the weekend remarkable mainly for decrease in ventilatory support. OBJECTIVE: VITAL SIGNS: He has been afebrile, heart rate 103, respiratory rates in the 20s, oximetry is 98, blood pressure has been stable in the one-teens. HEAD AND NECK: Unremarkable. LUNGS: Remarkable for crackles at his right base. He still has significant secretions. There is scopolamine patch in place. HEART: Regular rhythm. ABDOMEN: Soft and nontender. EXTREMITIES: Without asymmetry or edema. NEUROLOGIC: Grossly nonfocal. LABORATORY DATA: White count 28.3, hemoglobin 7.3, platelets 264. Sodium 142, potassium 3.5, chloride 112, bicarb 25, BUN 12, and creatinine 0.77. IMPRESSION: 1. Respiratory failure associated with pneumonia. 2. Extreme deconditioning. As I have explained to the that 10 years ago, he would probably not have required mechanical ventilation. He does appear to be improving neurologically. He is extremely encephalopathic when I first saw him, completely unresponsive. I have explained to the that we will just go day by day and see how he does. She is willing for him to undergo tracheostomy, but I do not think we need to make that decision at this point until we are sure that his weakness is not improving. At this point in time, his pressure assist tidal volumes are running about 250 to 300 mL with intermittently increased rate, leading me to believe that he does not have adequate diaphragm function to be weaned and extubated, especially in light of his secretions. We will continue supportive care. Critical Care time is 35 minutes. Job ID: [id number] MTDD
--- NOTE | 2019-02-13 19:05 | PRG ---
DATE OF SERVICE: 02/13/2019 CRITICAL CARE TIME: 30 minutes. Job ID: [id number]
--- NOTE | 2019-02-13 19:14 | PRG ---
DATE OF SERVICE: 02/13/2019 SUBJECTIVE: Mr. Smiley is more interactive today. He is actually communicating that he wants his endotracheal tube out. OBJECTIVE: VITAL SIGNS: His heart rates in the 80s, respiratory rates in the 20s, oximetry is 98%, blood pressure 115/75. His respiratory rate is variable. GENERAL: For the most part, he appears comfortable. HEAD AND NECK: Unchanged. LUNGS: Remarkable for rhonchi bilaterally secondary to secretions. HEART: Regular rhythm. S1 and S2 are normal. ABDOMEN: Soft and nontender. EXTREMITIES: Without edema. LABORATORY DATA: White count is 21.1, hemoglobin is 7.9, platelets are 324. Sodium 142, potassium 3.5, chloride 112, bicarb 25, BUN 12, creatinine 0.77. There is no blood gas has been done since the . IMPRESSION AND PLAN: 1. Respiratory failure secondary to pneumonia. 2. Extreme deconditioning. 3. Anemia. 4. Mild hyperchloremia, probably making him a little bit acidemic. We started him on low-dose Precedex yesterday. Because of the organism sensitivities, he was started on meropenem yesterday. The organism isolated was only partially sensitive to Zosyn. Guaifenesin will be added today. We will continue to follow him. We will get a blood gas in the morning. Critical care time is 35 minutes. Job ID: [id number] MTDD
[2019-02-13] MEDS: Guaifenesin DM 100-10/5 ML UDCUP PO SCH (21:03)
[2019-02-13] MEDS: risperiDONE 1 MG TAB PO SCH (21:03)
[2019-02-13] MEDS: Atorvastatin Calcium 40 MG TAB PO SCH (21:03)
[2019-02-14] MEDS: Meropenem 2 GM in Sodium Chloride 0.9% 100 ML IVPB SCH ×3 (06:12→22:17)
[2019-02-14] MEDS: HumaLOG 300 UNITS/3 ML VIAL SC PRN ×2 (06:12→20:17)
[2019-02-14] MEDS: Acetaminophen 325 MG TAB PO PRN (06:30)
--- NOTE | 2019-02-14 06:43 | PDOC.FM ---
- Subjective Subjective: NAEO. Patient remains on mechanical ventilation. On precedex, no other sedation. Patient did have a BM yesterday. No concerns per nursing. Patient resting in bed. Able to respond and communicate that he is having throat pain and wants the tube out. - Objective MAR Reviewed: Yes Vital Signs & Weight: Vital Signs (12 hours) Temp Pulse Resp Pulse Ox 02/14/19 06:00 25 H 02/14/19 04:00 98.2 F 21 H 02/14/19 02:00 21 H 02/14/19 00:00 98.2 F 16 02/13/19 23:16 87 18 96 02/13/19 22:00 17 02/13/19 20:00 98.6 F 18 02/13/19 19:46 98 02/13/19 18:46 87 20 98 Weight Admit Weight 61 kg Weight 61.8 kg Most Recent Monitor Data Heart Rate from ECG 96 NIBP 117/74 NIBP BP-Mean 88 Respiration from ECG 22 SpO2 94 I&O: 02/12/19 02/13/19 02/14/19 06:59 06:59 06:59 Intake Total 1538.3 1982.8 2140.3 Output Total 1035 1585 1195 Balance 503.3 397.8 945.3 Result Diagrams: 02/14/19 07:15 02/14/19 07:15 Phys Exam - Physical Examination Constitutional: NAD HEENT: sclera anicteric dry MM Neck: supple course breath sounds heard throughout Cardiovascular: RRR, no significant murmur, no rub Gastrointestinal: soft, non-tender, no distention, positive bowel sounds Musculoskeletal: pulses present trace edema b/l LE Neurological: non-focal moves all limbs, follows commands Psychiatric: normal affect Skin: no rash, normal turgor, cap refill <2 seconds Dx/Plan (1) Sepsis Code(s): A41.9 - SEPSIS, UNSPECIFIED ORGANISM Status: Acute (2) Bilateral pneumonia Code(s): J18.9 - PNEUMONIA, UNSPECIFIED ORGANISM Status: Acute (3) Hypoglycemia associated with type 2 diabetes mellitus Code(s): E11.649 - TYPE 2 DIABETES MELLITUS WITH HYPOGLYCEMIA WITHOUT COMA Status: Acute (4) Hyponatremia Code(s): E87.1 - HYPO-OSMOLALITY AND HYPONATREMIA Status: Acute (5) Lactic acid blood increased Code(s): E87.2 - ACIDOSIS Status: Acute (6) Macrocytic anemia Code(s): D53.9 - NUTRITIONAL ANEMIA, UNSPECIFIED Status: Acute (7) Protein-calorie malnutrition Code(s): E46 - UNSPECIFIED PROTEIN-CALORIE MALNUTRITION Status: Acute Qualifiers: Protein-calorie malnutrition severity: unspecified severity Qualified Code( s): E46 - Unspecified protein-calorie malnutrition (8) BPH (benign prostatic hypertrophy) Code(s): N40.0 - BENIGN PROSTATIC HYPERPLASIA WITHOUT LOWER URINRY TRACT SYMP Status: Chronic (9) CHF (congestive heart failure) Code(s): I50.9 - HEART FAILURE, UNSPECIFIED Status: Chronic (10) COPD (chronic obstructive pulmonary disease) Status: Chronic (11) HLD (hyperlipidemia) Code(s): E78.5 - HYPERLIPIDEMIA, UNSPECIFIED Status: Chronic (12) HTN (hypertension) Code(s): I10 - ESSENTIAL (PRIMARY) HYPERTENSION Status: Chronic Qualifiers: Hypertension type: essential hypertension Qualified Code(s): I10 - Essential (primary) hypertension (13) Type 2 diabetes mellitus Status: Chronic 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 Consults: Pulmonology, Palliative Care, PT/OT Neuro: - Sedation protocol for mechanical ventilation. Patient has been doing long sedation vacations throughout the day and tolerating well. Only on low dose precedex at this time. Patient does have [address] due to agitation. He has been able to open eyes spontaneously and to voice command. He is moving all 4 limbs now and able to answer yes/no questions. He does try to answer over the vent. GCS 12. - Ativan for agitation as well as morphine for pain PRN. - Patient very deconditioned; PT/OT consulted. Will continue to exercise patient on the vent. Neurologically improved since admission. Resp: - Currently on mechanical ventilation. Vent settings: FiO2: 41%, PEEP 5, SimV. Patient continues to breathe over the vent. Will go day by day to ween off. Pulm following, appreciate recommendations. - CXR showing multifocal pneumonia on admission. Resp Cx showing gram neg rods. Sensitive to meropenem which was started 02/12. Resistant to vanc, zosyn and levoquin. White count and bands have downtrended. CXR on 02/13 showing worsening consolidation. CXR from 02/14 pending. - Hx of COPD: continue steroids and duoneb - Guaaifenesin added; secretions thick CV: - Patient initially on pressors, taken off AM of 02/12. On precedex only. - Will continue to monitor BP - stable for now. GI: - patient on tube feeds, continue. - Will add miralax/senna to regimen. Heme: - Chronic anemia. Patient at baseline. 02/12 AM Hgb 7.3 ->7.9. Will continue to trend. /Renal: - I/O: 945.3. Will continue to monitor. - Morales in place. Hx of BPH. Infection: - see resp for management of pneumonia Endo: - DM2 with diabetic neuropathy. Accuchecks ACHS. NPH + SSI. Sugars running high on 02/14. Target BG 140-180. MSK: - Pelvic fractures - Right side sacrum and right superior and inferior pubic rami fractures present on last admission - PT/OT consulted - Will add morphine PRN for pain as well as ativan for agitation Psych: - hx of Anxiety/depression on wellbutrin and risperdal Social: Palliative: discussed with 02/12. patient does not wish to have trach. Will continue to discuss goals of care with family. Lines/tubes: left IJ, morales, OG, mechanical ventilation Code: FULL VTE ppx: lovenox GI ppx: protonix Dispo: Guarded, cont vent support and pressor support as needed. Ween as tolerated. PT/OT. Case discussed with Dr. Dillard Addendum - Attending - Attending Attestation Date/Time: 02/14/19 7227 I personally evaluated the patient and discussed the management with Dr. Menjivar. I agree with the History, Examination, Assessment and Plan documented above with any addition or exceptions noted below. Continue antibiotics, lung protective ventilation, minimize sedation. Monitor anemia and white count.
[2019-02-14 07:36] LABS: Hemoglobin 7.5 g/dL (14.0-18.0); Mean Corpuscular Hemoglobin 28.9 pg (27.0-31.0); Mean Corpuscular Volume 93.4 fL (78.0-98.0); Platelet Count 185 thou/uL (130-400); RBC Distribution Width 13.8 % (11.5-14.5); White Blood Cell (WBC) Count 14.9 thou/uL (4.8-10.8)
[2019-02-14 07:41] LABS: Actual Bicarbonate (HCO3a) 25.1 mEq/L (22-28); Base Excess (BEa) 1.5 mEq/L (-2.0 to +3.0); CO2 Tension 34.5 mmHg (35.0-45.0); Calcium, Ionized 1.17 mmol/L (1.12-1.30); Carboxyhemoglobin (COHb) 1.6 gm% (0.0-3.0); Hemoglobin (Hb) 7.7 g/dL (14.0-18.0); O2 Tension (PaO2) 63.5 mmHg (> 80.0); Potassium - ABG Lab 3.16 mmol/L (3.70-5.30); pH, Arterial 7.48 (7.35-7.45)
[2019-02-14 07:47] LABS: ALV-art Gradient 185.705 (0-20); Puncture Site RRA
[2019-02-14 07:55] LABS: Anion Gap 7 mmol/L (10-20); BUN (Urea Nitrogen) 16 mg/dL (8.4-25.7); Calc. Creatinine Clearance 81 mL/min (70-130); Calcium 7.7 mg/dL (7.8-10.44); Carbon Dioxide 25 mmol/L (23-31); Chloride 107 mmol/L (98-107); Estimated GFR-MDRD Greater than 90; Glucose 233 mg/dL (80-115); Potassium 3.3 mmol/L (3.5-5.1); Sodium 136 mmol/L (136-145)
[2019-02-14] MEDS: Enoxaparin Sodium 40 MG/0.4 ML SYRINGE SC SCH (08:15)
[2019-02-14 08:16] LABS: Band 13 % (5-11); Bite Cells SLIGHT = 2-5 cells (100X) (0-1/hpf); Eosinophils 2 % (0-10); Hypochromia SLIGHT = 6-15 cells (100X) (0-5/hpf); Lymphocytes 13 % (21-51); MDiff Complete? YES; Metamyelocyte 1 % (0-0); Monocytes 4 % (0-10); Neutrophil 67 % (42-75); Platelet Morphology Comment Appears Adequate; Polychromasia MODERATE = 3-4 cells (100X) (0-2/hpf); Schistocytes SLIGHT = 2-5 cells (100X) (0-1/hpf); Target Cells MODERATE= 6-15 cells (100X) (0-1/hpf)
[2019-02-14] MEDS: Pantoprazole 40 MG VIAL IVP SCH (08:17)
[2019-02-14] MEDS: Gabapentin 300 MG CAP PO SCH ×3 (08:34→21:16)
[2019-02-14] MEDS: Aspirin 81 mg Enteric Coated Tablet PO SCH (08:35)
[2019-02-14] MEDS: Guaifenesin DM 100-10/5 ML UDCUP PO SCH ×3 (08:35→21:16)
[2019-02-14] MEDS: predniSONE 20 MG TAB PO SCH (08:38)
[2019-02-14] MEDS: buPROPion 75 MG TAB PO SCH ×2 (08:39→21:16)
[2019-02-14] MEDS: NPH, Human Insulin Isophane 300 UNIT/3 ML VIAL SC SCH ×2 (08:55→21:17)
--- NOTE | 2019-02-14 09:29 | RAD ---
PORTABLE CHEST 1 VIEW: DATE: 02/14/2019. TIME: 4:59 a.m. HISTORY: Respiratory failure. FINDINGS: Allowing for differences in technique, no significant interval change is seen since the exam of . POS: MARICHUY
[2019-02-14] MEDS: Polyethylene Glycol 3350 17 GM Packet PER TUBE SCH (11:08)
[2019-02-14] MEDS: Morphine 2 MG/ML SYRINGE SLOW IVP PRN ×2 (13:22→21:14)
--- NOTE | 2019-02-14 14:02 | PRG ---
DATE OF SERVICE: 02/14/2019 SUBJECTIVE: Meliton Smiley looks more comfortable than he did 2 days ago. He is on pressure support ventilation at this point and doing well with that. His tidal volumes are much larger than they were 2 days ago. They are in the 400+ range. Blood pressure is in the 90s, heart rate is in the 80s, respiratory rate is in the 30s. Still has a relatively shallow and weak respiratory pattern, but appears to be improving. He is on a Precedex drip. OBJECTIVE: LUNGS: Remarkable for equal breath sounds. HEART: Regular rhythm. ABDOMEN: Soft, without edema. LABORATORY DATA: White count 14.9, hemoglobin 7.5, platelets 185,000, sodium 136, potassium 3.3, chloride 107, bicarb 25, creatinine 0.77, glucose 233, pH 7.48, pCO2 is 34, p02 is 63. Chest radiograph shows improvement . When compared to admission film, he has more infiltrates in the upper lobe. There is no change between this film and the last film. IMPRESSION: Pneumonia, most likely secondary p.o. medications. He will continue broad-antimicrobial therapy now. not a candidate for extubation. CRITICAL CARE TIME: 35 minutes. Job ID: [id number]
[2019-02-14] MEDS ORDERED: Labetalol HCl 100 MG/20 ML VIAL ONE (20:20)
[2019-02-14] MEDS: Atorvastatin Calcium 40 MG TAB PO SCH (21:16)
[2019-02-14] MEDS: risperiDONE 1 MG TAB PO SCH (21:17)
[2019-02-15] MEDS: HumaLOG 300 UNITS/3 ML VIAL SC PRN ×2 (00:58→19:21)
[2019-02-15] MEDS: Meropenem 2 GM in Sodium Chloride 0.9% 100 ML IVPB SCH ×3 (06:12→22:32)
[2019-02-15] MEDS ORDERED: NPH, Human Insulin Isophane 300 UNIT/3 ML VIAL SC SCH (06:19)
--- NOTE | 2019-02-15 06:24 | PDOC.FM ---
- Subjective Subjective: NAEO. BG 66 this AM. No other concerns per nursing. Patient tolerated neuro chair well yesterday. He has had several BMs over the last 24hrs. Patient is still able to respond to commands and open eyes. Denies pain. - Objective MAR Reviewed: Yes Vital Signs & Weight: Vital Signs (12 hours) Temp Pulse Resp Pulse Ox 02/15/19 06:00 22 H 02/15/19 04:00 97.8 F 17 02/15/19 02:00 22 H 02/15/19 00:00 97.7 F 14 02/14/19 23:08 83 14 100 02/14/19 22:00 14 02/14/19 20:00 98.1 F 13 99 02/14/19 19:04 85 21 H 97 Weight Admit Weight 61 kg Weight 58.6 kg Most Recent Monitor Data Heart Rate from ECG 90 NIBP 121/76 NIBP BP-Mean 91 Respiration from ECG 29 SpO2 95 I&O: 02/13/19 02/14/19 02/15/19 06:59 06:59 06:59 Intake Total 1982.8 2140.3 1939.2 Output Total 1585 1195 1003 Balance 397.8 945.3 936.2 Result Diagrams: 02/15/19 08:30 02/15/19 08:30 Phys Exam - Physical Examination Constitutional: NAD ventilated HEENT: sclera anicteric dry MM Neck: supple coarse breath sounds anteriorly, improved; equal breath sounds Cardiovascular: RRR, no significant murmur, no rub Gastrointestinal: soft, non-tender, no distention, positive bowel sounds trace edema in b/l feet; 1+ pitting edema b/l hands Neurological: non-focal, moves all 4 limbs Skin: no rash, normal turgor, cap refill <2 seconds Dx/Plan (1) Sepsis Code(s): A41.9 - SEPSIS, UNSPECIFIED ORGANISM Status: Acute (2) Bilateral pneumonia Code(s): J18.9 - PNEUMONIA, UNSPECIFIED ORGANISM Status: Acute (3) Hypoglycemia associated with type 2 diabetes mellitus Code(s): E11.649 - TYPE 2 DIABETES MELLITUS WITH HYPOGLYCEMIA WITHOUT COMA Status: Acute (4) Hyponatremia Code(s): E87.1 - HYPO-OSMOLALITY AND HYPONATREMIA Status: Acute (5) Lactic acid blood increased Code(s): E87.2 - ACIDOSIS Status: Acute (6) Macrocytic anemia Code(s): D53.9 - NUTRITIONAL ANEMIA, UNSPECIFIED Status: Acute (7) Protein-calorie malnutrition Code(s): E46 - UNSPECIFIED PROTEIN-CALORIE MALNUTRITION Status: Acute Qualifiers: Protein-calorie malnutrition severity: unspecified severity Qualified Code( s): E46 - Unspecified protein-calorie malnutrition (8) BPH (benign prostatic hypertrophy) Code(s): N40.0 - BENIGN PROSTATIC HYPERPLASIA WITHOUT LOWER URINRY TRACT SYMP Status: Chronic (9) CHF (congestive heart failure) Code(s): I50.9 - HEART FAILURE, UNSPECIFIED Status: Chronic (10) COPD (chronic obstructive pulmonary disease) Status: Chronic (11) HLD (hyperlipidemia) Code(s): E78.5 - HYPERLIPIDEMIA, UNSPECIFIED Status: Chronic (12) HTN (hypertension) Code(s): I10 - ESSENTIAL (PRIMARY) HYPERTENSION Status: Chronic Qualifiers: Hypertension type: essential hypertension Qualified Code(s): I10 - Essential (primary) hypertension (13) Type 2 diabetes mellitus Status: Chronic Qualifiers: Diabetes mellitus termite exterminator helper insulin use: with termite exterminator helper use Diabetes mellitus complication detail: with polyneuropathy - Plan Plan: This is a 68yo M admitted for Acute Hypoxic Resp Failure 2/2 Multifocal pneumonia. Consults: Pulmonology, Palliative Care, PT/OT Neuro: - Sedation protocol for mechanical ventilation. Patient has been doing long sedation vacations throughout the day and tolerating well. On low dose precedex at this time. Patient does have [address] due to agitation. He has been able to open eyes spontaneously and to voice command. He is moving all 4 limbs now and able to answer yes/no questions. GCS 12. - Ativan for agitation as well as morphine for pain PRN. - Patient very deconditioned; PT/OT consulted. Will continue to exercise patient on the vent. Patient was able to sit in neuro chair on 02/14. Resp: - Currently on mechanical ventilation. Vent settings: FiO2: 41%, PEEP 5, SimV. Patient continues to breathe over the vent. Pulm following, appreciate recommendations. Currently not a candidate for extubation. - ABG on 02/14: pH 7.33, CO2 44.7, O2 129, bicarb 22.8, base excess -3.2. - CXR showing multifocal pneumonia on admission. Resp Cx showing gram neg rods. Sensitive to meropenem which was started 02/12. Resistant to vanc, zosyn and levoquin. White count and bands have downtrended. CXR on 02/13 showing worsening consolidation. Will continue to monitor. - Hx of COPD: continue steroids and duoneb - Guaifenesin added; secretions remain thick but improved. CV: - Patient initially on pressors, taken off AM of 02/12. On low dose precedex only. - Will continue to monitor BP - stable for now. GI: - patient on tube feeds, continue. - Continue miralax/senna PRN. Heme: - Chronic anemia. Patient at baseline. Will continue to trend. - Plt 185. Will trend. - K 3.3 on 02/14 and replaced. Will continue to monitor. /Renal: - I/O: 936.2. Will continue to monitor. - Morales in place. Hx of BPH. Infection: - see resp for management of pneumonia Endo: - DM2 with diabetic neuropathy. Accuchecks ACHS. NPH + SSI. Will continue to titrate NPH as needed. Target BG 140-180. MSK: - Pelvic fractures - Right side sacrum and right superior and inferior pubic rami fractures present on last admission - PT/OT consulted - Will add morphine PRN for pain as well as ativan for agitation Psych: - hx of Anxiety/depression on wellbutrin and risperdal Social: Palliative: discussed with 02/12. patient does not wish to have trach. Continue to give family support and discussions of goals of care. Lines/tubes: morales, OG, mechanical ventilation, midline right AC Code: FULL VTE ppx: lovenox GI ppx: protonix Dispo: Guarded, cont vent support and pressor support as needed. Ween as tolerated. PT/OT. Case discussed with Dr. Dillard Addendum - Attending - Attending Attestation Date/Time: 02/15/19 1141 I personally evaluated the patient and discussed the management with Dr. Menjivar. I agree with the History, Examination, Assessment and Plan documented above with any addition or exceptions noted below.
[2019-02-15 07:55] LABS: Actual Bicarbonate (HCO3a) 26.8 mEq/L (22-28); CO2 Tension 37.6 mmHg (35.0-45.0); Carboxyhemoglobin (COHb) 1.1 gm% (0.0-3.0); O2 Tension (PaO2) 62.2 mmHg (> 80.0); Potassium - ABG Lab 3.42 mmol/L (3.70-5.30); pH, Arterial 7.47 (7.35-7.45)
[2019-02-15 07:56] LABS: Puncture Site LBRACH
[2019-02-15] MEDS: predniSONE 20 MG TAB PO SCH (07:56)
[2019-02-15] MEDS: Aspirin 81 mg Enteric Coated Tablet PO SCH (08:00)
[2019-02-15] MEDS: Guaifenesin DM 100-10/5 ML UDCUP PO SCH ×3 (08:00→20:16)
[2019-02-15] MEDS: Gabapentin 300 MG CAP PO SCH ×3 (08:00→20:16)
--- NOTE | 2019-02-15 09:19 | RAD ---
PORTABLE CHEST: HISTORY: Respiratory distress. COMPARISON: Prior day's exam. FINDINGS: The parenchymal lung changes are stable as compared to the prior exam. Endotracheal and NG Tubes are unchanged. Left-sided central line has been removed. IMPRESSION: Interval removal of the central line. Otherwise, stable chest. POS: [facility]
[2019-02-15 09:30] LABS: Hemoglobin 9.2 g/dL (14.0-18.0); Mean Corpuscular HGB CONC 31.5 g/dL (32.0-36.0); Mean Corpuscular Hemoglobin 29.5 pg (27.0-31.0); Mean Corpuscular Volume 93.6 fL (78.0-98.0); Mean Platelet Volume 10.6 fL (7.4-10.4); Platelet Count 208 thou/uL (130-400); Red Blood Cell (RBC) Count 3.12 mill/uL (4.70-6.10); White Blood Cell (WBC) Count 19.1 thou/uL (4.8-10.8)
[2019-02-15 09:50] LABS: ALT (SGPT) 43 U/L (8-55); AST (SGOT) 57 U/L (5-34); Albumin 2.2 g/dL (3.4-4.8); Alkaline Phosphatase 443 U/L (40-110); Anion Gap 12 mmol/L (10-20); BUN (Urea Nitrogen) 20 mg/dL (8.4-25.7); Bilirubin, Total 0.5 mg/dL (0.2-1.2); Calc. Creatinine Clearance 83 mL/min (70-130); Calcium 8.1 mg/dL (7.8-10.44); Carbon Dioxide 25 mmol/L (23-31); Chloride 111 mmol/L (98-107); Estimated GFR-MDRD Greater than 90; Globulin 2.4 g/dL (2.4-3.5); Glucose 90 mg/dL (80-115); Potassium 3.7 mmol/L (3.5-5.1); Protein, Total 4.6 g/dL (5.8-8.1); Sodium 144 mmol/L (136-145)
[2019-02-15 09:55] LABS: Band 15 % (5-11); Bite Cells SLIGHT = 2-5 cells (100X) (0-1/hpf); Eosinophils 4 % (0-10); Hypochromia SLIGHT = 6-15 cells (100X) (0-5/hpf); Lymphocytes 11 % (21-51); MDiff Complete? YES; Monocytes 3 % (0-10); Neutrophil 67 % (42-75); Polychromasia MODERATE = 3-4 cells (100X) (0-2/hpf); Schistocytes SLIGHT = 2-5 cells (100X) (0-1/hpf); Target Cells MODERATE= 6-15 cells (100X) (0-1/hpf)
[2019-02-15] MEDS: NPH, Human Insulin Isophane 300 UNIT/3 ML VIAL SC SCH ×2 (10:12→20:17)
[2019-02-15] MEDS: Polyethylene Glycol 3350 17 GM Packet PER TUBE SCH (10:14)
[2019-02-15] MEDS: Enoxaparin Sodium 40 MG/0.4 ML SYRINGE SC SCH (10:19)
[2019-02-15] MEDS: buPROPion 75 MG TAB PO SCH ×2 (10:19→20:16)
[2019-02-15] MEDS: Pantoprazole 40 MG VIAL IVP SCH ×2 (10:20→11:22)
[2019-02-15] MEDS ORDERED: Furosemide 100 MG/10 ML VIAL SLOW IVP SCH (13:45)
[2019-02-15 20:07] LABS: Glucose Accucheck Confirmation 322 mg/dl (80-115)
[2019-02-15] MEDS: Atorvastatin Calcium 40 MG TAB PO SCH (20:16)
[2019-02-15] MEDS: risperiDONE 1 MG TAB PO SCH (20:17)
[2019-02-15] MEDS ORDERED: Sodium Chloride 0.9% 1,000 ML IV PRN (23:14)
--- NOTE | 2019-02-16 00:59 | PDOC.FM ---
- Subjective Subjective: NAEO. No concerns per nursing. Patient was given dose of lasix yesterday. He was able to sit in the neuro chair and tolerated well. He still wakes up, responds, and moves all limbs. - Objective MAR Reviewed: Yes Vital Signs & Weight: Vital Signs (12 hours) Temp Pulse Resp BP Pulse Ox 02/16/19 00:06 82 02/16/19 00:05 100 02/16/19 00:00 97.5 F L 14 02/15/19 22:00 13 02/15/19 21:43 81 81/49 L 02/15/19 20:00 16 98 02/15/19 19:00 98.8 F 02/15/19 18:31 88 02/15/19 18:30 91 L 02/15/19 18:00 16 02/15/19 16:00 97.3 F L 14 02/15/19 15:29 81 02/15/19 14:00 18 Weight Admit Weight 61 kg Weight 65 kg Most Recent Monitor Data Heart Rate from ECG 95 NIBP 107/70 NIBP BP-Mean 82 Respiration from ECG 17 SpO2 100 I&O: 02/14/19 02/15/19 02/16/19 06:59 06:59 06:59 Intake Total 2140.3 1939.2 2536.1 Output Total 1195 1003 3175 Balance 945.3 936.2 -638.9 Result Diagrams: 02/15/19 08:30 02/15/19 08:30 Phys Exam - Physical Examination Constitutional: NAD HEENT: PERRLA, moist MMs Neck: supple Respiratory: no wheezing, no rales crackles heard at LL base Cardiovascular: RRR, no significant murmur, no rub Gastrointestinal: soft, non-tender, no distention, positive bowel sounds 1+ edema in b/l hands, trace edema b/l LE Neurological: non-focal, moves all 4 limbs Psychiatric: normal affect Skin: no rash, normal turgor, cap refill <2 seconds Dx/Plan (1) Sepsis Code(s): A41.9 - SEPSIS, UNSPECIFIED ORGANISM Status: Acute (2) Bilateral pneumonia Code(s): J18.9 - PNEUMONIA, UNSPECIFIED ORGANISM Status: Acute (3) Hypoglycemia associated with type 2 diabetes mellitus Code(s): E11.649 - TYPE 2 DIABETES MELLITUS WITH HYPOGLYCEMIA WITHOUT COMA Status: Acute (4) Hyponatremia Code(s): E87.1 - HYPO-OSMOLALITY AND HYPONATREMIA Status: Acute (5) Lactic acid blood increased Code(s): E87.2 - ACIDOSIS Status: Acute (6) Macrocytic anemia Code(s): D53.9 - NUTRITIONAL ANEMIA, UNSPECIFIED Status: Acute (7) Protein-calorie malnutrition Code(s): E46 - UNSPECIFIED PROTEIN-CALORIE MALNUTRITION Status: Acute Qualifiers: Protein-calorie malnutrition severity: unspecified severity Qualified Code( s): E46 - Unspecified protein-calorie malnutrition (8) BPH (benign prostatic hypertrophy) Code(s): N40.0 - BENIGN PROSTATIC HYPERPLASIA WITHOUT LOWER URINRY TRACT SYMP Status: Chronic (9) CHF (congestive heart failure) Code(s): I50.9 - HEART FAILURE, UNSPECIFIED Status: Chronic (10) COPD (chronic obstructive pulmonary disease) Status: Chronic (11) HLD (hyperlipidemia) Code(s): E78.5 - HYPERLIPIDEMIA, UNSPECIFIED Status: Chronic (12) HTN (hypertension) Code(s): I10 - ESSENTIAL (PRIMARY) HYPERTENSION Status: Chronic Qualifiers: Hypertension type: essential hypertension Qualified Code(s): I10 - Essential (primary) hypertension (13) Type 2 diabetes mellitus Status: Chronic Qualifiers: Diabetes mellitus emt intermediate insulin use: with skilled nursing use Diabetes mellitus complication detail: with polyneuropathy - Plan Plan: This is a 68yo M admitted for Acute Hypoxic Resp Failure 2/2 Multifocal pneumonia. Consults: Pulmonology, Palliative Care, PT/OT Neuro: - Sedation protocol for mechanical ventilation. Patient has been doing long sedation vacations throughout the day and tolerating well. On low dose precedex at this time. Patient does have [address] due to agitation. He has been able to open eyes spontaneously and to voice command. He is moving all 4 limbs now and able to answer yes/no questions. GCS 12. - Ativan for agitation as well as morphine for pain PRN. - Patient very deconditioned; PT/OT consulted. Will continue to exercise patient on the vent. Patient was able to sit in neuro chair on 02/14 and . Continue as tolerated. Resp: - Currently on mechanical ventilation. Vent settings: FiO2: 41%, PEEP 5, SimV/ Spont, tidal volumes 500s, pressure control. Patient continues to breathe over the vent. Pulm following, appreciate recommendations. Currently not a candidate for extubation. - ABG on 02/16: pH 7.49, CO2 40.2, O2 72.5, base excess 6.2. - CXR showing multifocal pneumonia on admission. Resp Cx showing gram neg rods. Sensitive to meropenem which was started 02/12. Resistant to vanc, zosyn and levoquin. White count and bands have downtrended. CXR on 02/13 showing worsening consolidation. Subsequent x-rays look stable. Will continue to monitor. - Hx of COPD: continue steroids and duoneb - Guaifenesin and robitussin; secretions remain thick but improved. CV: - Patient initially on pressors, taken off AM of 02/12. On low dose precedex only. - Will continue to monitor BP - stable for now. GI: - patient on tube feeds, continue. - Continue miralax/senna PRN. Having BMs. Heme: - Chronic anemia. Patient at baseline. Will continue to trend. - Plt 185. Will trend. /Renal: - I/O: 315.7. Will continue to monitor. - Morales in place. Hx of BPH. Infection: - see resp for management of pneumonia Endo: - DM2 with diabetic neuropathy. Accuchecks ACHS. NPH + SSI. Will continue to titrate NPH as needed. Target BG 140-180. MSK: - Pelvic fractures - Right side sacrum and right superior and inferior pubic rami fractures present on last admission - PT/OT consulted - Morphine PRN for pain as well as ativan for agitation Psych: - hx of Anxiety/depression on wellbutrin and risperdal Social: Palliative: discussed with 02/12. patient does not wish to have trach. Continue to give family support and discussions of goals of care. Lines/tubes: morales, OG, mechanical ventilation, midline right AC Code: FULL VTE ppx: lovenox GI ppx: protonix Dispo: Guarded, cont vent support and pressor support as needed. Ween as tolerated. PT/OT. Case discussed with Dr. Dillard Addendum - Attending - Attending Attestation Date/Time: 02/16/19 1042 I personally evaluated the patient and discussed the management with Dr. Menjivar. I agree with the History, Examination, Assessment and Plan documented above with any addition or exceptions noted below.
[2019-02-16] MEDS: Meropenem 2 GM in Sodium Chloride 0.9% 100 ML IVPB SCH ×3 (05:24→20:39)
[2019-02-16 07:26] LABS: Actual Bicarbonate (HCO3a) 30.1 mEq/L (22-28); Base Excess (BEa) 6.2 mEq/L (-2.0 to +3.0); CO2 Tension 40.2 mmHg (35.0-45.0); Calcium, Ionized 1.13 mmol/L (1.12-1.30); Carboxyhemoglobin (COHb) 1.4 gm% (0.0-3.0); Hemoglobin (Hb) 7.5 g/dL (14.0-18.0); O2 Tension (PaO2) 72.5 mmHg (> 80.0); Potassium - ABG Lab 3.16 mmol/L (3.70-5.30); pH, Arterial 7.49 (7.35-7.45)
[2019-02-16 07:29] LABS: Puncture Site RR
--- NOTE | 2019-02-16 08:29 | RAD ---
FRONTAL RADIOGRAPH CHEST: DATE: 02/16/2019. COMPARISON: 02/15/2019. HISTORY: Ventilated patient. FINDINGS: Stable endotracheal tube and nasogastric tube. Stable coarse increased linear interstitial density n oted in the perihilar regions and in both upper lobe regions, right greater than left. There is pers istent dense opacity in the medial left base suggesting left basilar consolidation/collapse. There h as been no significant interval change. IMPRESSION: Stable appearance of the chest as defined above. POS: [facility]
--- NOTE | 2019-02-16 08:33 | PRG ---
DATE OF SERVICE: 02/15/2019 SUBJECTIVE: Meliton Smiley remains mechanically ventilated. He was placed back on a rate last night, but it is not clear to me why he was placed back on a rate. I have asked the nurse to keep him on pressure support, anticipate we may wean. Intake and output have been positive for the last 5 days. Chest x-ray starting to suggest diffuse pulmonary edema that is mild. His weights are inaccurate showing a weight loss with a positive fluid balance, weighed in a sling scale today. His weight has been entered as 143 pounds. OBJECTIVE: LUNGS: Clear. HEART: Regular rhythm. ABDOMEN: Soft. IMPRESSION: 1. Drug-resistant Escherichia coli pneumonia, now on meropenem. 2. Status post clinical sepsis, resolved .. 3. Encephalopathy that is improving secondary to critical illness. 4. Respiratory failure. I am hoping that we can avoid a tracheostomy. He is given Lasix today. Hopefully with diuresis, we will see improvement in his radiograph. He may be someone that we can transition from mechanical ventilation and p.r.n. BiPAP or CPAP once he is extubated. We will reassess him for consideration for extubation in the morning. LABORATORY DATA: Lab today shows white count 19.1, hemoglobin 9.2, platelets 67,000. Electrolytes are normal. Blood gas today shows pH 7.47, CO2 of 37, PO2 of 62. Reassess him in the morning. CRITICAL CARE TIME: 30 minutes. Job ID: [id number]
[2019-02-16] MEDS: Polyethylene Glycol 3350 17 GM Packet PER TUBE SCH (08:37)
[2019-02-16] MEDS: Gabapentin 300 MG CAP PO SCH ×3 (08:42→20:38)
[2019-02-16] MEDS: buPROPion 75 MG TAB PO SCH ×2 (08:42→20:38)
[2019-02-16] MEDS: NPH, Human Insulin Isophane 300 UNIT/3 ML VIAL SC SCH ×2 (08:42→20:39)
[2019-02-16] MEDS: Guaifenesin DM 100-10/5 ML UDCUP PO SCH ×3 (08:43→20:39)
[2019-02-16] MEDS: Pantoprazole 40 MG VIAL IVP SCH (08:43)
[2019-02-16] MEDS: Enoxaparin Sodium 40 MG/0.4 ML SYRINGE SC SCH (08:43)
[2019-02-16] MEDS: Aspirin 81 mg Enteric Coated Tablet PO SCH (08:43)
[2019-02-16] MEDS ORDERED: Furosemide 40 MG/4 ML VIAL IVP SCH (11:15)
--- NOTE | 2019-02-16 11:28 | PRG ---
DATE OF SERVICE: 02/16/2019 SUBJECTIVE: Meliton Smiley awakens. He is in no distress. His best NIF was -21. OBJECTIVE: VITAL SIGNS: Heart rate is in the 70s, blood pressure 106/64, FiO2 is 40, and respiratory rates in the teens to low 20s. He did pass a leak test. LUNGS: Remarkable for coarse equal breath sounds. HEART: Regular rhythm. ABDOMEN: Soft. EXTREMITIES: Without edema. LABORATORY DATA: There is no lab today. Chest radiograph still shows predominantly upper lobe infiltrates. He did diurese somewhat, but did not have a significant negative fluid balance. IMPRESSION: 1. Pneumonia with drug-resistant Escherichia coli, now on meropenem. 2. Extreme deconditioning prior to his pneumonia. 3. Respiratory failure secondary to pneumonia and deconditioning. 4. Inadequate weaning parameters. I think he would do well for a day or two once extubated, but tracheostomy is the best chance he has for getting further down the road unless his muscle strength improves dramatically over the weekend. We will repeat labs tomorrow. We will give him more Lasix today. We will continue with radiographs. 5. Probably should repeat his weaning parameters in the morning. If his negative inspiratory force gets up to -30 or 35, it would be reasonable to consider extubation, but at this point in time with a negative inspiratory force max of -21, he will not do well in my opinion. CRITICAL CARE TIME: 30 minutes. Job ID: [id number]
[2019-02-16] MEDS: Atorvastatin Calcium 40 MG TAB PO SCH (20:38)
[2019-02-16] MEDS: risperiDONE 1 MG TAB PO SCH (20:38)
[2019-02-17] MEDS: Meropenem 2 GM in Sodium Chloride 0.9% 100 ML IVPB SCH ×3 (05:50→20:34)
--- NOTE | 2019-02-17 06:02 | PDOC.FM ---
- Subjective Subjective: Patient did well overnight, remains intubated. No concerns per nursing. He continues to be able to follow commands while awake. - Objective Vital Signs & Weight: Vital Signs (12 hours) Temp Pulse Resp Pulse Ox 02/17/19 04:00 98.7 F 10 L 02/17/19 02:11 85 02/17/19 02:00 13 02/17/19 00:11 99 19 99 02/17/19 00:00 98.6 F 12 02/16/19 22:27 91 02/16/19 22:00 13 02/16/19 20:00 99.2 F 13 100 02/16/19 19:04 88 02/16/19 19:02 95 23 H 100 Weight Admit Weight 61 kg Weight 60.2 kg Most Recent Monitor Data Heart Rate from ECG 80 NIBP 98/64 NIBP BP-Mean 75 Respiration from ECG 9 SpO2 100 I&O: 02/15/19 02/16/19 02/17/19 06:59 06:59 06:59 Intake Total 1939.2 3773.7 1104 Output Total 1003 3458 3291 Balance 936.2 315.7 -2187 Result Diagrams: 02/17/19 05:57 02/17/19 05:57 Phys Exam - Physical Examination Constitutional: NAD Thin Neck: no nodes, supple Respiratory: no wheezing, clear to auscultation bilateral Cardiovascular: RRR, no significant murmur Gastrointestinal: soft, no distention scaphoid abdomen Musculoskeletal: no edema, pulses present Neurological: non-focal, moves all 4 limbs Follows commands Skin: normal turgor, cap refill <2 seconds Dx/Plan (1) Acute respiratory failure with hypoxia Code(s): J96.01 - ACUTE RESPIRATORY FAILURE WITH HYPOXIA Status: Acute (2) Bilateral pneumonia due to Escherichia coli Code(s): J15.5 - PNEUMONIA DUE TO ESCHERICHIA COLI Status: Acute (3) Dementia Code(s): F03.90 - UNSPECIFIED DEMENTIA WITHOUT BEHAVIORAL DISTURBANCE Status: Chronic (4) Asplenia Code(s): Q89.01 - ASPLENIA (CONGENITAL) Status: Chronic (5) GERD (gastroesophageal reflux disease) Code(s): K21.9 - GASTRO-ESOPHAGEAL REFLUX DISEASE WITHOUT ESOPHAGITIS Status: Chronic (6) Physical deconditioning Code(s): R53.81 - OTHER MALAISE Status: Acute (7) Hepatitis C antibody positive in blood Code(s): R76.8 - OTHER SPECIFIED ABNORMAL IMMUNOLOGICAL FINDINGS IN SERUM Status: Chronic (8) Anemia of chronic disease Code(s): D63.8 - ANEMIA IN OTHER CHRONIC DISEASES CLASSIFIED ELSEWHERE Status : Chronic (9) BPH (benign prostatic hypertrophy) Code(s): N40.0 - BENIGN PROSTATIC HYPERPLASIA WITHOUT LOWER URINRY TRACT SYMP Status: Chronic (10) CHF (congestive heart failure) Code(s): I50.9 - HEART FAILURE, UNSPECIFIED Status: Chronic (11) COPD (chronic obstructive pulmonary disease) Status: Chronic (12) Chronic anxiety Code(s): F41.9 - ANXIETY DISORDER, UNSPECIFIED Status: Chronic (13) Depression Code(s): F32.9 - MAJOR DEPRESSIVE DISORDER, SINGLE EPISODE, UNSPECIFIED Status : Chronic (14) HTN (hypertension) Code(s): I10 - ESSENTIAL (PRIMARY) HYPERTENSION Status: Chronic Qualifiers: Hypertension type: essential hypertension Qualified Code(s): I10 - Essential (primary) hypertension (15) Type 2 diabetes mellitus Status: Chronic Qualifiers: Diabetes mellitus terminal supervisor insulin use: with correction use Diabetes mellitus complication detail: with polyneuropathy - Plan Plan: This is a 68yo M admitted for Acute Hypoxic Resp Failure and Sepsis 2/2 Multifocal pneumonia. Consults: Pulmonology, Palliative Care, PT/OT Neuro: - Sedation protocol. On low dose precedex. Tolerating sedcation vacations. Restrains in place for agitation. Opens eyes spontaneously, follows commands. mechanical ventilation. Patient has been doing long sedation vacations throughout the day and tolerating well. Moves all limbs - Ativan for agitation, morphine for pain PRN. Resp: - Currently on mechanical ventilation. Vent settings: FiO2: 41%, PIP 8, PEEP 5, Spont, tidal volumes 500s, pressure control. Pulm following, appreciate recommendations. If negative inspiratory force >30, consider extubating today - ABG today pending - CXR showing multifocal pneumonia on admission. Resp Cx grew E coli. Sensitive to meropenem which was started 02/12. White count downtrended. CXR appearing improved. Diuresed with lasix yesterday, -2 L. Continue to monitor. - Hx of COPD: continue steroids and duoneb - Guaifenesin and robitussin for secretions CV: - Patient initially on pressors, taken off AM of 02/12. On low dose precedex only. - BP stable, continue to monitor GI: - Continue tube feeds - Continue miralax/senna PRN. BMx 1 yesterday Heme: - Chronic anemia. labs pending. Will continue to trend. - Plt pending, continue to trend /Renal: - I/O: -2187 ml. - Morales in place. Hx of BPH. - hypokalemia - checkmag and phos, replete today, monitor and replete as necessary Infection: - see resp for management of multifocal pneumonia Endo: - DM2 with diabetic neuropathy. BS well controlled on NPH 10 u BID, SSI. Accuchecks ACHS. Titrate NPH as needed. Target BG 140-180. MSK: - Physical Deconditioning; PT/OT consulted. Will continue to exercise patient on the vent. Continue neuro chair. - Pelvic fractures - Right side sacrum and right superior and inferior pubic rami fractures present on last admission - Morphine PRN for pain, ativan for agitation Psych: - hx of Anxiety/depression on wellbutrin and risperdal Social: Palliative: discussed with 02/12. Patient does not wish to have trach. Continue to give family support and discussions of goals of care. Lines/tubes: morales, OG, mechanical ventilation, midline right AC Code: FULL VTE ppx: lovenox GI ppx: protonix Dispo: Guarded, cont vent support and pressor support as needed. Wean as tolerated. PT/OT. Case discussed with Dr. Potts
[2019-02-17 06:38] LABS: Band 6 % (5-11); Eosinophils 1 % (0-10); Hemoglobin 7.3 g/dL (14.0-18.0); Hypochromia SLIGHT = 6-15 cells (100X) (0-5/hpf); Lymphocytes 6 % (21-51); MDiff Complete? YES; Mean Corpuscular HGB CONC 32.6 g/dL (32.0-36.0); Mean Corpuscular Hemoglobin 29.6 pg (27.0-31.0); Mean Platelet Volume 10.8 fL (7.4-10.4); Monocytes 1 % (0-10); Neutrophil 86 % (42-75); Platelet Count 212 thou/uL (130-400); Platelet Morphology Comment Appears Adequate; RBC Distribution Width 13.7 % (11.5-14.5); Red Blood Cell (RBC) Count 2.44 mill/uL (4.70-6.10); White Blood Cell (WBC) Count 14.5 thou/uL (4.8-10.8)
[2019-02-17 06:40] LABS: Anion Gap 7 mmol/L (10-20); BUN (Urea Nitrogen) 16 mg/dL (8.4-25.7); Calc. Creatinine Clearance 92 mL/min (70-130); Calcium 7.2 mg/dL (7.8-10.44); Carbon Dioxide 34 mmol/L (23-31); Chloride 106 mmol/L (98-107); Estimated GFR-MDRD Greater than 90; Glucose 107 mg/dL (80-115); Sodium 144 mmol/L (136-145)
[2019-02-17 07:08] LABS: Actual Bicarbonate (HCO3a) 31.2 mEq/L (22-28); CO2 Tension 42.8 mmHg (35.0-45.0); Calcium, Ionized 1.12 mmol/L (1.12-1.30); Carboxyhemoglobin (COHb) 1.9 gm% (0.0-3.0); Hemoglobin (Hb) 7.6 g/dL (14.0-18.0); O2 Tension (PaO2) 119.9 mmHg (> 80.0); Potassium - ABG Lab 2.99 mmol/L (3.70-5.30); pH, Arterial 7.48 (7.35-7.45)
[2019-02-17 07:41] LABS: Puncture Site RRAD
--- NOTE | 2019-02-17 08:16 | PRG ---
DATE OF SERVICE: 02/17/2019 SUBJECTIVE: Meliton Smiley, this morning on the vent, intubated. X-ray still shows diffuse pulmonary infiltrates, pneumonia, ARDS. OBJECTIVE: VITAL SIGNS: His Saturations are 99%, temperature 97, blood pressure 103/64, respiratory rate 18. I's and O's have been consistently negative. CHEST: Bilateral rhonchi, crackles. CARDIAC: Sinus tach. ABDOMEN: Soft without any masses. NEUROLOGICAL: He is awake. EXTREMITIES: No edema. LABORATORY DATA: White count 14,000, H and H 7 and 22, platelet count is 212. PO2 is 119, pCO2 42, pH 7.48 on a CPAP mode, 41% FiO2. Lytes are normal. Potassium is 3 ASSESSMENT: 1. Respiratory failure. 2. Pneumonia. 3. Acute respiratory distress syndrome. 4. Congestive heart failure. 5. Severe deconditioning. PLAN: Continue supportive care until he gets stronger. I will add low-dose steroids to his regime. Continue meropenem. We will follow. One-half hour of critical care time. Job ID: [id number]
[2019-02-17] MEDS ORDERED: Potassium Chloride 40 MEQ in Premix Bag 1 BAG IVPB SCH (08:30)
[2019-02-17] MEDS: Enoxaparin Sodium 40 MG/0.4 ML SYRINGE SC SCH (09:18)
[2019-02-17] MEDS: Polyethylene Glycol 3350 17 GM Packet PER TUBE SCH (09:18)
[2019-02-17] MEDS: methylPREDNISolone Sod Succ 40 MG VIAL IVP SCH (09:19)
[2019-02-17] MEDS: Guaifenesin DM 100-10/5 ML UDCUP PO SCH ×3 (09:19→20:33)
[2019-02-17] MEDS: Pantoprazole 40 MG GRANULES PACKET PER TUBE SCH (09:19)
[2019-02-17] MEDS: Aspirin 81 mg Enteric Coated Tablet PO SCH (09:19)
[2019-02-17] MEDS: Gabapentin 300 MG CAP PO SCH ×3 (09:20→20:34)
[2019-02-17] MEDS: buPROPion 75 MG TAB PO SCH ×2 (09:20→20:33)
[2019-02-17] MEDS: NPH, Human Insulin Isophane 300 UNIT/3 ML VIAL SC SCH ×2 (09:23→20:34)
--- NOTE | 2019-02-17 09:26 | RAD ---
ONE VIEW CHEST: COMPARISON: 02/16/2019. HISTORY: Ventilated patient. Respiratory distress. FINDINGS: Redemonstration of endotracheal and nasogastric tube. Stable cardiac silhouette. Stable opacificati on of lung parenchyma. No pneumothorax. IMPRESSION: No significant change. POS: [facility]
[2019-02-17] MEDS: Morphine 2 MG/ML SYRINGE SLOW IVP PRN ×2 (09:42→15:33)
[2019-02-17 10:10] LABS: Magnesium 1.9 mg/dL (1.6-2.6); Phosphorus 2.5 mg/dL (2.3-4.7)
[2019-02-17] MEDS ORDERED: PHOS-NAK 1 PKT PACK PO SCH (11:00)
[2019-02-17] MEDS ORDERED: Magnesium 2 GM/50 ML 1 GM in Premix Bag 1 BAG IVPB SCH (11:00)
[2019-02-17] MEDS: Lorazepam 2 MG/ML VIAL SLOW IVP PRN (12:30)
--- NOTE | 2019-02-17 12:30 | PRG ---
DATE OF SERVICE: 02/17/2019 Please see the note from Dr. Sharif that I agree with. The patient was seen, evaluated, examined, and discussed with the residents by bedside. This gentleman is still intubated. An x-ray still showing diffuse pulmonary infiltrates basically ARDS and pneumonia. Blood sugar is better. He is on meropenem currently for infection. He is just getting supportive care. Appreciate palliative care's involvement. We are monitoring his blood sugar. Was complaining of a little bit of pain and seems like from his pelvis as he has some pelvic fractures noted there. Otherwise, exam today is fairly unremarkable, considering he is still intubated. His lungs actually sound fairly clear. His oxygen level is not too bad. ABG shows okay with saturation, but he is on FiO2 of 41%. PLAN: Continue the same and supportive care and antibiotics. Job ID: [id number]
[2019-02-17] MEDS: Acetaminophen 325 MG TAB PO PRN (12:31)
[2019-02-17 16:38] LABS: Anion Gap 9 mmol/L (10-20); BUN (Urea Nitrogen) 17 mg/dL (8.4-25.7); Calc. Creatinine Clearance 85 mL/min (70-130); Calcium 7.2 mg/dL (7.8-10.44); Carbon Dioxide 32 mmol/L (23-31); Chloride 107 mmol/L (98-107); Estimated GFR-MDRD Greater than 90; Glucose 188 mg/dL (80-115); Sodium 144 mmol/L (136-145)
[2019-02-17] MEDS: HumaLOG 300 UNITS/3 ML VIAL SC PRN (18:24)
[2019-02-17] MEDS: Atorvastatin Calcium 40 MG TAB PO SCH (20:34)
[2019-02-17] MEDS: risperiDONE 1 MG TAB PO SCH (20:34)
[2019-02-18] MEDS ORDERED: Adenosine 6 MG/2 ML VIAL ONE (00:10)
[2019-02-18 05:22] LABS: Anion Gap 8 mmol/L (10-20); BUN (Urea Nitrogen) 19 mg/dL (8.4-25.7); Calc. Creatinine Clearance 88 mL/min (70-130); Calcium 7.3 mg/dL (7.8-10.44); Carbon Dioxide 34 mmol/L (23-31); Chloride 106 mmol/L (98-107); Estimated GFR-MDRD Greater than 90; Glucose 128 mg/dL (80-115); Potassium 3.5 mmol/L (3.5-5.1); Sodium 144 mmol/L (136-145)
[2019-02-18] MEDS: Meropenem 2 GM in Sodium Chloride 0.9% 100 ML IVPB SCH ×3 (06:04→22:57)
[2019-02-18 06:08] LABS: Band 8 % (5-11); Eosinophils 3 % (0-10); Hypochromia MODERATE=16-30 cells (100X) (0-5/hpf); Lymphocytes 8 % (21-51); MDiff Complete? YES; Macrocytosis SLIGHT = 6-15 cells (100X) (0-5/hpf); Mean Corpuscular HGB CONC 32.4 g/dL (32.0-36.0); Mean Corpuscular Hemoglobin 29.9 pg (27.0-31.0); Mean Corpuscular Volume 92.2 fL (78.0-98.0); Mean Platelet Volume 10.6 fL (7.4-10.4); Microcytosis SLIGHT = 6-15 cells (100X) (0-5/hpf); Monocytes 4 % (0-10); Neutrophil 76 % (42-75); Platelet Count 250 thou/uL (130-400); Platelet Morphology Comment Appears Adequate; RBC Distribution Width 13.9 % (11.5-14.5); Reactive Lymphocytes 1 % (0-10); Red Blood Cell (RBC) Count 2.33 mill/uL (4.70-6.10); Target Cells MARKED = >16 cells (100X) (0-1/hpf)
--- NOTE | 2019-02-18 07:14 | PDOC.FM ---
- Subjective Subjective: Pt reports throat pain this morning. Remains intubated. Denies Chest pain. He was given 1 amp of D50 overnight for low blood sugars. - Objective Vital Signs & Weight: Vital Signs (12 hours) Temp Pulse Resp BP Pulse Ox 02/18/19 06:48 81 02/18/19 06:47 85 13 100 02/18/19 06:00 12 02/18/19 04:00 97.8 F 10 L 02/18/19 02:43 81 94/48 L 02/18/19 02:00 10 L 02/18/19 01:14 83 02/18/19 00:00 98.3 F 11 L 02/17/19 22:23 82 02/17/19 22:00 11 L 02/17/19 20:00 98.1 F 13 100 02/17/19 19:16 91 114/62 Weight Admit Weight 61 kg Weight 60.5 kg Most Recent Monitor Data Heart Rate from ECG 94 NIBP 132/71 NIBP BP-Mean 91 Respiration from ECG 16 SpO2 100 I&O: 02/17/19 02/18/19 02/19/19 06:59 06:59 06:59 Intake Total 1750 1415 Output Total 3326 991 Balance -1576 424 Result Diagrams: 02/18/19 04:00 02/18/19 04:00 Phys Exam - Physical Examination Constitutional: NAD HEENT: PERRLA dry MMM Neck: no nodes, supple Respiratory: no wheezing right sided inspiratory rhonchi in lower lobe Cardiovascular: RRR, no significant murmur Gastrointestinal: soft, non-tender, no distention, positive bowel sounds Musculoskeletal: no edema, pulses present Neurological: moves all 4 limbs Psychiatric: normal affect Skin: normal turgor, cap refill <2 seconds Dx/Plan (1) Acute respiratory failure with hypoxia Code(s): J96.01 - ACUTE RESPIRATORY FAILURE WITH HYPOXIA Status: Acute (2) Bilateral pneumonia due to Escherichia coli Code(s): J15.5 - PNEUMONIA DUE TO ESCHERICHIA COLI Status: Acute (3) Dementia Code(s): F03.90 - UNSPECIFIED DEMENTIA WITHOUT BEHAVIORAL DISTURBANCE Status: Chronic (4) Asplenia Code(s): Q89.01 - ASPLENIA (CONGENITAL) Status: Chronic (5) GERD (gastroesophageal reflux disease) Code(s): K21.9 - GASTRO-ESOPHAGEAL REFLUX DISEASE WITHOUT ESOPHAGITIS Status: Chronic (6) Physical deconditioning Code(s): R53.81 - OTHER MALAISE Status: Acute (7) Hepatitis C antibody positive in blood Code(s): R76.8 - OTHER SPECIFIED ABNORMAL IMMUNOLOGICAL FINDINGS IN SERUM Status: Chronic (8) Anemia of chronic disease Code(s): D63.8 - ANEMIA IN OTHER CHRONIC DISEASES CLASSIFIED ELSEWHERE Status : Chronic (9) BPH (benign prostatic hypertrophy) Code(s): N40.0 - BENIGN PROSTATIC HYPERPLASIA WITHOUT LOWER URINRY TRACT SYMP Status: Chronic (10) CHF (congestive heart failure) Code(s): I50.9 - HEART FAILURE, UNSPECIFIED Status: Chronic (11) COPD (chronic obstructive pulmonary disease) Status: Chronic (12) Chronic anxiety Code(s): F41.9 - ANXIETY DISORDER, UNSPECIFIED Status: Chronic (13) Depression Code(s): F32.9 - MAJOR DEPRESSIVE DISORDER, SINGLE EPISODE, UNSPECIFIED Status : Chronic (14) HTN (hypertension) Code(s): I10 - ESSENTIAL (PRIMARY) HYPERTENSION Status: Chronic Qualifiers: Hypertension type: essential hypertension Qualified Code(s): I10 - Essential (primary) hypertension (15) Type 2 diabetes mellitus Status: Chronic Qualifiers: Diabetes mellitus 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 Acute Hypoxic Respiratory Failure on mechanical ventiation -Mechanically ventilated, trach not desired, continuing to wean off of ventilator - Ativan for agitation, morphine for pain PRN. - Continue neuro chair. - Palliative: discussed with 02/12. Patient does not wish to have trach. Continue to give family support and discussions of goals of care. - Continue tube feeds - Continue miralax/senna PRN Sepsis 2/2 Multifocal Pneumonia -ABG pending -CXR showing multifocal pneumonia on admission. Resp Cx grew E coli. Sensitive to meropenem which was started 02/12. White count downtrended. CXR appearing improved. Diuresed intermttently. Continue to monitor fluid status. Hx of COPD: -continue steroids and duoneb - Guaifenesin and robitussin for secretions Chronic anemia -7.0 today, consider 1 u PRBC transfusion Hypokalemia -monitor and replete as necessary DM2 with diabetic neuropathy. -BS on NPH 10 u BID, SSI. Accuchecks ACHS. Titrate NPH as needed. Target BG 140- 180. - 1 low BS overnight, continue to monitor accuchecks Physical Deconditioning -PT/OT consulted. Will continue to exercise patient on the vent. Pelvic fractures - Right side sacrum and right superior and inferior pubic rami fractures present on last admission - Morphine PRN for pain, ativan for agitation Anxiety/depression -on wellbutrin and risperdal Lines/tubes: morales, OG, mechanical ventilation, midline right AC Code: FULL VTE ppx: lovenox GI ppx: protonix Dispo: Guarded, cont vent support. Wean as tolerated. PT/OT. Case discussed with Dr. Potts
[2019-02-18 07:20] LABS: Actual Bicarbonate (HCO3a) 33.6 mEq/L (22-28); Base Excess (BEa) 9.7 mEq/L (-2.0 to +3.0); CO2 Tension 43.1 mmHg (35.0-45.0); Carboxyhemoglobin (COHb) 1.3 gm% (0.0-3.0); Hemoglobin (Hb) 7.5 g/dL (14.0-18.0); O2 Tension (PaO2) 88.9 mmHg (> 80.0); Potassium - ABG Lab 3.58 mmol/L (3.70-5.30); pH, Arterial 7.51 (7.35-7.45)
[2019-02-18 07:35] LABS: Puncture Site RRAD
[2019-02-18 07:36] LABS: ALV-art Gradient 106.775 (0-20)
[2019-02-18] MEDS: methylPREDNISolone Sod Succ 40 MG VIAL IVP SCH (08:21)
[2019-02-18] MEDS: Aspirin 81 mg Enteric Coated Tablet PO SCH (08:21)
[2019-02-18] MEDS: Gabapentin 300 MG CAP PO SCH ×3 (08:21→20:00)
[2019-02-18] MEDS: Pantoprazole 40 MG GRANULES PACKET PER TUBE SCH (08:24)
[2019-02-18] MEDS: Enoxaparin Sodium 40 MG/0.4 ML SYRINGE SC SCH (08:24)
[2019-02-18] MEDS: Guaifenesin DM 100-10/5 ML UDCUP PO SCH ×3 (08:24→20:07)
[2019-02-18] MEDS: buPROPion 75 MG TAB PO SCH ×2 (08:24→20:08)
[2019-02-18] MEDS: Polyethylene Glycol 3350 17 GM Packet PER TUBE SCH (08:25)
--- NOTE | 2019-02-18 08:45 | PRG ---
DATE OF SERVICE: 02/18/2019 SUBJECTIVE: This morning, he is more awake, more responsive, looks stronger. OBJECTIVE: VITAL SIGNS: His saturations are 98%, blood pressure 134/66, pulse , respirations 18, and afebrile. CHEST: Minimal rhonchi or crackles. CARDIAC: Normal S1, S2. No gallops. ABDOMEN: No masses. LABORATORY DATA: White count 16,000, H and H are 7 and 21, platelet count is normal. PO2 is 88, pCO2 is 43 ph 7.43_ CPAP. Lytes are normal. Blood glucose is low at 93. IMAGING STUDIES: Chest x-ray shows infiltrates, appears to be somewhat better. ASSESSMENT: Respiratory failure, pneumonia, severe deconditioning, urinary tract infection. PLAN: He appears to be stable enough to be extubated today. I am going to transfuse a unit of packed cells since his H and H are low. His blood gases show adequate oxygenation. One-half hour of critical time. Job ID: [id number] [facility]
--- NOTE | 2019-02-18 10:44 | RAD ---
RADIOGRAPH CHEST 1 VIEW: DATE: 02/18/2019 TIME: 4:29 AM HISTORY: 68-year-old male in respiratory failure COMPARISON: 02/17/2019 FINDINGS: Endotracheal tube and esophagogastric tube remain. No interval change in bilateral heterogeneous dist ribution of infiltrates. No cardiomegaly. No pneumothorax. No interval change. IMPRESSION: 1. No interval change. 2. Bilateral infiltrates.
--- NOTE | 2019-02-18 11:36 | CON ---
DATE OF CONSULTATION: Please see the note from Dr. Sharif for which I agree. The patient was seen, evaluated, discussed, and examined with the residents by bedside. This gentleman has just been extubated. It sounds like pneumonia is improving and obviously respiratory status has improved to the point where we can extubate him. Chest still has some scattered wheezes and decreased breath sounds. His heart did really ascertain his mental status. It really kind of slurs his speech, missing lot of teeth, so it was hard to understand. He is oriented to place and name and again still on some sedation as we just extubated him. So, the plan is to continue same antibiotics, oxygen, nebulizers, etc., might be able to get around to the floor. Continuing to treat his diabetes with insulin sliding scale. Hemoglobin is 7. We are going to recheck that if it decreases and may give him some more blood. As mentioned, he wants to go home, but certainly deconditioned as he has all of medical problems, kind of recommend rehab eventually when he is stable enough. Job ID: [id number]
[2019-02-18] MEDS: NPH, Human Insulin Isophane 300 UNIT/3 ML VIAL SC SCH ×2 (12:19→21:01)
[2019-02-18] MEDS: HumaLOG 300 UNITS/3 ML VIAL SC PRN (18:35)
[2019-02-18 19:19] LABS: #Eosinphils 0.1 thou/uL (0.0-0.7); #Lymphocytes 0.7 thou/uL (1.20-3.40); #Monocytes 0.3 thou/uL (0.11-0.59); #Neutrophils 12.3 thou/uL (1.40-6.50); %Basophils 0.2 % (0.0-1.0); %Eosinophils 0.5 % (0.0-10.0); %Lymphocytes 5.6 % (21.0-51.0); %Monocytes 1.8 % (0.0-10.0); %Neutrophils 91.9 % (42.0-75.0); Band 26 % (5-11); Eosinophils 2 % (0-10); Hemoglobin 9.5 g/dL (14.0-18.0); Hypochromia SLIGHT = 6-15 cells (100X) (0-5/hpf); Large Platelets SLIGHT; Lymphocytes 5 % (21-51); MDiff Complete? YES; Mean Corpuscular Volume 87.2 fL (78.0-98.0); Mean Platelet Volume 10.7 fL (7.4-10.4); Monocytes 2 % (0-10); Neutrophil 62 % (42-75); Platelet Count 305 thou/uL (130-400); Platelet Morphology Comment Appears Adequate; Polychromasia MODERATE = 3-4 cells (100X) (0-2/hpf); RBC Distribution Width 18.9 % (11.5-14.5); Reactive Lymphocytes 3 % (0-10); Red Blood Cell (RBC) Count 3.51 mill/uL (4.70-6.10); Target Cells MODERATE= 6-15 cells (100X) (0-1/hpf); Tear Drops SLIGHT = 2-5 cells (100X) (0-1/hpf); White Blood Cell (WBC) Count 13.4 thou/uL (4.8-10.8)
[2019-02-18] MEDS: Atorvastatin Calcium 40 MG TAB PO SCH (20:00)
[2019-02-18] MEDS: risperiDONE 1 MG TAB PO SCH (20:00)
[2019-02-18] MEDS: Lorazepam 2 MG/ML VIAL SLOW IVP PRN (20:52)
[2019-02-19] MEDS: HumaLOG 300 UNITS/3 ML VIAL SC PRN ×2 (01:27→13:56)
[2019-02-19 05:16] LABS: Band 4 % (5-11); Eosinophils 1 % (0-10); Hypochromia SLIGHT = 6-15 cells (100X) (0-5/hpf); Lymphocytes 7 % (21-51); MDiff Complete? YES; Monocytes 2 % (0-10); Neutrophil 86 % (42-75); Platelet Morphology Comment Appears Adequate; Target Cells SLIGHT = 2-5 cells (100X) (0-1/hpf)
[2019-02-19 05:17] LABS: Hemoglobin 8.5 g/dL (14.0-18.0); Mean Corpuscular Hemoglobin 27.4 pg (27.0-31.0); Mean Corpuscular Volume 85.6 fL (78.0-98.0); Mean Platelet Volume 10.4 fL (7.4-10.4); Platelet Count 281 thou/uL (130-400); RBC Distribution Width 18.5 % (11.5-14.5); Red Blood Cell (RBC) Count 3.08 mill/uL (4.70-6.10); White Blood Cell (WBC) Count 13.8 thou/uL (4.8-10.8)
[2019-02-19 05:27] LABS: Anion Gap 6 mmol/L (10-20); BUN (Urea Nitrogen) 17 mg/dL (8.4-25.7); Calc. Creatinine Clearance 89 mL/min (70-130); Calcium 7.4 mg/dL (7.8-10.44); Carbon Dioxide 32 mmol/L (23-31); Chloride 106 mmol/L (98-107); Estimated GFR-MDRD Greater than 90; Glucose 132 mg/dL (80-115); Potassium 3.7 mmol/L (3.5-5.1); Sodium 140 mmol/L (136-145)
[2019-02-19] MEDS: Meropenem 2 GM in Sodium Chloride 0.9% 100 ML IVPB SCH ×2 (05:33→14:58)
--- NOTE | 2019-02-19 06:15 | PDOC.FM ---
- Subjective Subjective: Mr. Smiley resting in bed this morning. He would respond with mumbling to questions. No complete sentences, would not respond with his name. - Objective MAR Reviewed: Yes Vital Signs & Weight: Vital Signs (12 hours) Temp Resp Pulse Ox 02/19/19 04:00 98.1 F 02/19/19 00:41 14 100 02/18/19 23:00 97.9 F 02/18/19 20:00 95 02/18/19 19:00 98.3 F 02/18/19 18:25 100 02/18/19 18:23 100 Weight Admit Weight 61 kg Weight 60.7 kg Most Recent Monitor Data Heart Rate from ECG 77 NIBP 112/63 NIBP BP-Mean 79 Respiration from ECG 12 SpO2 99 I&O: 02/17/19 02/18/19 02/19/19 06:59 06:59 06:59 Intake Total 1750 1415 332 Output Total 3326 991 960 Balance -1573 364 -333 Result Diagrams: 02/19/19 05:00 02/19/19 05:00 Phys Exam - Physical Examination Respiratory: clear to auscultation bilateral (anteriorly) Cardiovascular: RRR, no significant murmur Gastrointestinal: soft, non-tender, positive bowel sounds bilateral UE nonpitting edema, bruising did not follow commands or respond appropriately to questions Skin: cap refill <2 seconds Dx/Plan (1) Acute respiratory failure with hypoxia Code(s): J96.01 - ACUTE RESPIRATORY FAILURE WITH HYPOXIA Status: Acute (2) Bilateral pneumonia due to Escherichia coli Code(s): J15.5 - PNEUMONIA DUE TO ESCHERICHIA COLI Status: Acute (3) Physical deconditioning Code(s): R53.81 - OTHER MALAISE Status: Acute (4) Sepsis Code(s): A41.9 - SEPSIS, UNSPECIFIED ORGANISM Status: Acute (5) Asplenia Code(s): Q89.01 - ASPLENIA (CONGENITAL) Status: Chronic - Plan Plan: This is a 68yo M admitted for Acute Hypoxic Resp Failure and Sepsis 2/2 Multifocal pneumonia. Sepsis 2/2 Multifocal Pneumonia -CXR showing multifocal pneumonia on admission. Resp Cx grew E coli. Sensitive to meropenem which was started 02/12. White count downtrended. CXR appearing improved. Diuresed intermittently. Continue to monitor fluid status. - VSS, afebrile Acute Hypoxic Respiratory Failure, improved - intubated 02/08-02/18, now on 2L NC - Ativan for agitation, morphine for pain PRN. - Palliative: discussed with 02/12. Patient does not wish to have trach. Continue to give family support and discussions of goals of care. - Continue miralax/senna PRN Hx of COPD: - continue steroids and duoneb - Guaifenesin and robitussin for secretions Chronic anemia -transfused 1u prbc 02/18, Hgb 8.5 this am Hypokalemia -monitor and replete as necessary DM2 with diabetic neuropathy. -BS on NPH 10 u BID, SSI. Accuchecks ACHS. Titrate NPH as needed. Target BG 140- 180. - FBG 132 today Physical Deconditioning -PT/OT consulted. Pelvic fractures - Right side sacrum and right superior and inferior pubic rami fractures present on last admission - Morphine PRN for pain, ativan for agitation Anxiety/depression -on wellbutrin and risperdal Lines/tubes: morales, OG, midline right AC Code: FULL VTE ppx: lovenox GI ppx: protonix Dispo: Off vent, continue current management. PT/OT working with patient. Addendum - Attending - Attending Attestation Date/Time: 02/19/19 3063 I personally evaluated the patient and discussed the management with Dr. Oshea I agree with the History, Examination, Assessment and Plan documented above with any addition or exceptions noted below. 68 yo extubated successfully earlier. Day # 8 meropenem will consider de- escalation at some point. Note multiple comorbid conditions: Dementia(?baseline ) asplenia, Hepatitis C, HFpEF, HTN, COPD, BPH he is significantly deconditioned and will continue to discuss palliative and restorative care with family.
[2019-02-19] MEDS: Aspirin 81 mg Enteric Coated Tablet PO SCH (08:16)
[2019-02-19] MEDS: Guaifenesin DM 100-10/5 ML UDCUP PO SCH ×3 (08:16→22:34)
[2019-02-19] MEDS: Enoxaparin Sodium 40 MG/0.4 ML SYRINGE SC SCH (08:16)
[2019-02-19] MEDS: Gabapentin 300 MG CAP PO SCH ×3 (08:17→22:34)
[2019-02-19] MEDS: Pantoprazole 40 MG GRANULES PACKET PER TUBE SCH (08:17)
[2019-02-19] MEDS: methylPREDNISolone Sod Succ 40 MG VIAL IVP SCH (08:17)
[2019-02-19] MEDS: Polyethylene Glycol 3350 17 GM Packet PER TUBE SCH (08:28)
[2019-02-19] MEDS: buPROPion 75 MG TAB PO SCH ×2 (08:28→22:34)
[2019-02-19] MEDS: NPH, Human Insulin Isophane 300 UNIT/3 ML VIAL SC SCH ×2 (08:46→22:35)
--- NOTE | 2019-02-19 09:58 | RAD ---
PORTABLE UPRIGHT FRONTAL CHEST RADIOGRAPH: Date: 02/19/19 COMPARISON: 02/18/19. HISTORY: Ventilated CCU patient. FINDINGS: The endotracheal tube and nasogastric tube have been removed. There is nonspecific coarse increased l inear interstitial density in the perihilar regions and both lung apices. Asymmetric increased linear interstitial density also noted within the right base. Within the left base, there is dense pleural and parenchymal opacity medially. There has been no significant interval change when compared to the prior exam. There is atherosclerotic calcification of the aortic arch. IMPRESSION: Grossly unchanged appearance of the chest aside from interval removal of the endotracheal tube and na sogastric tube. Continued follow-up advised. POS: [facility]
--- NOTE | 2019-02-19 16:35 | PRG ---
DATE OF SERVICE: 02/19/2019 SUBJECTIVE: Events over the weekend have been reviewed. His negative inspiratory force increased to greater than -30, so he was extubated over the weekend. He is actually cooperating with physical therapy now. OBJECTIVE: VITAL SIGNS: Blood pressure 151/84, heart rate 85, respiratory rate 16. LUNGS: Clear. HEART: Regular rhythm. ABDOMEN: Soft. EXTREMITIES: Without edema. LABORATORY DATA: White count 13.4 yesterday, 13.8 today; hemoglobin 8.5, platelets 281,000. Electrolytes are unremarkable. BUN 17, creatinine 0.69, glucose 235 this morning. IMAGING STUDIES: Chest radiographs almost completely cleared. IMPRESSION: 1. Pneumonia. 2. Respiratory failure with clinical sepsis on presentation. He should be adequately treated at this point from a pneumonia standpoint. He was started on meropenem on the and organism was intermediately sensitive to Zosyn, so I think one week of meropenem should be more than enough intravenously to eradicate infectious process. We will simplify medications. The biggest issue now will be placement for ongoing rehab. Job ID: [id number]
[2019-02-19] MEDS: Atorvastatin Calcium 40 MG TAB PO SCH (22:34)
[2019-02-19] MEDS: risperiDONE 1 MG TAB PO SCH (22:34)
[2019-02-19] MEDS: Morphine 2 MG/ML SYRINGE SLOW IVP PRN (22:37)
--- NOTE | 2019-02-20 06:09 | PDOC.FM ---
- Subjective Subjective: Mr. Smiley responded to some questions this morning. He reported some low back pain. Denied difficulty breathing. Nursing concerned for aspiration when observing patient swallow. - Objective Vital Signs & Weight: Vital Signs (12 hours) Temp Pulse Resp Pulse Ox 02/20/19 03:37 97.8 F 02/20/19 00:36 98 02/20/19 00:34 98 02/20/19 00:28 98.1 F 02/19/19 20:00 98.0 F 96 02/19/19 19:39 100 02/19/19 19:36 82 15 100 Weight Admit Weight 61 kg Weight 60.7 kg Most Recent Monitor Data Heart Rate from ECG 77 NIBP 126/76 NIBP BP-Mean 92 Respiration from ECG 10 SpO2 95 I&O: 02/18/19 02/19/19 02/20/19 06:59 06:59 06:59 Intake Total 9846 633 5792 Output Total 991 960 600 Balance 424 -628 840 Result Diagrams: 02/20/19 07:16 02/20/19 06:23 Phys Exam - Physical Examination Constitutional: NAD Respiratory: clear to auscultation bilateral (anteriorly) Cardiovascular: RRR, no significant murmur Gastrointestinal: soft, non-tender, positive bowel sounds Musculoskeletal: no edema Neurological: moves all 4 limbs Deviation from normal: oriented to person, knew city, month and year Skin: normal turgor Dx/Plan (1) Acute respiratory failure with hypoxia Code(s): J96.01 - ACUTE RESPIRATORY FAILURE WITH HYPOXIA Status: Acute (2) Bilateral pneumonia due to Escherichia coli Code(s): J15.5 - PNEUMONIA DUE TO ESCHERICHIA COLI Status: Acute (3) Physical deconditioning Code(s): R53.81 - OTHER MALAISE Status: Acute (4) Sepsis Code(s): A41.9 - SEPSIS, UNSPECIFIED ORGANISM Status: Acute (5) Asplenia Code(s): Q89.01 - ASPLENIA (CONGENITAL) Status: Chronic - Plan Plan: This is a 68yo M admitted for Acute Hypoxic Resp Failure and Sepsis 2/2 Multifocal pneumonia. Sepsis 2/2 Multifocal Pneumonia, improved -CXR showing multifocal pneumonia on admission. Resp Cx grew E coli. Sensitive to meropenem which was given . White count downtrended. CXR appearing improved. Diuresed intermittently. Continue to monitor fluid status. - VSS, afebrile. WBC 13->15.7 today, will trend Acute Hypoxic Respiratory Failure, improved - intubated 02/08-02/18, now on 2L NC - Ativan for agitation, morphine for pain PRN. - Palliative: discussed with 02/12. Patient does not wish to have trach. Continue to give family support and discussions of goals of care. - Continue miralax/senna PRN - Pulmonology consulted Hx of COPD: - continue duoneb, steroids discontinued - Guaifenesin and robitussin for secretions Chronic anemia, at baseline -transfused 1u prbc 02/18, Hgb 8.5 this am Hypokalemia -monitor and replete as necessary DM2 with diabetic neuropathy. - Had hypoglycemia episode this am. Will transition NPH back to Lantus (takes at home) - Target BG 140-180. Physical Deconditioning -PT/OT consulted. Pelvic fractures - Right side sacrum and right superior and inferior pubic rami fractures present on last admission - Morphine PRN for pain, ativan for agitation Anxiety/depression -on wellbutrin and risperdal Lines/tubes: Teresa Code: FULL VTE ppx: lovenox GI ppx: protonix Dispo: PT/OT working with patient. Speech to reevaluate swallowing again today. Social work to meet with . Addendum - Attending - Attending Attestation Date/Time: 02/20/19 9702 I personally evaluated the patient and discussed the management with Dr. Oshea I agree with the History, Examination, Assessment and Plan documented above with any addition or exceptions noted below.
[2019-02-20 06:48] LABS: Anion Gap 9 mmol/L (10-20); BUN (Urea Nitrogen) 14 mg/dL (8.4-25.7); Calc. Creatinine Clearance 104 mL/min (70-130); Calcium 7.2 mg/dL (7.8-10.44); Carbon Dioxide 25 mmol/L (23-31); Chloride 108 mmol/L (98-107); Estimated GFR-MDRD Greater than 90; Potassium 4.1 mmol/L (3.5-5.1); Sodium 138 mmol/L (136-145)
[2019-02-20] MEDS ORDERED: Dextrose 50 % In Water 50 ML SYRINGE ONE (06:49)
[2019-02-20 06:51] LABS: Glucose 41 mg/dL (80-115)
[2019-02-20] MEDS ORDERED: Dextrose 50 % In Water 50 ML SYRINGE IV PRN (06:51)
[2019-02-20 07:56] LABS: Hemoglobin 8.1 g/dL (14.0-18.0); Mean Corpuscular HGB CONC 32.8 g/dL (32.0-36.0); Mean Corpuscular Hemoglobin 27.9 pg (27.0-31.0); Mean Corpuscular Volume 85.2 fL (78.0-98.0); Mean Platelet Volume 11.1 fL (7.4-10.4); Platelet Count 130 thou/uL (130-400); RBC Distribution Width 18.1 % (11.5-14.5); Red Blood Cell (RBC) Count 2.91 mill/uL (4.70-6.10); White Blood Cell (WBC) Count 15.7 thou/uL (4.8-10.8)
[2019-02-20 08:00] LABS: Band 6 % (5-11); Burr Cells SLIGHT = 2-5 cells (100X) (0-1/hpf); Eosinophils 13 % (0-10); Hypochromia SLIGHT = 6-15 cells (100X) (0-5/hpf); Large Platelets SLIGHT; Lymphocytes 13 % (21-51); MDiff Complete? YES; Monocytes 8 % (0-10); Neutrophil 59 % (42-75); Platelet Clumps MODERATE; Platelet Morphology Comment Appears Adequate; Polychromasia SLIGHT = 2-3 cells (100X) (0-2/hpf); Reactive Lymphocytes 1 % (0-10); Target Cells MODERATE= 6-15 cells (100X) (0-1/hpf)
[2019-02-20] MEDS: Enoxaparin Sodium 40 MG/0.4 ML SYRINGE SC SCH (09:12)
[2019-02-20] MEDS: buPROPion 75 MG TAB PO SCH ×2 (09:12→19:40)
[2019-02-20] MEDS: Guaifenesin DM 100-10/5 ML UDCUP PO SCH ×3 (09:12→19:41)
[2019-02-20] MEDS: Polyethylene Glycol 3350 17 GM Packet PER TUBE SCH (09:13)
[2019-02-20] MEDS: Gabapentin 300 MG CAP PO SCH ×3 (09:13→19:41)
[2019-02-20] MEDS: Aspirin 81 mg Enteric Coated Tablet PO SCH (09:13)
[2019-02-20] MEDS: Pantoprazole 40 MG GRANULES PACKET PER TUBE SCH (09:13)
[2019-02-20] MEDS: predniSONE 20 MG TAB PO SCH (09:13)
[2019-02-20] MEDS: NPH, Human Insulin Isophane 300 UNIT/3 ML VIAL SC SCH (09:15)
--- NOTE | 2019-02-20 11:20 | PRG ---
DATE OF SERVICE: 02/20/2019 OBJECTIVE: He is afebrile heart rate is 80s, blood pressure 125/66. HEART: Regular rhythm. ABDOMEN: Soft. LABORATORY: White count 15.7, hemoglobin 8.1, platelets 130,000. IMPRESSION: Status post respiratory failure secondary to relatively drug- resistant Escherichia coli. This is all clinically resolved. His deconditioning and swallowing dysfunction have to be addressed. My guess is he will likely need a PEG. Job ID: [id number] [facility]
[2019-02-20] MEDS: Lactated Ringer's 1,000 ML IV SCH (16:08)
[2019-02-20] MEDS: Atorvastatin Calcium 40 MG TAB PO SCH (19:40)
[2019-02-20] MEDS: risperiDONE 1 MG TAB PO SCH (19:42)
[2019-02-20] MEDS: Insulin Glargine 10 UNITS in Pre-Filled Syringe 1 EACH SC SCH (19:43)
[2019-02-21] MEDS: Lactated Ringer's 1,000 ML IV SCH ×2 (01:16→13:48)
--- NOTE | 2019-02-21 06:32 | PDOC.FM ---
- Subjective Subjective: Mr. Smiley was alert, sitting up in bed this morning. Again notes low back pain. Complains of being hungry from NPO status. - Objective MAR Reviewed: Yes Vital Signs & Weight: Vital Signs (12 hours) Temp Pulse Resp Pulse Ox 02/21/19 03:56 100 02/21/19 03:42 98.0 F 02/21/19 00:55 79 12 97 02/20/19 23:47 98.4 F 02/20/19 19:42 98.6 F Weight Admit Weight 61 kg Weight 59.988 kg Most Recent Monitor Data Heart Rate from ECG 72 NIBP 139/69 NIBP BP-Mean 92 Respiration from ECG 15 SpO2 96 I&O: 02/19/19 02/20/19 02/21/19 06:59 06:59 06:59 Intake Total 332 2040 1775 Output Total 960 1225 1525 Balance -628 815 250 Result Diagrams: 02/21/19 07:03 02/21/19 07:03 Phys Exam - Physical Examination Constitutional: NAD Respiratory: clear to auscultation bilateral (anteriorly, breath sounds improved ) Cardiovascular: RRR, no significant murmur Gastrointestinal: soft, non-tender Musculoskeletal: no edema Psychiatric: A&O x 3 Skin: normal turgor Dx/Plan (1) Acute respiratory failure with hypoxia Code(s): J96.01 - ACUTE RESPIRATORY FAILURE WITH HYPOXIA Status: Acute (2) Bilateral pneumonia due to Escherichia coli Code(s): J15.5 - PNEUMONIA DUE TO ESCHERICHIA COLI Status: Acute (3) Physical deconditioning Code(s): R53.81 - OTHER MALAISE Status: Acute (4) Sepsis Code(s): A41.9 - SEPSIS, UNSPECIFIED ORGANISM Status: Acute (5) Asplenia Code(s): Q89.01 - ASPLENIA (CONGENITAL) Status: Chronic - Plan Plan: This is a 68yo M admitted for Acute Hypoxic Resp Failure and Sepsis 2/2 Multifocal pneumonia. Sepsis 2/2 Multifocal Pneumonia, improved -CXR showing multifocal pneumonia on admission. Resp Cx grew E coli. Sensitive to meropenem which was given 02/12-. White count downtrended. CXR appearing improved. Diuresed intermittently. Continue to monitor fluid status. - VSS, afebrile. WBC 13->15.7 today, will trend Acute Hypoxic Respiratory Failure, improved - intubated 02/08-02/18, now on 2L NC - Ativan for agitation, morphine for pain PRN. - Palliative: discussed with 02/12. Patient does not wish to have trach. Continue to give family support and discussions of goals of care. - Continue miralax/senna PRN - Pulmonology consulted Hx of COPD: - continue duoneb, steroids discontinued - Guaifenesin and robitussin for secretions Chronic anemia, at baseline -transfused 1u prbc 02/18 Hypokalemia -monitor and replete as necessary DM2 with diabetic neuropathy. - Continue Lantus - Target BG 140-180. Physical Deconditioning -PT/OT consulted. Pelvic fractures - Right side sacrum and right superior and inferior pubic rami fractures present on last admission - Morphine PRN for pain, ativan for agitation Anxiety/depression -on wellbutrin and risperdal Lines/tubes: Teresa Code: FULL VTE ppx: lovenox GI ppx: protonix Dispo: PT/OT working with patient. Speech to reevaluate swallowing again today. CM working on placement. Addendum - Attending - Attending Attestation Date/Time: 02/21/19 5409 I personally evaluated the patient and discussed the management with Dr. Oshea I agree with the History, Examination, Assessment and Plan documented above with any addition or exceptions noted below. Modified diet verse consideration PEG pending Swallow study alert responsive today continue to look into disposition with rehab options continue current PT treatment.
[2019-02-21 07:32] LABS: Anion Gap 10 mmol/L (10-20); BUN (Urea Nitrogen) 11 mg/dL (8.4-25.7); Calc. Creatinine Clearance 94 mL/min (70-130); Calcium 7.7 mg/dL (7.8-10.44); Carbon Dioxide 26 mmol/L (23-31); Chloride 104 mmol/L (98-107); Estimated GFR-MDRD Greater than 90; Glucose 76 mg/dL (80-115); Potassium 3.6 mmol/L (3.5-5.1); Sodium 136 mmol/L (136-145)
[2019-02-21] MEDS: predniSONE 20 MG TAB PO SCH (07:44)
[2019-02-21] MEDS: Guaifenesin DM 100-10/5 ML UDCUP PO SCH ×3 (07:45→21:34)
[2019-02-21] MEDS: Aspirin 81 mg Enteric Coated Tablet PO SCH (07:45)
[2019-02-21] MEDS: Polyethylene Glycol 3350 17 GM Packet PER TUBE SCH (07:45)
[2019-02-21] MEDS: Gabapentin 300 MG CAP PO SCH ×3 (07:45→21:34)
[2019-02-21] MEDS: Pantoprazole 40 MG GRANULES PACKET PER TUBE SCH (07:45)
[2019-02-21] MEDS: buPROPion 75 MG TAB PO SCH ×2 (07:45→21:34)
[2019-02-21 08:07] LABS: Hemoglobin 8.7 g/dL (14.0-18.0); Mean Corpuscular HGB CONC 31.9 g/dL (32.0-36.0); Mean Corpuscular Hemoglobin 27.6 pg (27.0-31.0); Mean Corpuscular Volume 86.8 fL (78.0-98.0); Mean Platelet Volume 10.2 fL (7.4-10.4); Platelet Count 335 thou/uL (130-400); RBC Distribution Width 18.1 % (11.5-14.5); Red Blood Cell (RBC) Count 3.14 mill/uL (4.70-6.10); White Blood Cell (WBC) Count 12.1 thou/uL (4.8-10.8)
[2019-02-21 08:24] LABS: Band 7 % (5-11); Eosinophils 11 % (0-10); Hypochromia SLIGHT = 6-15 cells (100X) (0-5/hpf); Lymphocytes 22 % (21-51); MDiff Complete? YES; Monocytes 6 % (0-10); Neutrophil 54 % (42-75); Platelet Morphology Comment Appears Adequate; Polychromasia MODERATE = 3-4 cells (100X) (0-2/hpf); Target Cells MODERATE= 6-15 cells (100X) (0-1/hpf)
[2019-02-21] MEDS: Enoxaparin Sodium 40 MG/0.4 ML SYRINGE SC SCH (09:06)
--- NOTE | 2019-02-21 10:31 | RAD ---
Exam: Modified barium swallow, presence of the pelvis HISTORY: Dysphasia, specify. Feeding difficulties Exposure: 1.9 minutes. 1.104 eubanks per centimeter square FINDINGS: In the presence of speech pathologist, the patient administered thin liquid, nectar thick, pudding an d solid consistencies. This there penetration with thin liquid consistencies. There is penetration and aspiration with the solid consistencies. IMPRESSION: Please refer to speech pathologist report for feeding recommendation
[2019-02-21] MEDS: Morphine 2 MG/ML SYRINGE SLOW IVP PRN (14:31)
[2019-02-21 15:03] VITALS: BMI 18.9
--- NOTE | 2019-02-21 17:03 | PRG ---
DATE OF SERVICE: 02/21/2019 SUBJECTIVE: Meliton Smiley is doing reasonably well. He walked in the room with physical therapy with some difficulty push himself up in bed. OBJECTIVE: VITAL SIGNS: Heart rate is 85, blood pressure is 129/78, respiratory rate 15, and his oxymetry is 95. LUNGS: Remarkable for equal breath sounds. HEART: Regular rhythm. ABDOMEN: Soft. IMAGING STUDIES: Modified barium swallow done today showing thin liquid penetration as well as penetration and aspiration with solid foods. IMPRESSION: 1. Pneumonia, likely aspiration mediated. 2. Deconditioning. 3. Swallowing dysfunction. We will continue to follow. Job ID: [id number]
[2019-02-21] MEDS: risperiDONE 1 MG TAB PO SCH (21:34)
[2019-02-21] MEDS: Insulin Glargine 10 UNITS in Pre-Filled Syringe 1 EACH SC SCH (21:34)
[2019-02-21] MEDS: Atorvastatin Calcium 40 MG TAB PO SCH (21:34)
--- NOTE | 2019-02-22 06:20 | PDOC.FM ---
- Subjective Subjective: Pt is doing well. Eating candy and resting comfortably. No complaints except some mild bilateral pain in the bottom of his feet. - Objective MAR Reviewed: Yes Vital Signs & Weight: Vital Signs (12 hours) Temp Pulse Resp BP Pulse Ox 02/22/19 00:14 89 16 97 02/22/19 00:00 98.6 F 95 16 122/73 92 L 02/21/19 19:40 98.2 F 90 18 160/87 H 95 02/21/19 18:53 90 20 96 Weight Admit Weight 61 kg Weight 59.988 kg Most Recent Monitor Data Heart Rate from ECG 91 NIBP 149/90 NIBP BP-Mean 109 Respiration from ECG 17 SpO2 98 I&O: 02/20/19 02/21/19 02/22/19 06:59 06:59 06:59 Intake Total 2040 1775 Output Total 1225 1525 Balance 815 250 Result Diagrams: 02/21/19 07:03 02/21/19 07:03 Phys Exam - Physical Examination Constitutional: NAD Respiratory: wheezing present (mild bilaterally, not on O2) Cardiovascular: RRR, no significant murmur Gastrointestinal: soft Musculoskeletal: no edema (legs and feet non-TTP), pulses present Psychiatric: normal affect, A&O x 3 Skin: no rash Dx/Plan (1) Acute respiratory failure with hypoxia Code(s): J96.01 - ACUTE RESPIRATORY FAILURE WITH HYPOXIA Status: Acute (2) Bilateral pneumonia due to Escherichia coli Code(s): J15.5 - PNEUMONIA DUE TO ESCHERICHIA COLI Status: Acute (3) Palliative care encounter Code(s): Z51.5 - ENCOUNTER FOR PALLIATIVE CARE Status: Acute (4) Physical deconditioning Code(s): R53.81 - OTHER MALAISE Status: Acute (5) Respiratory failure requiring intubation Code(s): J96.90 - RESPIRATORY FAILURE, UNSP, UNSP W HYPOXIA OR HYPERCAPNIA Status: Acute (6) Sepsis Code(s): A41.9 - SEPSIS, UNSPECIFIED ORGANISM Status: Acute (7) Asplenia Code(s): Q89.01 - ASPLENIA (CONGENITAL) Status: Chronic (8) Macrocytic anemia Code(s): D53.9 - NUTRITIONAL ANEMIA, UNSPECIFIED Status: Acute (9) CHF (congestive heart failure) Code(s): I50.9 - HEART FAILURE, UNSPECIFIED Status: Chronic (10) COPD (chronic obstructive pulmonary disease) Status: Chronic (11) Chronic anxiety Code(s): F41.9 - ANXIETY DISORDER, UNSPECIFIED Status: Chronic (12) Depression Code(s): F32.9 - MAJOR DEPRESSIVE DISORDER, SINGLE EPISODE, UNSPECIFIED Status : Chronic (13) HTN (hypertension) Code(s): I10 - ESSENTIAL (PRIMARY) HYPERTENSION Status: Chronic Qualifiers: Hypertension type: essential hypertension Qualified Code(s): I10 - Essential (primary) hypertension (14) Hepatitis C antibody positive in blood Code(s): R76.8 - OTHER SPECIFIED ABNORMAL IMMUNOLOGICAL FINDINGS IN SERUM Status: Chronic (15) Type 2 diabetes mellitus Status: Chronic Qualifiers: 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 Sepsis 2/2 Multifocal Pneumonia, improved -Resp Cx grew E coli. Sensitive to meropenem which was given 02/12-. White count downtrended. CXR appearing improved. Diuresed intermittently. Continue to monitor fluid status. Acute Hypoxic Respiratory Failure, improved - intubated 02/08-02/18, now on 2L NC - Ativan for agitation, morphine for pain PRN. - Palliative: discussed with 02/12. Patient does not wish to have trach. Continue to give family support and discussions of goals of care. - Continue miralax/senna PRN - Pulmonology consulted Hx of COPD: - continue duoneb - Guaifenesin and robitussin for secretions Chronic anemia, at baseline -transfused 1u prbc 02/18 Hypokalemia -monitor and replete as necessary DM2 with diabetic neuropathy. - Continue Lantus. Switch administration to morning. - Target BG 140-180. Physical Deconditioning -PT/OT consulted. Pelvic fractures - Right side sacrum and right superior and inferior pubic rami fractures present on last admission - D/C morphine. May have tramadol Anxiety/depression -on wellbutrin and risperdal Lines/tubes: Teresa Code: DNI, cardiac code only VTE ppx: lovenox GI ppx: protonix Dispo: PT/OT working with patient. Awaiting placement for rehab
[2019-02-22] MEDS: Guaifenesin DM 100-10/5 ML UDCUP PO SCH ×3 (07:53→20:35)
[2019-02-22] MEDS: buPROPion 75 MG TAB PO SCH ×2 (07:54→20:35)
[2019-02-22] MEDS: Pantoprazole 40 MG GRANULES PACKET PER TUBE SCH (07:54)
[2019-02-22] MEDS: predniSONE 20 MG TAB PO SCH (07:54)
[2019-02-22] MEDS: Gabapentin 300 MG CAP PO SCH ×3 (07:54→20:34)
[2019-02-22] MEDS: Enoxaparin Sodium 40 MG/0.4 ML SYRINGE SC SCH (07:54)
[2019-02-22] MEDS: Aspirin 81 mg Enteric Coated Tablet PO SCH (07:54)
[2019-02-22] MEDS: Polyethylene Glycol 3350 17 GM Packet PER TUBE SCH (07:55)
--- NOTE | 2019-02-22 10:11 | PRG ---
DATE OF SERVICE: 02/22/2019 SUBJECTIVE: Meliton Smiley has no complaints. He is resting comfortably. OBJECTIVE: VITAL SIGNS: He is afebrile. Heart rate is 88, respiratory rate is 18, oximetry is 99% on room air, and blood pressure 131/71. LUNGS: Clear. HEART: Regular rhythm. ABDOMEN: Soft. LABORATORY DATA: White count yesterday was 12.1. He did have 2 low glucoses this morning of 54 and 55 at 5:40 and 6:30 respectively. IMPRESSION: Status post pneumonia with respiratory failure, secondary to Escherichia coli that was resistant to multiple antibiotics. Placement is the main issue now for rehabilitation. We will see as needed in the future. Job ID: [id number]
[2019-02-22] MEDS: HumaLOG 300 UNITS/3 ML VIAL SC PRN ×3 (11:20→20:37)
[2019-02-22] MEDS ORDERED: traMADol HCl 50 MG TAB PO PRN (11:37)
--- NOTE | 2019-02-22 12:24 | PRG ---
DATE OF SERVICE: 02/22/2019 Mr. Smiley is a gentleman well known to me. His most recent problem was an E. coli pneumonia that resulted in respiratory arrest and intubation. He is currently already transferred to a floor bed and is resting comfortably. We are now also awaiting long-term placement for this unfortunate gentleman. Job ID: [id number]
[2019-02-22] MEDS: Atorvastatin Calcium 40 MG TAB PO SCH (20:35)
[2019-02-22] MEDS: risperiDONE 1 MG TAB PO SCH (20:35)
--- NOTE | 2019-02-23 06:12 | PDOC.FM ---
- Subjective Subjective: Awoke pt from his sleep so was drowsy when talking. Sleeps w/ dentures in. Reports he had pain in the middle of his back and dozed off to sleep again. Has been eating yogurt and peanut butter. - Objective MAR Reviewed: Yes Vital Signs & Weight: Vital Signs (12 hours) Temp Pulse Resp BP Pulse Ox 02/23/19 03:31 97.2 F L 104 H 16 124/66 96 02/22/19 23:49 98 F 109 H 18 127/70 100 02/22/19 23:37 95 02/22/19 19:35 98.6 F 112 H 20 139/77 100 02/22/19 18:59 95 02/22/19 18:58 96 Weight Admit Weight 61 kg Weight 60.917 kg Most Recent Monitor Data Heart Rate from ECG 91 NIBP 149/90 NIBP BP-Mean 109 Respiration from ECG 17 SpO2 98 I&O: 02/21/19 02/22/19 02/23/19 06:59 06:59 06:59 Intake Total 1775 1700 Output Total 1525 2925 Balance 250 -1225 Result Diagrams: 02/21/19 07:03 02/21/19 07:03 Phys Exam - Physical Examination Constitutional: NAD Respiratory: clear to auscultation bilateral Cardiovascular: RRR, no significant murmur Musculoskeletal: no edema Dx/Plan (1) Acute respiratory failure with hypoxia Code(s): J96.01 - ACUTE RESPIRATORY FAILURE WITH HYPOXIA Status: Acute (2) Bilateral pneumonia due to Escherichia coli Code(s): J15.5 - PNEUMONIA DUE TO ESCHERICHIA COLI Status: Acute (3) Palliative care encounter Code(s): Z51.5 - ENCOUNTER FOR PALLIATIVE CARE Status: Acute (4) Physical deconditioning Code(s): R53.81 - OTHER MALAISE Status: Acute (5) Respiratory failure requiring intubation Code(s): J96.90 - RESPIRATORY FAILURE, UNSP, UNSP W HYPOXIA OR HYPERCAPNIA Status: Acute (6) Sepsis Code(s): A41.9 - SEPSIS, UNSPECIFIED ORGANISM Status: Acute (7) Asplenia Code(s): Q89.01 - ASPLENIA (CONGENITAL) Status: Chronic (8) Macrocytic anemia Code(s): D53.9 - NUTRITIONAL ANEMIA, UNSPECIFIED Status: Acute (9) CHF (congestive heart failure) Code(s): I50.9 - HEART FAILURE, UNSPECIFIED Status: Chronic (10) COPD (chronic obstructive pulmonary disease) Status: Chronic (11) Chronic anxiety Code(s): F41.9 - ANXIETY DISORDER, UNSPECIFIED Status: Chronic (12) Depression Code(s): F32.9 - MAJOR DEPRESSIVE DISORDER, SINGLE EPISODE, UNSPECIFIED Status : Chronic (13) HTN (hypertension) Code(s): I10 - ESSENTIAL (PRIMARY) HYPERTENSION Status: Chronic Qualifiers: Hypertension type: essential hypertension Qualified Code(s): I10 - Essential (primary) hypertension (14) Hepatitis C antibody positive in blood Code(s): R76.8 - OTHER SPECIFIED ABNORMAL IMMUNOLOGICAL FINDINGS IN SERUM Status: Chronic (15) Type 2 diabetes mellitus Status: Chronic Qualifiers: 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 Sepsis 2/2 Multifocal Pneumonia, resolved -Resp Cx grew E coli. Sensitive to meropenem: given 02/12-. Acute Hypoxic Respiratory Failure, resolved - intubated 02/08-02/18, now on room air - Palliative: discussed with 02/12. Patient does not wish to have trach. Pt is DNI, cardiac code only - Continue miralax/senna PRN - Pulmonology consulted - Steroids given, prednison 20mg x2 days, today is day 3. Will need to follow up w/ pulm about continuation/duration of steroids usage. Swallowing dysfunction leading to aspiration - modified barium swallow completed & pt aspirates thin liquids as well as solids. - Puree and nectar diet recommended. Hx of COPD: - continue duoneb - Guaifenesin and robitussin for secretions Chronic anemia, at baseline -transfused 1u prbc 02/18 Hypokalemia -monitor and replete as necessary DM2 with diabetic neuropathy. - Continue Lantus in AM. - Target BG 140-180. Physical Deconditioning -PT/OT Pelvic fractures - Right side sacrum and right superior and inferior pubic rami fractures present on last admission - Pt did not require tramadol overnight. Will leave as prn. If pt is not requiring, will not discharge home with this. Anxiety/depression -on wellbutrin and risperdal Lines/tubes: Malick, will see if we can remove this prior to d/c. Code: DNI, cardiac code only VTE ppx: lovenox GI ppx: protonix Dispo: PT/OT working with patient. Awaiting placement for rehab
[2019-02-23] MEDS: Polyethylene Glycol 3350 17 GM Packet PER TUBE SCH (08:45)
[2019-02-23] MEDS: buPROPion 75 MG TAB PO SCH (08:45)
[2019-02-23] MEDS: Guaifenesin DM 100-10/5 ML UDCUP PO SCH ×2 (08:45→14:57)
[2019-02-23] MEDS: Aspirin 81 mg Enteric Coated Tablet PO SCH (08:45)
[2019-02-23] MEDS: Pantoprazole 40 MG GRANULES PACKET PER TUBE SCH (08:45)
[2019-02-23] MEDS: Enoxaparin Sodium 40 MG/0.4 ML SYRINGE SC SCH (08:45)
[2019-02-23] MEDS: predniSONE 20 MG TAB PO SCH (08:45)
[2019-02-23] MEDS: Gabapentin 300 MG CAP PO SCH ×2 (08:45→14:57)
[2019-02-23] MEDS ORDERED: Insulin Glargine 10 UNITS in Pre-Filled Syringe 1 EACH SC SCH (09:00)
[2019-02-23 13:03] VITALS: BP 137/82; TEMP 98.6
--- NOTE | 2019-02-23 16:17 | PRG ---
DATE OF SERVICE: 02/23/2019 We are awaiting placement for Mr. Smiley after which time he can be discharged. Job ID: [id number]
== END 2019-02-23 16:26 | DRG 870 ==
LOC: ERS 10:04 → CCU 12:30 → IMCU/EMU 02-20 00:27 → 2NO 02-21 18:06
PROVIDERS: ADMIT Student in an Organized Health Care Education/Training Program; ATTEND Student in an Organized Health Care Education/Training Program
PROC: 5A1955Z Respiratory Ventilation, Greater than 96 Consecutive Hours (ICD-10-PCS; principal; 2019-02-08)
PROC: 0BH17EZ Insertion of Endotracheal Airway into Trachea, Via Natural or Artificial Opening (ICD-10-PCS; 2019-02-08)
PROC: 02HV33Z Insertion of Infusion Device into Superior Vena Cava, Percutaneous Approach (ICD-10-PCS; 2019-02-08)
PROC: 3E043XZ Introduction of Vasopressor into Central Vein, Percutaneous Approach (ICD-10-PCS; 2019-02-08)
DX: A41.51 Sepsis due to Escherichia coli [E. coli] (principal); G93.41 Metabolic encephalopathy; R65.21 Severe sepsis with septic shock; J96.01 Acute respiratory failure with hypoxia; J15.5 Pneumonia due to Escherichia coli; J44.0 Chronic obstructive pulmonary disease with (acute) lower respiratory infection; Q89.01 Asplenia (congenital); E87.1 Hypo-osmolality and hyponatremia; E87.2 Acidosis; E46 Unspecified protein-calorie malnutrition; I42.9 Cardiomyopathy, unspecified; Z68.1 Body mass index [BMI] 19.9 or less, adult; N39.0 Urinary tract infection, site not specified; J44.1 Chronic obstructive pulmonary disease with (acute) exacerbation; I50.32 Chronic diastolic (congestive) heart failure; Z16.39 Resistance to other specified antimicrobial drug; B18.2 Chronic viral hepatitis C; F03.90 Unspecified dementia, unspecified severity, without behavioral disturbance, psychotic disturbance, mood disturbance, and anxiety; I11.0 Hypertensive heart disease with heart failure; E11.649 Type 2 diabetes mellitus with hypoglycemia without coma; M19.90 Unspecified osteoarthritis, unspecified site; K21.9 Gastro-esophageal reflux disease without esophagitis; N40.0 Benign prostatic hyperplasia without lower urinary tract symptoms; F31.9 Bipolar disorder, unspecified; F41.9 Anxiety disorder, unspecified; F17.210 Nicotine dependence, cigarettes, uncomplicated; D53.9 Nutritional anemia, unspecified; E78.5 Hyperlipidemia, unspecified; E11.42 Type 2 diabetes mellitus with diabetic polyneuropathy; G47.30 Sleep apnea, unspecified; D63.8 Anemia in other chronic diseases classified elsewhere; Y95 Nosocomial condition; Z51.5 Encounter for palliative care; E87.8 Other disorders of electrolyte and fluid balance, not elsewhere classified; E87.6 Hypokalemia; R13.10 Dysphagia, unspecified; S32.511D Fracture of superior rim of right pubis, subsequent encounter for fracture with routine healing; Z86.73 Personal history of transient ischemic attack (TIA), and cerebral infarction without residual deficits; Z72.89 Other problems related to lifestyle; Z85.819 Personal history of malignant neoplasm of unspecified site of lip, oral cavity, and pharynx; Z88.8 Allergy status to other drugs, medicaments and biological substances; Z79.82 Long term (current) use of aspirin; Z79.84 Long term (current) use of oral hypoglycemic drugs; Z79.899 Other long term (current) drug therapy
CPT/HCPCS: 31500; 36415; 36416; 36430; 36556; 51702; 70450; 71045; 74230; 80048; 80053; 80202; 81003; 82533; 82805; 83605; 83735; 83880; 84100; 84145; 84484; 85007; 85025; 85027; 86140; 86850; 86900; 86901; 87040; 87070; 87077; 87086; 87186; 87205; 87449; 87804; 87899; 93005; 94002; 94003; 94640; 96360; 96361; 96365; 96366; 96368; 99292; C9113; J0153; J0171; J1265; J1650; J1815; J1940; J1956; J2060; J2185; J2270; J2543; J2704; J2765; J2920; J3010; J3370; J3475; J3480; J3490; J7512; J7620; P9016

== ENCOUNTER 2019-04-12 13:40 | Outpatient (CLI) | payer MEDICARE ==
--- NOTE | 2019-04-12 15:23 | RAD ---
CHEST 2 VIEWS: HISTORY: Dyspnea. COMPARISON: Chest radiograph 03/02/2019. FINDINGS: Lungs are mildly hyperinflated suggesting obstructive pulmonary disease. The previously noted opacit ies throughout the lungs are improved. No pneumothorax. Mild biapical pleural scarring. Mild ectasia of the distal thoracic aorta. Bones are demineralized. There is exaggerated thoracic k yphosis. There are multiple old left-sided rib fractures. IMPRESSION: No acute intrathoracic abnormality. Evidence of pulmonary obstructive disease. POS: CET
== END 2019-04-12 13:41 | disposition home or self-care (01) ==
LOC: RAD 13:40
PROVIDERS: ATTEND Internal Medicine Critical Care Medicine
DX: R06.00 Dyspnea, unspecified (principal); J98.4 Other disorders of lung
CPT/HCPCS: 71046

== ENCOUNTER 2019-07-10 06:25 | Inpatient (IN) | payer MEDICARE ==
[2019-07-10 06:52] LABS: Hemoglobin 11.1 g/dL (14.0-18.0); Mean Corpuscular HGB CONC 33.3 g/dL (32.0-36.0); Mean Corpuscular Hemoglobin 31.8 pg (27.0-31.0); Mean Corpuscular Volume 95.6 fL (78.0-98.0); Mean Platelet Volume 8.6 fL (7.4-10.4); Platelet Count 332 thou/uL (130-400); RBC Distribution Width 15.1 % (11.5-14.5)
[2019-07-10 07:07] LABS: ALT (SGPT) 32 U/L (8-55); AST (SGOT) 39 U/L (5-34); Albumin 2.3 g/dL (3.4-4.8); Alcohol 150 mg/dL (Less than 10); Alkaline Phosphatase 241 U/L (40-110); Anion Gap 17 mmol/L (10-20); BUN (Urea Nitrogen) 4 mg/dL (8.4-25.7); Bilirubin, Total 0.2 mg/dL (0.2-1.2); CK (CPK) 46 U/L (30-200); Calc. Creatinine Clearance 0 mL/min (70-130); Calcium 7.8 mg/dL (7.8-10.44); Carbon Dioxide 16 mmol/L (23-31); Chloride 97 mmol/L (98-107); Estimated GFR-MDRD 82; Globulin 2.7 g/dL (2.4-3.5); Magnesium 1.5 mg/dL (1.6-2.6); Potassium 4.1 mmol/L (3.5-5.1); Sodium 126 mmol/L (136-145)
[2019-07-10 07:09] LABS: Bilirubin Negative (Negative); Blood, Urine Negative (Negative); Clarity Clear (Clear); Glucose, Urine (Dipstick) Greater than 1000 mg/dL (Negative); Leukocyte Negative Leu/uL (Negative); Nitrite Negative (Negative); Protein, Urine (Dipstick) Negative (Neg-Trace); Urobilinogen Normal mg/dL (Less than 2)
[2019-07-10 07:10] LABS: Glucose 553 mg/dL (80-115)
[2019-07-10 07:12] LABS: Burr Cells SLIGHT = 2-5 cells (100X) (0-1/hpf); Lymphocytes 30 % (21-51); MDiff Complete? YES; Monocytes 9 % (0-10); Neutrophil 61 % (42-75); Platelet Morphology Comment Appears Adequate; Polychromasia SLIGHT = 2-3 cells (100X) (0-2/hpf); Target Cells SLIGHT = 2-5 cells (100X) (0-1/hpf)
--- NOTE | 2019-07-10 07:18 | CT ---
CT OF THE BRAIN WITHOUT CONTRAST: Date: 07/10/2019 INDICATION: History of fall and head injury. COMPARISON: Prior exam dated 03/02/2019. CT brain dated 01/16/2013. FINDINGS: No acute infarct, hemorrhage, or hydrocephalus is present. There is generalized cerebral and cerebell ar atrophy. The prominent soft tissue deformity involving the right maxilla and right aspect of the m axilla is stable appearing. The paranasal sinuses are otherwise clear. Mastoid air cells are clear. S kull is intact. IMPRESSION: No acute intracranial abnormality. POS: YOSSI
--- NOTE | 2019-07-10 07:19 | RAD ---
CHEST 1 VIEW: Date: 07/10/2019 INDICATION: History of fall with chest pain. COMPARISON: Prior study dated 03/02/2019. FINDINGS: Emphysematous change is stable. No acute air space opacity or pleural effusion is evident. Heart size is normal appearing. There is stable healed fracture deformity involving the left chest wall. No pne umothorax is evident. IMPRESSION: No acute cardiopulmonary abnormality. POS: BH
--- NOTE | 2019-07-10 07:21 | CT ---
CT CERVICAL SPINE WITHOUT CONTRAST: Date: 07/10/2019 INDICATION: Fall with possible neck injury. COMPARISON: Prior exam dated 03/02/2019. FINDINGS: Advanced disc degenerative disease seen at C5-6 and C6-7 is stable. Anterior translation of C5 on C6 and C4 on C5 is similar appearing. Multilevel facet osteoarthritic change is present. There is diffus e osteopenia. There is ankylosis of the C2-C3 facet complexes. Craniocervical junction appears within normal limits. There is emphysematous change involving the lung apices. There are scattered vascular calcifications involving the neck vasculature. IMPRESSION: 1. No acute fracture or subluxation demonstrated. 2. Stable moderate to severe cervical spondylosis. POS: BH
[2019-07-10] MEDS ORDERED: Sodium Chloride 0.9% 1,000 ML IV SCH (07:30)
[2019-07-10] MEDS ORDERED: Insulin Regular 300 UNITS/3 ML VIAL ONE (08:01)
[2019-07-10] MEDS ORDERED: Acetaminophen 650 MG Suppository PR PRN (08:03)
[2019-07-10] MEDS ORDERED: Ondansetron PF 4 MG/2 ML Vial IVP PRN (08:03)
[2019-07-10] MEDS ORDERED: Multivitamins, Adult 10 ML, Thiamine HCl 100 MG, Folic Acid 1 MG in Dextrose 5 %-0.45 %... IV SCH (09:00)
[2019-07-10] MEDS: Acetaminophen/Codeine 30-300mg Tablet PO PRN ×3 (11:08→23:40)
[2019-07-10] MEDS: NS 0.9% w/ 20 MEQ KCL 1,000 ML/1,000 ML BAG IV SCH ×2 (11:10→23:37)
[2019-07-10] MEDS: Famotidine 20 MG TAB PO SCH ×2 (11:11→20:31)
[2019-07-10] MEDS ORDERED: HumaLOG 300 UNITS/3 ML VIAL SC PRN (12:19)
[2019-07-10] MEDS ORDERED: Dextrose 5% in Water 1,000 ML IV PRN (12:19)
[2019-07-10] MEDS ORDERED: Dextrose 50% Abboject 50 ML SYRINGE SLOW IVP PRN (12:19)
[2019-07-10] MEDS ORDERED: hydrALAZINE 20 MG/ML VIAL SLOW IVP PRN (12:20)
[2019-07-10] MEDS ORDERED: Lorazepam 2 MG/ML VIAL SLOW IVP PRN (12:20)
[2019-07-10] MEDS ORDERED: Insulin Regular 300 UNITS/3 ML VIAL SC SCH (12:45)
[2019-07-10] MEDS ORDERED: Magnesium 2 GM/50 ML 2 GM in Premix Bag 1 BAG IVPB PRN (12:47)
--- NOTE | 2019-07-10 13:02 | HP ---
CHIEF COMPLAINT: Fall. HISTORY OF PRESENT ILLNESS: This is a 69-year-old male found by his to be lying on the floor. He also had a fall from standing height. It appears that he had heavy drink, even though he takes only two bottles of wine. He had abrasion on his back. He was brought in by EMS. Initial evaluation with CT head as well as CT cervical spine was negative for any abnormality. The patient is admitted for further management. During my exam, the patient is very distressed and wants only pain medication at this time. He is not able to provide me any information except stating that his drink was last night and he is diabetic. He does smoke daily. REVIEW OF SYSTEMS: A 13-point complete review of system is not obtainable accurately from the patient. PAST MEDICAL HISTORY: 1. History of congestive heart failure. 2. Hepatitis C. 3. Alcohol-induced dementia. 4. History of TIA with right residual deficits. 5. Type 2 diabetes mellitus. 6. Hypertension. 7. Chronic back pain. 8. Osteoarthritis. 9. Degenerative spine disease. 10. COPD. 11. GERD. 12. BPH. MEDICATIONS: 1. Risperdal 1 mg at bedtime. 2. Prednisone 10 mg. 3. Metformin 1000 mg twice a day. 4. Wellbutrin 75 mg daily. 5. Thiamine 100 mg daily. 6. Flomax 0.4 mg daily. 7. Senokot one tablet as needed. 8. MiraLAX 17 g daily. 9. Lantus 10 units subcu in the morning. 10. Gabapentin 300 mg three times a day. 11. Vitamin B12 5000 mg subcu daily. 12. Calcium supplement. 13. Lipitor 40 mg at bedtime. 14. Aspirin 81 mg daily. 15. Vitamin C. SOCIAL HISTORY: The patient smokes daily and drinks at least two bottles of wine of unknown quantity. He lives with his . FAMILY HISTORY: Not obtainable. PHYSICAL EXAMINATION: VITAL SIGNS: Temperature 97.6, pulse 104, blood pressure is 113/71. GENERAL: The patient is quite disheveled and distress-looking. Alert and oriented x3 at this time. HEENT: Pupils are equal, round, and reactive to light. Anicteric. Mucous membranes moist. He did not have any significant asterixis during my exam. CARDIOVASCULAR: Tachycardic with regular rhythm. No murmurs, rubs, or gallops. LUNGS: Clear to auscultation bilaterally without wheezing, rales, or rhonchi. ABDOMEN: Soft, nontender, nondistended. Good bowel sounds. EXTREMITIES: Without any pitting edema. LABORATORY DATA: His CBC is in the normal range. His BMP showed sodium of 126, potassium 4.1, chloride is 97, bicarb 16. His BUN is 4, creatinine 0.92, blood glucose is 553. Calcium 7.8. His magnesium is 1.5. His alkaline phosphatase is 241. TSH is in the normal range. His blood alcohol level is 150. IMPRESSION AND PLAN: This is a 69-year-old male with a history of chronic alcohol and tobacco abuse as well as chronic back pain, presenting with fall and alcohol intoxication. 1. Fall. Fortunately, the patient did not have any musculoskeletal abnormality. The patient is admitted for further care and make sure he is not undergoing any acute withdrawal. We will continue with banana bag for 3 days in addition to folate and thiamine supplement. Provide nicotine patch. He states that he takes Tylenol 3. We will continue as needed for his chronic back pain. 2. Hyponatremia. It is probably due to chronic alcohol use. Hopefully, it will improve with banana bag as well as better p.o. intake. Monitor for now. 3. Metabolic acidosis. it is probably secondary to starvation ketoacidosis and hyperglycemia as his beta-hydroxybutyrate is also 0.13. [DKA cannot be ruled out]. 4. Hypomagnesemia. 5. Transaminitis, AST being high reflective of chronic alcohol use. 6. Hyperglycemia with underlying history of type 2 diabetes mellitus. Continue his home regimen of Lantus 10 units along with sliding scale and diabetic diet. He likely has a combination of diabetic ketoacidosis as well as starvation ketoacidosis. We will continue with IV fluid hydration, replacing electrolytes, and follow the clinical course. 7. Glucosuria. 8. Yosvany comer Job ID: [id number] [facility]
[2019-07-10] MEDS: Acetaminophen 325 MG TAB PO SCH ×2 (13:36→17:52)
[2019-07-10] MEDS: Nicotine 14 MG PATCH TD SCH (14:01)
[2019-07-10] MEDS: Gabapentin 300 MG CAP PO SCH ×2 (16:33→20:31)
[2019-07-10] MEDS: metFORMIN 500 MG TAB PO SCH (16:33)
[2019-07-10 16:41] VITALS: BMI 15.3
[2019-07-10] MEDS ORDERED: Acetaminophen 325 MG TAB PO PRN (17:28)
[2019-07-10] MEDS: Atorvastatin Calcium 40 MG TAB PO SCH (20:31)
[2019-07-10] MEDS: risperiDONE 1 MG TAB PO SCH (20:31)
[2019-07-10] MEDS ORDERED: Non-Formulary Item 1 EACH (Metformin Hcl [Metformin Hcl] 1,000 MG) PO SCH (21:00)
[2019-07-11] MEDS: Acetaminophen/Codeine 30-300mg Tablet PO PRN ×3 (08:34→20:34)
[2019-07-11] MEDS: Thiamine 100 MG TAB PO SCH (08:34)
[2019-07-11] MEDS: Tamsulosin HCl 0.4 MG CAP PO SCH (08:34)
[2019-07-11] MEDS: Gabapentin 300 MG CAP PO SCH ×3 (08:34→20:34)
[2019-07-11] MEDS: metFORMIN 500 MG TAB PO SCH ×2 (08:34→16:33)
[2019-07-11] MEDS: Citrucel 500 MG TAB PO SCH (08:35)
[2019-07-11] MEDS: buPROPion 75 MG TAB PO SCH (08:35)
[2019-07-11] MEDS: Insulin Glargine 10 UNITS in Pre-Filled Syringe 1 EACH SC SCH (08:35)
[2019-07-11] MEDS: Famotidine 20 MG TAB PO SCH ×2 (08:35→20:34)
[2019-07-11] MEDS: Calcium Carbonate 600 MG + Vit D TAB PO SCH (08:35)
[2019-07-11] MEDS: Folic Acid 1 MG TAB PO SCH (08:35)
[2019-07-11] MEDS: Ascorbic Acid 500 mg Chewable Tablet PO SCH (08:35)
[2019-07-11] MEDS: Aspirin 81 mg Enteric Coated Tablet PO SCH (08:35)
[2019-07-11] MEDS: Polyethylene Glycol 3350 17 GM Packet PER TUBE SCH (08:36)
[2019-07-11] MEDS ORDERED: Non-Formulary Item 1 EACH (Ascorbic Acid [Vitamin C] 500 MG) PO SCH (09:00)
[2019-07-11] MEDS ORDERED: Non-Formulary Item 1 EACH (Calcium Carbonate/Vitamin D3 [Calcium 600-Vit D3 200 Tablet] 1 PO SCH (09:00)
[2019-07-11 10:14] LABS: Anion Gap 11 mmol/L (10-20); BUN (Urea Nitrogen) 5 mg/dL (8.4-25.7); Calc. Creatinine Clearance 77 mL/min (70-130); Calcium 7.3 mg/dL (7.8-10.44); Carbon Dioxide 20 mmol/L (23-31); Chloride 104 mmol/L (98-107); Estimated GFR-MDRD Greater than 90; Glucose 315 mg/dL (80-115); Magnesium 1.4 mg/dL (1.6-2.6); Potassium 4.8 mmol/L (3.5-5.1); Sodium 130 mmol/L (136-145)
[2019-07-11] MEDS ORDERED: Magnesium 2 GM/50 ML 2 GM in Premix Bag 1 BAG IVPB SCH ×2 (11:30→14:30)
[2019-07-11] MEDS: Nicotine 14 MG PATCH TD SCH (12:38)
[2019-07-11] MEDS: NS 0.9% w/ 20 MEQ KCL 1,000 ML/1,000 ML BAG IV SCH (12:40)
--- NOTE | 2019-07-11 13:43 | EKG ---
Test Reason : Blood Pressure : / mmHG Vent. Rate : 103 BPM Atrial Rate : 103 BPM P-R Int : 150 ms QRS Dur : 108 ms QT Int : 360 ms P-R-T Axes : 059 -69 036 degrees QTc Int : 471 ms Sinus tachycardia Left axis deviation Low voltage QRS Inferior-posterior infarct , age undetermined Anterolateral infarct , age undetermined Abnormal ECG Confirmed by SHAREE YIP ([id number]), editor in chief MAYELA PULIDO ([id number]) on 07/11/2019 1:43:11 PM Referred By: Confirmed By:SHAREE YIP
--- NOTE | 2019-07-11 14:25 | PDOC.HOSPP ---
- Subjective Encounter Date: 07/11/19 Encounter Time: 10:45 Subjective: he is resting, still c/o pain, on tylenol 3. Na is slightly better, mag down. no sn of alc wdl. - Objective Vital Signs & Weight: Vital Signs (12 hours) Temp Pulse Resp BP Pulse Ox 07/11/19 11:51 97.7 F 77 18 118/82 98 07/11/19 08:00 98 07/11/19 07:39 97.6 F 72 17 125/81 98 07/11/19 03:32 97.5 F L 70 16 147/89 H 97 Weight Admit Weight 116 lb 8 oz Weight 116 lb 8 oz I&O: 07/10/19 07/11/19 07/12/19 06:59 06:59 06:59 Intake Total 2175 Output Total 1050 Balance 1125 Result Diagrams: 07/10/19 06:37 07/11/19 09:39 Additional Labs: Accuchecks 07/11/19 07/11/19 07/11/19 11:54 06:24 05:21 POC Glucose 240 H 149 H 61 L 07/10/19 07/10/19 19:24 16:34 POC Glucose 130 H 221 H Hospitalist ROS - Medication Medications: Active Medications Generic Name Dose Route Start Last Admin Trade Name Freq PRN Reason Stop Dose Admin Acetaminophen 650 mg 07/10/19 17:28 07/10/19 23:36 Tylenol PO 650 mg Q4H PRN Administration Headache/Fever or Pain Acetaminophen/Codeine Phosphate 1 tab 07/10/19 10:49 07/11/19 14:13 Tylenol #3 PO 1 tab Q6H PRN Administration Pain Ascorbic Acid 500 mg 07/11/19 09:00 07/11/19 08:35 Vitamin C PO 500 mg DAILY ALBERTO Administration Aspirin 81 mg 07/11/19 09:00 07/11/19 08:35 Ecotrin PO 81 mg DAILY ALBERTO Administration Atorvastatin Calcium 40 mg 07/10/19 21:00 07/10/19 20:31 Lipitor PO 40 mg HS ALBERTO Administration Bupropion HCl 75 mg 07/11/19 09:00 07/11/19 08:35 Wellbutrin PO 75 mg DAILY ALBERTO Administration Calcium/Vitamin D 1 tab 07/11/19 09:00 07/11/19 08:35 Caltrate 600 + Vit D PO 1 tab DAILY ALBERTO Administration Famotidine 20 mg 07/10/19 09:00 07/11/19 08:35 Pepcid PO 20 mg BID ALBERTO Administration Folic Acid 1 mg 07/11/19 09:00 07/11/19 08:35 Folvite PO 1 mg DAILY ALBERTO Administration Gabapentin 300 mg 07/10/19 15:00 07/11/19 14:13 Neurontin PO 300 mg TID ALBERTO Administration Potassium Chloride/Sodium Chloride 1,000 ml in 1,000 mls @ 75 mls/hr 07/10/19 09:15 07/11/19 12:40 Ns 0.9% W/ 20 Meq Kcl IV 1,000 mls .[id number] ALBERTO Administration Insulin Glargine 10 units/ 0.1 mls @ 0 mls/hr 07/11/19 09:00 07/11/19 08:35 Miscellaneous Medication SC 0.1 mls QAM ALBERTO Administration Insulin Human Lispro 0 units 07/10/19 12:19 07/11/19 12:43 Humalog SC 3 unit .MILD SLIDING SCALE PRN Administration Mild Correctional Scale Metformin HCl 1,000 mg 07/10/19 17:00 07/11/19 08:34 Glucophage PO 1,000 mg BID-WM ALBERTO Administration Methylcellulose 500 mg 07/11/19 09:00 07/11/19 08:35 Citrucel PO 500 mg DAILY ALBERTO Administration Nicotine 14 mg 07/10/19 13:00 07/11/19 12:38 Nicoderm Patch TD 14 mg Q24HR ALBERTO Administration Polyethylene Glycol 17 gm 07/11/19 09:00 07/11/19 08:36 Miralax PER TUBE Not Given DAILY [facility] Risperidone 1 mg 07/10/19 21:00 07/10/19 20:31 Risperidone PO 1 mg HS ALBERTO Administration Sodium Chloride 10 ml 07/10/19 09:00 07/11/19 08:36 Flush - Normal Saline IVF Not Given Q12HR [facility] Tamsulosin HCl 0.4 mg 07/11/19 09:00 07/11/19 08:34 Flomax PO 0.4 mg DAILY ALBERTO Administration Thiamine HCl 100 mg 07/11/19 09:00 07/11/19 08:34 Thiamine PO 100 mg DAILY ALBERTO Administration - Exam General Appearance: ill appearing Eye: PERRL ENT: normocephalic atraumatic Neck: supple Heart: RRR Respiratory: CTAB, normal chest expansion Gastrointestinal: soft, normal bowel sounds Hosp A/P - Plan alcohol intoxication -- supportive measures - banana bag, folate and thiamine - no sn of wdl - vitals stable, mentation clear Hyponatremia -d/t chr..alc..use Na is slightly better, mag down. no sn of alc wdl. hypomagnesemia -as above PT consult, mobilze dc in 1 to 2 days.
[2019-07-11] MEDS: Atorvastatin Calcium 40 MG TAB PO SCH (20:33)
[2019-07-11] MEDS: risperiDONE 1 MG TAB PO SCH (20:34)
[2019-07-12] MEDS: Acetaminophen/Codeine 30-300mg Tablet PO PRN ×2 (01:19→11:16)
[2019-07-12] MEDS: NS 0.9% w/ 20 MEQ KCL 1,000 ML/1,000 ML BAG IV SCH ×2 (01:20→14:19)
[2019-07-12 07:15] LABS: Anion Gap 7 mmol/L (10-20); BUN (Urea Nitrogen) 7 mg/dL (8.4-25.7); Calc. Creatinine Clearance 84 mL/min (70-130); Calcium 7.4 mg/dL (7.8-10.44); Carbon Dioxide 24 mmol/L (23-31); Chloride 107 mmol/L (98-107); Estimated GFR-MDRD Greater than 90; Glucose 87 mg/dL (80-115); Magnesium 1.7 mg/dL (1.6-2.6); Potassium 4.4 mmol/L (3.5-5.1); Sodium 134 mmol/L (136-145)
[2019-07-12] MEDS ORDERED: Magnesium 2 GM/50 ML 2 GM in Premix Bag 1 BAG IVPB SCH (09:15)
[2019-07-12] MEDS: Famotidine 20 MG TAB PO SCH (09:23)
[2019-07-12] MEDS: buPROPion 75 MG TAB PO SCH (09:23)
[2019-07-12] MEDS: Folic Acid 1 MG TAB PO SCH (09:23)
[2019-07-12] MEDS: metFORMIN 500 MG TAB PO SCH (09:23)
[2019-07-12] MEDS: Ascorbic Acid 500 mg Chewable Tablet PO SCH (09:23)
[2019-07-12] MEDS: Tamsulosin HCl 0.4 MG CAP PO SCH (09:24)
[2019-07-12] MEDS: Calcium Carbonate 600 MG + Vit D TAB PO SCH (09:24)
[2019-07-12] MEDS: Polyethylene Glycol 3350 17 GM Packet PER TUBE SCH (09:24)
[2019-07-12] MEDS: Gabapentin 300 MG CAP PO SCH ×2 (09:24→15:27)
[2019-07-12] MEDS: Insulin Glargine 10 UNITS in Pre-Filled Syringe 1 EACH SC SCH (09:24)
[2019-07-12] MEDS: Thiamine 100 MG TAB PO SCH (09:24)
[2019-07-12] MEDS: Aspirin 81 mg Enteric Coated Tablet PO SCH (09:24)
[2019-07-12 09:39] LABS: Phosphorus 3.1 mg/dL (2.3-4.7)
[2019-07-12] MEDS: Citrucel 500 MG TAB PO SCH (11:18)
[2019-07-12] MEDS: Nicotine 14 MG PATCH TD SCH (12:59)
--- NOTE | 2019-07-12 15:24 | PQF ---
KIKE YOUNG,CARLOS BAIRD MD [id number] CLINICAL DOCUMENTATION IMPROVEMENT CLARIFICATION FORM: ICD-10 Updated PLEASE DO AN ADDENDUM TO THE PROGRESS NOTE WITH ANY DOCUMENTATION UPDATES OR ADDITIONS AND CARRY THROUGH TO DC SUMMARY. THANK YOU. Date: 07/12/2019 ATTN: Dr. Jackman Please exercise your independent, professional judgment in responding to the clarification form. Clinical indicators are provided on the bottom of this form for your review Please check appropriate box(s): [ ] Protein Calorie Malnutrition: [ ] Mild [ ] Moderate [ x ] Severe [ ] Other Malnutrition (please specify) __ [ ] Underweight without malnutrition [ ] Cachexia [ ] Other diagnosis [ ] Unable to determine In addition, please specify: Present on Admission (POA): [x ] Yes [ ] No [ ] Unable to determine CLINICAL INDICATORS - SIGNS / SYMPTOMS / LABS / RESULTS AND LOCATION IN MR * BMI (EMR) 15.4 * PN 07/10 ([facility] Ill appearing ... hyponatremia ... hypomagnesemia * Food and Nutrition Services Assessment 07/10: * States he has lost a lot of weight however unable to state how much he used to weigh or what his UBW is. * - 13.4% weight loss over the past 5 months, muscle wasting to clavicles, shoulders and temples, suggestive of severe malnutrition in the context of chronic illness. RISK FACTORS / RESULTS AND LOCATION IN MR * H&P 07/09 ([facility]): * Past Medical History: ... Hep C ... alcohol-induced dementia ... type 2 DM * Chronic alcohol abuse TREATMENT / RESULTS AND LOCATION IN MR * ER: Banana Bag IV * Food and Nutrition Services Assessment 07/10 * Order (EMR): Diet: Consistent Carb (1800), Supplement: Glucerna Shake Frequency TID Thank you, Marie (This form is maintained as a part of the permanent medical record) 2014 [employer]. All Rights Reserved Marie Moore RN, CDS [email or web address] cell phone: Moderate Malnutrition (in acute illness) Energy Intake: <75% of estimated energy requirement for > 7 days Weight Loss: 1-2%/1 week; 5%/ 1 month; 7.5%/3 months Other: mild body fat loss; mild muscle mass loss; mild fluid accumulation; Severe Malnutrition (in acute illness) Energy Intake: < 50% of estimated energy requirement for > 5 days Weight Loss: >1-2%/1 week; >5%/1 month; >7.5%/3 months Other: moderate body fat loss; moderate muscle mass loss; moderate- severe fluid accumulation; measurably reduced razor grinder strength Moderate Malnutrition (in chronic illness) [employer] Winform ViewerEnergy Intake: <75% of estimated energy requirement for >1 month Weight Loss: 5%/1 month; 7.5%/3 months; 10%/6 months; 20%/1 year Other: mild body fat loss; mild muscle mass loss; mild fluid accumulation Severe Malnutrition (in chronic illness) Energy Intake: <75% of estimated energy requirement for >1 month Weight Loss: >5%/1 month; >7.5%/3 months; >10%/6 months; >20%/1 year Other: severe body fat loss; severe muscle mass loss; severe fluid accumulation ; measurably reduced razor grinder strength [facility]
[2019-07-12 20:03] VITALS: BP 126/82; TEMP 97.9
--- NOTE | 2019-07-13 08:14 | DIS ---
DATE OF ADMISSION: 07/10/2019 DATE OF DISCHARGE: 07/12/2019 DISCHARGE DISPOSITION: Home. DISCHARGE INSTRUCTIONS: 1. Follow up with primary care physician, Dr. Kiko Coburn in 3 to 4 days. 2. Fall precaution was emphasized. Home health care has been arranged. Please note that the patient declined inpatient rehab or alf facility. DISCHARGE MEDICATIONS: Same as admission medications. The patient was advised to take thiamine, folic acid, and multivitamin. DIAGNOSTIC TESTS: 1. Magnesium 1.4, replaced. 2. Blood sugar on admission was 553. 3. Sodium 126 on admission and 134 at discharge. 4. Plasma alcohol on admission was 150. 5. Ketones were negative. 6. Hemoglobin 11.1. 7. CT scan of the brain was negative for acute findings. Cervical spine CT was negative for acute fractures or dislocation. 8. Chest x-ray was negative for infiltrate. BRIEF HOSPITAL COURSE: The patient is a 69-year-old male with multiple comorbidities, presented to the hospital after an episode of fall. The patient's told EMS that he had two bottles of wine on the day of fall. She found him lying on the floor in the kitchen. The patient reported that he just laid down on the floor and did not fall. Please refer to the history and physical for further details. The patient was admitted to the hospital with a diagnosis of alcohol intoxication. He was monitored closely. He underwent workup as discussed above. He was found to have abnormal labs as discussed above. He was advised to monitor his blood sugar on the daily basis and to maintain a log. He received IV multivitamin, which has been transitioned to oral. Lifestyle modification including tobacco and alcohol cessation was emphasized. He was also advised to follow up with outpatient alcohol resources like Alcoholics Anonymous. FINAL DIAGNOSES: 1. Toxic metabolic encephalopathy secondary to alcohol intoxication. 2. Fall secondary to #1. 3. Hyponatremia, improved. 4. Hyperglycemia. 5. Hypomagnesemia. 6. Abnormal LFTs secondary to chronic alcohol abuse. 7. Severe protein-calorie malnutrition. 8. Diabetes mellitus, type 2. 9. History of transient ischemic attack. 10. Cognitive deficits. 11. Chronic obstructive pulmonary disease. 12. Gastroesophageal reflux disease. 13. The patient was extensively counseled on lifestyle modification. 24-hour supervision was recommended. Job ID: [id number]
[2019-07-13] MEDS ORDERED: Multivit, Therapeutic 1 TAB PO SCH (09:00)
== END 2019-07-12 15:40 | disposition home health service (06) | DRG 896 ==
LOC: ERS 06:25 → T4-B 09:49
PROVIDERS: ADMIT Internal Medicine; ATTEND Internal Medicine
PROC: HZ2ZZZZ Detoxification Services for Substance Abuse Treatment (ICD-10-PCS; principal; 2019-07-12)
DX: F10.129 Alcohol abuse with intoxication, unspecified (principal); E43 Unspecified severe protein-calorie malnutrition; G92 Toxic encephalopathy; E87.1 Hypo-osmolality and hyponatremia; E87.2 Acidosis; Z68.1 Body mass index [BMI] 19.9 or less, adult; G89.29 Other chronic pain; M54.9 Dorsalgia, unspecified; R74.0 Nonspecific elevation of levels of transaminase and lactic acid dehydrogenase [LDH]; E11.65 Type 2 diabetes mellitus with hyperglycemia; E83.42 Hypomagnesemia; I10 Essential (primary) hypertension; M19.90 Unspecified osteoarthritis, unspecified site; J44.9 Chronic obstructive pulmonary disease, unspecified; K21.9 Gastro-esophageal reflux disease without esophagitis; F17.200 Nicotine dependence, unspecified, uncomplicated; N40.0 Benign prostatic hyperplasia without lower urinary tract symptoms; R79.89 Other specified abnormal findings of blood chemistry; R41.89 Other symptoms and signs involving cognitive functions and awareness; Z86.73 Personal history of transient ischemic attack (TIA), and cerebral infarction without residual deficits; Z86.19 Personal history of other infectious and parasitic diseases; Z79.82 Long term (current) use of aspirin; Z79.4 Long term (current) use of insulin; Z71.41 Alcohol abuse counseling and surveillance of alcoholic
CPT/HCPCS: 36415; 36416; 70450; 71045; 72125; 80048; 80053; 80307; 81003; 82010; 82550; 83735; 84100; 84443; 84484; 85025; 93005; 96361; 96365; 96375; J1815; J3411; J3475; J3480; J7042